=== PATIENT | female | born 1945 | race Caucasian/White ===

== ENCOUNTER → 2020-07-06 12:43 | Outpatient (BNVA) | payer MEDICARE, SELFPAY | PROVIDERS: Visit Provider Dietitian, Registered | DX: Z76.89 Persons encountering health services in other specified circumstances (principal) ==

== ENCOUNTER 2020-07-16 09:43 | Outpatient (REF) | payer MEDICARE, SELFPAY ==
[2020-07-16 10:49] LABS: MANUAL DIFF FLAG NO
[2020-07-16 10:56] LABS: Basophils Percent Auto 0.4 % (0-2); Eosinophils Absolute Auto 0.1 X10*3/uL (0.0-0.4); Hematocrit 43.9 % (37-47); Hemoglobin 14.6 g/dl (12.0-16.0); Imm Gran Abs Auto 0.02 X10*3/uL (0.00-0.03); Imm Gran Pct Auto 0.4 % (0.0-0.4); Lymphocytes Absolute Auto 1.1 X10*3/uL (1.2-4.9); Lymphocytes Percent Auto 21.6 % (20-40); Mean Corpuscular HGB Conc 33.3 g/dl (31.0-35.0); Mean Corpuscular Hemoglobin 30.3 pg (27.0-33.0); Mean Corpuscular Volume 91.1 fL (80-98); Mean Platelet Volume 11.5 fL (9.4-12.3); Monocytes Absolute Auto 0.2 X10*3/uL (0.1-1.2); Monocytes Percent Auto 4.5 % (2-11); Neutrophils Absolute Auto 3.7 X10*3/uL (2.0-8.3); Neutrophils Percent Auto 72.1 % (45-73); Platelet Count 229 X10*3/uL (160-400); Red Blood Count 4.82 X10*6/uL (4.20-5.50); White Blood Count 5.1 X10*3/uL (4.8-10.8)
[2020-07-16 11:10] LABS: Alanine Aminotransferase 20 U/L (0-31); Albumin Level 4.5 g/dL (3.5-5.0); Alkaline Phosphatase 98 U/L (39-117); Anion Gap 14 (12-20); Aspartate Amino Transferase 20 U/L (5-31); Bilirubin Total 0.7 mg/dL (0.0-1.0); Blood Urea Nitrogen 29 mg/dL (9-16); C Reactive Protein 0.05 mg/dL (< or = 0.50); Calcium 9.9 mg/dL (8.4-10.2); Carbon Dioxide 32 mmol/L (22-29); Chloride 101 mmol/L (96-108); Cholesterol 180 mg/dL; Estimated Glomerular Filt Rate 54; Glucose Fasting 147 mg/dL (60-99); HDL Cholesterol 68 mg/dL; Iron 102 mcg/dL (30-160); LDL Cholesterol Calculated 93 mg/dl; Percent Iron Saturation 30 % (15-50); Potassium 4.7 mmol/l (3.3-5.1); Sodium 142 mmol/L (135-145); Total Iron Binding Capacity 337 mcg/dL (228-428); Total Protein 6.9 g/dL (6.5-8.0); Triglycerides 99 mg/dL; Unsaturated Iron Binding 235 ug/dL
[2020-07-16 11:32] LABS: Ferritin 50 ng/mL (10-250); TSH reflex Free T4 0.54 mIU/mL (0.32-4.0)
[2020-07-16 11:45] LABS: Vitamin B12 706 pg/mL (200-900)
[2020-07-16 12:17] LABS: Estimated Average Glucose 169 mg/dL; Hemoglobin A1c % 7.5 %
[2020-07-17 07:16] LABS: Insulin Level Total 7.9 uIU/mL
[2020-07-19 13:12] LABS: Calcium (PTHI) 10.3 mg/dL (8.6-10.4); PTHI 50 pg/mL (14-64)
[2020-07-19 14:22] LABS: Zinc 77 mcg/dL (60-130)
[2020-07-22 12:01] LABS: Vitamin B1 20 nmol/L (8-30)
[2020-07-22 19:41] LABS: Vitamin A 76 mcg/dL (38-98)
== END 2020-07-16 09:44 | disposition home or self-care (01) ==
LOC: HO.LAB 09:43
PROVIDERS: PCP Internal Medicine; Visit Provider Physician Assistant
DX: E66.01 Morbid (severe) obesity due to excess calories (principal); K90.49 Malabsorption due to intolerance, not elsewhere classified; Z98.84 Bariatric surgery status
CPT/HCPCS: 36415; 80053; 80061; 82306; 82607; 82728; 82746; 83036; 83525; 83540; 83970; 84425; 84443; 84590; 84630; 85025; 86140

== ENCOUNTER → 2020-08-06 08:22 | Outpatient (BNVA) | payer MEDICARE, SELFPAY | PROVIDERS: Visit Provider Dietitian, Registered | DX: Z76.89 Persons encountering health services in other specified circumstances (principal) ==

== ENCOUNTER → 2020-09-10 08:10 | Outpatient (BNVA) | payer MEDICARE, SELFPAY | PROVIDERS: Visit Provider Dietitian, Registered | DX: Z76.89 Persons encountering health services in other specified circumstances (principal) ==

== ENCOUNTER 2020-09-14 08:45 | Outpatient (REF) | payer MEDICARE, SELFPAY ==
[2020-09-14 09:49] LABS: Estimated Average Glucose 206 mg/dL; Hemoglobin A1c % 8.8 %
[2020-09-14 10:04] LABS: Alanine Aminotransferase 17 U/L (0-31); Albumin Level 4.3 g/dL (3.5-5.0); Alkaline Phosphatase 86 U/L (39-117); Anion Gap 12 (12-20); Aspartate Amino Transferase 19 U/L (5-31); Bilirubin Total 0.4 mg/dL (0.0-1.0); Blood Urea Nitrogen 21 mg/dL (9-16); Calcium 9.7 mg/dL (8.4-10.2); Carbon Dioxide 32 mmol/L (22-29); Chloride 102 mmol/L (96-108); Cholesterol 161 mg/dL; Estimated Glomerular Filt Rate 58; Glucose Random 149 mg/dL (60-115); HDL Cholesterol 70 mg/dL; LDL Cholesterol Calculated 76 mg/dl; Potassium 4.7 mmol/l (3.3-5.1); Sodium 141 mmol/L (135-145); Total Protein 6.4 g/dL (6.5-8.0); Triglycerides 77 mg/dL
[2020-09-15 04:53] LABS: LDL Cholesterol Direct 75 mg/dL (<100)
== END 2020-09-14 08:46 | disposition home or self-care (01) ==
LOC: HO.LAB 08:45
PROVIDERS: PCP Internal Medicine; Visit Provider Internal Medicine
DX: E04.2 Nontoxic multinodular goiter (principal); E21.3 Hyperparathyroidism, unspecified; E55.9 Vitamin D deficiency, unspecified; E78.5 Hyperlipidemia, unspecified
CPT/HCPCS: 36415; 80053; 80061; 83036; 83721

== ENCOUNTER → 2020-09-22 08:09 | Outpatient (BNVA) | payer MEDICARE, SELFPAY | PROVIDERS: PCP Internal Medicine; Referring Provider Internal Medicine; Visit Provider Internal Medicine | DX: E11.65 Type 2 diabetes mellitus with hyperglycemia (principal); Z79.4 Long term (current) use of insulin; E78.5 Hyperlipidemia, unspecified; I10 Essential (primary) hypertension; E55.9 Vitamin D deficiency, unspecified; E21.3 Hyperparathyroidism, unspecified; E04.2 Nontoxic multinodular goiter | CPT/HCPCS: 82947; 99212 ==

== ENCOUNTER 2020-10-06 14:04 | Outpatient (REF) | payer MEDICARE, SELFPAY ==
--- NOTE | ~2020-10-06 | MM_ITS ---
EXAMINATION: MM SCREENING DIGITAL BREAST TOMOSYNTHESIS, BILATERAL CLINICAL INFORMATION: Screening. Asymptomatic. The lifetime risk of breast cancer based on the Tyrer-Cuzick Model is 4.5%. COMPARISON: Mammography: July 11, 2019 TECHNIQUE: Digital breast tomosynthesis is performed in both the craniocaudal and mediolateral oblique views along with computer-aided detection (CAD). Synthesized 2D images are generated from the tomosynthesis. FINDINGS: The breasts are extremely dense, which lowers the sensitivity of mammography (ACR BI-RADS breast composition Category d). There are no significant masses, abnormal calcifications, or other abnormalities. There has been significant diffuse increased density in breast parenchyma since previous study. MM/MM tomosynthesis screening BI IMPRESSION: No specific mammographic evidence to suggest malignancy. Increase in breast density diffusely. ASSESSMENT: BI-RADS 1: Negative RECOMMENDATION: Routine annual mammography screening. This patient's information was entered into a reminder system with a target due date for their next mammogram.
== END 2020-10-06 14:05 | disposition home or self-care (01) ==
LOC: HO.MAMMO 14:04
PROVIDERS: Visit Provider Internal Medicine
DX: Z12.31 Encounter for screening mammogram for malignant neoplasm of breast (principal)
CPT/HCPCS: 77063; 77067

== ENCOUNTER → 2020-10-13 13:53 | Outpatient (BNVA) | payer MEDICARE, SELFPAY | PROVIDERS: PCP Internal Medicine; Visit Provider Physician Assistant | DX: K91.2 Postsurgical malabsorption, not elsewhere classified (principal); Z90.3 Acquired absence of stomach [part of]; Z98.84 Bariatric surgery status | CPT/HCPCS: 99212 ==

== ENCOUNTER → 2020-10-20 10:07 | Outpatient (BNVA) | payer MEDICARE, SELFPAY | PROVIDERS: PCP Internal Medicine; Visit Provider Dietitian, Registered ==

== ENCOUNTER → 2020-11-10 08:21 | Outpatient (BNVA) | payer MEDICARE, SELFPAY | PROVIDERS: PCP Internal Medicine; Visit Provider Internal Medicine | DX: E11.65 Type 2 diabetes mellitus with hyperglycemia (principal); E78.5 Hyperlipidemia, unspecified; I10 Essential (primary) hypertension; E04.2 Nontoxic multinodular goiter; E21.3 Hyperparathyroidism, unspecified; E55.9 Vitamin D deficiency, unspecified; Z79.4 Long term (current) use of insulin; Z71.3 Dietary counseling and surveillance | CPT/HCPCS: 82947; 99212 ==

== ENCOUNTER → 2020-12-06 10:32 | Outpatient (BNVA) | payer MEDICARE, SELFPAY | PROVIDERS: PCP Internal Medicine; Visit Provider Physician Assistant | DX: K91.2 Postsurgical malabsorption, not elsewhere classified (principal); E11.9 Type 2 diabetes mellitus without complications; Z68.21 Body mass index [BMI] 21.0-21.9, adult; Z98.84 Bariatric surgery status; Z90.3 Acquired absence of stomach [part of]; Z71.3 Dietary counseling and surveillance; Z79.4 Long term (current) use of insulin | CPT/HCPCS: 99212 ==

== ENCOUNTER → 2020-12-14 12:42 | Outpatient (BNVA) | payer MEDICARE, SELFPAY | PROVIDERS: PCP Internal Medicine; Visit Provider Dietitian, Registered | DX: Z98.84 Bariatric surgery status (principal) | CPT/HCPCS: 97803 ==

== ENCOUNTER 2020-12-22 07:24 | Outpatient (REF) | payer MEDICARE, SELFPAY ==
[2020-12-22 10:34] LABS: Estimated Average Glucose 160 mg/dL; Hemoglobin A1c % 7.2 %
[2020-12-22 10:52] LABS: Alanine Aminotransferase 20 U/L (0-31); Albumin Level 4.5 g/dL (3.5-5.0); Alkaline Phosphatase 82 U/L (39-117); Anion Gap 10 (12-20); Aspartate Amino Transferase 18 U/L (5-31); Bilirubin Total 0.4 mg/dL (0.0-1.0); Blood Urea Nitrogen 35 mg/dL (9-16); Calcium 10.4 mg/dL (8.4-10.2); Carbon Dioxide 30 mmol/L (22-29); Chloride 102 mmol/L (96-108); Cholesterol 166 mg/dL; Estimated Glomerular Filt Rate > 60; Glucose Random 121 mg/dL (60-115); HDL Cholesterol 70 mg/dL; LDL Cholesterol Calculated 82 mg/dl; Phosphorus 3.6 mg/dL (2.7-4.5); Potassium 4.4 mmol/L (3.3-5.1); Sodium 138 mmol/L (135-145); Total Protein 6.7 g/dL (6.5-8.0); Triglycerides 71 mg/dL
[2020-12-22 10:53] LABS: Creatinine Urine 33.08 mg/dL; Microalbum/Creatinine Ratio Ur 48.3 ug/mg cr
[2020-12-22 11:13] LABS: Thyroid Stimulating Hormone 0.58 uIU/mL (0.32-4.0); Vitamin D 25-OH Total 49.4 ng/mL (>30)
[2020-12-23 07:52] LABS: LDL Cholesterol Direct 77 mg/dL (<100)
[2020-12-23 13:06] LABS: Calcium (PTHI) 10.2 mg/dL (8.6-10.4); PTHI 32 pg/mL (14-64)
== END 2020-12-22 07:25 | disposition home or self-care (01) ==
LOC: HO.LAB 07:24
PROVIDERS: PCP Internal Medicine; Visit Provider Internal Medicine
DX: E11.65 Type 2 diabetes mellitus with hyperglycemia (principal); E78.5 Hyperlipidemia, unspecified; E55.9 Vitamin D deficiency, unspecified; E21.3 Hyperparathyroidism, unspecified; E04.2 Nontoxic multinodular goiter; I10 Essential (primary) hypertension; Z79.4 Long term (current) use of insulin
CPT/HCPCS: 36415; 80053; 80061; 82043; 82306; 83036; 83721; 83970; 84100; 84443; Q3014

== ENCOUNTER → 2021-01-26 11:17 | Outpatient (BNVA) | payer MEDICARE, SELFPAY | PROVIDERS: PCP Internal Medicine; Visit Provider Internal Medicine ==

== ENCOUNTER → 2021-02-16 09:31 | Outpatient (BNVA) | payer MEDICARE, SELFPAY | PROVIDERS: PCP Internal Medicine; Visit Provider Internal Medicine | DX: E11.65 Type 2 diabetes mellitus with hyperglycemia (principal); E78.5 Hyperlipidemia, unspecified; E55.9 Vitamin D deficiency, unspecified; E21.3 Hyperparathyroidism, unspecified; E04.2 Nontoxic multinodular goiter; I10 Essential (primary) hypertension; Z79.4 Long term (current) use of insulin | CPT/HCPCS: 82947; 99212 ==

== ENCOUNTER → 2021-03-21 08:34 | Outpatient (BNVA) | payer MEDICARE, SELFPAY | PROVIDERS: PCP Internal Medicine; Visit Provider Dietitian, Registered | DX: E11.65 Type 2 diabetes mellitus with hyperglycemia (principal); Z79.4 Long term (current) use of insulin | CPT/HCPCS: 97803 ==

== ENCOUNTER 2021-05-19 12:26 | Outpatient (REF) | payer MEDICARE, SELFPAY ==
[2021-05-19 14:19] LABS: Estimated Average Glucose 160 mg/dL; Hemoglobin A1c % 7.2 %
[2021-05-19 14:35] LABS: Alanine Aminotransferase 18 U/L (0-31); Albumin Level 4.3 g/dL (3.5-5.0); Alkaline Phosphatase 64 U/L (39-117); Anion Gap 12 (12-20); Aspartate Amino Transferase 18 U/L (5-31); Bilirubin Total 0.4 mg/dL (0.0-1.0); Blood Urea Nitrogen 27 mg/dL (9-16); Calcium 10.5 mg/dL (8.4-10.2); Carbon Dioxide 30 mmol/L (22-29); Chloride 104 mmol/L (96-108); Estimated Glomerular Filt Rate 54; Glucose Random 104 mg/dL (60-115); Phosphorus 3.4 mg/dL (2.7-4.5); Potassium 4.5 mmol/L (3.3-5.1); Sodium 141 mmol/L (135-145); Total Protein 6.4 g/dL (6.5-8.0)
[2021-05-19 14:55] LABS: Vitamin D 25-OH Total 66.3 ng/mL (>30)
[2021-05-19 15:12] LABS: Creatinine Urine 74.35 mg/dL
[2021-05-24 08:47] LABS: Calcium (PTHI) 10.5 mg/dL (8.6-10.4); PTHI 27 pg/mL (14-64)
== END 2021-05-19 12:27 | disposition home or self-care (01) ==
LOC: HO.LAB 12:26
PROVIDERS: PCP Internal Medicine; Visit Provider Internal Medicine
DX: E11.65 Type 2 diabetes mellitus with hyperglycemia (principal); E21.3 Hyperparathyroidism, unspecified; E55.9 Vitamin D deficiency, unspecified; Z79.4 Long term (current) use of insulin
CPT/HCPCS: 36415; 80053; 82306; 83036; 83970; 84100

== ENCOUNTER → 2021-05-25 07:30 | Outpatient (BNVA) | payer MEDICARE, SELFPAY | PROVIDERS: PCP Internal Medicine; Visit Provider Internal Medicine | DX: E11.65 Type 2 diabetes mellitus with hyperglycemia (principal); E78.5 Hyperlipidemia, unspecified; E55.9 Vitamin D deficiency, unspecified; E21.3 Hyperparathyroidism, unspecified; E04.2 Nontoxic multinodular goiter; I10 Essential (primary) hypertension; Z79.4 Long term (current) use of insulin | CPT/HCPCS: 82947; 99212 ==

== ENCOUNTER → 2021-06-20 13:52 | Outpatient (REF) | payer MEDICARE, SELFPAY | LOC: HO.SL 13:52 | PROVIDERS: PCP Internal Medicine; Visit Provider Surgery | DX: G47.10 Hypersomnia, unspecified (principal); G47.30 Sleep apnea, unspecified; R06.83 Snoring | CPT/HCPCS: 95806 ==

== ENCOUNTER 2021-07-26 09:22 | Outpatient (REF) | payer MEDICARE, SELFPAY ==
--- NOTE | ~2021-07-26 | US_ITS ---
EXAMINATION: US THYROID CLINICAL INFORMATION: Nontoxic multinodular goiter. COMPARISON: Ultrasound-guided thyroid biopsy 03/04/2020. Thyroid ultrasound 07/23/2019. TECHNIQUE: Linear transducer grayscale and color Doppler examination with attention to the region of the thyroid. FINDINGS: SIZE: Measurements of the thyroid lobes and nodules are given in sagittal, anteroposterior and transverse dimensions respectively. Right Thyroid Lobe: 5.3 x 2.2 x 2.0 cm, volume 12.2 mL. Previously 5.0 x 2.3 x 1.6 cm, volume 9.6 mL. Parenchyma: The gland echotexture is heterogeneous. Thyroid vascularity is increased. Left Thyroid Lobe: 5.7 x 2.7 x 2.6 cm, volume 20.9 mL. Previously 5.0 x 2.3 x 2.3 cm, volume 13.8 mL. Parenchyma: The gland echotexture is heterogeneous. Thyroid vascularity is increased. Isthmus: 0.2 cm in maximum AP dimension. Previously 0.3 cm. There are innumerable bilateral nodules. Estimated total number of nodules greater than or equal to 1 cm: 1. [employer] nodules are described as follows: 1. Location: Left mid pole. Size: 4.3 x 2.4 x 2.5 cm, volume 13.5 mL. Previously: 3.8 x 2.0 x 2.6 cm, volume 10.3 mL. Nodule characteristics: Composition: Solid/almost completely solid (2). Echogenicity: Isoechoic (1). Shape: Not taller than wide (0). Margins: Smooth (0). Echogenic Foci: None (0). ACR TI-RADS total points: 3 ACR TI-RADS category: 3 Significant change in size (>/= 20% in 2 dimensions and minimal increase of 2 mm or 50% or greater increase in volume): Change in features: Change in ACR TI-RADS risk category: 2. Location: Right upper pole. Size: 0.8 x 0.5 x 0.7 cm, volume 0.1 mL. Previously: 0.7 x 0.4 x 0.7 cm, volume 0.1 mL. Nodule characteristics: Composition: Solid (2). Echogenicity: Hyperechoic (1). Shape: Not taller than wide (0). Margins: Ill-defined (0). Echogenic Foci: None (0). ACR TI-RADS total points: 3 ACR TI-RADS category: 3 Significant change in size (>/= 20% in 2 dimensions and minimal increase of 2 mm or 50% or greater increase in volume): Change in features: Change in ACR TI-RADS risk category: 3. Location: Right lower pole. Size: 0.7 x 0.5 x 0.7 cm, volume 0.2 mL. Previously: 0.8 x 0.5 x 0.6 cm, volume 0.1 mL. Nodule characteristics: Composition: Spongiform (0). ACR TI-RADS total points: 0 ACR TI-RADS category: 1 Significant change in size (>/= 20% in 2 dimensions and minimal increase of 2 mm or 50% or greater increase in volume): Change in features: Change in ACR TI-RADS risk category: 4. Location: Right isthmus. Size: 0.6 x 0.3 x 0.5 cm, volume 0.1 mL. Previously: This may correspond to the 8 x 5 x 8 mm nodule for example image 28 on June 2019 exam and the more cystic and smaller. Nodule characteristics: Composition: Mixed cystic and solid (1). Echogenicity: Cannot be determined (1). Shape: Not taller than wide (0). Margins: Ill-defined (0). Echogenic Foci: None (0). ACR TI-RADS total points: 2 ACR TI-RADS category: 2 Significant change in size (>/= 20% in 2 dimensions and minimal increase of 2 mm or 50% or greater increase in volume): Change in features: Change in ACR TI-RADS risk category: NODES: No lymphadenopathy is seen in the tissue surrounding the thyroid gland. US/US thyroid IMPRESSION: Enlarged heterogeneous hypervascular thyroid gland with innumerable bilateral nodules. No significant change from June 2019. ACR TI-RADS RECOMMENDATION REFERENCE: Ultrasound-guided fine-needle aspiration, followup ultrasound, no further follow up. * TR1 (0 point) and TR 2 (2 points): No FNA or follow up * TR3 (3 points): FNA if more than or equal to 2.5 cm in maximum dimension, followup ultrasound in 1, 3 and 5 years if 1.5 to 2.4 cm in maximum dimension. * TR4 (4-6 points): FNA if more than or equal to 1.5 cm in maximum dimension, followup ultrasound in 1, 2, 3 and 5 years if 1 to 1.4 cm in maximum dimension. * TR5 (more than or equal to 7 points): FNA if more than or equal to 1 cm in maximum dimension, followup ultrasound every year for 5 years if 0.5 to 0.9 cm in maximum dimension. * TR3, TR4 or TR5 nodules that are below the size threshold for follow up receive no follow up.
== END 2021-07-26 09:23 | disposition home or self-care (01) ==
LOC: HO.US 09:22
PROVIDERS: PCP Internal Medicine; Visit Provider Internal Medicine
DX: E04.2 Nontoxic multinodular goiter (principal)
CPT/HCPCS: 76536

== ENCOUNTER 2021-08-22 13:30 | Outpatient (REF) | payer MEDICARE, SELFPAY ==
[2021-08-22 15:10] LABS: Estimated Average Glucose 160 mg/dL; Hemoglobin A1c % 7.2 %
[2021-08-22 15:21] LABS: Creatinine Urine 84.19 mg/dL; Microalbum/Creatinine Ratio Ur 14.2 ug/mg cr
[2021-08-22 15:22] LABS: Alanine Aminotransferase 13 U/L (0-31); Albumin Level 4.2 g/dL (3.5-5.0); Alkaline Phosphatase 59 U/L (39-117); Anion Gap 11 (12-20); Aspartate Amino Transferase 17 U/L (5-31); Bilirubin Total 0.4 mg/dL (0.0-1.0); Blood Urea Nitrogen 26 mg/dL (9-16); Calcium 10.4 mg/dL (8.4-10.2); Carbon Dioxide 30 mmol/L (22-29); Chloride 102 mmol/L (96-108); Estimated Glomerular Filt Rate 56; Glucose Random 79 mg/dL (60-115); Phosphorus 3.5 mg/dL (2.7-4.5); Potassium 4.2 mmol/L (3.3-5.1); Sodium 139 mmol/L (135-145); Total Protein 6.5 g/dL (6.5-8.0)
[2021-08-22 15:43] LABS: Free T4 (Free Thyroxine) 0.93 ng/dL (0.71-1.85); Vitamin D 25-OH Total 41.5 ng/mL (>30)
[2021-08-24 12:47] LABS: Calcium (PTHI) 10.3 mg/dL (8.6-10.4); PTHI 36 pg/mL (14-64)
[2021-08-24 13:27] LABS: Prot Elec - Albumin 4.3 g/dL (3.8-4.8); Prot Elec - Alpha1 0.2 g/dL (0.2-0.3); Prot Elec - Alpha2 0.6 g/dL (0.5-0.9); Prot Elec - Beta 1 0.4 g/dL (0.4-0.6); Prot Elec - Beta 2 0.3 g/dL (0.2-0.5); Prot Elec - Gamma 0.8 g/dL (0.8-1.7); Prot Elec - Total Protein 6.7 g/dL (6.1-8.1)
== END 2021-08-22 13:31 | disposition home or self-care (01) ==
LOC: HO.LAB 13:30
PROVIDERS: PCP Internal Medicine; Visit Provider Internal Medicine
DX: E11.65 Type 2 diabetes mellitus with hyperglycemia (principal); E11.22 Type 2 diabetes mellitus with diabetic chronic kidney disease; I12.9 Hypertensive chronic kidney disease with stage 1 through stage 4 chronic kidney disease, or unspecified chronic kidney disease; N18.30 Chronic kidney disease, stage 3 unspecified; E78.5 Hyperlipidemia, unspecified; E21.3 Hyperparathyroidism, unspecified; E04.2 Nontoxic multinodular goiter; E55.9 Vitamin D deficiency, unspecified; K90.49 Malabsorption due to intolerance, not elsewhere classified; Z87.891 Personal history of nicotine dependence; Z98.84 Bariatric surgery status; Z90.3 Acquired absence of stomach [part of]; Z79.4 Long term (current) use of insulin; Z79.899 Other long term (current) drug therapy
CPT/HCPCS: 36415; 80053; 82043; 82306; 82947; 83036; 83970; 84100; 84165; 84439; 84443; 99212

== ENCOUNTER → 2021-08-31 08:57 | Outpatient (BNVA) | payer MEDICARE, SELFPAY | PROVIDERS: PCP Internal Medicine; Visit Provider Dietitian, Registered | DX: Z90.3 Acquired absence of stomach [part of] (principal) | CPT/HCPCS: 97803 ==

== ENCOUNTER 2021-11-16 07:26 | Outpatient (REF) | payer MEDICARE, SELFPAY ==
--- NOTE | ~2021-11-16 | MM_ITS ---
EXAMINATION: MM SCREENING DIGITAL BREAST TOMOSYNTHESIS, BILATERAL CLINICAL INFORMATION: Screening. Asymptomatic. The lifetime risk of breast cancer based on the Tyrer-Cuzick Model is 4.3%. COMPARISON: Mammography: October 06, 2020 and July 11, 2019 TECHNIQUE: Digital breast tomosynthesis is performed in both the craniocaudal and mediolateral oblique views along with computer-aided detection (CAD). Synthesized 2D images are generated from the tomosynthesis. FINDINGS: The breasts are extremely dense, which lowers the sensitivity of mammography (ACR BI-RADS breast composition Category d). There are no significant masses, abnormal calcifications, or other abnormalities. MM/MM tomosynthesis screening BI IMPRESSION: There are no significant changes from prior study. ASSESSMENT: BI-RADS 1: Negative RECOMMENDATION: Routine annual mammography screening. This patient's information was entered into a reminder system with a target due date for their next mammogram.
[2021-11-16 08:11] LABS: Estimated Average Glucose 171 mg/dL; Hemoglobin A1c % 7.6 %
[2021-11-16 08:21] LABS: Alanine Aminotransferase 14 U/L (0-31); Albumin Level 4.3 g/dL (3.5-5.0); Alkaline Phosphatase 63 U/L (39-117); Anion Gap 13 (12-20); Aspartate Amino Transferase 14 U/L (5-31); Bilirubin Total 0.6 mg/dL (0.0-1.0); Blood Urea Nitrogen 23 mg/dL (9-16); Calcium 10.5 mg/dL (8.4-10.2); Carbon Dioxide 28 mmol/L (22-29); Chloride 103 mmol/L (96-108); Cholesterol 179 mg/dL; Estimated Glomerular Filt Rate 52; Glucose Random 146 mg/dL (60-115); HDL Cholesterol 65 mg/dL; LDL Cholesterol Calculated 98 mg/dl; Potassium 4.4 mmol/L (3.3-5.1); Sodium 140 mmol/L (135-145); Total Protein 6.7 g/dL (6.5-8.0); Triglycerides 82 mg/dL
[2021-11-16 09:22] LABS: Creatinine Urine 50.33 mg/dL; Microalbum/Creatinine Ratio Ur 19.8 ug/mg cr
[2021-11-17 14:13] LABS: Vitamin D 25-OH Total 42.5 ng/mL (>30)
[2021-11-18 02:12] LABS: LDL Cholesterol Direct 91 mg/dL (<100)
== END 2021-11-16 07:27 | disposition home or self-care (01) ==
LOC: HO.MAMMO 07:26
PROVIDERS: Absent Provider Internal Medicine; PCP Internal Medicine; Visit Provider Internal Medicine
DX: Z12.31 Encounter for screening mammogram for malignant neoplasm of breast (principal); E11.65 Type 2 diabetes mellitus with hyperglycemia; Z79.4 Long term (current) use of insulin; Z90.3 Acquired absence of stomach [part of]
CPT/HCPCS: 36415; 77063; 77067; 80053; 80061; 82043; 82306; 83036; 83721; 97803

== ENCOUNTER → 2021-11-21 08:31 | Outpatient (BNVA) | payer MEDICARE, SELFPAY | PROVIDERS: PCP Internal Medicine; Visit Provider Internal Medicine | DX: E11.65 Type 2 diabetes mellitus with hyperglycemia (principal); E78.5 Hyperlipidemia, unspecified; E55.9 Vitamin D deficiency, unspecified; E21.3 Hyperparathyroidism, unspecified; E04.2 Nontoxic multinodular goiter; I10 Essential (primary) hypertension; Z79.4 Long term (current) use of insulin | CPT/HCPCS: 82947; 99212 ==

== ENCOUNTER → 2021-12-28 17:00 | Outpatient (BNVA) | payer MEDICARE, SELFPAY | PROVIDERS: PCP Internal Medicine; Visit Provider Counselor Mental Health | DX: F43.20 Adjustment disorder, unspecified (principal); Z98.84 Bariatric surgery status | CPT/HCPCS: 90853 ==

== ENCOUNTER → 2022-01-04 17:00 | Outpatient (BNVA) | payer MEDICARE, SELFPAY | PROVIDERS: PCP Internal Medicine; Visit Provider Counselor Mental Health | DX: F43.20 Adjustment disorder, unspecified (principal); Z98.84 Bariatric surgery status | CPT/HCPCS: 90853 ==

== ENCOUNTER 2022-01-06 14:22 | Outpatient (REF) | payer MEDICARE, SELFPAY ==
--- NOTE | ~2022-01-06 | US_ITS ---
EXAMINATION: US SCREENING LEFT BREAST ULTRASOUND CLINICAL INFORMATION: Dense breast tissue. COMPARISON: Mammography of 11/16/2021. TECHNIQUE: Screening breast ultrasound including all 4 quadrants and retroareolar region. FINDINGS: About the 3 o'clock position, 7 cm from the nipple, there is an oval hypoechoic lesion without internal vascularity which is well circumscribed. There is no appreciable distal-sound shadowing or enhancement. The lesion measures approximately 9 x 11 x 4 mm in size. Ultrasound-guided core biopsy is recommended. The above was discussed with the patient at time of study. [facility] patient navigator called recommendation to referring provider's office. US/US breast LT complete IMPRESSION: Well-circumscribed density which may represent fibroadenoma 3 o'clock position left breast for which ultrasound-guided core biopsy is recommended. ASSESSMENT: BI-RADS 4. RECOMMENDATION: Biopsy recommended.
--- NOTE | ~2022-01-06 | US_ITS ---
EXAMINATION: SCREENING RIGHT BREAST ULTRASOUND CLINICAL INFORMATION: Screening for dense breast tissue COMPARISON: Mammography of November 16, 2021 TECHNIQUE: Screening right breast ultrasound coating all 4 quadrants and retroareolar region FINDINGS: No abnormal cystic or solid mass identified. No region of abnormal distal sound shadowing. No edematous change within the parenchyma is seen. US/US breast RT complete IMPRESSION: Normal screening right breast ultrasound. Right breast BI-RADS 1. Patient is recommended to have a left breast biopsy with ultrasound guidance and therefore left breast is BI-RADS 4.
== END 2022-01-06 14:23 | disposition home or self-care (01) ==
LOC: HO.MAMMO 14:22
PROVIDERS: PCP Internal Medicine; Visit Provider Internal Medicine
DX: R92.2 Inconclusive mammogram (principal)
CPT/HCPCS: 76641

== ENCOUNTER → 2022-01-09 10:46 | Outpatient (BNVA) | payer MEDICARE, SELFPAY | PROVIDERS: PCP Internal Medicine; Visit Provider Surgery | DX: N63.20 Unspecified lump in the left breast, unspecified quadrant (principal) | CPT/HCPCS: 99202 ==

== ENCOUNTER 2022-01-10 07:57 | Outpatient (REF) | payer MEDICARE, SELFPAY ==
--- NOTE | ~2022-01-10 | MM_ITS ---
EXAMINATION: ULTRASOUND GUIDED CORE BIOPSY BREAST, LEFT POST PROCEDURE DIGITAL BREAST TOMOSYNTHESIS, LEFT CLINICAL INFORMATION: Screening ultrasound for dense parenchymal pattern reveals circumscribed oval nodule outer left breast 1.1 x 0.4 x 0.9 cm, likely fibroadenoma. No family history breast cancer. TC score 4%. COMPARISON: Mammography 11/16/2021, bilateral screening breast ultrasound 01/06/2022. FINDINGS: Proper informed consent is obtained from the patient after discussion of the procedure, potential risks and complications, and alternatives. Patient was given an opportunity for questions. The patient appeared to understand. The patient consented to the procedure and signed the consent form. GUIDANCE: Ultrasound-guided; aseptic technique. LESION: Oval circumscribed nodule outer left breast 1.1 cm in greatest dimension, probable fibroadenoma. APPROACH: Oblique caudal cranial. ANESTHESIA: 8 mL carbonated 1% lidocaine. DERMATOTOMY: Single skin alok dermatotomy performed. NEEDLE: 14-gauge Achieve core biopsy device with 13.5-gauge co-axial guide needle. CORES: 5. CLIP: HydroMARK; shape: open coil. POST PROCEDURE DIGITAL BREAST TOMOSYNTHESIS, LEFT: The post biopsy mammogram is performed in separate room using separate digital breast tomosynthesis equipment from the biopsy procedure. CC and ML views are obtained. Synthesized 2-D images are generated from the tomography.The breasts are extremely dense, which lowers the sensitivity of mammography (breast composition category: d). Denser breast tissue composition is in the anterior breasts similar to screening exam. The clip marker is in position. No gross hematoma. The patient tolerated the procedure well. No immediate complications. Home instructions reviewed with the patient. Final pathology results are pending. MM/MM tomosynthesis diagnostic LT IMPRESSION: 1. Status post ultrasound-guided core biopsy left breast. 2. Clip placed: Ultraclip; shape: open coil. 3. Pathology pending. An addendum report will be issued.
[2022-01-10] MEDS: Sodium Bicarbonate 8.4% 50 MEQ/50 ML VIAL SUBCUT (09:24)
[2022-01-10] MEDS: Lidocaine HCl 1 % 20 ML VIAL 7 ML SUBCUT (09:25)
== END 2022-01-10 07:58 | disposition home or self-care (01) ==
LOC: HO.MAMMO 07:57
PROVIDERS: PCP Internal Medicine; Visit Provider Surgery
DX: N63.25 Unspecified lump in the left breast, overlapping quadrants (principal)
CPT/HCPCS: 19083; 77061; 77065; 88305; A4648

== ENCOUNTER → 2022-01-11 08:05 | Outpatient (BNVA) | payer MEDICARE, SELFPAY | PROVIDERS: PCP Internal Medicine; Visit Provider Registered Nurse Diabetes Educator | DX: E11.65 Type 2 diabetes mellitus with hyperglycemia (principal); Z79.4 Long term (current) use of insulin | CPT/HCPCS: 99211 ==

== ENCOUNTER → 2022-01-17 15:01 | Outpatient (BNVA) | payer MEDICARE, SELFPAY | PROVIDERS: PCP Internal Medicine; Visit Provider Surgery | DX: N63.20 Unspecified lump in the left breast, unspecified quadrant (principal) | CPT/HCPCS: Q3014 ==

== ENCOUNTER → 2022-01-25 17:00 | Outpatient (BNVA) | payer MEDICARE, SELFPAY | PROVIDERS: PCP Internal Medicine; Visit Provider Counselor Mental Health | DX: F43.20 Adjustment disorder, unspecified (principal); Z98.84 Bariatric surgery status | CPT/HCPCS: 90853 ==

== ENCOUNTER → 2022-02-01 17:00 | Outpatient (BNVA) | payer MEDICARE, SELFPAY | PROVIDERS: PCP Internal Medicine; Visit Provider Counselor Mental Health | DX: F43.20 Adjustment disorder, unspecified (principal); Z98.84 Bariatric surgery status | CPT/HCPCS: 90853 ==

== ENCOUNTER 2022-02-10 08:07 | Outpatient (REF) | payer MEDICARE, SELFPAY ==
[2022-02-10 09:19] LABS: Alanine Aminotransferase 14 U/L (0-31); Albumin Level 4.3 g/dL (3.5-5.0); Alkaline Phosphatase 67 U/L (39-117); Anion Gap 12 (12-20); Aspartate Amino Transferase 14 U/L (5-31); Bilirubin Total 0.6 mg/dL (0.0-1.0); Blood Urea Nitrogen 31 mg/dL (9-16); Calcium 10.1 mg/dL (8.4-10.2); Carbon Dioxide 28 mmol/L (22-29); Chloride 102 mmol/L (96-108); Estimated Glomerular Filt Rate 53; Glucose Random 142 mg/dL (60-115); Potassium 4.6 mmol/L (3.3-5.1); Sodium 137 mmol/L (135-145); Total Protein 6.6 g/dL (6.5-8.0)
[2022-02-10 09:31] LABS: Estimated Average Glucose 169 mg/dL; Hemoglobin A1c % 7.5 %
[2022-02-10 09:44] LABS: Free T4 (Free Thyroxine) 0.98 ng/dL (0.71-1.85); Thyroid Stimulating Hormone 0.53 uIU/mL (0.32-4.0); Vitamin D 25-OH Total 49.8 ng/mL (>30)
[2022-02-10 09:57] LABS: Folate 7.1 ng/mL (> or = 4.0); Vitamin B12 1489 pg/mL (200-900)
[2022-02-15 10:22] LABS: Vitamin A 87 mcg/dL (38-98)
[2022-02-18 11:07] LABS: Vitamin B1 11 nmol/L (8-30)
== END 2022-02-10 08:08 | disposition home or self-care (01) ==
LOC: HO.LAB 08:07
PROVIDERS: Physician Assistant; Visit Provider Internal Medicine
DX: E11.65 Type 2 diabetes mellitus with hyperglycemia (principal); E04.2 Nontoxic multinodular goiter; E55.9 Vitamin D deficiency, unspecified; Z79.4 Long term (current) use of insulin; Z98.84 Bariatric surgery status
CPT/HCPCS: 36415; 80053; 82306; 82607; 82746; 83036; 84425; 84439; 84443; 84590

== ENCOUNTER → 2022-02-13 07:51 | Outpatient (BNVA) | payer MEDICARE, SELFPAY | PROVIDERS: PCP Internal Medicine; Visit Provider Internal Medicine | DX: E11.65 Type 2 diabetes mellitus with hyperglycemia (principal); E78.5 Hyperlipidemia, unspecified; E55.9 Vitamin D deficiency, unspecified; E21.3 Hyperparathyroidism, unspecified; E04.2 Nontoxic multinodular goiter; I10 Essential (primary) hypertension; Z79.4 Long term (current) use of insulin | CPT/HCPCS: Q3014 ==

== ENCOUNTER → 2022-02-14 08:25 | Outpatient (BNVA) | payer MEDICARE, SELFPAY | PROVIDERS: PCP Internal Medicine; Referring Provider Surgery; Visit Provider Dietitian, Registered | DX: E66.9 Obesity, unspecified (principal); Z98.84 Bariatric surgery status; Z71.3 Dietary counseling and surveillance | CPT/HCPCS: 97803 ==

== ENCOUNTER 2022-03-22 08:25 | Outpatient (REF) | payer MEDICARE, SELFPAY ==
--- NOTE | ~2022-03-22 | MM_ITS ---
EXAMINATION: BONE DENSITOMETRY CLINICAL INDICATION: Hyperparathyroidism, unspecified. COMPARISON: Baseline BD dated 03/19/2020. TECHNIQUE: Using a TriOv[employer] DXA System (software version: 13.1) manufactured by [employer], dual-energy x-ray absorptiometry was performed of the lumbar spine, left hip, and left forearm radius 33%. The images are of good technical quality. Summary results are attached. FINDINGS: AP SPINE L1-L4: Current: BMD 1.350 g/cm2, Z-score 3.4, T-score 1.4, normal, 4.2% decrease from baseline (<5% change is not significant). Baseline: BMD 1.409 g/cm2. LEFT FOREARM RADIUS 33%: BMD 0.962 g/cm2, Z-score 3.3, T-score 1.0, normal, 2.1% decrease from baseline (<5% change is not significant). Baseline: BMD 0.983 g/cm2. LEFT FEMUR, NECK: Current: BMD 1.004 g/cm2, Z-score 1.8, T-score -0.2, normal. Baseline: BMD 1.052 g/cm2. LEFT FEMUR, TOTAL: Current: BMD 0.938 g/cm2, Z-score 1.4, T-score -0.6, normal, 11.2% decrease from baseline (<5% change is not significant). Baseline: BMD 1.056 g/cm2. IDENTIFIED RISK FACTORS: Menopause, secondary osteoporosis. HISTORY OF FRACTURE: None listed. MEDICATIONS: None listed. MM/XR DEXA appendicular skeleton IMPRESSION: 1. DIAGNOSIS: Normal bone density based on the lowest T-score value of -0.6 in the total femur applying World Health Organization criteria. 2. 10-YEAR FRACTURE RISK PREDICTION, FRAX: According to the guidelines, FRAX calculation should only be performed on patients in the osteopenia bone density category. Therefore, FRAX was not performed on this patient. 3. Treatment Recommendations: NOF guidelines recommend consideration for treatment in postmenopausal women and men age 50 and older presenting with the following: -A hip or vertebral (clinical or morphometric) fracture. -T-score less than or equal to -2.5 at the femoral neck or spine after appropriate evaluation to exclude secondary causes. -Low bone mass at the hip or spine and a 10-year fracture probability by FRAX of greater than or equal to 3% for hip fracture or greater than or equal to 20% for major osteoporotic fracture based on the [place] adapted WHO algorithm. 4. Other Recommendations: All treatment decisions require clinical judgment and consideration of individual patient factors, including patient preferences, comorbidities, previous drug use, risk factors not captured in the FRAX model (e.g. frailty, falls, vitamin D deficiency, increased bone turnover, interval significant decline in bone density) and possible under or overestimation of fracture risk by FRAX. FUTURE SCAN RECOMMENDATION: People with diagnosed cases of osteoporosis or at high risk for fracture should have regular bone mineral density tests. For patients eligible for Medicare, routine testing is allowed once every 2 years. The testing frequency can be increased to one year for patients who have rapidly progressing disease, those who are receiving or discontinuing medical therapy to restore bone mass, or have additional risk factors.
== END 2022-03-22 08:26 | disposition home or self-care (01) ==
LOC: HO.MAMMO 08:25
PROVIDERS: PCP Internal Medicine; Visit Provider Internal Medicine
DX: Z13.820 Encounter for screening for osteoporosis (principal); E21.3 Hyperparathyroidism, unspecified; Z78.0 Asymptomatic menopausal state
CPT/HCPCS: 77081

== ENCOUNTER 2022-05-08 08:10 | Outpatient (REF) | payer MEDICARE, SELFPAY ==
[2022-05-08 09:01] LABS: Estimated Average Glucose 180 mg/dL; Hemoglobin A1c % 7.9 %
[2022-05-08 09:21] LABS: Alanine Aminotransferase 15 U/L (0-31); Albumin Level 4.2 g/dL (3.5-5.0); Alkaline Phosphatase 61 U/L (39-117); Anion Gap 15 (12-20); Aspartate Amino Transferase 17 U/L (5-31); Bilirubin Total 0.6 mg/dL (0.0-1.0); Blood Urea Nitrogen 23 mg/dL (9-16); Calcium 9.9 mg/dL (8.4-10.2); Carbon Dioxide 27 mmol/L (22-29); Chloride 102 mmol/L (96-108); Estimated Glomerular Filt Rate 51; Glucose Random 189 mg/dL (60-115); Phosphorus 3.3 mg/dL (2.7-4.5); Potassium 4.8 mmol/L (3.3-5.1); Sodium 139 mmol/L (135-145); Total Protein 6.6 g/dL (6.5-8.0)
[2022-05-08 09:45] LABS: Free T4 (Free Thyroxine) 0.92 ng/dL (0.71-1.85); Thyroid Stimulating Hormone 0.57 uIU/mL (0.32-4.0)
[2022-05-08 09:58] LABS: Vitamin B12 806 pg/mL (200-900)
[2022-05-08 10:22] LABS: Vitamin D 25-OH Total 36.2 ng/mL (>30)
[2022-05-10 13:33] LABS: Calcium (PTHI) 10.2 mg/dL (8.6-10.4); PTHI 34 pg/mL (16-77)
== END 2022-05-08 08:11 | disposition home or self-care (01) ==
LOC: HO.LAB 08:10
PROVIDERS: PCP Internal Medicine; Visit Provider Internal Medicine
DX: E11.65 Type 2 diabetes mellitus with hyperglycemia (principal); E21.3 Hyperparathyroidism, unspecified; E04.2 Nontoxic multinodular goiter; E55.9 Vitamin D deficiency, unspecified; Z79.4 Long term (current) use of insulin
CPT/HCPCS: 36415; 80053; 82306; 82607; 83036; 83970; 84100; 84439; 84443

== ENCOUNTER → 2022-05-15 07:40 | Outpatient (BNVA) | payer MEDICARE, SELFPAY | PROVIDERS: PCP Internal Medicine; Visit Provider Internal Medicine | DX: E11.65 Type 2 diabetes mellitus with hyperglycemia (principal); Z79.4 Long term (current) use of insulin; E78.5 Hyperlipidemia, unspecified; I10 Essential (primary) hypertension; E55.9 Vitamin D deficiency, unspecified; E21.3 Hyperparathyroidism, unspecified; E04.2 Nontoxic multinodular goiter | CPT/HCPCS: Q3014 ==

== ENCOUNTER → 2022-05-18 08:21 | Outpatient (BNVA) | payer MEDICARE, SELFPAY | PROVIDERS: PCP Internal Medicine; Referring Provider Surgery; Visit Provider Dietitian, Registered | DX: Z98.84 Bariatric surgery status (principal); Z71.3 Dietary counseling and surveillance | CPT/HCPCS: 97803 ==

== ENCOUNTER → 2022-06-19 14:57 | Outpatient (BNVA) | payer MEDICARE, SELFPAY | PROVIDERS: PCP Internal Medicine; Referring Provider Dietitian, Registered; Visit Provider Physician Assistant Surgical | DX: Z98.84 Bariatric surgery status (principal) | CPT/HCPCS: 99212 ==

== ENCOUNTER 2022-06-26 10:37 | Outpatient (REF) | payer MEDICARE, SELFPAY ==
[2022-06-26 10:54] LABS: MANUAL DIFF FLAG NO
[2022-06-26 11:57] LABS: Basophils Absolute Auto 0.1 X10*3/uL (0.0-0.2); Basophils Percent Auto 1.4 % (0-2); Eosinophils Absolute Auto 0.1 X10*3/uL (0.0-0.4); Eosinophils Percent Auto 3.8 % (0-4); Hemoglobin 13.4 g/dl (12.0-16.0); Lymphocytes Absolute Auto 1.3 X10*3/uL (1.2-4.9); Lymphocytes Percent Auto 35.5 % (20-40); Mean Corpuscular HGB Conc 32.7 g/dl (31.0-35.0); Mean Corpuscular Hemoglobin 29.6 pg (27.0-33.0); Mean Corpuscular Volume 90.5 fL (80.0-98.0); Mean Platelet Volume 10.1 fL (9.4-12.3); Monocytes Absolute Auto 0.2 X10*3/uL (0.1-1.2); Monocytes Percent Auto 6.6 % (2-11); Neutrophils Absolute Auto 1.9 x10*3/uL (2.0-8.3); Neutrophils Percent Auto 52.7 % (45-73); Platelet Count 293 X10*3/uL (160-400); Red Blood Count 4.53 X10*6/uL (4.20-5.50); Red Cell Distribution Width 12.4 % (11.0-16.0); White Blood Count 3.7 X10*3/uL (4.8-10.8)
[2022-06-26 12:29] LABS: Estimated Average Glucose 171 mg/dL; Hemoglobin A1c % 7.6 %
[2022-06-26 12:47] LABS: Alanine Aminotransferase 16 U/L (0-31); Albumin Level 4.8 g/dL (3.5-5.0); Alkaline Phosphatase 60 U/L (39-117); Anion Gap 17 (12-20); Aspartate Amino Transferase 17 U/L (5-31); Bilirubin Total 0.5 mg/dL (0.0-1.0); Blood Urea Nitrogen 20 mg/dL (9-16); C Reactive Protein 0.04 mg/dL (< or = 0.50); Calcium 10.6 mg/dL (8.4-10.2); Carbon Dioxide 26 mmol/L (22-29); Chloride 101 mmol/L (96-108); Cholesterol 168 mg/dL; Estimated Glomerular Filt Rate 51; Glucose Random 144 mg/dL (60-115); HDL Cholesterol 65 mg/dL; Iron 100 mcg/dL (30-160); LDL Cholesterol Calculated 81 mg/dl; Percent Iron Saturation 28 % (15-50); Potassium 4.7 mmol/L (3.3-5.1); Sodium 139 mmol/L (135-145); Total Iron Binding Capacity 351 mcg/dL (228-428); Total Protein 7.3 g/dL (6.5-8.0); Triglycerides 114 mg/dL; Unsaturated Iron Binding 251 ug/dL
[2022-06-26 12:50] LABS: Ferritin 78 ng/mL (10-250); Insulin 10 uU/mL (2-29); TSH reflex Free T4 0.63 uIU/mL (0.32-4.0); Vitamin D 25-OH Total 34.3 ng/mL (>30)
[2022-06-26 13:05] LABS: Folate 13.4 ng/mL (> or = 4.0); Vitamin B12 760 pg/mL (200-900)
[2022-06-27 11:42] LABS: Calcium (PTHI) 10.3 mg/dL (8.6-10.4); PTHI 45 pg/mL (16-77)
[2022-06-29 06:51] LABS: Zinc 84 mcg/dL (60-130)
[2022-06-30 13:36] LABS: Vitamin B1 16 nmol/L (8-30)
[2022-07-02 17:51] LABS: Vitamin A 74 mcg/dL (38-98)
== END 2022-06-26 10:38 | disposition home or self-care (01) ==
LOC: HO.LAB 10:37
PROVIDERS: PCP Internal Medicine; Visit Provider Physician Assistant Surgical
DX: K91.2 Postsurgical malabsorption, not elsewhere classified (principal); Z98.84 Bariatric surgery status
CPT/HCPCS: 36415; 80053; 80061; 82306; 82607; 82728; 82746; 83036; 83525; 83540; 83970; 84425; 84443; 84590; 84630; 85025; 86140

== ENCOUNTER 2022-08-01 07:40 | Outpatient (REF) | payer MEDICARE, SELFPAY ==
--- NOTE | ~2022-08-01 | US_ITS ---
EXAMINATION: US THYROID CLINICAL INFORMATION: Nontoxic multinodular goiter. COMPARISON: Thyroid ultrasound 07/26/2021. Ultrasound-guided thyroid biopsy 03/04/2020. TECHNIQUE: Linear transducer grayscale and color Doppler examination with attention to the region of the thyroid. FINDINGS: SIZE: Measurements of the thyroid lobes and nodules are given in sagittal, anteroposterior and transverse dimensions respectively. Right Thyroid Lobe: 4.9 x 2.1 x 1.5 cm, volume 8.0 mL. Previously 5.3 x 2.2 x 2.0 cm, volume 12.2 mL. Parenchyma: The gland echotexture is heterogeneous. Thyroid vascularity is increased. Left Thyroid Lobe: 5.4 x 2.4 x 2.7 cm, volume 17.7 mL. Previously 5.7 x 2.7 x 2.6 cm, volume 20.9 mL. Parenchyma: The gland echotexture is heterogeneous. Thyroid vascularity is increased. Isthmus: 0.1 cm in maximum AP dimension. Previously 0.2 cm. Estimated total number of nodules greater than or equal to 1 cm: 1. [employer] nodules are described as follows: 1. Location: Left mid pole. Size: 4.4 x 1.9 x 2.4 cm, volume 10.0 mL. Previously: 2.5 x 2.4 x 4.3 cm, volume 13.7 mL. Nodule characteristics: Composition: Solid/almost completely solid (2). Echogenicity: Isoechoic (1). Shape: Not taller than wide (0). Margins: Smooth (0). Echogenic Foci: Comet-tail artifacts (0). ACR TI-RADS total points: 3 Previous: 3 ACR TI-RADS category: 3 Previous: 3 Significant change in size (>/= 20% in 2 dimensions and minimal increase of 2 mm or 50% or greater increase in volume): No Change in features: No Change in ACR TI-RADS risk category: No 2. Location: Right mid pole. Size: 0.8 x 0.4 x 0.6 cm, volume 0.09 mL. Previously: 0.6 x 0.5 x 0.7 cm, volume 0.1 mL. Nodule characteristics: Composition: Solid/almost completely solid (2). Echogenicity: Isoechoic (1). Shape: Not taller than wide (0). Margins: Ill-defined (0). Echogenic Foci: None (0). ACR TI-RADS total points: 3 Previous: 3 ACR TI-RADS category: 3 Previous: 3 Significant change in size (>/= 20% in 2 dimensions and minimal increase of 2 mm or 50% or greater increase in volume): No Change in features: No Change in ACR TI-RADS risk category: No 3. Location: Right mid pole. Size: 0.7 x 0.4 x 0.5 cm, volume 0.08 mL. Previously: 0.7 x 0.5 x 0.7 cm, volume 0.2 mL. Nodule characteristics: Composition: Spongiform (0). ACR TI-RADS total points: 0 Previous: 0 ACR TI-RADS category: 1 Previous: 1 Significant change in size (>/= 20% in 2 dimensions and minimal increase of 2 mm or 50% or greater increase in volume): No Change in features: No Change in ACR TI-RADS risk category: No 4. Location: Right mid pole. Size: 0.8 x 0.5 x 0.7 cm, volume 0.1 mL. Previously: Not measured previously. Nodule characteristics: Composition: Solid (2). Echogenicity: Hypoechoic (2). Shape: Not taller than wide (0). Margins: Ill-defined (0). Echogenic Foci: None (0). ACR TI-RADS total points: 4 ACR TI-RADS category: 4 NODES: No lymphadenopathy is seen in the tissue surrounding the thyroid gland. 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 This latter nodule does not meet size criteria for further evaluation according to the ACR TI RADS recommendations. The largest nodule in the left gland measuring up to 4.4 cm TR 3, was previously biopsied in 2020. ACR TI-RADS RECOMMENDATION REFERENCE: Ultrasound-guided fine-needle aspiration, followup ultrasound, no further follow up. * TR1 (0 point) and TR 2 (2 points): No FNA or follow up * TR3 (3 points): FNA if more than or equal to 2.5 cm in maximum dimension, followup ultrasound in 1, 3 and 5 years if 1.5 to 2.4 cm in maximum dimension. * TR4 (4-6 points): FNA if more than or equal to 1.5 cm in maximum dimension, followup ultrasound in 1, 2, 3 and 5 years if 1 to 1.4 cm in maximum dimension. * TR5 (more than or equal to 7 points): FNA if more than or equal to 1 cm in maximum dimension, followup ultrasound every year for 5 years if 0.5 to 0.9 cm in maximum dimension. * TR3, TR4 or TR5 nodules that are below the size threshold for follow up receive no follow up.
== END 2022-08-01 07:41 | disposition home or self-care (01) ==
LOC: HO.US 07:40
PROVIDERS: Visit Provider Internal Medicine
DX: E04.2 Nontoxic multinodular goiter (principal)
CPT/HCPCS: 76536

== ENCOUNTER 2022-08-14 07:08 | Outpatient (REF) | payer MEDICARE, SELFPAY ==
[2022-08-14 08:20] LABS: Estimated Average Glucose 157 mg/dL; Hemoglobin A1c % 7.1 %
[2022-08-14 08:54] LABS: Microalbum/Creatinine Ratio Ur 18.7 ug/mg cr
[2022-08-14 09:03] LABS: Alanine Aminotransferase 14 U/L (0-31); Albumin Level 4.4 g/dL (3.5-5.0); Alkaline Phosphatase 64 U/L (39-117); Anion Gap 13 (12-20); Aspartate Amino Transferase 15 U/L (5-31); Bilirubin Total 0.5 mg/dL (0.0-1.0); Blood Urea Nitrogen 19 mg/dL (9-16); Calcium 10.1 mg/dL (8.4-10.2); Carbon Dioxide 28 mmol/L (22-29); Chloride 103 mmol/L (96-108); Cholesterol 167 mg/dL; Estimated Glomerular Filt Rate > 60; Glucose Random 126 mg/dL (60-115); HDL Cholesterol 58 mg/dL; LDL Cholesterol Calculated 96 mg/dl; Potassium 4.4 mmol/L (3.3-5.1); Sodium 140 mmol/L (135-145); Thyroid Stimulating Hormone 0.87 uIU/mL (0.32-4.0); Total Protein 6.6 g/dL (6.5-8.0); Triglycerides 67 mg/dL
[2022-08-16 05:04] LABS: LDL Cholesterol Direct 89 mg/dL (<100)
== END 2022-08-14 07:09 | disposition home or self-care (01) ==
LOC: HO.LAB 07:08
PROVIDERS: PCP Internal Medicine; Visit Provider Internal Medicine
DX: E11.65 Type 2 diabetes mellitus with hyperglycemia (principal); E78.5 Hyperlipidemia, unspecified; I10 Essential (primary) hypertension; E55.9 Vitamin D deficiency, unspecified; E21.3 Hyperparathyroidism, unspecified; E04.2 Nontoxic multinodular goiter; Z79.4 Long term (current) use of insulin
CPT/HCPCS: 36415; 80053; 80061; 82043; 82947; 83036; 83721; 84439; 84443; 99212

== ENCOUNTER → 2022-08-23 12:46 | Outpatient (BNVA) | payer MEDICARE, SELFPAY | PROVIDERS: PCP Internal Medicine; Visit Provider Dietitian, Registered | DX: Z90.3 Acquired absence of stomach [part of] (principal) | CPT/HCPCS: 97803 ==

== ENCOUNTER 2022-09-19 08:51 | Outpatient (REF) | payer MEDICARE, SELFPAY ==
[2022-09-19 11:46] LABS: Vitamin D 25-OH Total 28.6 ng/mL (>30)
[2022-09-19 12:40] LABS: Folate 9.1 ng/mL (> or = 4.0); Vitamin B12 1188 pg/mL (200-900)
[2022-09-20 15:58] LABS: Calcium, Ionized 5.5 mg/dL (4.8-5.6)
[2022-09-22 22:23] LABS: Vitamin A 86 mcg/dL (38-98)
[2022-09-22 22:29] LABS: Zinc 76 mcg/dL (60-130)
[2022-09-24 08:18] LABS: Vitamin B1 16 nmol/L (8-30)
== END 2022-09-19 08:52 | disposition home or self-care (01) ==
LOC: HO.LAB 08:51
PROVIDERS: PCP Internal Medicine; Visit Provider Physician Assistant Surgical
DX: Z98.84 Bariatric surgery status (principal); E11.65 Type 2 diabetes mellitus with hyperglycemia; Z79.4 Long term (current) use of insulin; Z71.3 Dietary counseling and surveillance
CPT/HCPCS: 36415; 82306; 82330; 82607; 82746; 84425; 84590; 84630; 99212

== ENCOUNTER 2022-11-09 11:21 | Outpatient (REF) | payer MEDICARE, SELFPAY ==
[2022-11-09 12:41] LABS: Estimated Average Glucose 186 mg/dL; Hemoglobin A1c % 8.1 %
[2022-11-09 12:49] LABS: Alanine Aminotransferase 11 U/L (0-31); Albumin Level 4.3 g/dL (3.5-5.0); Alkaline Phosphatase 55 U/L (39-117); Anion Gap 13 (12-20); Aspartate Amino Transferase 14 U/L (5-31); Bilirubin Total 0.7 mg/dL (0.0-1.0); Blood Urea Nitrogen 26 mg/dL (9-16); Calcium 9.7 mg/dL (8.4-10.2); Carbon Dioxide 28 mmol/L (22-29); Chloride 104 mmol/L (96-108); Estimated Glomerular Filt Rate 57; Glucose Random 142 mg/dL (60-115); Potassium 4.7 mmol/L (3.3-5.1); Sodium 140 mmol/L (135-145); Total Protein 6.4 g/dL (6.5-8.0)
== END 2022-11-09 11:22 | disposition home or self-care (01) ==
LOC: HO.LAB 11:21
PROVIDERS: PCP Internal Medicine; Visit Provider Internal Medicine
DX: E11.65 Type 2 diabetes mellitus with hyperglycemia (principal); Z79.4 Long term (current) use of insulin
CPT/HCPCS: 36415; 80053; 83036

== ENCOUNTER → 2022-11-15 08:36 | Outpatient (BNVA) | payer MEDICARE, SELFPAY | PROVIDERS: PCP Internal Medicine; Visit Provider Dietitian, Registered | DX: E11.65 Type 2 diabetes mellitus with hyperglycemia (principal); I12.9 Hypertensive chronic kidney disease with stage 1 through stage 4 chronic kidney disease, or unspecified chronic kidney disease; E11.22 Type 2 diabetes mellitus with diabetic chronic kidney disease; N18.30 Chronic kidney disease, stage 3 unspecified; E78.5 Hyperlipidemia, unspecified; E55.9 Vitamin D deficiency, unspecified; E21.3 Hyperparathyroidism, unspecified; E04.2 Nontoxic multinodular goiter; Z79.4 Long term (current) use of insulin; Z79.899 Other long term (current) drug therapy; Z90.3 Acquired absence of stomach [part of] | CPT/HCPCS: 97803; Q3014 ==

== ENCOUNTER 2022-11-20 08:29 | Outpatient (REF) | payer MEDICARE, SELFPAY ==
--- NOTE | ~2022-11-20 | MM_ITS ---
EXAMINATION: MM SCREENING DIGITAL BREAST TOMOSYNTHESIS, BILATERAL CLINICAL INFORMATION: Screening. Asymptomatic. Benign left breast biopsy 01/10/2022 (fibroadenoma). The lifetime risk of breast cancer based on the Tyrer-Cuzick Model is 4%. COMPARISON: Mammography: 01/10/2022, 11/16/2021, 10/06/2020, 07/11/2019 TECHNIQUE: Digital breast tomosynthesis is performed in both the craniocaudal and mediolateral oblique views along with computer-aided detection (CAD). Synthesized 2D images are generated from the tomosynthesis. FINDINGS: The breasts are heterogeneously dense, which may obscure small masses (ACR BI-RADS breast composition Category c). There are no significant masses, abnormal calcifications, or other abnormalities. No architectural abnormality or developing density or significant change from prior studies. There is biopsy clip marker overlying the left breast mid upper outer quadrant. The axilla and skin contours are unremarkable. MM/MM tomosynthesis screening BI IMPRESSION: No mammographic evidence of malignancy. ASSESSMENT: BI-RADS 1: Negative RECOMMENDATION: Routine annual mammography screening. This patient's information was entered into a reminder system with a target due date for their next mammogram.
== END 2022-11-20 08:30 | disposition home or self-care (01) ==
LOC: HO.MAMMO 08:29
PROVIDERS: Visit Provider Internal Medicine
DX: Z12.31 Encounter for screening mammogram for malignant neoplasm of breast (principal)
CPT/HCPCS: 77063; 77067

== ENCOUNTER 2022-11-24 11:45 | Outpatient (REF) | payer MEDICARE, SELFPAY ==
--- NOTE | ~2022-11-24 | US_ITS ---
EXAMINATION: US BREAST, BILATERAL CLINICAL INFORMATION: Heterogenously dense fibroglandular tissue. Bilateral breast ultrasound. COMPARISON: Mammography of November 20, 2022 and ultrasound of January 10, 2022 and January 06, 2022 MAMMOGRAPHY: Previous mammogram dated November 20, 2022 was reviewed on a nondiagnostic monitor. TECHNIQUE: High-resolution grayscale sonography of the breasts was performed by a technologist with a high-frequency linear transducer following a standardized protocol. All 4 quadrants and the axilla were examined on each side. The retroareolar region was examined bilaterally FINDINGS: On the images submitted for review, no suspicious mass, area of architectural distortion, complex cyst or other sonographically suspicious lesion is identified in either breast. Previous biopsied fibroadenoma within the left breast 3:00 position 6 cm from the nipple again seen. US/US breast LT complete IMPRESSION: No sonographic evidence of malignancy in either breast. ASSESSMENT: Right breast: BI-RADS 1 - negative.. Left breast: BI-RADS 2 - benign. RECOMMENDATIONS: Continue mammographic screening. This patient?s information was entered in to a reminder system with a target due date for their next mammogram.
--- NOTE | ~2022-11-24 | US_ITS ---
EXAMINATION: US BREAST, BILATERAL CLINICAL INFORMATION: Heterogenously dense fibroglandular tissue. Bilateral breast ultrasound. COMPARISON: Mammography of November 20, 2022 and ultrasound of January 10, 2022 and January 06, 2022 MAMMOGRAPHY: Previous mammogram dated November 20, 2022 was reviewed on a nondiagnostic monitor. TECHNIQUE: High-resolution grayscale sonography of the breasts was performed by a technologist with a high-frequency linear transducer following a standardized protocol. All 4 quadrants and the axilla were examined on each side. The retroareolar region was examined bilaterally FINDINGS: On the images submitted for review, no suspicious mass, area of architectural distortion, complex cyst or other sonographically suspicious lesion is identified in either breast. Previous biopsied fibroadenoma within the left breast 3:00 position 6 cm from the nipple again seen. US/US breast RT complete IMPRESSION: No sonographic evidence of malignancy in either breast. ASSESSMENT: Right breast: BI-RADS 1 - negative.. Left breast: BI-RADS 2 - benign. RECOMMENDATIONS: Continue mammographic screening. This patient?s information was entered in to a reminder system with a target due date for their next mammogram.
== END 2022-11-24 11:46 | disposition home or self-care (01) ==
LOC: HO.MAMMO 11:45
PROVIDERS: PCP Internal Medicine; Visit Provider Internal Medicine
DX: R92.2 Inconclusive mammogram (principal)
CPT/HCPCS: 76641

== ENCOUNTER → 2023-03-05 08:12 | Outpatient (BNVA) | payer MEDICARE, SELFPAY | PROVIDERS: PCP Internal Medicine; Visit Provider Dietitian, Registered | DX: K90.49 Malabsorption due to intolerance, not elsewhere classified (principal); E55.9 Vitamin D deficiency, unspecified; Z90.3 Acquired absence of stomach [part of]; Z71.3 Dietary counseling and surveillance | CPT/HCPCS: 97803 ==

== ENCOUNTER 2023-03-23 08:06 | Outpatient (REF) | payer MEDICARE, SELFPAY ==
--- NOTE | ~2023-03-23 | CT_ITS ---
EXAMINATION: CT SINUS WITHOUT CONTRAST CLINICAL INFORMATION: Polyp nasal cavity and anosmia. COMPARISON: There are no prior studies available for comparison. TECHNIQUE: Multidetector helical imaging was performed in the axial plane with generation of coronal and sagittal reformatted images. This CT examination was performed using dose optimization techniques as appropriate, variously including the following: *Automated exposure control *Adjustment of mA and/or kV according to patient size (this includes techniques or standardized protocols for targeted exams where dose is matched to indication/reason for exam; i.e. extremities or head) *Use of iterative reconstruction technique DLP: 90 mGy-cm. FINDINGS: FRONTAL SINUSES AND DRAINAGE PATHWAYS: Both frontal sinuses are aerated, smaller on the right. They are clear bilaterally with patent frontoethmoidal recesses. MAXILLARY SINUSES AND DRAINAGE PATHWAYS: The maxillary sinuses are well-developed and appear clear bilaterally. The ostiomeatal complexes are patent bilaterally. ETHMOID SINUSES: The ethmoid sinuses are well-developed and appear clear bilaterally. SPHENOID SINUSES AND DRAINAGE PATHWAYS: The sphenoid sinuses are well-developed bilaterally. There is a moderately thick intrasinus septum. There is a minimal amount of mucoperiosteal thickening in the posterior left sphenoid sinus. Overall, the sphenoid sinuses are well-aerated with patent sphenoethmoidal recesses. NASAL CAVITY AND NASAL SEPTUM: The nasal septum is deviated to the right and there is a prominent right-sided bony nasal septal spur extending between the right middle and inferior turbinate bones. There are small polyps off the posterior inferior turbinate bones bilaterally. No large nasal cavity polyps are demonstrated. ADDITIONAL RELEVANT FINDINGS: The lamina papyracea are intact. The carotid canals are normally covered by bone. The ethmoid roofs are asymmetric, slightly higher on the left. The patient is edentulous in the mandible and the maxilla. The temporomandibular joints appear normal. There have been bilateral lens extractions. There is mild fluid at the right mastoid tip. There is hyperostosis frontalis interna. There are no acute intracranial findings. CT/CT sinus wo IV con IMPRESSION: 1. There is no significant active sinus disease, although there is mild fluid at the right mastoid tip. 2. The ostiomeatal complexes are patent bilaterally. 3. The nasal septum is deviated to the right and there is a prominent right-sided bony nasal septal spur. There are no large nasal cavity polyps.
== END 2023-03-23 08:07 | disposition home or self-care (01) ==
LOC: HO.CT 08:06
PROVIDERS: Visit Provider Otolaryngology
DX: J33.0 Polyp of nasal cavity (principal); R43.0 Anosmia
CPT/HCPCS: 70486

== ENCOUNTER 2023-04-19 07:27 | Outpatient (REF) | payer MEDICARE, SELFPAY ==
[2023-04-19 08:09] LABS: Estimated Average Glucose 160 mg/dL; Hemoglobin A1c % 7.2 % (<6.0)
[2023-04-19 08:31] LABS: Alanine Aminotransferase 12 U/L (0-31); Albumin Level 4.4 g/dL (3.5-5.0); Alkaline Phosphatase 52 U/L (39-117); Anion Gap 12 (12-20); Aspartate Amino Transferase 14 U/L (5-31); Bilirubin Total 0.5 mg/dL (0.0-1.0); Blood Urea Nitrogen 23 mg/dL (9-16); Calcium 10.4 mg/dL (8.4-10.2); Carbon Dioxide 29 mmol/L (22-29); Chloride 104 mmol/L (96-108); Cholesterol 167 mg/dL (<200); Estimated Glomerular Filt Rate 56; Glucose Random 144 mg/dL (60-115); HDL Cholesterol 63 mg/dL (>40); LDL Cholesterol Calculated 90 mg/dL (<100); Potassium 4.6 mmol/L (3.3-5.1); Sodium 140 mmol/L (135-145); Total Protein 6.9 g/dL (6.5-8.0); Triglycerides 72 mg/dL (<150)
[2023-04-19 10:14] LABS: Free T4 (Free Thyroxine) 0.94 ng/dL (0.71-1.85); Thyroid Stimulating Hormone 0.47 uIU/mL (0.32-4.0); Vitamin D 25-OH Total 33.3 ng/mL (>30)
[2023-04-19 11:41] LABS: Microalbum/Creatinine Ratio Ur 17.5 ug/mg cr (<30)
[2023-04-20 18:38] LABS: LDL Cholesterol Direct 94 mg/dL (<100)
== END 2023-04-19 07:28 | disposition home or self-care (01) ==
LOC: HO.LAB 07:27
PROVIDERS: PCP Internal Medicine; Visit Provider Internal Medicine
DX: E11.65 Type 2 diabetes mellitus with hyperglycemia (principal); E55.9 Vitamin D deficiency, unspecified; E04.2 Nontoxic multinodular goiter; Z79.4 Long term (current) use of insulin
CPT/HCPCS: 36415; 80053; 80061; 82043; 82306; 83036; 83721; 84439; 84443

== ENCOUNTER 2023-04-23 08:32 | Outpatient (AMB) | payer MEDICARE, SELFPAY ==
--- NOTE | 2023-04-23 08:32 | A.OFFVIS_ITS ---
Intake Intake Visit Reasons: DM. Okay per Intake Note: DM follow up appointment. 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: No Allergies No Known Allergies [No Known Allergies*] Allergy (Verified 04/23/23 08:44) Medication List - Last Reconciled 04/23/23 by Annemarie Snell, atorvastatin 40 mg PO DAILY 30 days cyanocobalamin (vitamin B-12) 500 mcg PO DAILY docusate sodium (Colace) 100 mg PO DAILY dorzolamide 2% 1 drp ophthalmic-Right BID dulaglutide (Trulicity) 4.5 mg (0.5 mL) subcut QWEEK 30 days flash glucose scanning reader (FreeStyle Florina 2 [place]) As directed flash glucose sensor (FreeStyle Florina 2 Sensor kit) Once every 14 days insulin glargine (Lantus Solostar U-100 Insulin) 4 units (0.04 mL) subcut QPM 30 days lisinopril 2.5 mg PO DAILY 30 days metformin ER 1,000 mg (2 x 500 mg) PO BID 30 days HPI HPI Comments History of Present Illness Details 78 YO F with PMHx T2DM, HLD, HTN, CKD stage 3 who is s/p Gastric Sleeve procedure 09/16/2019 who is seen in F/U for T2DM, Hyperparathyroidism and also a thyroid nodule. Visit was conducted as a televisit as the patient has a GI virus and is unable to come to the office. 1) T2DM: Initially diagnosed with T2DM at the age of 53 in when presented with a nonhealing wound on the upper extremity and blood sugar was found to be approximately 500 at that time. Was initially started on treatment with Metformin, but progressed to requiring insulin within 1 year. She had Bariatric surgery in 2019 and lost a significant amount of weight. Current regimen: Lantus 4 units daily, Trulicity 4.5 mg once a week, and Metformin 1000 mg PO BID. She had tried Jardiance in the past and this was stopped due to diminished GFR. Unable to review her sugars today as she is not sharing sensor data. She does admit to dietary indiscretions eating a large amount of sweets in the evenings for the past few weeks. Injects insulin into the abdomen and does rotate site. Most recent A1C: 7.2% 04/19/2023, down from 8.1% 11/09/2022. Treats lows with sips of her protein shake, she states she always checks sugar after to make sure it has increased. Does follow the rule of 15's. Family history of T2DM in Mother, Father and Brother. Has eyes checked year with Dr. Rascon in [place]. Last eye exam 09/2021, no retinopathy. Did have laser treatments in the past. Denies any neuropathy. Does see podiatry q2 months. Has nail care by podiatry. Has nephropathy with CKD stage 3. On Lisinopril 2.5 mg PO daily. UAC 17.5 04/19/2023. Has HLD, on Atorvastatin 40 mg PO daily. LDL 94 04/19/2023. Denies any known CAD or CHF. 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 She underwent FNA biopsy of her LLP 3.8 cm nodule 03/04/2020 with benign cytology. She denies any symptoms of hyper or hypothyroidism. She denies any compressive symptoms. 3) Hypercalcemia with Hyperparathyroidism: She was noted to have high normal calcium and an inappropriately normal PTH. She underwent evaluation for hyperparathyroidism, which was biochemically consistent with this. DEXA checked 02/2022 was completely WNL, with no evidence of even Osteopenia, including the distal forearm. Thyroid US: 08/01/2022 Right Thyroid Lobe: 4.9 x 2.1 x 1.5 cm, volume 8.0 mL. Previously 5.3 x 2.2 x 2.0 cm, volume 12.2 mL. Parenchyma: The gland echotexture is heterogeneous. Thyroid vascularity is increased. Left Thyroid Lobe: 5.4 x 2.4 x 2.7 cm, volume 17.7 mL. Previously 5.7 x 2.7 x 2.6 cm, volume 20.9 mL. Parenchyma: The gland echotexture is heterogeneous. Thyroid vascularity is increased. Isthmus: 0.1 cm in maximum AP dimension. Previously 0.2 cm. Estimated total number of nodules greater than or equal to 1 cm: 1. Physical Aerodynamicist nodules are described as follows: 1.? Location: Left mid pole. ?? ? Size: 4.4 x 1.9 x 2.4 cm, volume 10.0 mL. ?? ? Previously: 2.5 x 2.4 x 4.3 cm, volume 13.7 mL. ?? ? Nodule characteristics: ?? ? Composition: Solid/almost completely solid (2). ?? ? Echogenicity: Isoechoic (1). ?? ? Shape: Not taller than wide (0). ?? ? Margins: Smooth (0). ?? ? Echogenic Foci: Comet-tail artifacts (0). ?? ? ACR TI-RADS total points: 3 Previous: 3 ?? ? ACR TI-RADS category: 3 Previous: 3 ? Significant change in size (>/= 20% in 2 dimensions and minimal increase of 2 mm or 50% or greater increase in volume): No ?? ? Change in features: No ?? ? Change in ACR TI-RADS risk category: No 2.? Location: Right mid pole. ?? ? Size: 0.8 x 0.4 x 0.6 cm, volume 0.09 mL. ?? ? Previously: 0.6 x 0.5 x 0.7 cm, volume 0.1 mL. ?? ? Nodule characteristics: ?? ? Composition: Solid/almost completely solid (2). ?? ? Echogenicity: Isoechoic (1). ?? ? Shape: Not taller than wide (0). ?? ? Margins: Ill-defined (0). ?? ? Echogenic Foci: None (0). ?? ? ACR TI-RADS total points: 3 Previous: 3 ?? ? ACR TI-RADS category: 3 Previous: 3 ? Significant change in size (>/= 20% in 2 dimensions and minimal increase of 2 mm or 50% or greater increase in volume): No ?? ? Change in features: No ?? ? Change in ACR TI-RADS risk category: No 3.? Location: Right mid pole. ?? ? Size: 0.7 x 0.4 x 0.5 cm, volume 0.08 mL. ?? ? Previously: 0.7 x 0.5 x 0.7 cm, volume 0.2 mL. ?? ? Nodule characteristics: ?? ? Composition: Spongiform (0). ?? ? ACR TI-RADS total points: 0 Previous: 0 ?? ? ACR TI-RADS category: 1 Previous: 1 ? Significant change in size (>/= 20% in 2 dimensions and minimal increase of 2 mm or 50% or greater increase in volume): No ?? ? Change in features: No ?? ? Change in ACR TI-RADS risk category: No 4.? Location: Right mid pole. ?? ? Size: 0.8 x 0.5 x 0.7 cm, volume 0.1 mL. ?? ? Previously: Not measured previously. ?? ? Nodule characteristics: ?? ? Composition: Solid (2). ?? ? Echogenicity: Hypoechoic (2). ?? ? Shape: Not taller than wide (0). ?? ? Margins: Ill-defined (0). ?? ? Echogenic Foci: None (0). ?? ? ACR TI-RADS total points: 4 ?? ? ACR TI-RADS category: 4 ?? ? NODES: No lymphadenopathy is seen in the tissue surrounding the thyroid gland. DEXA: 03/22/2022 FINDINGS: AP SPINE L1-L4: Current: BMD 1.350 g/cm2, Z-score 3.4, T-score 1.4, normal, 4.2% decrease from baseline (<5% change is not significant). Baseline: BMD 1.409 g/cm2. LEFT FOREARM RADIUS 33%: BMD 0.962 g/cm2, Z-score 3.3, T-score 1.0, normal, 2.1% decrease from baseline (<5% change is not significant). Baseline: BMD 0.983 g/cm2. LEFT FEMUR, NECK: Current: BMD 1.004 g/cm2, Z-score 1.8, T-score -0.2, normal. Baseline: BMD 1.052 g/cm2. LEFT FEMUR, TOTAL: Current: BMD 0.938 g/cm2, Z-score 1.4, T-score -0.6, normal, 11.2% decrease from baseline (<5% change is not significant). Baseline: BMD 1.056 g/cm2. Labs: Laboratory Tests 04/19/23 04/19/23 04/19/23 07:42 07:45 07:45 Sodium 140 Potassium 4.6 Creatinine 0.96 Estimated GFR 56 Hemoglobin A1c % 7.2 H Calcium 10.4 H D LDL Cholesterol Di rect 25-OH Vitamin D To agapito 33.3 TSH 0.47 Free T4 0.94 Microalb/Creat Rat io 17.5 04/19/23 07:45 Sodium Potassium Creatinine Estimated GFR Hemoglobin A1c % Calcium LDL Cholesterol Di rect 94 25-OH Vitamin D To agapito TSH Free T4 Microalb/Creat Rat io PFSH Medical History HLD (hyperlipidemia) HTN (hypertension) Hyperparathyroidism Hypersomnolence Intestinal malabsorption following gastrectomy Left breast mass Malabsorption due to intolerance, not elsewhere classified Multinodular thyroid Sleep apnea Snoring T2DM (type 2 diabetes mellitus) Vitamin D deficiency Surgical History Hx of cataract surgery Hx of total knee replacement S/P laparoscopic sleeve gastrectomy Family History Father Cancer Diabetes Mother Diabetes Legally blind Social History Household Members: Spouse Alcohol intake: current Alcohol intake frequency: holidays/special occasions only Patient Tobacco Use Status: Former Tobacco user Tobacco use type: Cigarette Cigarette Packs Per Day: 2 Cigarettes Per Day: 40 Years Smoked: approx 25 Female Reproductive History Menstrual Age of Menarche: 10 Assessment & Plan Assessment & Plan (1) T2DM (type 2 diabetes mellitus): Code(s): E11.9 - Type 2 diabetes mellitus without complications Qualifiers: Diabetes mellitus intermediate insulin use: with payroll and benefits coordinator use Diabetes mellitus complication status: with hyperglycemia Qualified Code(s): E11.65 - Type 2 diabetes mellitus with hyperglycemia; Z79.4 - alf (current) use of insulin Plan: Patient with T2DM. Her sugars are well controlled. I do not recommend making any changes at this time. She has lost a significant amount of weight and she is unhappy with this. She did speak with her PCP and reports that a workup was initiated. I also advised that she F/U with Dr. Castillo She will F/U in 3 months time with labs prior. All of her questions were answered. She is in agreement with this plan of care. The importance of adherence to prescribed regimen was discussed with the patient including checking finger sticks 3-4 times per day, using insulin as prescribed, monitoring for hypoglycemia and treating any episode of hypoglycemia according to the rule of 15''s. Proper foot care was also discussed with the patient, and the importance of yearly dilated eye exam. The patient was asked to have copy of eye exam sent to our office for review. I spent 20 minutes in reviewing the record, seeing the patient and documenting in the medical record, including 5 minutes on the phone with the Patient. (2) HLD (hyperlipidemia): Code(s): E78.5 - Hyperlipidemia, unspecified Qualifiers: Hyperlipidemia type: unspecified Qualified Code(s): E78.5 - Hyperlipidemia, unspecified Plan: LDL at goal. Will continue with Atorvastatin 40 mg PO daily. (3) HTN (hypertension): Code(s): I10 - Essential (primary) hypertension Qualifiers: Hypertension type: unspecified Qualified Code(s): I10 - Essential (primary) hypertension Plan: UAC at goal. Will continue with Lisinorpil 2.5 mg PO daily. (4) Vitamin D deficiency: Code(s): E55.9 - Vitamin D deficiency, unspecified Plan: No changes at this time. (5) Hyperparathyroidism: Code(s): E21.3 - Hyperparathyroidism, unspecified Plan: Labs consistent with primary hyperparathyroidism, but DEXA with no evidence of Osteoporosis or osteopenia. Will continue to monitor calcium levels periodically. (6) Multinodular thyroid: Code(s): E04.2 - Nontoxic multinodular goiter Plan: She underwent FNA biopsy of her LLP 3.8 cm nodule 03/04/2020 with benign cytology. Repeat US is unchanged. Will continue to monitor with yearly US. She will be due 06/2023. Telehealth Telehealth Location of provider rendering services: practice address Location of patient: address on file Patient Identification confirmed using: Name, : Yes Telehealth method: voice only Patient verbally consented to treatment: Yes Patient verbally consented to billing insurance company: Yes Patient informed of any privacy concerns related to visit: Yes Coding Level of Care Code Tele Est Pt Level 3 (57110) Diagnoses T2DM (type 2 diabetes mellitus) E11.65; Z79.4 Diabetes mellitus payroll and benefits coordinator insulin use: with payroll and benefits coordinator use Diabetes mellitus complication status: with hyperglycemia HLD (hyperlipidemia) E78.5 Hyperlipidemia type: unspecified HTN (hypertension) I10 Hypertension type: unspecified Vitamin D deficiency E55.9 Hyperparathyroidism E21.3 Multinodular thyroid E04.2
== END 2023-04-23 11:43 | disposition home or self-care (01) ==
LOC: HO.ENCR 08:32
PROVIDERS: PCP Internal Medicine; Visit Provider Internal Medicine
DX: E11.65 Type 2 diabetes mellitus with hyperglycemia (principal); Z79.4 Long term (current) use of insulin; E78.5 Hyperlipidemia, unspecified; I10 Essential (primary) hypertension; E55.9 Vitamin D deficiency, unspecified; E21.3 Hyperparathyroidism, unspecified; E04.2 Nontoxic multinodular goiter
CPT/HCPCS: 99441

== ENCOUNTER → 2023-04-23 08:32 | Outpatient (BNVA) | payer MEDICARE, SELFPAY | PROVIDERS: PCP Internal Medicine; Visit Provider Internal Medicine ==

== ENCOUNTER → 2023-06-15 08:02 | Outpatient (BNVA) | payer MEDICARE, SELFPAY | PROVIDERS: PCP Internal Medicine; Visit Provider Dietitian, Registered | DX: Z98.84 Bariatric surgery status (principal) | CPT/HCPCS: 97803 ==

== ENCOUNTER → 2023-07-24 08:18 | Outpatient (BNVA) | payer MEDICARE, SELFPAY | PROVIDERS: PCP Internal Medicine; Visit Provider Dietitian, Registered | DX: R63.4 Abnormal weight loss (principal) | CPT/HCPCS: 97803 ==

== ENCOUNTER 2023-09-25 08:07 | Outpatient (AMB) | payer MEDICARE, SELFPAY ==
--- NOTE | 2023-09-25 08:15 | MHC.AMNUTRGE ---
Intake Intake Visit Reasons: (OV) PO LSG 09/16/19 Allergies No Known Allergies [No Known Allergies*] Allergy (Verified 04/23/23 08:44) HPI Nutrition Presentation Details [facility] [place] Dr. Raj NORIEGA 09/16/2019 weight 3 MO ago BMI 18.6 Reason for consult low BMI Diet Assmnt Details Has been feeling very tired lately. She states this is very unusual. Feels low energy. Has also lost weight in combination with these symptoms. has been getting medical tests and procedures - she had her endoscopy/colonoscopy report with her today. Reviewed. this report states severe diverticulosis and possible barretts esophagus . she started on pantoprazole and notices a big improvement. Is able to eat better now. 7am oatmeal with nuts/seeds 10am cereal or 1 egg 12-1pm whole wheat bread - a little peanut butter 5pm chicken, fish, lean meat and vegetables is concerned about her weight loss from a few months, stopped usin her treadmill as much. tries to hit 10,000 steps/ daily. Hydration: pt reports adequate, drinks decaf coffee and water She has a therapist. pt shares her can be verbally abusive and this is the main reason she got a therapist. Monitoring/Goals Nutrition problem monitoring total energy intake, HgbA1c, level of knowledge/skill, total PRO intake, glucose, fasting, total CHO intake and weight Outcome progress progressing Learning/Education Readiness to learn good Stages of change action Most Recent Diabetes Results: Microalb/Creat Ratio 17.5 ug/mg cr (<30) 04/19/23 Cholesterol 167 mg/dL (<200) 04/19/23 HDL Cholesterol 63 mg/dL (>40) 04/19/23 Triglycerides 72 mg/dL (<150) 04/19/23 Creatinine 0.96 mg/dL (0.5-1.4) 04/19/23 Blood Urea Nitrogen 23 mg/dL (9-16) H 04/19/23 Sodium 140 mmol/L (135-145) 04/19/23 Potassium 4.6 mmol/L (3.3-5.1) 04/19/23 Chloride 104 mmol/L (96-108) 04/19/23 Carbon Dioxide 29 mmol/L (22-29) 04/19/23 Calcium 10.4 mg/dL (8.4-10.2) H 04/19/23 AST 14 U/L (5-31) 04/19/23 ALT 12 U/L (0-31) 04/19/23 Total Protein 6.9 g/dL (6.5-8.0) 04/19/23 Albumin 4.4 g/dL (3.5-5.0) 04/19/23 PFSH Medical History HLD (hyperlipidemia) HTN (hypertension) Hyperparathyroidism Hypersomnolence Intestinal malabsorption following gastrectomy Left breast mass Malabsorption due to intolerance, not elsewhere classified Multinodular thyroid Sleep apnea Snoring T2DM (type 2 diabetes mellitus) Vitamin D deficiency Surgical History Hx of cataract surgery Hx of total knee replacement S/P laparoscopic sleeve gastrectomy Family History Father Cancer Diabetes Mother Diabetes Legally blind Social History Household Members: Spouse Alcohol intake: current Alcohol intake frequency: holidays/special occasions only Patient Tobacco Use Status: Former Tobacco user Tobacco use type: Cigarette Cigarette Packs Per Day: 2 Cigarettes Per Day: 40 Years Smoked: approx 25 Female Reproductive History Menstrual Age of Menarche: 10 Assessment & Plan Assessment & Plan (1) History of sleeve gastrectomy: Code(s): Z90.3 - Acquired absence of stomach [part of] Plan due for annual PA appt, then resume nutrition f/u in 3 MO Patient Instructions: Continue high protein, balanced carb diet Coding Level of Care Code Nutr Indiv Subseq (52293) Diagnoses History of sleeve gastrectomy Z90.3 Time Spent (min) 45
== END 2023-09-25 09:26 | disposition home or self-care (01) ==
PROVIDERS: PCP Internal Medicine; Visit Provider Dietitian, Registered
DX: Z90.3 Acquired absence of stomach [part of] (principal)

== ENCOUNTER → 2023-09-25 08:07 | Outpatient (BNVA) | payer MEDICARE, SELFPAY | PROVIDERS: PCP Internal Medicine; Visit Provider Dietitian, Registered | DX: Z98.84 Bariatric surgery status (principal); Z90.3 Acquired absence of stomach [part of]; E11.9 Type 2 diabetes mellitus without complications; Z71.3 Dietary counseling and surveillance | CPT/HCPCS: 97803 ==

== ENCOUNTER 2023-10-25 09:15 | Outpatient (AMB) | payer MEDICARE, SELFPAY ==
--- NOTE | 2023-10-25 09:17 | MHC.OFFVISWM ---
Intake VS Expanded 10/25/23 09:25 BP 135/69 Blood Pressure Location Rt brachial Blood Pressure Position Sitting Pulse 104 H Pulse Source Pulse Oximeter Temp 98.1 F Temperature Source Temporal Artery Scan Pulse Oximetry 99 Oxygen Delivery Method Room Air Height 5 ft 7 in Weight 125 lb 9.6 oz BMI 19.7 Intake Visit Reasons: (OV) PO LSG 09/16/19 Allergies No Known Allergies [No Known Allergies*] Allergy (Verified 10/25/23 09:25) Medication List - Last Reconciled 10/25/23 by NICHELLE Treadwell atorvastatin 40 mg PO DAILY 30 days cyanocobalamin (vitamin B-12) 500 mcg PO DAILY docusate sodium (Colace) 100 mg PO DAILY dorzolamide 2% 1 drp ophthalmic-Right BID dulaglutide (Trulicity) 4.5 mg (0.5 mL) subcut QWEEK flash glucose scanning reader (FreeStyle Florina 2 [place]) As directed flash glucose sensor (FreeStyle Florina 2 Sensor kit) CHANCE ONCE EVERY 14 DAYS insulin glargine (Lantus Solostar U-100 Insulin) 4 units (0.04 mL) subcut QPM 30 days lisinopril 2.5 mg PO DAILY 30 days metformin ER 1,000 mg (2 x 500 mg) PO BID pantoprazole 40 mg PO DAILY HPI HPI Comments History of Present Illness Details This?is a?78?yo female who is s/p LSG 09/16/2019. Presents for 4 year post op visit. Had been down to 119lbs. Had several imaging studies, was found to have diverticulosis. Reports she feels most comfortable around 131-132 lbs. PCP is guiding her workup. Blood sugars are good when I behave , 85-102 early this morning, was 247 after oatmeal, 232 right now. No changes in dosing recently. No complaints of nausea, emesis, abdominal pain or reflux, or constipation. Present meal plan includes: 7am 1/3 cup oatmeal with milk, nuts/seeds - adding protein powder 10am cereal or 1 egg 12-1pm whole wheat bread - a little peanut butter 5pm chicken, fish, lean meat and vegetables Exercise: is concerned about her weight loss from a few months, stopped using her treadmill as much. tries to hit 10,000 steps/ daily. Did the patient ever have any of these conditions and are they resolved or still being treated? GERD: on pantoprazole after recent EGD WANG:? resolved DM:? Trulicity, Lantus, CGM, metformin? HTN:? lisinopril Hyperlipidemia:? atorvastatin? Post op complications:?none PFSH Medical History HLD (hyperlipidemia) HTN (hypertension) Hyperparathyroidism Hypersomnolence Intestinal malabsorption following gastrectomy Left breast mass Malabsorption due to intolerance, not elsewhere classified Multinodular thyroid Sleep apnea Snoring T2DM (type 2 diabetes mellitus) Vitamin D deficiency Surgical History Hx of total knee replacement Hx of cataract surgery S/P laparoscopic sleeve gastrectomy Family History Father Cancer Diabetes Mother Diabetes Legally blind Social History Household Members: Spouse Alcohol intake: current Alcohol intake frequency: holidays/special occasions only Patient Tobacco Use Status: Former Tobacco user Tobacco use type: Cigarette Cigarette Packs Per Day: 2 Cigarettes Per Day: 40 Years Smoked: approx 25 Female Reproductive History Menstrual Age of Menarche: 10 Physical Exam Vital Signs: Last Vital Signs Temp 98.1 F 10/25/23 09:25 Pulse 104 H 10/25/23 09:25 BP 135/69 10/25/23 09:25 Pulse Ox 99 10/25/23 09:25 Oxygen Delivery Method Room Air 10/25/23 09:25 BMI result Body Mass Index 19.7 Assessment & Plan Assessment & Plan (1) S/P laparoscopic sleeve gastrectomy: Code(s): Z98.84 - Bariatric surgery status Plan Pt to continue same meal plan for now, has increased her protein at AM meal. PCP managing workup for unexplained weight loss; discussed her diabetes meds specifically Trulicity may be contributing. Labs ordered, will review B12 level. RTC in November for previously scheduled RD appt, 1 year for PA appt. I spent a total of 30 minutes reviewing/updating records, examining the patient and counseling the patient on weight management as detailed above. Orders: Orders Hemoglobin A1c Today Z98.84 - Bariatric surgery status Complete Blood Count Auto Diff Today Z98.84 - Bariatric surgery status Vitamin B12 and Folate Today Z98.84 - Bariatric surgery status Zinc Today Z98.84 - Bariatric surgery status C Reactive Protein Today Z98.84 - Bariatric surgery status Vitamin B1 Today Z98.84 - Bariatric surgery status TSH reflex Free T4 Today Z98.84 - Bariatric surgery status Vitamin D 25-OH Total Today Z98.84 - Bariatric surgery status Insulin Today Z98.84 - Bariatric surgery status Lipid Panel Today Z98.84 - Bariatric surgery status IRON PROFILE Today Z98.84 - Bariatric surgery status Comprehensive Met. Panel Today Z98.84 - Bariatric surgery status Vitamin A Today Z98.84 - Bariatric surgery status Ferritin Today Z98.84 - Bariatric surgery status Coding Level of Care Code Est Pt Level 4 (86397) Diagnoses S/P laparoscopic sleeve gastrectomy Z98.84
[2023-10-25 09:25] VITALS: BP 135/69; PULSE 104; TEMP 36.7; O2SAT 99; BMI 19.7
== END 2023-10-25 10:29 | disposition home or self-care (01) ==
PROVIDERS: PCP Internal Medicine; Visit Provider Physician Assistant Surgical
DX: Z71.3 Dietary counseling and surveillance (principal); Z68.1 Body mass index [BMI] 19.9 or less, adult; Z90.3 Acquired absence of stomach [part of]; Z98.84 Bariatric surgery status
CPT/HCPCS: 99214

== ENCOUNTER → 2023-10-25 09:15 | Outpatient (BNVA) | payer MEDICARE, SELFPAY | PROVIDERS: PCP Internal Medicine; Visit Provider Physician Assistant Surgical | DX: R63.4 Abnormal weight loss (principal); E11.9 Type 2 diabetes mellitus without complications; Z79.85 Long-term (current) use of injectable non-insulin antidiabetic drugs; Z98.84 Bariatric surgery status | CPT/HCPCS: 99212 ==

== ENCOUNTER 2023-10-29 08:06 | Outpatient (REF) | payer MEDICARE, SELFPAY ==
[2023-10-29 08:31] LABS: MANUAL DIFF FLAG NO
[2023-10-29 08:41] LABS: Basophils Absolute Auto 0.1 X10*3/uL (0.0-0.2); Basophils Percent Auto 1.5 % (0-2); Eosinophils Absolute Auto 0.1 X10*3/uL (0.0-0.4); Eosinophils Percent Auto 1.8 % (0-4); Hematocrit 35.6 % (37.0-47.0); Hemoglobin 11.8 g/dl (12.0-16.0); Imm Gran Abs Auto 0.01 X10*3/uL (0.00-0.03); Imm Gran Pct Auto 0.3 % (0.0-0.4); Lymphocytes Percent Auto 29.6 % (20-40); Mean Corpuscular HGB Conc 33.1 g/dl (31.0-35.0); Mean Corpuscular Hemoglobin 29.4 pg (27.0-33.0); Mean Corpuscular Volume 88.8 fL (80.0-98.0); Mean Platelet Volume 9.6 fL (9.4-12.3); Monocytes Absolute Auto 0.2 X10*3/uL (0.1-1.2); Monocytes Percent Auto 7.2 % (2-11); Neutrophils Percent Auto 59.6 % (45-73); Platelet Count 233 X10*3/uL (160-400); Red Blood Count 4.01 X10*6/uL (4.20-5.50); Red Cell Distribution Width 12.2 % (11.0-16.0); White Blood Count 3.3 X10*3/uL (4.8-10.8)
[2023-10-29 09:16] LABS: Estimated Average Glucose 166 mg/dL; Hemoglobin A1c % 7.4 % (<6.0)
[2023-10-29 09:28] LABS: Alanine Aminotransferase 8 U/L (0-31); Albumin Level 4.2 g/dL (3.5-5.0); Alkaline Phosphatase 50 U/L (39-117); Anion Gap 14 (12-20); Aspartate Amino Transferase 11 U/L (5-31); Bilirubin Total 0.4 mg/dL (0.0-1.0); Blood Urea Nitrogen 24 mg/dL (9-16); C Reactive Protein < 0.10 mg/dL (< or = 0.50); Calcium 9.9 mg/dL (8.4-10.2); Carbon Dioxide 25 mmol/L (22-29); Chloride 104 mmol/L (96-108); Cholesterol 154 mg/dL (<200); Estimated Glomerular Filt Rate 38; Glucose Random 108 mg/dL (60-115); HDL Cholesterol 52 mg/dL (>40); Iron 54 mcg/dL (30-160); LDL Cholesterol Calculated 79 mg/dL (<100); Percent Iron Saturation 21 % (15-50); Potassium 4.4 mmol/L (3.3-5.1); Sodium 139 mmol/L (135-145); Total Iron Binding Capacity 258 mcg/dL (228-428); Total Protein 6.8 g/dL (6.5-8.0); Triglycerides 115 mg/dL (<150); Unsaturated Iron Binding 204 ug/dL
[2023-10-29 09:46] LABS: Ferritin 74 ng/mL (10-250); Insulin 6 uU/mL (2-29); TSH reflex Free T4 0.65 uIU/mL (0.32-4.0); Vitamin D 25-OH Total 30.8 ng/mL (>30)
[2023-10-29 10:20] LABS: Folate 3.8 ng/mL (> or = 4.0); Vitamin B12 1800 pg/mL (200-900)
[2023-11-01 02:48] LABS: Zinc 77 mcg/dL (60-130)
[2023-11-01 17:04] LABS: Vitamin B1 <6 nmol/L (8-30)
[2023-11-01 21:49] LABS: Vitamin A 83 mcg/dL (38-98)
== END 2023-10-29 08:07 | disposition home or self-care (01) ==
LOC: HO.LAB 08:06
PROVIDERS: Visit Provider Physician Assistant Surgical
DX: Z98.84 Bariatric surgery status (principal)
CPT/HCPCS: 36415; 80053; 80061; 82306; 82607; 82728; 82746; 83036; 83525; 83540; 84425; 84443; 84590; 84630; 85025; 86140

== ENCOUNTER 2023-11-19 08:26 | Outpatient (AMB) | payer MEDICARE, SELFPAY ==
--- NOTE | 2023-11-19 08:59 | MHC.AMNUTRGE ---
Intake Intake Visit Reasons: (OV) PO LSG 09/16/19 Allergies No Known Allergies [No Known Allergies*] Allergy (Verified 10/25/23 09:25) HPI Nutrition Presentation Details [facility] [place] Raj NORIEGA 09/16/2019 BMI 18.6 In may 2023 due to unintentional/unexplained weight loss. Reason for consult low BMI Diet Assmnt Details Pt shares concerns about her weight , she would like to gain weight but only muscle not body fat. we discussed realistic expectations. 7am oatmeal with nuts/seeds and adds a 30g protein powder to it. She reports this keeps her full until 5pm though. We discussed some ideas to help her increase nutrition during the day Was previously eating 2 additional small meals, but reports now feels too full so usually goes until dinner without eating. 5pm chicken, fish, lean meat and vegetables is concerned about her weight loss from a few months, stopped usin her treadmill as much. tries to hit 10,000 steps/ daily. Hydration: pt reports adequate, drinks decaf coffee and water She has a therapist. pt shares her can be verbally abusive and this is the main reason she got a therapist. Monitoring/Goals Nutrition problem monitoring total energy intake, HgbA1c, level of knowledge/skill, total PRO intake, glucose, fasting, total CHO intake and weight Outcome progress progressing Learning/Education Readiness to learn good Stages of change action Most Recent Diabetes Results: Microalb/Creat Ratio 17.5 ug/mg cr (<30) 04/19/23 Cholesterol 154 mg/dL (<200) 10/29/23 HDL Cholesterol 52 mg/dL (>40) 10/29/23 Triglycerides 115 mg/dL (<150) 10/29/23 Creatinine 1.34 mg/dL (0.5-1.4) 10/29/23 Blood Urea Nitrogen 24 mg/dL (9-16) H 10/29/23 Sodium 139 mmol/L (135-145) 10/29/23 Potassium 4.4 mmol/L (3.3-5.1) 10/29/23 Chloride 104 mmol/L (96-108) 10/29/23 Carbon Dioxide 25 mmol/L (22-29) 10/29/23 Calcium 9.9 mg/dL (8.4-10.2) 10/29/23 AST 11 U/L (5-31) 10/29/23 ALT 8 U/L (0-31) 10/29/23 Total Protein 6.8 g/dL (6.5-8.0) 10/29/23 Albumin 4.2 g/dL (3.5-5.0) 10/29/23 [facility] Medical History HLD (hyperlipidemia) HTN (hypertension) Hyperparathyroidism Hypersomnolence Intestinal malabsorption following gastrectomy Left breast mass Malabsorption due to intolerance, not elsewhere classified Multinodular thyroid Sleep apnea Snoring T2DM (type 2 diabetes mellitus) Vitamin D deficiency Surgical History Hx of total knee replacement Hx of cataract surgery S/P laparoscopic sleeve gastrectomy Family History Father Cancer Diabetes Mother Diabetes Legally blind Social History Household Members: Spouse Alcohol intake: current Alcohol intake frequency: holidays/special occasions only Patient Tobacco Use Status: Former Tobacco user Tobacco use type: Cigarette Cigarette Packs Per Day: 2 Cigarettes Per Day: 40 Years Smoked: approx 25 Female Reproductive History Menstrual Age of Menarche: 10 Assessment & Plan Assessment & Plan (1) T2DM (type 2 diabetes mellitus): Code(s): E11.9 - Type 2 diabetes mellitus without complications Qualifiers: Diabetes mellitus senior enterprise architect insulin use: with senior enterprise architect use Diabetes mellitus complication status: with hyperglycemia Qualified Code(s): E11.65 - Type 2 diabetes mellitus with hyperglycemia; Z79.4 - retirement (current) use of insulin (2) S/P laparoscopic sleeve gastrectomy: Code(s): Z98.84 - Bariatric surgery status Plan see below Patient Instructions: Pt bailey continue to balance protein, fats, and carbs for blood sugar control. Encouraged small meals frequently. consider using glucerna protein smart. will follow up with Suni STEWARD . Coding Level of Care Code Nutr Indiv Subseq (92085) Diagnoses Type 2 diabetes mellitus with hyperglycemia, with long-term current use of insulin E11.65; Z79.4 Diabetes mellitus senior enterprise architect insulin use: with senior enterprise architect use Diabetes mellitus complication status: with hyperglycemia S/P laparoscopic sleeve gastrectomy Z98.84 Time Spent (min) 40
== END 2023-11-19 10:20 | disposition home or self-care (01) ==
PROVIDERS: PCP Internal Medicine; Visit Provider Dietitian, Registered
DX: E11.65 Type 2 diabetes mellitus with hyperglycemia (principal); Z79.4 Long term (current) use of insulin; Z98.84 Bariatric surgery status

== ENCOUNTER → 2023-11-19 08:26 | Outpatient (BNVA) | payer MEDICARE, SELFPAY | PROVIDERS: PCP Internal Medicine; Visit Provider Dietitian, Registered | DX: E11.65 Type 2 diabetes mellitus with hyperglycemia (principal); Z79.4 Long term (current) use of insulin; Z98.84 Bariatric surgery status | CPT/HCPCS: 97803 ==

== ENCOUNTER 2023-11-26 08:12 | Outpatient (REF) | payer MEDICARE, SELFPAY ==
--- NOTE | ~2023-11-26 | MM_ITS ---
EXAMINATION: MM SCREENING DIGITAL BREAST TOMOSYNTHESIS, BILATERAL CLINICAL INFORMATION: Screening. Asymptomatic. COMPARISON: Mammography: This study is compared with prior exams dating back to 2019. TECHNIQUE: Digital breast tomosynthesis is performed in both the craniocaudal and mediolateral oblique views along with computer-aided detection (CAD). Synthesized 2D images are generated from the tomosynthesis. FINDINGS: There are scattered areas of fibroglandular density (ACR BI-RADS breast composition Category b). There are no significant masses, abnormal calcifications, or other abnormalities. There is a tissue marker present in the upper outer quadrant of the left breast indicating the site of prior biopsy-proven fibroadenoma. MM/MM tomosynthesis screening BI IMPRESSION: No mammographic evidence of malignancy. ASSESSMENT: BI-RADS BI-RADS 2 - Benign Findings RECOMMENDATION: Routine annual mammography screening. 1 year F/U This examination should not preclude the clinical evaluation of a suspicious palpable abnormality. This patient's information was entered into a reminder system with a target due date for their next mammogram.
== END 2023-11-26 08:13 | disposition home or self-care (01) ==
LOC: HO.MAMMO 08:12
PROVIDERS: PCP Internal Medicine; Visit Provider Internal Medicine
DX: Z12.31 Encounter for screening mammogram for malignant neoplasm of breast (principal)
CPT/HCPCS: 77063; 77067

== ENCOUNTER → 2023-11-26 08:30 | Outpatient (BNV) | payer MEDICARE, SELFPAY | PROVIDERS: PCP Internal Medicine; Visit Provider Radiology Diagnostic Radiology | DX: Z12.31 Encounter for screening mammogram for malignant neoplasm of breast (principal) | CPT/HCPCS: 77063; 77067 ==

== ENCOUNTER 2023-11-29 08:20 | Outpatient (AMB) | payer MEDICARE, SELFPAY ==
--- NOTE | 2023-11-29 08:20 | A.OFFVIS_ITS ---
Intake Vital Signs 11/29/23 08:23 Height 5 ft 7 in Weight 135 lb 9.349 oz BMI 21.2 BP 130/66 Blood Pressure Location Lt brachial Position Sitting Pulse 55 Pulse Source Pulse Oximeter Intake Visit Reasons: [id number] Intake Note: Patient presents today to follow up on D2MT. Last Diabetic Eye exam: 08/2023 Last Podiatry Visit:06/2023 Random Glucose: 185 mg/dl HgA1c: 7.4% 10/29/23 Suction Roller Required: No Accompanied by: Self / Same As Patient Allergies No Known Allergies [No Known Allergies*] Allergy (Verified 11/29/23 08:26) Medication List - Last Reconciled 11/29/23 by Renato Phillips MD atorvastatin 40 mg PO DAILY 30 days cholecalciferol (vitamin D3) 50 mcg PO DAILY cyanocobalamin (vitamin B-12) 500 mcg PO DAILY docusate sodium (Colace) 100 mg PO DAILY dorzolamide 2% 1 drp ophthalmic-Right BID dulaglutide (Trulicity) 4.5 mg (0.5 mL) subcut QWEEK flash glucose scanning reader (FreeStyle Florina 2 Hurley) As directed flash glucose sensor (FreeStyle Florina 2 Sensor kit) CHANCE ONCE EVERY 14 DAYS insulin glargine (Lantus Solostar U-100 Insulin) 4 units (0.04 mL) subcut QPM 30 days iron,carbonyl-vitamin C 65 mg iron- 125 mg (Vitron-C) 1 tab PO BEDTIME lisinopril 2.5 mg PO DAILY 30 days metformin ER 1,000 mg (2 x 500 mg) PO BID pantoprazole 40 mg PO DAILY thiamine HCl (vitamin B1) 100 mg PO DAILY HPI HPI Comments History of Present Illness Details 78 YO F with PMHx T2DM, HLD, HTN, CKD stage 3 who is s/p Gastric Sleeve procedure 09/16/2019 who is seen in F/U for T2DM, Hyperparathyroidism and also a thyroid nodule. . The patient last saw Dr. Pink on 04/23/2023 1) T2DM: Initially diagnosed with T2DM at the age of 53 in when presented with a nonhealing wound on the upper extremity and blood sugar was found to be approximately 500 at that time. Was initially started on treatment with Metformin, but progressed to requiring insulin within 1 year. She had Bariatric surgery in 2019 and lost a significant amount of weight. Current regimen: Lantus 4 units daily, Trulicity 4.5 mg once a week, and Metformin 1000 mg PO BID. She had tried Jardiance in the past and this was stopped due to diminished GFR. Florina download shows she is using the sensor 96% of the time. Average glucose is 159 with G mi of 7.1% and variability 33%. 70% range with 30% hyperglycemia and no hypoglycemia She does admit to dietary indiscretions eating a large amount of sweets in the evenings for the past few weeks. Injects insulin into the abdomen and does rotate site. Most recent A1C: 7.4% 10/29/2023, . Very rare hypoglycemia Treats lows with sips of her protein shake, she states she always checks sugar after to make sure it has increased. Does follow the rule of 15's. Family history of T2DM in Mother, Father and Brother. Has eyes checked year with Dr. Rascon in [place]. Last eye exam 08/2023 , no retinopathy. Did have laser treatments in the past. Denies any neuropathy. Does see podiatry q2 months. Has nail care by podiatry. Has nephropathy with CKD stage 3. On Lisinopril 2.5 mg PO daily. UAC 17.5 04/19/2023. Has HLD, on Atorvastatin 40 mg PO daily. LDL 94 04/19/2023. Denies any known CAD or CHF. 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 She underwent FNA biopsy of her LLP 3.8 cm nodule 03/04/2020 with benign cytology. She denies any symptoms of hyper or hypothyroidism. She denies any compressive symptoms. 3) Hypercalcemia with Hyperparathyroidis m: She was noted to have high normal calcium and an inappropriately normal PTH. She underwent evaluation for hyperparathyroidism, which was biochemically consistent with this. DEXA checked 02/2022 was completely WNL, with no evidence of even Osteopenia, including the distal forearm.. Repeat PTH and calcium within normal range Thyroid US: 08/01/2022 Right Thyroid Lobe: 4.9 x 2.1 x 1.5 cm, volume 8.0 mL. Previously 5.3 x 2.2 x 2.0 cm, volume 12.2 mL. Parenchyma: The gland echotexture is heterogeneous. Thyroid vascularity is increased. Left Thyroid Lobe: 5.4 x 2.4 x 2.7 cm, volume 17.7 mL. Previously 5.7 x 2.7 x 2.6 cm, volume 20.9 mL. Parenchyma: The gland echotexture is heterogeneous. Thyroid vascularity is increased. Isthmus: 0.1 cm in maximum AP dimension. Previously 0.2 cm. Estimated total number of nodules greater than or equal to 1 cm: 1. Ferryboat Captain nodules are described as follows: 1.? Location: Left mid pole. ?? ? Size: 4.4 x 1.9 x 2.4 cm, volume 10.0 mL. ?? ? Previously: 2.5 x 2.4 x 4.3 cm, volume 13.7 mL. ?? ? Nodule characteristics: ?? ? Composition: Solid/almost completely solid (2). ?? ? Echogenicity: Isoechoic (1). ?? ? Shape: Not taller than wide (0). ?? ? Margins: Smooth (0). ?? ? Echogenic Foci: Comet-tail artifacts (0). ?? ? ACR TI-RADS total points: 3 Previous: 3 ?? ? ACR TI-RADS category: 3 Previous: 3 ? Significant change in size (>/= 20% in 2 dimensions and minimal increase of 2 mm or 50% or greater increase in volume): No ?? ? Change in features: No ?? ? Change in ACR TI-RADS risk category: No 2.? Location: Right mid pole. ?? ? Size: 0.8 x 0.4 x 0.6 cm, volume 0.09 mL. ?? ? Previously: 0.6 x 0.5 x 0.7 cm, volume 0.1 mL. ?? ? Nodule characteristics: ?? ? Composition: Solid/almost completely solid (2). ?? ? Echogenicity: Isoechoic (1). ?? ? Shape: Not taller than wide (0). ?? ? Margins: Ill-defined (0). ?? ? Echogenic Foci: None (0). ?? ? ACR TI-RADS total points: 3 Previous: 3 ?? ? ACR TI-RADS category: 3 Previous: 3 ? Significant change in size (>/= 20% in 2 dimensions and minimal increase of 2 mm or 50% or greater increase in volume): No ?? ? Change in features: No ?? ? Change in ACR TI-RADS risk category: No 3.? Location: Right mid pole. ?? ? Size: 0.7 x 0.4 x 0.5 cm, volume 0.08 mL. ?? ? Previously: 0.7 x 0.5 x 0.7 cm, volume 0.2 mL. ?? ? Nodule characteristics: ?? ? Composition: Spongiform (0). ?? ? ACR TI-RADS total points: 0 Previous: 0 ?? ? ACR TI-RADS category: 1 Previous: 1 ? Significant change in size (>/= 20% in 2 dimensions and minimal increase of 2 mm or 50% or greater increase in volume): No ?? ? Change in features: No ?? ? Change in ACR TI-RADS risk category: No 4.? Location: Right mid pole. ?? ? Size: 0.8 x 0.5 x 0.7 cm, volume 0.1 mL. ?? ? Previously: Not measured previously. ?? ? Nodule characteristics: ?? ? Composition: Solid (2). ?? ? Echogenicity: Hypoechoic (2). ?? ? Shape: Not taller than wide (0). ?? ? Margins: Ill-defined (0). ?? ? Echogenic Foci: None (0). ?? ? ACR TI-RADS total points: 4 ?? ? ACR TI-RADS category: 4 ?? ? NODES: No lymphadenopathy is seen in the tissue surrounding the thyroid gland. DEXA: 03/22/2022 FINDINGS: AP SPINE L1-L4: Current: BMD 1.350 g/cm2, Z-score 3.4, T-score 1.4, normal, 4.2% decrease from baseline (<5% change is not significant). Baseline: BMD 1.409 g/cm2. LEFT FOREARM RADIUS 33%: BMD 0.962 g/cm2, Z-score 3.3, T-score 1.0, normal, 2.1% decrease from baseline (<5% change is not significant). Baseline: BMD 0.983 g/cm2. LEFT FEMUR, NECK: Current: BMD 1.004 g/cm2, Z-score 1.8, T-score -0.2, normal. Baseline: BMD 1.052 g/cm2. LEFT FEMUR, TOTAL: Current: BMD 0.938 g/cm2, Z-score 1.4, T-score -0.6, normal, 11.2% decrease from baseline (<5% change is not significant). Baseline: BMD 1.056 g/cm2. Labs: Laboratory Tests 04/19/23 04/19/23 04/19/23 07:42 07:45 07:45 Sodium 140 Potassium 4.6 Creatinine 0.96 Estimated GFR 56 Hemoglobin A1c % 7.2 H Calcium 10.4 H D LDL Cholesterol Di rect 25-OH Vitamin D To agapito 33.3 TSH 0.47 Free T4 0.94 Microalb/Creat Rat io 17.5 04/19/23 07:45 Sodium Potassium Creatinine Estimated GFR Hemoglobin A1c % Calcium LDL Cholesterol Di rect 94 25-OH Vitamin D To agapito TSH Free T4 Microalb/Creat Rat io PFSH Medical History HLD (hyperlipidemia) HTN (hypertension) Hyperparathyroidism Hypersomnolence Intestinal malabsorption following gastrectomy Left breast mass Malabsorption due to intolerance, not elsewhere classified Multinodular thyroid Sleep apnea Snoring T2DM (type 2 diabetes mellitus) Vitamin D deficiency Surgical History Hx of total knee replacement Hx of cataract surgery S/P laparoscopic sleeve gastrectomy Family History Father Cancer Diabetes Mother Diabetes Legally blind Social History Household Members: Spouse Alcohol intake: current Alcohol intake frequency: holidays/special occasions only Patient Tobacco Use Status: Former Tobacco user Tobacco use type: Cigarette Cigarette Packs Per Day: 2 Cigarettes Per Day: 40 Years Smoked: approx 25 Female Reproductive History Menstrual Age of Menarche: 10 Physical Exam Vital Signs: Last Vital Signs Pulse 55 11/29/23 08:23 BP 130/66 11/29/23 08:23 BMI result Body Mass Index 21.2 Absence of Cushingoid features. Absence of acromegalic features. Neck exam r eveals enlarged size thyroid about 45 gms.Left thyroid nodule palpable about 4 cm . No carotid bruits present. Lungs CTA. Heart S1 S2, Reg R/R. No M/R/ G. Skin exam reveals absence of vitiligo or acanthosis nigricans. Abdominal exam reveals Soft NT/ND with NA BS. No organomegaly present. Neck Other: . Extrem Other: Visual exam of foot performed. No ulcerations or open lesions. No onchomycosis, no callouses.Pulses 2 + distally Sensation intact to monofilament exam. Vibratory sensation sensed is intact with 128 Hz tuning fork Results Reviewed Results Reviewed: Laboratory Last Values Glucose (Clinic) 185 mg/dL (60-115) H 11/29/23 08:31 Assessment & Plan Assessment & Plan (1) T2DM (type 2 diabetes mellitus): Code(s): E11.9 - Type 2 diabetes mellitus without complications Qualifiers: Diabetes mellitus complication status: with hyperglycemia Diabetes mellitus penitentiary insulin use: with middle or intermediate school principal use Qualified Code(s): E11.65 - Type 2 diabetes mellitus with hyperglycemia; Z79.4 - middle or intermediate school principal (current) use of insulin Plan: This is a 78-year-old white female with a history of type 2 diabetes being treated with Trulicity, metformin and basal insulin with good glycemic control and no known microvascular or macrovascular complications. HbA1c is at goal considering patient's age Plan is to continue the current regimen. At this point, patient returned to the care of her primary care provider and returned back to endocrinology should her HbA1c deteriorate (2) Multinodular thyroid: Code(s): E04.2 - Nontoxic multinodular goiter Plan: She underwent FNA biopsy of her LLP 3.8 cm nodule 03/04/2020 with benign cytology. Ultrasounds have shown nodules been stable in size. Patient is clinically and biochemically euthyroid Will repeat thyroid ultrasound. Assuming nodule stable in size, patient can then follow up with primary care provider can follow with thyroid ultrasounds every 2-3 years time (3) Hyperparathyroidism: Code(s): E21.3 - Hyperparathyroidism, unspecified Plan: Seems to have resolved with normal PTH and calcium levels. Also has normal bone density. With regard to this problem, patient returned to the care of her primary care provider Orders: Orders US thyroid Today E04.2 - Nontoxic multinodular goiter Coding Level of Care Code Est Pt Level 4 (74489) Diagnoses Type 2 diabetes mellitus with hyperglycemia, with long-term current use of insulin E11.65; Z79.4 Diabetes mellitus complication status: with hyperglycemia Diabetes mellitus middle or intermediate school principal insulin use: with middle or intermediate school principal use Multinodular thyroid E04.2 Hyperparathyroidism E21.3
[2023-11-29 08:23] VITALS: BP 130/66; PULSE 55; BMI 21.2
[2023-11-29 08:35] LABS: Glucose, Whole Blood 185 mg/dL (60-115)
== END 2023-11-29 08:50 | disposition home or self-care (01) ==
PROVIDERS: PCP Internal Medicine; Visit Provider Internal Medicine Endocrinology, Diabetes & Metabolism
DX: E11.65 Type 2 diabetes mellitus with hyperglycemia (principal); Z79.4 Long term (current) use of insulin; E04.2 Nontoxic multinodular goiter; E21.3 Hyperparathyroidism, unspecified
CPT/HCPCS: 99214

== ENCOUNTER → 2023-11-29 08:20 | Outpatient (BNVA) | payer MEDICARE, SELFPAY | PROVIDERS: PCP Internal Medicine; Visit Provider Internal Medicine Endocrinology, Diabetes & Metabolism | DX: E04.2 Nontoxic multinodular goiter (principal); E21.3 Hyperparathyroidism, unspecified; E11.65 Type 2 diabetes mellitus with hyperglycemia; Z79.4 Long term (current) use of insulin | CPT/HCPCS: 82947; 99212 ==

== ENCOUNTER 2023-12-14 10:32 | Outpatient (AMB) | payer MEDICARE, SELFPAY ==
[2023-12-14 10:38] VITALS: BP 112/60; PULSE 86; O2SAT 99; BMI 19.7
--- NOTE | 2023-12-14 10:38 | HO.NEPHOV ---
Vital Signs 12/14/23 10:38 Height 5 ft 7 in Weight 126 lb BMI 19.7 BP 112/60 Blood Pressure Location Rt brachial Position Sitting Pulse 86 Pulse Source Pulse Oximeter Pulse Oximetry (%) 99 Oxygen Delivery Method Room Air Intake Visit Reasons: Jarrell spots in right kidney/ Confirmed Hi Ranger Operator Required: No Accompanied by: Self / Same As Patient Allergies No Known Allergies [No Known Allergies*] Allergy (Verified 12/14/23 10:41) HPI Comments Details: I had the delight of seeing Lis in consultation for renal cysts, mild CKD and hypertension on a backdrop of diabetes mellitus. She has been having unintentional weight loss for which she underwent imaging studies which showed lesions in the kidney. She also has pulmonary nodules which became concerning given the renal lesions. She has diabetes for a long time but has no proteinuria. She had laser treatment to the eye and closely follows up with ophthalmology. She had been on very low dose of Lantus and Trulicity along with metformin. It is keeping her hemoglobin A1c close to 7. She had undergone gastric sleeve surgery in the past. She denies any coronary artery disease, carotid stenosis, CVA, CHF, peripheral arterial disease or renal artery stenosis. She has currently not on any Jardiance or Farxiga. She has dyslipidemia and is on statins which she is tolerating well. She is on SHERICE-inhibitor. She denies any chest pain, shortness of breath, paroxysmal nocturnal dyspnea, orthopnea, pedal edema, hematuria or orthostatic symptoms. She is concerned about her unintentional weight loss. [facility] Medical History HLD (hyperlipidemia) HTN (hypertension) Hyperparathyroidism Hypersomnolence Intestinal malabsorption following gastrectomy Left breast mass Malabsorption due to intolerance, not elsewhere classified Multinodular thyroid Sleep apnea Snoring T2DM (type 2 diabetes mellitus) Vitamin D deficiency Surgical History Hx of total knee replacement Hx of cataract surgery S/P laparoscopic sleeve gastrectomy Family History Father Cancer Diabetes Mother Diabetes Legally blind Social History Household Members: Spouse Alcohol intake: current Alcohol intake frequency: holidays/special occasions only Patient Tobacco Use Status: Former Tobacco user Tobacco use type: Cigarette Cigarette Packs Per Day: 2 Cigarettes Per Day: 40 Years Smoked: approx 25 Female Reproductive History Menstrual Age of Menarche: 10 Physical Exam Vital Signs: Last Vital Signs Pulse 86 12/14/23 10:38 BP 112/60 12/14/23 10:38 Pulse Ox 99 12/14/23 10:38 Oxygen Delivery Method Room Air 12/14/23 10:38 BMI result Body Mass Index 19.7 Const General: comfortable and no acute distress Orientation/consciousness: patient oriented x3 HEENT Head: Yes normocephalic Mouth: Normal oral and palatal mucosa present Eyes EOM: EOMs intact bilaterally Neck Neck: Yes supple Resp Auscultation: clear to auscultation bilaterally Cardio Jugular venous distension: no JVD Rate: regular rate GI Palpation (GI): Soft to palpation Auscultation: normal bowel sounds General: Yes no CVA tenderness Back/Spine/Pelvis Back: no CVA tenderness Skin General skin exam: no rashes or lesions noted Neuro General: patient oriented x3 and moves all extremities Extrem General: Yes no pedal edema Results Reviewed Nephrology Results: Hgb 11.8 g/dl (12.0-16.0) L 10/29/23 WBC 3.3 X10*3/uL (4.8-10.8) L 10/29/23 Plt Count 233 X10*3/uL (160-400) 10/29/23 Sodium 139 mmol/L (135-145) 10/29/23 Potassium 4.4 mmol/L (3.3-5.1) 10/29/23 Chloride 104 mmol/L (96-108) 10/29/23 Carbon Dioxide 25 mmol/L (22-29) 10/29/23 BUN 24 mg/dL (9-16) H 10/29/23 Creatinine 1.34 mg/dL (0.5-1.4) 10/29/23 Calcium 9.9 mg/dL (8.4-10.2) 10/29/23 Assessment & Plan Assessment & Plan (1) HTN (hypertension): Code(s): I10 - Essential (primary) hypertension Category: Medical Qualifiers: Hypertension type: unspecified Qualified Code(s): I10 - Essential (primary) hypertension (2) CKD (chronic kidney disease) stage 3, GFR 30-59 ml/min: Code(s): N18.30 - Chronic kidney disease, stage 3 unspecified Category: Medical Qualifiers: Chronic kidney disease stage 3 subtype: stage 3a (GFR 45-59) Qualified Code(s): N18.31 - Chronic kidney disease, stage 3a (3) Renal cyst: Code(s): N28.1 - Cyst of kidney, acquired Category: Medical Plan Lashay has CKD stage 3 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 She has renal cysts for which I shall arrange MRI of the kidney with gadolinium, if it has not done already. She will also benefit from a urology appointment which I shall arrange after MRI results. She does not have any proteinuria. She is on SHERICE inhibitor. If her serum creatinine is going up I may temporarily hold her SHERICE inhibitor. She is on minimal Lantus. She is on Trulicity and is having a lot of weight loss. At the next visit I shall arrange a 24 hour urine collection for creatinine clearance. We should be able to stop her Trulicity and Lantus and initiate her on Jardiance or Farxiga. Her blood pressure is at goal. She has been on PPI for a long time. It is unlikely that it is contributing to her CKD. All these have been discussed in detail and I had the opportunity to answer all her questions. Follow-up appointment given. Orders: Orders Creatinine 12/14/23 I10 - Essential (primary) hypertension, N18.30 - Chronic kidney disease, stage 3 unspecified Immunofixation Pnl, Serum 12/14/23 N18.30 - Chronic kidney disease, stage 3 unspecified Blood Urea Nitrogen 12/14/23 I10 - Essential (primary) hypertension, N18.30 - Chronic kidney disease, stage 3 unspecified Electrolytes 12/14/23 I10 - Essential (primary) hypertension, N18.30 - Chronic kidney disease, stage 3 unspecified Protein Creatinine Ratio, Ur 12/14/23 N18.30 - Chronic kidney disease, stage 3 unspecified Coding Level of Care Code New Pt Level 4 (21146) Diagnoses Hypertension, unspecified type I10 Hypertension type: unspecified Stage 3a chronic kidney disease N18.31 Chronic kidney disease stage 3 subtype: stage 3a (GFR 45-59) Renal cyst N28.1
== END 2023-12-14 11:32 | disposition home or self-care (01) ==
PROVIDERS: PCP Internal Medicine; Visit Provider Internal Medicine Nephrology
DX: I10 Essential (primary) hypertension (principal); N18.31 Chronic kidney disease, stage 3a; N28.1 Cyst of kidney, acquired
CPT/HCPCS: 99204

== ENCOUNTER → 2023-12-14 10:32 | Outpatient (BNVA) | payer MEDICARE, SELFPAY | PROVIDERS: PCP Internal Medicine; Visit Provider Internal Medicine Nephrology | DX: I12.9 Hypertensive chronic kidney disease with stage 1 through stage 4 chronic kidney disease, or unspecified chronic kidney disease (principal); N18.31 Chronic kidney disease, stage 3a; N28.1 Cyst of kidney, acquired | CPT/HCPCS: 99202 ==

== ENCOUNTER 2023-12-17 07:55 | Outpatient (REF) | payer MEDICARE, SELFPAY ==
--- NOTE | ~2023-12-17 | US_ITS ---
EXAMINATION: US THYROID CLINICAL INFORMATION: Nontoxic multinodular goiter. COMPARISON: Thyroid ultrasound 08/01/2022 and 07/26/2021. Ultrasound-guided thyroid biopsy 03/04/2020. TECHNIQUE: Linear transducer khan-scale and color Doppler examination with attention to the region of the thyroid. FINDINGS: SIZE: Measurements of the thyroid lobes and nodules are given in sagittal, anteroposterior and transverse dimensions respectively. Right Thyroid Lobe: 5.4 x 1.8 x 1.8 cm, volume 9.2 mL. Previously 4.9 x 2.1 x 1.5 cm, volume 8.0 mL. Parenchyma: The gland echotexture is homogeneous. Thyroid vascularity is normal. Left Thyroid Lobe: 6.2 x 2.3 x 2.4 cm, volume 17.9 mL. Previously 5.4 x 2.4 x 2.7 cm, volume 17.7 mL. Parenchyma: The gland echotexture is homogeneous. Thyroid vascularity is normal. Isthmus: 0.1 cm in maximum AP dimension. Previously 0.1 cm. Estimated total number of nodules greater than or equal to 1 cm: 1. Mellowing Machine Operator nodules are described as follows: 1. Location: Right mid. Size: 0.7 x 0.4 x 0.7 cm, volume 0.1 mL. Previously: 0.8 x 0.4 x 0.6 cm, volume 0.09 mL. Nodule characteristics: Composition: Solid/almost completely solid (2). Echogenicity: Isoechoic (1). Shape: Not taller than wide (0). Margins: Ill-defined (0). Echogenic Foci: None (0). ACR TI-RADS total points: 3 Previous: 3 ACR TI-RADS category: 3 Previous: 3 Significant change in size (>/= 20% in 2 dimensions and minimal increase of 2 mm or 50% or greater increase in volume): No Change in features: No Change in ACR TI-RADS risk category: No 2. Location: Right mid. Size: 0.8 x 0.4 x 0.6 cm, volume 0.09 mL. Previously: 0.7 x 0.4 x 0.5 cm, volume 0.08 mL. Nodule characteristics: Composition: Spongiform (0). Echogenicity: Anechoic (0). Shape: Not taller than wide (0). Margins: Smooth (0). Echogenic Foci: None (0). ACR TI-RADS total points: 0 Previous: 0 ACR TI-RADS category: 1 Previous: 1 Significant change in size (>/= 20% in 2 dimensions and minimal increase of 2 mm or 50% or greater increase in volume): No Change in features: No Change in ACR TI-RADS risk category: No 3. Location: Right mid. Size: 0.7 x 0.4 x 0.7 cm, volume 0.1 mL. Previously: 0.8 x 0.5 x 0.7 cm, volume 0.1 mL. Nodule characteristics: Composition: Solid (2). Echogenicity: Hypoechoic (2). Shape: Not taller than wide (0). Margins: Smooth (0). Echogenic Foci: None (0). ACR TI-RADS total points: 4 Previous: 3 ACR TI-RADS category: 4 Previous: 3 Significant change in size (>/= 20% in 2 dimensions and minimal increase of 2 mm or 50% or greater increase in volume): No Change in features: Yes Change in ACR TI-RADS risk category: Yes 4. Location: Left mid. Size: 4.1 x 1.9 x 2.2 cm, volume 9.0 mL. Previously: 4.4 x 1.9 x 2.4 cm, volume 10.0 mL. Nodule characteristics: Composition: Solid (2). Echogenicity: Isoechoic (1). Shape: Not taller than wide (0). Margins: Smooth (0). Echogenic Foci: Punctate echogenic foci (3). ACR TI-RADS total points: 6 Previous: 3 ACR TI-RADS category: 4 Previous: 3 Significant change in size (>/= 20% in 2 dimensions and minimal increase of 2 mm or 50% or greater increase in volume): No Change in features: No Change in ACR TI-RADS risk category: No NODES: No lymphadenopathy is seen in the tissue surrounding the thyroid gland. US/US thyroid IMPRESSION: 1. A 4.1 cm mid left thyroid TR 4 nodule meets ACR biopsy criteria and is amenable to ultrasound-guided biopsy. Please correlate with ultrasound biopsy results dated 03/04/2020. 2. There is an asymmetric goiter, left lobe greater than right. ACR TI-RADS RECOMMENDATION REFERENCE: Ultrasound-guided fine-needle aspiration, follow up ultrasound, no further followup. * TR1 (0 point) and TR2 (2 points): No FNA or followup * TR3 (3 points): FNA if more than or equal to 2.5 cm in maximum dimension, follow up ultrasound in 1, 3 and 5 years if 1.5 to 2.4 cm in maximum dimension. * TR4 (4-6 points): FNA if more than or equal to 1.5 cm in maximum dimension, follow up ultrasound in 1, 2, 3 and 5 years if 1 to 1.4 cm in maximum dimension. * TR5 (more than or equal to 7 points): FNA if more than or equal to 1 cm in maximum dimension, follow up ultrasound every year for 5 years if 0.5 to 0.9 cm in maximum dimension. * TR3, TR4 or TR5 nodules that are below the size threshold for follow up receive no followup.
== END 2023-12-17 07:56 | disposition home or self-care (01) ==
LOC: HO.US 07:55
PROVIDERS: PCP Internal Medicine; Visit Provider Internal Medicine Endocrinology, Diabetes & Metabolism
DX: E04.2 Nontoxic multinodular goiter (principal)
CPT/HCPCS: 76536

== ENCOUNTER 2024-02-01 06:36 | Outpatient (REF) | payer MEDICARE, SELFPAY ==
[2024-02-01 07:26] LABS: Anion Gap 11 (12-20); Blood Urea Nitrogen 44 mg/dL (9-16); Carbon Dioxide 27 mmol/L (22-29); Chloride 108 mmol/L (96-108); Estimated Glomerular Filt Rate 24; Potassium 4.8 mmol/L (3.3-5.1); Sodium 141 mmol/L (135-145)
[2024-02-01 11:09] LABS: Creatinine Urine 76.95 mg/dL; Total Protein Urine Random < 7 mg/dL (<12)
[2024-02-05 16:23] LABS: IgA 109 mg/dL (70-320); IgG 977 mg/dL (600-1540); IgM 39 mg/dL (50-300)
== END 2024-02-01 06:37 | disposition home or self-care (01) ==
LOC: HO.LAB 06:36
PROVIDERS: PCP Internal Medicine; Visit Provider Internal Medicine Nephrology
DX: I12.9 Hypertensive chronic kidney disease with stage 1 through stage 4 chronic kidney disease, or unspecified chronic kidney disease (principal); N18.30 Chronic kidney disease, stage 3 unspecified
CPT/HCPCS: 36415; 80051; 82565; 82570; 82784; 84156; 84520; 86334

== ENCOUNTER 2024-02-08 10:53 | Outpatient (AMB) | payer MEDICARE, SELFPAY ==
[2024-02-08 11:02] VITALS: BP 130/60; BMI 19.8
--- NOTE | 2024-02-08 11:02 | HO.NEPHOV_ITS ---
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 She recently had TOVA and her ACEI has been put on hold. She has been having unintentional weight loss for which she underwent imaging studies which showed lesions in the kidney. She also has pulmonary nodules which became concerning given the renal lesions. She has diabetes for a long time but has no proteinuria. She had laser treatment to the eye and closely follows up with ophthalmology. She had been on very low dose of Lantus and Trulicity along with metformin. It is keeping her hemoglobin A1c close to 7. She had undergone gastric sleeve surgery in the past. She denies any coronary artery disease, carotid stenosis, CVA, CHF, peripheral arterial disease or renal artery stenosis. She has currently not on any Jardiance or Farxiga. She has dyslipidemia and is on statins which she is tolerating well. She denies any chest pain, shortness of breath, paroxysmal nocturnal dyspnea, orthopnea, pedal edema, hematuria or orthostatic symptoms. She is concerned about her unintentional weight loss. [facility] Medical History HLD (hyperlipidemia) HTN (hypertension) Hyperparathyroidism Hypersomnolence Intestinal malabsorption following gastrectomy Left breast mass Malabsorption due to intolerance, not elsewhere classified Multinodular thyroid Sleep apnea Snoring T2DM (type 2 diabetes mellitus) Vitamin D deficiency Surgical History Hx of total knee replacement Hx of cataract surgery S/P laparoscopic sleeve gastrectomy Family History Father Cancer Diabetes Mother Diabetes Legally blind Social History Household Members: Spouse Alcohol intake: current Alcohol intake frequency: holidays/special occasions only Patient Tobacco Use Status: Former Tobacco user Tobacco use type: Cigarette Cigarette Packs Per Day: 2 Cigarettes Per Day: 40 Years Smoked: approx 25 Female Reproductive History Menstrual Age of Menarche: 10 Physical Exam Vital Signs: Last Vital Signs BP 130/60 02/08/24 11:02 BMI result Body Mass Index 19.8 Const General: comfortable and no acute distress Orientation/consciousness: patient oriented x3 HEENT Head: Yes normocephalic Mouth: Normal oral and palatal mucosa present Eyes EOM: EOMs intact bilaterally Neck Neck: Yes supple Resp Auscultation: clear to auscultation bilaterally Cardio Jugular venous distension: no JVD Rate: regular rate GI Palpation (GI): Soft to palpation Auscultation: normal bowel sounds General: Yes no CVA tenderness Back/Spine/Pelvis Back: no CVA tenderness Skin General skin exam: no rashes or lesions noted Neuro General: patient oriented x3 and moves all extremities Extrem General: Yes no pedal edema Results Reviewed Nephrology Results: Hgb 11.8 g/dl (12.0-16.0) L 10/29/23 WBC 3.3 X10*3/uL (4.8-10.8) L 10/29/23 Plt Count 233 X10*3/uL (160-400) 10/29/23 Sodium 141 mmol/L (135-145) 02/01/24 Potassium 4.8 mmol/L (3.3-5.1) 02/01/24 Chloride 108 mmol/L (96-108) 02/01/24 Carbon Dioxide 27 mmol/L (22-29) 02/01/24 BUN 44 mg/dL (9-16) H 02/01/24 Creatinine 1.99 mg/dL (0.5-1.4) H 02/01/24 Calcium 9.9 mg/dL (8.4-10.2) 10/29/23 Urine Creatinine 76.95 mg/dL 02/01/24 Protein/Creatinin Ratio TNP 02/01/24 Assessment & Plan Assessment & Plan (1) CKD (chronic kidney disease) stage 3, GFR 30-59 ml/min: Code(s): N18.30 - Chronic kidney disease, stage 3 unspecified Category: Medical Qualifiers: Chronic kidney disease stage 3 subtype: stage 3a (GFR 45-59) Qualified Code(s): N18.31 - Chronic kidney disease, stage 3a (2) Renal cyst: Code(s): N28.1 - Cyst of kidney, acquired Category: Medical (3) TOVA (acute kidney injury): Code(s): N17.9 - Acute kidney failure, unspecified Category: Medical Plan Lashay has CKD stage 3 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 She recently had TOVA and her ACEI has been put on hold. I asked her to increase fluid intake. She has renal cysts for which I shall arrange MRI of the kidney with gadolinium, in the future, if it has not done already. She will also benef it from a urology appointment which I shall arrange after MRI results. She does not have any proteinuria. She is on minimal Lantus. She is on Trulicity and is having a lot of weight loss. With time, I shall arrange a 24 hour urine collection for creatinine clearance. We should be able to stop her Trulicity and Lantus and initiate her on Jardiance or Farxiga. Her blood pressure is at goal. She has been on PPI for a long time. It is unlikely that it is contributing to her CKD. All these have been discussed in detail and I had the opportunity to answer all her questions. Follow-up appointment given. Orders: Orders Creatinine Today N17.9 - Acute kidney failure, unspecified, N18.31 - Chronic kidney disease, stage 3a, N28.1 - Cyst of kidney, acquired Blood Urea Nitrogen Today N17.9 - Acute kidney failure, unspecified, N18.31 - Chronic kidney disease, stage 3a, N28.1 - Cyst of kidney, acquired Electrolytes Today N17.9 - Acute kidney failure, unspecified, N18.31 - Chronic kidney disease, stage 3a, N28.1 - Cyst of kidney, acquired Coding Level of Care Code Est Pt Level 4 (81128) Diagnoses Stage 3a chronic kidney disease N18.31 Chronic kidney disease stage 3 subtype: stage 3a (GFR 45-59) Renal cyst N28.1 TOVA (acute kidney injury) N17.9
== END 2024-02-08 11:25 | disposition home or self-care (01) ==
PROVIDERS: PCP Internal Medicine; Visit Provider Internal Medicine Nephrology
DX: N18.31 Chronic kidney disease, stage 3a (principal); N28.1 Cyst of kidney, acquired; N17.9 Acute kidney failure, unspecified
CPT/HCPCS: 99214

== ENCOUNTER → 2024-02-08 10:53 | Outpatient (BNVA) | payer MEDICARE, SELFPAY | PROVIDERS: PCP Internal Medicine; Visit Provider Internal Medicine Nephrology | DX: E11.22 Type 2 diabetes mellitus with diabetic chronic kidney disease (principal); I12.9 Hypertensive chronic kidney disease with stage 1 through stage 4 chronic kidney disease, or unspecified chronic kidney disease; N18.31 Chronic kidney disease, stage 3a; N28.1 Cyst of kidney, acquired; N17.9 Acute kidney failure, unspecified | CPT/HCPCS: 99212 ==

== ENCOUNTER 2024-03-17 07:31 | Outpatient (REF) | payer MEDICARE, SELFPAY ==
[2024-03-17 08:34] LABS: Anion Gap 15 (12-20); Blood Urea Nitrogen 34 mg/dL (9-16); Carbon Dioxide 24 mmol/L (22-29); Chloride 106 mmol/L (96-108); Estimated Glomerular Filt Rate 25; Potassium 4.8 mmol/L (3.3-5.1); Sodium 140 mmol/L (135-145)
== END 2024-03-17 07:32 | disposition home or self-care (01) ==
LOC: HO.LAB 07:31
PROVIDERS: PCP Internal Medicine; Visit Provider Internal Medicine Nephrology
DX: N17.9 Acute kidney failure, unspecified (principal); N18.31 Chronic kidney disease, stage 3a; N28.1 Cyst of kidney, acquired
CPT/HCPCS: 36415; 80051; 82565; 84520

== ENCOUNTER 2024-03-21 09:44 | Outpatient (AMB) | payer MEDICARE, SELFPAY ==
--- NOTE | 2024-03-21 10:00 | HO.NEPHOV_ITS ---
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 She recently had TOVA and her ACEI has been put on hold. She has been having unintentional weight loss for which she underwent imaging studies which showed lesions in the kidney. She also has pulmonary nodules which became concerning given the renal lesions. She has diabetes for a long time but has no proteinuria. She had laser treatment to the eye and closely follows up with ophthalmology. She had been on very low dose of Lantus and Trulicity along with metformin. It is keeping her hemoglobin A1c close to 7. She had undergone gastric sleeve surgery in the past. She denies any coronary artery disease, carotid stenosis, CVA, CHF, peripheral arterial disease or renal artery stenosis. She has currently not on any Jardiance or Farxiga. She has dyslipidemia and is on statins which she is tolerating well. She denies any chest pain, shortness of breath, paroxysmal nocturnal dyspnea, orthopnea, pedal edema, hematuria or orthostatic symptoms. [facility] Medical History HLD (hyperlipidemia) HTN (hypertension) Hyperparathyroidism Hypersomnolence Intestinal malabsorption following gastrectomy Left breast mass Malabsorption due to intolerance, not elsewhere classified Multinodular thyroid Sleep apnea Snoring T2DM (type 2 diabetes mellitus) Vitamin D deficiency Surgical History Hx of total knee replacement Hx of cataract surgery S/P laparoscopic sleeve gastrectomy Family History Father Cancer Diabetes Mother Diabetes Legally blind Social History Household Members: Spouse Alcohol intake: current Alcohol intake frequency: holidays/special occasions only Patient Tobacco Use Status: Former Tobacco user Tobacco use type: Cigarette Cigarette Packs Per Day: 2 Cigarettes Per Day: 40 Years Smoked: approx 26 Female Reproductive History Menstrual Age of Menarche: 10 Physical Exam Vital Signs: Last Vital Signs BP 132/60 03/21/24 10:01 BMI result Body Mass Index 19.3 Const General: comfortable and no acute distress Orientation/consciousness: patient oriented x3 HEENT Head: Yes normocephalic Mouth: Normal oral and palatal mucosa present Eyes EOM: EOMs intact bilaterally Neck Neck: Yes supple Resp Auscultation: clear to auscultation bilaterally Cardio Jugular venous distension: no JVD Rate: regular rate GI Palpation (GI): Soft to palpation Auscultation: normal bowel sounds General: Yes no CVA tenderness Back/Spine/Pelvis Back: no CVA tenderness Skin General skin exam: no rashes or lesions noted Neuro General: patient oriented x3 and moves all extremities Extrem General: Yes no pedal edema Results Reviewed Nephrology Results: Sodium 140 mmol/L (135-145) 03/17/24 Potassium 4.8 mmol/L (3.3-5.1) 03/17/24 Chloride 106 mmol/L (96-108) 03/17/24 Carbon Dioxide 24 mmol/L (22-29) 03/17/24 BUN 34 mg/dL (9-16) H 03/17/24 Creatinine 1.92 mg/dL (0.5-1.4) H 03/17/24 Urine Creatinine 76.95 mg/dL 02/01/24 Protein/Creatinin Ratio TNP 02/01/24 Assessment & Plan Assessment & Plan (1) CKD (chronic kidney disease) stage 3, GFR 30-59 ml/min: Code(s): N18.30 - Chronic kidney disease, stage 3 unspecified Category: Medical Qualifiers: Chronic kidney disease stage 3 subtype: stage 3a (GFR 45-59) Qualified Code(s): N18.31 - Chronic kidney disease, stage 3a (2) Renal cyst: Code(s): N28.1 - Cyst of kidney, acquired Category: Medical (3) HTN (hypertension): Code(s): I10 - Essential (primary) hypertension Category: Medical Qualifiers: Hypertension type: unspecified Qualified Code(s): I10 - Essential (primary) hypertension Plan Lashay has CKD stage 3 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 She recently had TOVA and her ACEI had been put on hold. I asked her to increase fluid intake. She has renal cysts for which I shall arrange MRI of the kidney with gadolinium, in the future, if it has not done already. She will also benefit from a urology appointment which I shall arrange after MRI results. She does not have any proteinuria. She is on minimal Lantus which I discontinued. She is on Trulicity and is having a lot of weight loss. With time, I shall arrange a 24 hour urine collection for creatinine clearance. Reduced Metformin to 500 mg bid today. Started Jardiance 10 mg daily which I may adjust later. Should be able to to D/C lantus soon. Her blood pressure is at goal. She has been on PPI for a long time. It is unlikely that it is contributing to her CKD. All these have been discussed in detail and I had the opportunity to answer all her questions. Follow-up appointment given Orders: Orders Creatinine Today N18.31 - Chronic kidney disease, stage 3a Blood Urea Nitrogen Today N18.31 - Chronic kidney disease, stage 3a Electrolytes Today N18.31 - Chronic kidney disease, stage 3a Medications: New empagliflozin (Jardiance) 10 mg PO DAILY 30 days 30 tabs 4RF Discontinued lisinopril Discontinued Reason: Doctor's Order 2.5 mg PO DAILY 90 days 90 tabs 3RF Coding Level of Care Code Est Pt Level 4 (89801) Diagnoses Stage 3a chronic kidney disease N18.31 Chronic kidney disease stage 3 subtype: stage 3a (GFR 45-59) Renal cyst N28.1 Hypertension, unspecified type I10 Hypertension type: unspecified
[2024-03-21 10:01] VITALS: BP 132/60; BMI 19.3
== END 2024-03-21 10:25 | disposition home or self-care (01) ==
PROVIDERS: PCP Internal Medicine; Visit Provider Internal Medicine Nephrology
DX: N18.31 Chronic kidney disease, stage 3a (principal); N28.1 Cyst of kidney, acquired; I10 Essential (primary) hypertension
CPT/HCPCS: 99214

== ENCOUNTER → 2024-03-21 09:44 | Outpatient (BNVA) | payer MEDICARE, SELFPAY | PROVIDERS: PCP Internal Medicine; Visit Provider Internal Medicine Nephrology | DX: N28.1 Cyst of kidney, acquired (principal); I12.9 Hypertensive chronic kidney disease with stage 1 through stage 4 chronic kidney disease, or unspecified chronic kidney disease; N18.31 Chronic kidney disease, stage 3a | CPT/HCPCS: 99212 ==

== ENCOUNTER 2024-04-09 12:44 | Outpatient (AMB) | payer MEDICARE, SELFPAY ==
--- NOTE | 2024-04-09 12:56 | A.OFFVIS_ITS ---
VS Expanded 04/09/24 13:11 BP 150/68 H Blood Pressure Location Rt brachial Blood Pressure Position Sitting Pulse 86 Pulse Source Pulse Oximeter Temp 97.6 F Temperature Source Tympanic Pulse Oximetry 96 Oxygen Delivery Method Room Air Height 5 ft 7 in Weight 119 lb 12.8 oz BMI 18.8 Body Fat % 16.9 Body Fat Mass 20.2 Fat Free Mass 99.4 Visceral Fat Rating 6.0 Body Water % 58.2 Body Water Mass 69.6 Muscle Mass/Score 94.4 Basal Metabolic Rate/Score 1,283 Intake Visit Reasons: (OV) PO LSG 09/16/19 Allergies No Known Allergies [No Known Allergies*] Allergy (Verified 04/09/24 13:14) Medication List - Last Reconciled 04/09/24 by NICHELLE Treadwell atorvastatin 40 mg PO DAILY 90 days cholecalciferol (vitamin D3) 50 mcg PO DAILY cyanocobalamin (vitamin B-12) 500 mcg PO DAILY docusate sodium (Colace) 100 mg PO DAILY dorzolamide 2% 1 drp ophthalmic-Right BID dulaglutide (Trulicity) 4.5 mg (0.5 mL) subcut QWEEK empagliflozin (Jardiance) 10 mg PO DAILY 30 days flash glucose scanning reader (FreeStyle Florina 2 [place]) As directed flash glucose sensor (FreeStyle Florina 2 Sensor kit) CHANGE EVERY 14 DAYS insulin glargine (Lantus Solostar U-100 Insulin) 4 units (0.04 mL) subcut QPM 30 days iron,carbonyl-vitamin C 65 mg iron- 125 mg (Vitron-C) 1 tab PO BEDTIME metformin ER 1,000 mg (2 x 500 mg) PO BID pantoprazole 40 mg PO DAILY pen needle, diabetic (BD Ultra-Fine Mini Pen Needle) As directed HPI Comments Details: This?is a?79?yo female who is s/p LSG 09/16/2019. Weight loss of about 6lbs since she last saw me in Sep. Feels weak. No complaints of nausea, emesis, abdominal pain or reflux, or constipation. Lantus was stopped, metformin halved. Still on Trulicity. She feels her Jardiance is not working well. Has her next appt next month. Had a colonoscopy this year. Per pt has had an extensive workup by PCP including scans to rule out cancer. Present meal plan includes: not taking any protein shakes because they often raise her blood sugar too much oatmeal for breakfast with protein powder and whole milk a large variety of different meals for lunch and dinner, including ice cream and cookies increased her fluid intake Exercise routine includes: 10-16K steps per day [facility] Medical History HLD (hyperlipidemia) HTN (hypertension) Hyperparathyroidism Hypersomnolence Intestinal malabsorption following gastrectomy Left breast mass Malabsorption due to intolerance, not elsewhere classified Multinodular thyroid Sleep apnea Snoring T2DM (type 2 diabetes mellitus) Vitamin D deficiency Surgical History Hx of total knee replacement Hx of cataract surgery S/P laparoscopic sleeve gastrectomy Family History Father Cancer Diabetes Mother Diabetes Legally blind Social History Household Members: Spouse Alcohol intake: current Alcohol intake frequency: holidays/special occasions only Patient Tobacco Use Status: Former Tobacco user Tobacco use type: Cigarette Cigarette Packs Per Day: 2 Cigarettes Per Day: 40 Years Smoked: approx 26 Female Reproductive History Menstrual Age of Menarche: 10 Physical Exam Vital Signs: Last Vital Signs Temp 97.6 F 04/09/24 13:11 Pulse 86 04/09/24 13:11 BP 150/68 H 04/09/24 13:11 Pulse Ox 96 04/09/24 13:11 Oxygen Delivery Method Room Air 04/09/24 13:11 BMI result Body Mass Index 18.8 Assessment & Plan Assessment & Plan (1) S/P laparoscopic sleeve gastrectomy: Code(s): Z98.84 - Bariatric surgery status Category: Surgical Plan Pt plans to reach out to our previous RD as they had a very good relationship and pt would like to continue working with her. Pt is doing better increasing her calorie intake but still having trouble gaining. Suggested increasing healthy fat consumption such as peanut butter, olive oil which will increase calories in small volume foods. RTC 6 months, can do annual labs at that time. I spent a total of 30 minutes reviewing/updating records, examining the patient and counseling the patient on weight management as detailed above.
[2024-04-09 13:11] VITALS: BP 150/68; PULSE 86; TEMP 36.4; O2SAT 96; BMI 18.8
== END 2024-04-09 13:41 | disposition home or self-care (01) ==
PROVIDERS: PCP Internal Medicine; Visit Provider Physician Assistant Surgical
DX: E11.9 Type 2 diabetes mellitus without complications (principal); Z98.84 Bariatric surgery status
CPT/HCPCS: 99214

== ENCOUNTER → 2024-04-09 12:44 | Outpatient (BNVA) | payer MEDICARE, SELFPAY | PROVIDERS: PCP Internal Medicine; Visit Provider Physician Assistant Surgical | DX: Z98.84 Bariatric surgery status (principal) | CPT/HCPCS: 99212 ==

== ENCOUNTER 2024-04-14 15:12 | Outpatient (REF) | payer MEDICARE, SELFPAY ==
[2024-04-14 16:45] LABS: Estimated Average Glucose 180 mg/dL; Hemoglobin A1c % 7.9 % (<6.0)
[2024-04-14 17:00] LABS: Anion Gap 14 (12-20); Blood Urea Nitrogen 68 mg/dL (9-16); Carbon Dioxide 25 mmol/L (22-29); Chloride 103 mmol/L (96-108); Estimated Glomerular Filt Rate 24; Sodium 137 mmol/L (135-145)
== END 2024-04-14 15:13 | disposition home or self-care (01) ==
LOC: HO.LAB 15:12
PROVIDERS: Visit Provider Internal Medicine Nephrology
DX: N18.31 Chronic kidney disease, stage 3a (principal); Z13.1 Encounter for screening for diabetes mellitus
CPT/HCPCS: 36415; 80051; 82565; 83036; 84520

== ENCOUNTER 2024-05-07 14:03 | Outpatient (AMB) | payer MEDICARE, SELFPAY ==
[2024-05-07 14:16] VITALS: BP 120/60; PULSE 63; O2SAT 98; BMI 19.7
--- NOTE | 2024-05-07 14:16 | HO.NEPHOV ---
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 She recently had TOVA and her ACEI has been put on hold. She has been having unintentional weight loss for which she underwent imaging studies which showed lesions in the kidney. She has diabetes for a long time but has no proteinuria. She had laser treatment to the eye and closely follows up with ophthalmology. She had been off lantus and but on Trulicity along with metformin & Jardiance. Her hemoglobin A1c has gone up over 7. She had undergone gastric sleeve surgery in the past. She denies any coronary artery disease, carotid stenosis, CVA, CHF, peripheral arterial disease or renal artery stenosis. She has dyslipidemia and is on statins which she is tolerating well. She denies any chest pain, shortness of breath, paroxysmal nocturnal dyspnea, orthopnea, pedal edema, hematuria or orthostatic symptoms. [facility] Medical History HLD (hyperlipidemia) HTN (hypertension) Hyperparathyroidism Hypersomnolence Intestinal malabsorption following gastrectomy Left breast mass Malabsorption due to intolerance, not elsewhere classified Multinodular thyroid Sleep apnea Snoring T2DM (type 2 diabetes mellitus) Vitamin D deficiency Surgical History Hx of total knee replacement Hx of cataract surgery S/P laparoscopic sleeve gastrectomy Family History Father Cancer Diabetes Mother Diabetes Legally blind Social History Household Members: Spouse Alcohol intake: current Alcohol intake frequency: holidays/special occasions only Patient Tobacco Use Status: Former Tobacco user Tobacco use type: Cigarette Cigarette Packs Per Day: 2 Cigarettes Per Day: 40 Years Smoked: approx 26 Female Reproductive History Menstrual Age of Menarche: 10 Review of Systems Const All systems reviewed & are unremarkable except as noted in HPI and below Physical Exam Vital Signs: Last Vital Signs Pulse 63 05/07/24 14:16 BP 120/60 05/07/24 14:16 Pulse Ox 98 05/07/24 14:16 Oxygen Delivery Method Room Air 05/07/24 14:16 BMI result Body Mass Index 19.7 Const General: comfortable and no acute distress Orientation/consciousness: patient oriented x3 HEENT Head: Yes normocephalic Mouth: Normal oral and palatal mucosa present Eyes EOM: EOMs intact bilaterally Neck Neck: Yes supple Resp Auscultation: clear to auscultation bilaterally Cardio Jugular venous distension: no JVD Rate: regular rate GI Palpation (GI): Soft to palpation Auscultation: normal bowel sounds General: Yes no CVA tenderness Back/Spine/Pelvis Back: no CVA tenderness Skin General skin exam: no rashes or lesions noted Neuro General: patient oriented x3 and moves all extremities Extrem General: Yes no pedal edema Results Reviewed Nephrology Results: Sodium 137 mmol/L (135-145) 04/14/24 Potassium 5.0 mmol/L (3.3-5.1) 04/14/24 Chloride 103 mmol/L (96-108) 04/14/24 Carbon Dioxide 25 mmol/L (22-29) 04/14/24 BUN 68 mg/dL (9-16) H 04/14/24 Creatinine 2.00 mg/dL (0.5-1.4) H 04/14/24 Urine Creatinine 76.95 mg/dL 02/01/24 Protein/Creatinin Ratio TNP 02/01/24 Assessment & Plan Assessment & Plan (1) CKD (chronic kidney disease) stage 3, GFR 30-59 ml/min: Code(s): N18.30 - Chronic kidney disease, stage 3 unspecified Category: Medical Qualifiers: Chronic kidney disease stage 3 subtype: stage 3a (GFR 45-59) Qualified Code(s): N18.31 - Chronic kidney disease, stage 3a (2) Renal cyst: Code(s): N28.1 - Cyst of kidney, acquired Category: Medical (3) HTN (hypertension): Code(s): I10 - Essential (primary) hypertension Category: Medical Qualifiers: Hypertension type: unspecified Qualified Code(s): I10 - Essential (primary) hypertension Plan 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 Her ACEI had been put on hold. I asked her to increase fluid intake. She has renal cysts for which I shall arrange MRI of the kidney with gadolinium, in the future, if it has not done already. She will also benefit from a urology appointment which I shall arrange after MRI results. She does not have any proteinuria. She is on Trulicity and is having a lot of weight loss. I increased her Jardiance to 25 mg daily. With time, I shall arrange a 24 hour urine collection for creatinine clearance. She can C/W reduced dose of Metformin 500 mg bid today. Her blood pressure is at goal. She has been on PPI for a long time. It is unlikely that it is contributing to her CKD. All these have been discussed in detail and I had the opportunity to answer all her questions. Follow-up appointment given Orders: Orders Creatinine 05/07/24 N18.31 - Chronic kidney disease, stage 3a Blood Urea Nitrogen 05/07/24 N18.31 - Chronic kidney disease, stage 3a Electrolytes 05/07/24 N18.31 - Chronic kidney disease, stage 3a Coding Level of Care Code Est Pt Level 4 (83318) Diagnoses Stage 3a chronic kidney disease N18.31 Chronic kidney disease stage 3 subtype: stage 3a (GFR 45-59) Renal cyst N28.1 Hypertension, unspecified type I10 Hypertension type: unspecified
== END 2024-05-07 14:42 | disposition home or self-care (01) ==
PROVIDERS: PCP Internal Medicine; Visit Provider Internal Medicine Nephrology
DX: N18.31 Chronic kidney disease, stage 3a (principal); N28.1 Cyst of kidney, acquired; I10 Essential (primary) hypertension
CPT/HCPCS: 99214

== ENCOUNTER → 2024-05-07 14:03 | Outpatient (BNVA) | payer MEDICARE, SELFPAY | PROVIDERS: PCP Internal Medicine; Visit Provider Internal Medicine Nephrology | DX: I12.9 Hypertensive chronic kidney disease with stage 1 through stage 4 chronic kidney disease, or unspecified chronic kidney disease (principal); E11.22 Type 2 diabetes mellitus with diabetic chronic kidney disease; N18.31 Chronic kidney disease, stage 3a; E78.5 Hyperlipidemia, unspecified; N28.1 Cyst of kidney, acquired; Z79.899 Other long term (current) drug therapy | CPT/HCPCS: 99212 ==

== ENCOUNTER 2024-05-29 08:02 | Outpatient (AMB) | payer MEDICARE, SELFPAY ==
--- NOTE | 2024-05-29 08:04 | MHC.OFFVIS ---
Vital Signs 05/29/24 08:05 Height 5 ft 7 in Weight 125 lb 0.034 oz BMI 19.6 BP 104/58 L Blood Pressure Location Lt brachial Position Sitting Intake Visit Reasons: Thyroid Nodule-conf Intake Note: Patient present today for thyroid nodule office visit. 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 Required: No Accompanied by: Self / Same As Patient Allergies No Known Allergies [No Known Allergies*] Allergy (Verified 05/29/24 08:10) Medication List - Last Reconciled 05/29/24 by Renato Phillips MD atorvastatin 40 mg PO DAILY 90 days cholecalciferol (vitamin D3) 50 mcg PO DAILY cyanocobalamin (vitamin B-12) 500 mcg PO DAILY docusate sodium (Colace) 100 mg PO DAILY dorzolamide 2% 1 drp ophthalmic-Right BID dulaglutide (Trulicity) 4.5 mg (0.5 mL) subcut QWEEK empagliflozin 25 mg PO DAILY 30 days flash glucose scanning reader (MessagePartyStyle Florina 2 [place]) As directed flash glucose sensor (FreeStyle Florina 2 Sensor kit) CHANGE EVERY 14 DAYS insulin glargine (Lantus Solostar U-100 Insulin) 4 units (0.04 mL) subcut QPM 30 days iron,carbonyl-vitamin C 65 mg iron- 125 mg (Vitron-C) 1 tab PO BEDTIME metformin ER 1,000 mg (2 x 500 mg) PO BID pantoprazole 40 mg PO DAILY pen needle, diabetic (BD Ultra-Fine Mini Pen Needle) As directed HPI Comments Details: 79 YO F with PMHx T2DM, HLD, HTN, CKD stage 3 who is s/p Gastric Sleeve procedure 09/16/2019 who is seen in F/U for T2DM, Hyperparathyroidism and also a thyroid nodule. . 1) T2DM: Initially diagnosed with T2DM at the age of 53 in when presented with a nonhealing wound on the upper extremity and blood sugar was found to be approximately 500 at that time. Was initially started on treatment with Metformin, but progressed to requiring insulin within 1 year. She had Bariatric surgery in 2019 and lost a significant amount of weight. Current regimen: Lantus 4 units daily, Trulicity 4.5 mg once a week, and Metformin 1000 mg PO BID. She had tried Jardiance in the past and this was stopped due to diminished GFR. Florina download shows she is using the sensor 96% of the time. Average glucose is 159 with G mi of 7.1% and variability 33%. 70% range with 30% hyperglycemia and no hypoglycemia She does admit to dietary indiscretions eating a large amount of sweets in the evenings for the past few weeks. Injects insulin into the abdomen and does rotate site. Most recent A1C: 7.4% 10/29/2023, . Very rare hypoglycemia Treats lows with sips of her protein shake, she states she always checks sugar after to make sure it has increased. Does follow the rule of 15's. Family history of T2DM in Mother, Father and Brother. Has eyes checked year with Dr. Rascon in [place]. Last eye exam 08/2023 , no retinopathy. Did have laser treatments in the past. Denies any neuropathy. Does see podiatry q2 months. Has nail care by podiatry. Has nephropathy with CKD stage 3. On Lisinopril 2.5 mg PO daily. UAC 17.5 04/19/2023. Has HLD, on Atorvastatin 40 mg PO daily. LDL 94 04/19/2023. Denies any known CAD or CHF. 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 She underwent FNA biopsy of her LLP 3.8 cm nodule 03/04/2020 with benign cytology. She denies any symptoms of hyper or hypothyroidism. She denies any compressive symptoms. 3) Hypercalcemia with Hyperparathyroidism: She was noted to have high normal calcium and an inappropriately normal PTH. She underwent evaluation for hyperparathyroidism, which was biochemically consistent with this. DEXA checked 02/2022 was completely WNL, with no evidence of even Osteopenia, including the distal forearm.. Repeat PTH and calcium within normal range Thyroid US: 08/01/2022 Right Thyroid Lobe: 4.9 x 2.1 x 1.5 cm, volume 8.0 mL. Previously 5.3 x 2.2 x 2.0 cm, volume 12.2 mL. Parenchyma: The gland echotexture is heterogeneous. Thyroid vascularity is increased. Left Thyroid Lobe: 5.4 x 2.4 x 2.7 cm, volume 17.7 mL. Previously 5.7 x 2.7 x 2.6 cm, volume 20.9 mL. Parenchyma: The gland echotexture is heterogeneous. Thyroid vascularity is increased. Isthmus: 0.1 cm in maximum AP dimension. Previously 0.2 cm. Estimated total number of nodules greater than or equal to 1 cm: 1. Electrical Service Technician nodules are described as follows: 1.? Location: Left mid pole. ?? ? Size: 4.4 x 1.9 x 2.4 cm, volume 10.0 mL. ?? ? Previously: 2.5 x 2.4 x 4.3 cm, volume 13.7 mL. ?? ? Nodule characteristics: ?? ? Composition: Solid/almost completely solid (2). ?? ? Echogenicity: Isoechoic (1). ?? ? Shape: Not taller than wide (0). ?? ? Margins: Smooth (0). ?? ? Echogenic Foci: Comet-tail artifacts (0). ?? ? ACR TI-RADS total points: 3 Previous: 3 ?? ? ACR TI-RADS category: 3 Previous: 3 ? Significant change in size (>/= 20% in 2 dimensions and minimal increase of 2 mm or 50% or greater increase in volume): No ?? ? Change in features: No ?? ? Change in ACR TI-RADS risk category: No 2.? Location: Right mid pole. ?? ? Size: 0.8 x 0.4 x 0.6 cm, volume 0.09 mL. ?? ? Previously: 0.6 x 0.5 x 0.7 cm, volume 0.1 mL. ?? ? Nodule characteristics: ?? ? Composition: Solid/almost completely solid (2). ?? ? Echogenicity: Isoechoic (1). ?? ? Shape: Not taller than wide (0). ?? ? Margins: Ill-defined (0). ?? ? Echogenic Foci: None (0). ?? ? ACR TI-RADS total points: 3 Previous: 3 ?? ? ACR TI-RADS category: 3 Previous: 3 ? Significant change in size (>/= 20% in 2 dimensions and minimal increase of 2 mm or 50% or greater increase in volume): No ?? ? Change in features: No ?? ? Change in ACR TI-RADS risk category: No 3.? Location: Right mid pole. ?? ? Size: 0.7 x 0.4 x 0.5 cm, volume 0.08 mL. ?? ? Previously: 0.7 x 0.5 x 0.7 cm, volume 0.2 mL. ?? ? Nodule characteristics: ?? ? Composition: Spongiform (0). ?? ? ACR TI-RADS total points: 0 Previous: 0 ?? ? ACR TI-RADS category: 1 Previous: 1 ? Significant change in size (>/= 20% in 2 dimensions and minimal increase of 2 mm or 50% or greater increase in volume): No ?? ? Change in features: No ?? ? Change in ACR TI-RADS risk category: No 4.? Location: Right mid pole. ?? ? Size: 0.8 x 0.5 x 0.7 cm, volume 0.1 mL. ?? ? Previously: Not measured previously. ?? ? Nodule characteristics: ?? ? Composition: Solid (2). ?? ? Echogenicity: Hypoechoic (2). ?? ? Shape: Not taller than wide (0). ?? ? Margins: Ill-defined (0). ?? ? Echogenic Foci: None (0). ?? ? ACR TI-RADS total points: 4 ?? ? ACR TI-RADS category: 4 ?? ? NODES: No lymphadenopathy is seen in the tissue surrounding the thyroid gland. DEXA: 03/22/2022 FINDINGS: AP SPINE L1-L4: Current: BMD 1.350 g/cm2, Z-score 3.4, T-score 1.4, normal, 4.2% decrease from baseline (<5% change is not significant). Baseline: BMD 1.409 g/cm2. LEFT FOREARM RADIUS 33%: BMD 0.962 g/cm2, Z-score 3.3, T-score 1.0, normal, 2.1% decrease from baseline (<5% change is not significant). Baseline: BMD 0.983 g/cm2. LEFT FEMUR, NECK: Current: BMD 1.004 g/cm2, Z-score 1.8, T-score -0.2, normal. Baseline: BMD 1.052 g/cm2. LEFT FEMUR, TOTAL: Current: BMD 0.938 g/cm2, Z-score 1.4, T-score -0.6, normal, 11.2% decrease from baseline (<5% change is not significant). Baseline: BMD 1.056 g/cm2. Labs: Laboratory Tests 04/19/23 04/19/23 04/19/23 07:42 07:45 07:45 Sodium 140 Potassium 4.6 Creatinine 0.96 Estimated GFR 56 Hemoglobin A1c % 7.2 H Calcium 10.4 H D LDL Cholesterol Direct 25-OH Vitamin D Total 33.3 TSH 0.47 Free T4 0.94 Microalb/Creat Ratio 17.5 04/19/23 07:45 Sodium Potassium Creatinine Estimated GFR Hemoglobin A1c % Calcium LDL Cholesterol Direct 94 25-OH Vitamin D Total TSH Free T4 Microalb/Creat Ratio PFSH Medical History HLD (hyperlipidemia) HTN (hypertension) Hyperparathyroidism Hypersomnolence Intestinal malabsorption following gastrectomy Left breast mass Malabsorption due to intolerance, not elsewhere classified Multinodular thyroid Sleep apnea Snoring T2DM (type 2 diabetes mellitus) Vitamin D deficiency Surgical History Hx of total knee replacement Hx of cataract surgery S/P laparoscopic sleeve gastrectomy Family History Father Cancer Diabetes Mother Diabetes Legally blind Social History Household Members: Spouse Alcohol intake: current Alcohol intake frequency: holidays/special occasions only Patient Tobacco Use Status: Former Tobacco user Tobacco use type: Cigarette Cigarette Packs Per Day: 2 Cigarettes Per Day: 40 Years Smoked: approx 25 Female Reproductive History Menstrual Age of Menarche: 10 Physical Exam Vital Signs: Last Vital Signs BP 104/58 L 05/29/24 08:05 BMI result Body Mass Index 19.6 Const Other: Thyroid gland is larger size weighs about 45 g. There is a left thyroid nodule palpable which about 4 cm Assessment & Plan Assessment & Plan (1) Multinodular thyroid: Code(s): E04.2 - Nontoxic multinodular goiter Category: Medical Plan: She underwent FNA biopsy of her LLP 3.8 cm nodule 03/04/2020 with benign cytology. Ultrasounds have shown nodules been stable in size. Patient is clinically and biochemically euthyroid. Will have patient follow-up with Dr. Roldan the electrical automation engineer in our practice who has expertise in thyroid ultrasound to determine if nodule stable or if FNA is needed Coding Level of Care Code Est Pt Level 3 (63524) Diagnoses Multinodular thyroid E04.2
[2024-05-29 08:05] VITALS: BP 104/58; BMI 19.6
== END 2024-05-29 08:23 | disposition home or self-care (01) ==
PROVIDERS: PCP Internal Medicine; Visit Provider Internal Medicine Endocrinology, Diabetes & Metabolism
DX: E04.2 Nontoxic multinodular goiter (principal)
CPT/HCPCS: 99213

== ENCOUNTER → 2024-05-29 08:02 | Outpatient (BNVA) | payer MEDICARE, SELFPAY | PROVIDERS: PCP Internal Medicine; Visit Provider Internal Medicine Endocrinology, Diabetes & Metabolism | DX: E04.2 Nontoxic multinodular goiter (principal) | CPT/HCPCS: 99212 ==

== ENCOUNTER 2024-06-09 06:53 | Outpatient (REF) | payer MEDICARE, SELFPAY ==
[2024-06-09 08:16] LABS: Anion Gap 12 (12-20); Blood Urea Nitrogen 33 mg/dL (9-16); Carbon Dioxide 27 mmol/L (22-29); Chloride 106 mmol/L (96-108); Estimated Glomerular Filt Rate 33; Potassium 4.5 mmol/L (3.3-5.1); Sodium 140 mmol/L (135-145)
== END 2024-06-09 06:54 | disposition home or self-care (01) ==
LOC: HO.LAB 06:53
PROVIDERS: PCP Internal Medicine; Visit Provider Internal Medicine Nephrology
DX: N18.31 Chronic kidney disease, stage 3a (principal)
CPT/HCPCS: 36415; 80051; 82565; 84520

== ENCOUNTER 2024-06-13 10:30 | Outpatient (AMB) | payer MEDICARE, SELFPAY ==
[2024-06-13 10:47] VITALS: BP 126/60; PULSE 87; O2SAT 98; BMI 19.1
--- NOTE | 2024-06-13 10:47 | HO.NEPHOV_ITS ---
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 She recently had TOVA and her ACEI has been put on hold. She has been having unintentional weight loss for which she underwent imaging studies which showed lesions in the kidney. She has diabetes for a long time but has no proteinuria. She had laser treatment to the eye and closely follows up with ophthalmology. She had been off lantus and but on Trulicity along with metformin & Jardiance. Her hemoglobin A1c has gone up over 7. She had undergone gastric sleeve surgery in the past. She denies any coronary artery disease, carotid stenosis, CVA, CHF, peripheral arterial disease or renal artery stenosis. She has dyslipidemia and is on statins which she is tolerating well. She denies any chest pain, shortness of breath, paroxysmal nocturnal dyspnea, orthopnea, pedal edema, hematuria or orthostatic symptoms. [facility] Medical History HLD (hyperlipidemia) HTN (hypertension) Hyperparathyroidism Hypersomnolence Intestinal malabsorption following gastrectomy Left breast mass Malabsorption due to intolerance, not elsewhere classified Multinodular thyroid Sleep apnea Snoring T2DM (type 2 diabetes mellitus) Vitamin D deficiency Surgical History Hx of total knee replacement Hx of cataract surgery S/P laparoscopic sleeve gastrectomy Family History Father Cancer Diabetes Mother Diabetes Legally blind Social History Household Members: Spouse Alcohol intake: current Alcohol intake frequency: holidays/special occasions only Patient Tobacco Use Status: Former Tobacco user Tobacco use type: Cigarette Cigarette Packs Per Day: 2 Cigarettes Per Day: 40 Years Smoked: approx 25 Female Reproductive History Menstrual Age of Menarche: 10 Review of Systems Const All systems reviewed & are unremarkable except as noted in HPI and below Physical Exam Vital Signs: Last Vital Signs Pulse 87 06/13/24 10:47 BP 126/60 06/13/24 10:47 Pulse Ox 98 06/13/24 10:47 Oxygen Delivery Method Room Air 06/13/24 10:47 BMI result Body Mass Index 19.1 Const General: comfortable and no acute distress Orientation/consciousness: patient oriented x3 HEENT Head: Yes normocephalic Mouth: Normal oral and palatal mucosa present Eyes EOM: EOMs intact bilaterally Neck Neck: Yes supple Resp Auscultation: clear to auscultation bilaterally Cardio Jugular venous distension: no JVD Rate: regular rate GI Palpation (GI): Soft to palpation Auscultation: normal bowel sounds General: Yes no CVA tenderness Back/Spine/Pelvis Back: no CVA tenderness Skin General skin exam: no rashes or lesions noted Neuro General: patient oriented x3 and moves all extremities Extrem General: Yes no pedal edema Results Reviewed Nephrology Results: Sodium 140 mmol/L (135-145) 06/09/24 Potassium 4.5 mmol/L (3.3-5.1) 06/09/24 Chloride 106 mmol/L (96-108) 06/09/24 Carbon Dioxide 27 mmol/L (22-29) 06/09/24 BUN 33 mg/dL (9-16) H 06/09/24 Creatinine 1.54 mg/dL (0.5-1.4) H 06/09/24 Assessment & Plan Assessment & Plan (1) CKD (chronic kidney disease) stage 3, GFR 30-59 ml/min: Code(s): N18.30 - Chronic kidney disease, stage 3 unspecified Category: Medical Qualifiers: Chronic kidney disease stage 3 subtype: stage 3a (GFR 45-59) Qualified Code(s): N18.31 - Chronic kidney disease, stage 3a (2) Renal cyst: Code(s): N28.1 - Cyst of kidney, acquired Category: Medical Plan 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 Her ACEI had been put on hold. I asked her to increase fluid intake. She has renal cysts for which I shall arrange MRI of the kidney with gadolinium, in the future, if it has not done already. She will also benefit from a urology appointment which I shall arrange after MRI results. She does not have any proteinuria. She should continue Jardiance 25 mg daily. With time, I shall arrange a 24 hour urine collection for creatinine clearance. She can C/W reduced dose of Metformin 500 mg bid today. Her blood pressure is at goal. She has been on PPI for a long time. It is unlikely that it is contributing to her CKD. All these have been discussed in detail and I had the opportunity to answer all her questions. Follow-up appointment given Orders: Orders Creatinine 3 Months N18.31 - Chronic kidney disease, stage 3a Blood Urea Nitrogen 3 Months N18.31 - Chronic kidney disease, stage 3a Electrolytes 3 Months N18.31 - Chronic kidney disease, stage 3a Coding Level of Care Code Est Pt Level 4 (53447) Diagnoses Stage 3a chronic kidney disease N18.31 Chronic kidney disease stage 3 subtype: stage 3a (GFR 45-59) Renal cyst N28.1
== END 2024-06-13 11:05 | disposition home or self-care (01) ==
PROVIDERS: PCP Internal Medicine; Visit Provider Internal Medicine Nephrology
DX: N18.31 Chronic kidney disease, stage 3a (principal); N28.1 Cyst of kidney, acquired
CPT/HCPCS: 99214

== ENCOUNTER → 2024-06-13 10:30 | Outpatient (BNVA) | payer MEDICARE, SELFPAY | PROVIDERS: PCP Internal Medicine; Visit Provider Internal Medicine Nephrology | DX: N18.31 Chronic kidney disease, stage 3a (principal); N28.1 Cyst of kidney, acquired | CPT/HCPCS: 99212 ==

== ENCOUNTER 2024-08-26 07:16 | Outpatient (REF) | payer MEDICARE, SELFPAY ==
[2024-08-26 09:12] LABS: Anion Gap 11 (12-20); Blood Urea Nitrogen 43 mg/dL (9-16); Carbon Dioxide 26 mmol/L (22-29); Chloride 105 mmol/L (96-108); Estimated Glomerular Filt Rate 28; Potassium 4.3 mmol/L (3.3-5.1); Sodium 138 mmol/L (135-145)
== END 2024-08-26 07:17 | disposition home or self-care (01) ==
LOC: HO.LAB 07:16
PROVIDERS: PCP Internal Medicine; Visit Provider Internal Medicine Nephrology
DX: N18.31 Chronic kidney disease, stage 3a (principal)
CPT/HCPCS: 36415; 80051; 82565; 84520

== ENCOUNTER 2024-09-01 10:26 | Outpatient (AMB) | payer MEDICARE, SELFPAY ==
--- NOTE | 2024-09-01 10:29 | HO.NEPHOV ---
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 She has diabetes for a long time but has no proteinuria. She had laser treatment to the eye and closely follows up with ophthalmology. She had been off lantus and but on Trulicity along with metformin & Jardiance. Her hemoglobin A1c has gone up over 7. She had undergone gastric sleeve surgery in the past. She denies any coronary artery disease, carotid stenosis, CVA, CHF, peripheral arterial disease or renal artery stenosis. She has dyslipidemia and is on statins which she is tolerating well. She denies any chest pain, shortness of breath, paroxysmal nocturnal dyspnea, orthopnea, pedal edema, hematuria or orthostatic symptoms [facility] Medical History HLD (hyperlipidemia) HTN (hypertension) Hyperparathyroidism Hypersomnolence Intestinal malabsorption following gastrectomy Left breast mass Malabsorption due to intolerance, not elsewhere classified Multinodular thyroid Sleep apnea Snoring T2DM (type 2 diabetes mellitus) Vitamin D deficiency Surgical History Hx of total knee replacement Hx of cataract surgery S/P laparoscopic sleeve gastrectomy Family History Father Cancer Diabetes Mother Diabetes Legally blind Social History Household Members: Spouse Alcohol intake: current Alcohol intake frequency: holidays/special occasions only Patient Tobacco Use Status: Former Tobacco user Tobacco use type: Cigarette Cigarette Packs Per Day: 2 Cigarettes Per Day: 40 Years Smoked: approx 25 Female Reproductive History Menstrual Age of Menarche: 10 Review of Systems Const All systems reviewed & are unremarkable except as noted in HPI and below Physical Exam Vital Signs: Last Vital Signs BP 102/50 L 09/01/24 10:31 BMI result Body Mass Index 19.2 Const General: comfortable and no acute distress Orientation/consciousness: patient oriented x3 HEENT Head: Yes normocephalic Mouth: Normal oral and palatal mucosa present Eyes EOM: EOMs intact bilaterally Neck Neck: Yes supple Resp Auscultation: clear to auscultation bilaterally Cardio Jugular venous distension: no JVD Rate: regular rate GI Palpation (GI): Soft to palpation Auscultation: normal bowel sounds General: Yes no CVA tenderness Back/Spine/Pelvis Back: no CVA tenderness Skin General skin exam: no rashes or lesions noted Neuro General: patient oriented x3 and moves all extremities Extrem General: Yes no pedal edema Results Reviewed Nephrology Results: Sodium 138 mmol/L (135-145) 08/26/24 Potassium 4.3 mmol/L (3.3-5.1) 08/26/24 Chloride 105 mmol/L (96-108) 08/26/24 Carbon Dioxide 26 mmol/L (22-29) 08/26/24 BUN 43 mg/dL (9-16) H 08/26/24 Creatinine 1.74 mg/dL (0.5-1.4) H 08/26/24 Assessment & Plan Assessment & Plan (1) Renal cyst: Code(s): N28.1 - Cyst of kidney, acquired Category: Medical (2) CKD (chronic kidney disease) stage 3, GFR 30-59 ml/min: Code(s): N18.30 - Chronic kidney disease, stage 3 unspecified Category: Medical Qualifiers: Chronic kidney disease stage 3 subtype: stage 3a (GFR 45-59) Qualified Code(s): N18.31 - Chronic kidney disease, stage 3a (3) HTN (hypertension): Code(s): I10 - Essential (primary) hypertension Category: Medical Qualifiers: Hypertension type: unspecified Qualified Code(s): I10 - Essential (primary) hypertension Plan 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 Her ACEI had been put on hold. I asked her to increase fluid intake. She has renal cysts for which I shall arrange MRI of the kidney with gadolinium, in the future, if it has not done already. She will also benefit from a urology appointment which I shall arrange after MRI results. She does not have any proteinuria. She should continue Jardiance 25 mg daily. With time, I shall arrange a 24 hour urine collection for creatinine clearance. She can C/W reduced dose of Metformin 500 mg bid today. Her blood pressure is at goal. She has been on PPI for a long time. It is unlikely that it is contributing to her CKD. All these have been discussed in detail and I had the opportunity to answer all her questions. Follow-up appointment given Orders: Orders Parathyroid Hormone Intact 3 Months I10 - Essential (primary) hypertension, N18.31 - Chronic kidney disease, stage 3a, N28.1 - Cyst of kidney, acquired Hemoglobin A1c 3 Months I10 - Essential (primary) hypertension, N18.31 - Chronic kidney disease, stage 3a, N28.1 - Cyst of kidney, acquired Vitamin D 25-OH Total 3 Months I10 - Essential (primary) hypertension, N18.31 - Chronic kidney disease, stage 3a, N28.1 - Cyst of kidney, acquired Calcium 3 Months I10 - Essential (primary) hypertension, N18.31 - Chronic kidney disease, stage 3a, N28.1 - Cyst of kidney, acquired Electrolytes 3 Months I10 - Essential (primary) hypertension, N18.31 - Chronic kidney disease, stage 3a, N28.1 - Cyst of kidney, acquired Blood Urea Nitrogen 3 Months I10 - Essential (primary) hypertension, N18.31 - Chronic kidney disease, stage 3a, N28.1 - Cyst of kidney, acquired Creatinine 3 Months I10 - Essential (primary) hypertension, N18.31 - Chronic kidney disease, stage 3a, N28.1 - Cyst of kidney, acquired Coding Level of Care Code Est Pt Level 4 (61395) Diagnoses Renal cyst N28.1 Stage 3a chronic kidney disease N18.31 Chronic kidney disease stage 3 subtype: stage 3a (GFR 45-59) Hypertension, unspecified type I10 Hypertension type: unspecified
[2024-09-01 10:31] VITALS: BP 102/50; BMI 19.2
== END 2024-09-01 10:51 | disposition home or self-care (01) ==
PROVIDERS: PCP Internal Medicine; Visit Provider Internal Medicine Nephrology
DX: N28.1 Cyst of kidney, acquired (principal); I12.9 Hypertensive chronic kidney disease with stage 1 through stage 4 chronic kidney disease, or unspecified chronic kidney disease; N18.31 Chronic kidney disease, stage 3a
CPT/HCPCS: 99214

== ENCOUNTER → 2024-09-01 10:26 | Outpatient (BNVA) | payer MEDICARE, SELFPAY | PROVIDERS: PCP Internal Medicine; Visit Provider Internal Medicine Nephrology | DX: I12.9 Hypertensive chronic kidney disease with stage 1 through stage 4 chronic kidney disease, or unspecified chronic kidney disease (principal); N18.31 Chronic kidney disease, stage 3a; N28.1 Cyst of kidney, acquired | CPT/HCPCS: 99212 ==

== ENCOUNTER 2024-09-22 12:40 | Outpatient (AMB) | payer MEDICARE, SELFPAY ==
--- NOTE | 2024-09-22 12:46 | A.OFFVIS_ITS ---
VS Expanded 09/22/24 12:54 BP 152/72 H Blood Pressure Location Rt brachial Blood Pressure Position Sitting Pulse 86 Pulse Source Pulse Oximeter Temp 97.5 F Temperature Source Temporal Artery Scan Pulse Oximetry 99 Oxygen Delivery Method Room Air Height 5 ft 7 in Weight 124 lb BMI 19.4 Body Fat % 18.5 Body Fat Mass 23.0 Fat Free Mass 101.0 Visceral Fat Rating 6.0 Body Water % 57.1 Body Water Mass 70.8 Muscle Mass/Score 96.0 Basal Metabolic Rate/Score 1,305 Intake Visit Reasons: (OV) PO LSG 09/16/19 Allergies No Known Allergies [No Known Allergies*] Allergy (Verified 09/01/24 10:31) Medication List - Last Reconciled 09/22/24 by NICHELLE Treadwell atorvastatin 40 mg PO DAILY 90 days cholecalciferol (vitamin D3) 50 mcg PO DAILY cyanocobalamin (vitamin B-12) 500 mcg PO DAILY docusate sodium (Colace) 100 mg PO DAILY dorzolamide 2% 1 drp ophthalmic-Right BID dulaglutide (Trulicity) 4.5 mg (0.5 mL) subcut QWEEK empagliflozin 25 mg PO DAILY 30 days flash glucose scanning reader (FreeStyle Florina 2 [place]) As directed flash glucose sensor (FreeStyle Florina 2 Sensor kit) CHANGE EVERY 14 DAYS insulin glargine (Lantus Solostar U-100 Insulin) 4 units (0.04 mL) subcut QPM 30 days iron,carbonyl-vitamin C 65 mg iron- 125 mg (Vitron-C) 1 tab PO BEDTIME metformin ER 500 mg PO BID pantoprazole 40 mg PO DAILY pen needle, diabetic (BD Ultra-Fine Mini Pen Needle) As directed HPI Comments Details: This is a 79 yo female who is s/p LSG 09/16/2019. Weight gain of about 5lbs since she last saw me in Mar. Feels weak still but better.. No complaints of nausea, emesis, abdominal pain or reflux, or constipation. Lantus was stopped, metformin halved. Still on Trulicity. She is still supposed to be on Jardiance but hasn't taken due to insurance not covering right now, this corresponds to her weight gain over the past 2 weeks. Her blood sugars have increased since being off. She follows with Dr Ayon for her CKDIII. Per pt has had an extensive workup by PCP including scans to rule out cancer. Present meal plan includes: not taking any protein shakes because they often raise her blood sugar too much oatmeal for breakfast with protein powder and whole milk a large variety of different meals for lunch and dinner, including ice cream and cookies increased her fluid intake Exercise routine includes: 10-16K steps per day PFSH Medical History HLD (hyperlipidemia) HTN (hypertension) Hyperparathyroidism Hypersomnolence Intestinal malabsorption following gastrectomy Left breast mass Malabsorption due to intolerance, not elsewhere classified Multinodular thyroid Sleep apnea Snoring T2DM (type 2 diabetes mellitus) Vitamin D deficiency Surgical History Hx of total knee replacement Hx of cataract surgery S/P laparoscopic sleeve gastrectomy Family History Father Cancer Diabetes Mother Diabetes Legally blind Social History Household Members: Spouse Alcohol intake: current Alcohol intake frequency: holidays/special occasions only Patient Tobacco Use Status: Former Tobacco user Tobacco use type: Cigarette Cigarette Packs Per Day: 2 Cigarettes Per Day: 40 Years Smoked: approx 25 Female Reproductive History Menstrual Age of Menarche: 10 Physical Exam Vital Signs: Last Vital Signs Temp 97.5 F 09/22/24 12:54 Pulse 86 09/22/24 12:54 BP 152/72 H 09/22/24 12:54 Pulse Ox 99 09/22/24 12:54 Oxygen Delivery Method Room Air 09/22/24 12:54 BMI result Body Mass Index 19.4 Assessment & Plan Assessment & Plan (1) S/P laparoscopic sleeve gastrectomy: Code(s): Z98.84 - Bariatric surgery status Category: Surgical Plan I wonder if her stopping Jardiance has contributed to her recent weight gain. She has gained some fat, water, and muscle. She is working with Dr. Ayon to find a better diabetes regimen. The Jardiance is also very expensive. She is also scheduled to see a new operations and maintenance technician next month. RTC 6mo for in person visit. I spent a total of 30 minutes reviewing/updating records, examining the patient and counseling the patient on weight management as detailed above.
[2024-09-22 12:54] VITALS: BP 152/72; PULSE 86; TEMP 36.4; O2SAT 99; BMI 19.4
--- OUTSIDE RECORDS SUMMARY | 2024-09-22 17:19 | XMS_ITS | Clinical Summary ---
Author Organization [facility] Facility Address [address] [place] [address], [place] [address] Care Team Providers Care Copy Worker Name Role Phone Ciara Tate MD Primary Care Provide r Allergies No known active allergies Medications insulin glargine (Lantus SoloStar) 100 UNIT/ML injection Inject 75 Units under the skin 2 (two) times a day Active atorvastatin (LIPITOR) 40 MG tablet Take 40 mg by mouth 1 (one) time each day 11/17/2020 Active Trulicity 0.75 MG/0.5ML solution pen-injector Inject 1 Dose under the skin per week 11/25/2020 Active Insulin Lispro, 1 Unit Dial, (HumaLOG KWIKPEN) 100 UNIT/ML solution pen-injector Active lisinopril (PRINIVIL,ZESTRI L) 2.5 MG tablet Take 2.5 mg by mouth 1 (one) time each day 11/22/2020 Active metFORMIN XR (GLUCOPHAGE-XR) 500 MG 24 hr tablet Take 1,000 mg by mouth 2 (two) times a day 11/10/2020 Active Active Problems Problem Noted Date Diagnosed Date Chronic kidney disease stage 3 12/01/2020 Gout 12/01/2020 Hypertensive renal disease 12/01/2020 Neuropathy due to diabetes mellitus 12/01/2020 Renal disorder due to type 2 diabetes mellitus 0 12/01/2020 Social History Tobacco Use Types Packs/Day Years Used Date Smoking Tobacco: Never Smokeless Tobacco: Never Tobacco Cessation:Counseling Given: No Comments Unknown Sex and Gender Information Value Date Recorded Sex Assigned at Not on file Legal Sex Female 4:52 PM EST Gender Identity Not on file Sexual Orientation Not on file Last Filed Vital Signs Vital Sign Reading Time Taken Comments Blood Pressure 130/56 01/19/2021 4:14 PM EDT Pulse 87 01/19/2021 4:14 PM EDT Temperature - - Respiratory Rate - - Oxygen Saturation 94% 01/19/2021 4:14 PM EDT Inhaled Oxygen Concentration - - Weight 59.4 kg (131 lb) 01/19/2021 4:14 PM EDT Height 172.7 cm (5' 8 ) 11/26/2019 12:00 PM EDT Body Mass Index 19.92 11/26/2019 12:00 PM EDT Plan of Treatment Health Maintenance Due Date Last Done Comments Pneumococcal Vaccine: 65+ Ye ars (1 of 2 - PCV) 02/20/1951 Diabetes: Hemoglobin A1C 09/26/2020 Diabetes: Ophthalmology Exam 09/26/2020 Diabetes: Pedal Pulse Checked 09/26/2020 Diabetes: Sensory Foot Exam 09/26/2020 Diabetes: Visual Foot Exam 09/26/2020 Influenza Vaccine (#1) 2024 Hepatitis B Vaccine Aged Out No longe r eligible based on patient's age to complete this topic Insurance Care Teams Copy Worker Relationship Specialty Start Date End Date Ciara Tate MD [facility] [address] [place] [address] [address] [place], [place] PCP - General 09/06/20
== END 2024-09-22 14:03 | disposition home or self-care (01) ==
PROVIDERS: PCP Internal Medicine; Visit Provider Physician Assistant Surgical
DX: Z71.3 Dietary counseling and surveillance (principal); Z98.84 Bariatric surgery status
CPT/HCPCS: 99214; G2211

== ENCOUNTER → 2024-09-22 12:40 | Outpatient (BNVA) | payer MEDICARE, SELFPAY | PROVIDERS: PCP Internal Medicine; Visit Provider Physician Assistant Surgical | DX: E11.22 Type 2 diabetes mellitus with diabetic chronic kidney disease (principal); N18.30 Chronic kidney disease, stage 3 unspecified; Z98.84 Bariatric surgery status; Z79.84 Long term (current) use of oral hypoglycemic drugs | CPT/HCPCS: 99212 ==

== ENCOUNTER 2024-10-06 07:46 | Outpatient (AMB) | payer MEDICARE, SELFPAY ==
--- OUTSIDE RECORDS SUMMARY | 2024-10-06 07:48 | XMS_ITS | Clinical Summary ---
Author Organization [facility] Facility Address [address] [place] [address], [place] [address] Care Team Providers Care Named Account Executive Name Role Phone Ciara Tate MD Primary [...] to complete this topic Insurance Care Teams Named Account Executive Relationship Specialty Start Date End Date Ciara Tate MD [facility] [address] [place] [address] [address] [place], [place] PCP - General 09/06/20
[2024-10-06 08:17] VITALS: BP 132/76; PULSE 72; BMI 43.3
--- NOTE | 2024-10-06 08:17 | A.OFFVIS_ITS ---
Vital Signs 10/06/24 08:17 Height 5 ft 6 in Weight 268 lb 1.314 oz BMI 43.3 BP 132/76 Blood Pressure Location Rt brachial Position Sitting Pulse 72 Oxygen Flow Rate 98 Intake Visit Reasons: DM & f/u MNG/Left vm Intake Note: Patient present today for Type 2 Diabetes Mellitus and MNG. Last Diabetic eye exam: DUE Last Podiatry Visit: DUE Random Glucose: 124 mg/dl HgA1C: 8.7% Rn Or Lvn Required: No Allergies No Known Allergies [No Known Allergies*] Allergy (Verified 10/06/24 08:20) Medication List - Last Reconciled 10/06/24 by Sandhya Roldan MD atorvastatin 40 mg PO DAILY 90 days cholecalciferol (vitamin D3) 50 mcg PO DAILY cyanocobalamin (vitamin B-12) 500 mcg PO DAILY docusate sodium (Colace) 100 mg PO DAILY dulaglutide (Trulicity) 4.5 mg (0.5 mL) subcut QWEEK empagliflozin 25 mg PO DAILY 30 days flash glucose scanning reader (FreeStyle Florina 2 [place]) As directed flash glucose sensor (FreeStyle Florina 2 Sensor kit) CHANGE EVERY 14 DAYS iron,carbonyl-vitamin C 65 mg iron- 125 mg (Vitron-C) 1 tab PO BEDTIME metformin ER 500 mg PO ONCE pantoprazole 40 mg PO DAILY pen needle, diabetic (BD Ultra-Fine Mini Pen Needle) As directed HPI Comments Details: 79 YO F with PMHx T2DM, HLD, HTN, CKD stage 3 who is s/p Gastric Sleeve procedure 09/16/2019 who is seen in F/U for T2DM, Hyperparathyroidism and also a thyroid nodule. . 1) T2DM: Initially diagnosed with T2DM at the age of 53 in when presented with a nonhealing wound on the upper extremity and blood sugar was found to be approximately 500 at that time. Was initially started on treatment with Metformin, but progressed to requiring insulin within 1 year. She had Bariatric surgery in 2019 and lost a significant amount of weight. Lantus stopped apr or May 2024 due to minimal requirement and low GFR Current regimen: Trulicity 4.5 mg once a week, Jardiance 25 mg daily ( was out of it for the past 3 weeks ) Metformin 500 daily ( reduced from 500 BID in 04/2024 by nephro due to reduced GFR ) . Did not bring template storage clerk today , we could not download her CGM data has TagMii florina No hypoglycemia per patient for many years now. She says most readings are between 150 to 200. A1C: 7.4% 10/29/2023, . A1c 10/06/2024 POC: 8.7% Does know the rule of 15's. Family history of T2DM in Mother, Father and Brother. Has eyes checked year with Dr. Rascon in [place]. Last eye exam 03/2024 , ? retinopathy. Did have laser treatments in the past. has glaucoma Denies any neuropathy. hasnt seen one in a year because they retired . Has nephropathy with CKD stage 3. following with mphrology on jardiance 25 mg daily, no proteinuria , UAC Has HLD, on Atorvastatin 40 mg PO daily. LDL 79 11/17. Denies any known CAD or CHF. 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 She underwent FNA biopsy of her LLP 3.8 cm nodule 03/04/2020 with benign cytology. She denies any symptoms of hyper or hypothyroidism. She denies any compressive symptoms. She has monitored with surveillance ultrasounds. Most recent thyroid ultrasound done Most recent thyroid ultrasound November 2023 showed a multinodular goiter with a left mid dominant lobe nodule measuring 4.1 X 1.9 x 2.2 cm solid, isoechoic, with punctate echogenic foci, TR 4 category, which is stable in size compared to ultrasound in 2021 however this has significantly changed in size compared to ultrasound in 2019 when it was measuring 3.8 cm initially when the patient had the biopsy in 2019 and it was benign. 3) Hypercalcemia with Hyperparathyroidism: She was noted to have high normal calcium and an inappropriately normal PTH. She underwent evaluation for hyperparathyroidism, which was biochemically co nsistent with this. DEXA checked 02/2022 was completely WNL, with no evidence of even Osteopenia, including the distal forearm.. Repeat PTH and calcium within normal range DEXA: 03/22/2022 FINDINGS: AP SPINE L1-L4: Current: BMD 1.350 g/cm2, Z-score 3.4, T-score 1.4, normal, 4.2% decrease from baseline (<5% change is not significant). Baseline: BMD 1.409 g/cm2. LEFT FOREARM RADIUS 33%: BMD 0.962 g/cm2, Z-score 3.3, T-score 1.0, normal, 2.1% decrease from baseline (<5% change is not significant). Baseline: BMD 0.983 g/cm2. LEFT FEMUR, NECK: Current: BMD 1.004 g/cm2, Z-score 1.8, T-score -0.2, normal. Baseline: BMD 1.052 g/cm2. LEFT FEMUR, TOTAL: Current: BMD 0.938 g/cm2, Z-score 1.4, T-score -0.6, normal, 11.2% decrease from baseline (<5% change is not significant). Baseline: BMD 1.056 g/cm2. Physical exam General: sitting comfortably in no acute distress HEENT: normocephalic/atraumatic, EOM intact, moist oral mucosa Neck: supple, palpable 2 cm left-sided nodule Cardiac: normal heart sounds Pulm: normal breath sounds B/L, no added breath sounds Abd: not distended, no tenderness Extremities: no edema, no signs of myxedema Neuro: AAO x3, Speech: normal, no facial droop, moving all 4 extremities Foot exam: Skin sloughing, nail thickening noted. Intact sensation to monofilament. Labs: Laboratory Tests 04/19/23 04/19/23 04/19/23 07:42 07:45 07:45 Sodium 140 Potassium 4.6 Creatinine 0.96 Estimated GFR 56 Hemoglobin A1c % 7.2 H Calcium 10.4 H D LDL Cholesterol Direct 25-OH Vitamin D Total 33.3 TSH 0.47 Free T4 0.94 Microalb/Creat Ratio 17.5 04/19/23 07:45 Sodium Potassium Creatinine Estimated GFR Hemoglobin A1c % Calcium LDL Cholesterol Direct 94 25-OH Vitamin D Total TSH Free T4 Microalb/Creat Ratio Laboratory Tests 04/19/23 10/29/23 02/01/24 07:42 08:29 08:16 Sodium Potassium BUN Creatinine Estimated GFR Triglycerides 115 Cholesterol 154 LDL Cholesterol, Calc 79 HDL Cholesterol 52 TSH 0.65 U Random Total Protein < 7 Urine Creatinine 45.50 76.95 Urine Microalbumin 8.0 Microalb/Creat Ratio 17.5 08/26/24 07:23 Sodium 138 Potassium 4.3 BUN 43 H Creatinine 1.74 H Estimated GFR 28 Triglycerides Cholesterol LDL Cholesterol, Calc HDL Cholesterol TSH U Random Total Protein Urine Creatinine Urine Microalbumin Microalb/Creat Ratio US THYROID 12/18 CLINICAL INFORMATION: Nontoxic multinodular goiter. COMPARISON: Thyroid ultrasound 08/01/2022 and 07/26/2021. Ultrasound-guided thyroid biopsy 03/04/2020. TECHNIQUE: Linear transducer khan-scale and color Doppler examination with attention to the region of the thyroid. FINDINGS: SIZE: Measurements of the thyroid lobes and nodules are given in sagittal, anteroposterior and transverse dimensions respectively. Right Thyroid Lobe: 5.4 x 1.8 x 1.8 cm, volume 9.2 mL. Previously 4.9 x 2.1 x 1.5 cm, volume 8.0 mL. Parenchyma: The gland echotexture is homogeneous. Thyroid vascularity is normal. Left Thyroid Lobe: 6.2 x 2.3 x 2.4 cm, volume 17.9 mL. Previously 5.4 x 2.4 x 2.7 cm, volume 17.7 mL. Parenchyma: The gland echotexture is homogeneous. Thyroid vascularity is normal. Isthmus: 0.1 cm in maximum AP dimension. Previously 0.1 cm. Estimated total number of nodules greater than or equal to 1 cm: 1. Sewer Contractor nodules are described as follows: 1. Location: Right mid. Size: 0.7 x 0.4 x 0.7 cm, volume 0.1 mL. Previously: 0.8 x 0.4 x 0.6 cm, volume 0.09 mL. Nodule characteristics: Composition: Solid/almost completely solid (2). Echogenicity: Isoechoic (1). Shape: Not taller than wide (0). Margins: Ill-defined (0). Echogenic Foci: None (0). ACR TI-RADS total points: 3 Previous: 3 ACR TI-RADS category: 3 Previous: 3 Significant change in size (>/= 20% in 2 dimensions and minimal increase of 2 mm or 50% or greater increase in volume): No Change in features: No Change in ACR TI-RADS risk category: No 2. Location: Right mid. Size: 0.8 x 0.4 x 0.6 cm, volume 0.09 mL. Previously: 0.7 x 0.4 x 0.5 cm, volume 0.08 mL. Nodule characteristics: Composition: Spongiform (0). Echogenicity: Anechoic (0). Shape: Not taller than wide (0). Margins: Smooth (0). Echogenic Foci: None (0). ACR TI-RADS total points: 0 Previous: 0 ACR TI-RADS category: 1 Previous: 1 Significant change in size (>/= 20% in 2 dimensions and minimal increase of 2 mm or 50% or greater increase in volume): No Change in features: No Change in ACR TI-RADS risk category: No 3. Location: Right mid. Size: 0.7 x 0.4 x 0.7 cm, volume 0.1 mL. Previously: 0.8 x 0.5 x 0.7 cm, volume 0.1 mL. Nodule characteristics: Composition: Solid (2). Echogenicity: Hypoechoic (2). Shape: Not taller than wide (0). Margins: Smooth (0). Echogenic Foci: None (0). ACR TI-RADS total points: 4 Previous: 3 ACR TI-RADS category: 4 Previous: 3 Significant change in size (>/= 20% in 2 dimensions and minimal increase of 2 mm or 50% or greater increase in volume): No Change in features: Yes Change in ACR TI-RADS risk category: Yes 4. Location: Left mid. Size: 4.1 x 1.9 x 2.2 cm, volume 9.0 mL. Previously: 4.4 x 1.9 x 2.4 cm, volume 10.0 mL. Nodule characteristics: Composition: Solid (2). Echogenicity: Isoechoic (1). Shape: Not taller than wide (0). Margins: Smooth (0). Echogenic Foci: Punctate echogenic foci (3). ACR TI-RADS total points: 6 Previous: 3 ACR TI-RADS category: 4 Previous: 3 Significant change in size (>/= 20% in 2 dimensions and minimal increase of 2 mm or 50% or greater increase in volume): No Change in features: No Change in ACR TI-RADS risk category: No NODES: No lymphadenopathy is seen in the tissue surrounding the thyroid gland. US/US thyroid IMPRESSION: 1. A 4.1 cm mid left thyroid TR 4 nodule meets ACR biopsy criteria and is amenable to ultrasound-guided biopsy. Please correlate with ultrasound biopsy results dated 03/04/2020. 2. There is an asymmetric goiter, left lobe greater than right. Thyroid US 08/01/2022 Right Thyroid Lobe: 4.9 x 2.1 x 1.5 cm, volume 8.0 mL. Previously 5.3 x 2.2 x 2.0 cm, volume 12.2 mL. Parenchyma: The gland echotexture is heterogeneous. Thyroid vascularity is increased. Left Thyroid Lobe: 5.4 x 2.4 x 2.7 cm, volume 17.7 mL. Previously 5.7 x 2.7 x 2.6 cm, volume 20.9 mL. Parenchyma: The gland echotexture is heterogeneous. Thyroid vascularity is increased. Isthmus: 0.1 cm in maximum AP dimension. Previously 0.2 cm. Estimated total number of nodules greater than or equal to 1 cm: 1. Sewer Contractor nodules are described as follows: 1.? Location: Left mid pole. ?? ? Size: 4.4 x 1.9 x 2.4 cm, volume 10.0 mL. ?? ? Previously: 2.5 x 2.4 x 4.3 cm, volume 13.7 mL. ?? ? Nodule characteristics: ?? ? Composition: Solid/almost completely solid (2). ?? ? Echogenicity: Isoechoic (1). ?? ? Shape: Not taller than wide (0). ?? ? Margins: Smooth (0). ?? ? Echogenic Foci: Comet-tail artifacts (0). ?? ? ACR TI-RADS total points: 3 Previous: 3 ?? ? ACR TI-RADS category: 3 Previous: 3 ? Significant change in size (>/= 20% in 2 dimensions and minimal increase of 2 mm or 50% or greater increase in volume): No ?? ? Change in features: No ?? ? Change in ACR TI-RADS risk category: No 2.? Location: Right mid pole. ?? ? Size: 0.8 x 0.4 x 0.6 cm, volume 0.09 mL. ?? ? Previously: 0.6 x 0.5 x 0.7 cm, volume 0.1 mL. ?? ? Nodule characteristics: ?? ? Composition: Solid/almost completely solid (2). ?? ? Echogenicity: Isoechoic (1). ?? ? Shape: Not taller than wide (0). ?? ? Margins: Ill-defined (0). ?? ? Echogenic Foci: None (0). ?? ? ACR TI-RADS total points: 3 Previous: 3 ?? ? ACR TI-RADS category: 3 Previous: 3 ? Significant change in size (>/= 20% in 2 dimensions and minimal increase of 2 mm or 50% or greater increase in volume): No ?? ? Change in features: No ?? ? Change in ACR TI-RADS risk category: No 3.? Location: Right mid pole. ?? ? Size: 0.7 x 0.4 x 0.5 cm, volume 0.08 mL. ?? ? Previously: 0.7 x 0.5 x 0.7 cm, volume 0.2 mL. ?? ? Nodule characteristics: ?? ? Composition: Spongiform (0). ?? ? ACR TI-RADS total points: 0 Previous: 0 ?? ? ACR TI-RADS category: 1 Previous: 1 ? Significant change in size (>/= 20% in 2 dimensions and minimal increase of 2 mm or 50% or greater increase in volume): No ?? ? Change in features: No ?? ? Change in ACR TI-RADS risk category: No 4.? Location: Right mid pole. ?? ? Size: 0.8 x 0.5 x 0.7 cm, volume 0.1 mL. ?? ? Previously: Not measured previously. ?? ? Nodule characteristics: ?? ? Composition: Solid (2). ?? ? Echogenicity: Hypoechoic (2). ?? ? Shape: Not taller than wide (0). ?? ? Margins: Ill-defined (0). ?? ? Echogenic Foci: None (0). ?? ? ACR TI-RADS total points: 4 ?? ? ACR TI-RADS category: 4 ?? ? NODES: No lymphadenopathy is seen in the tissue surrounding the thyroid gland PFSH Medical History HLD (hyperlipidemia) HTN (hypertension) Hyperparathyroidism Hypersomnolence Intestinal malabsorption following gastrectomy Left breast mass Malabsorption due to intolerance, not elsewhere classified Multinodular thyroid Sleep apnea Snoring T2DM (type 2 diabetes mellitus) Vitamin D deficiency Surgical History Hx of total knee replacement Hx of cataract surgery S/P laparoscopic sleeve gastrectomy Family History Father Cancer Diabetes Mother Diabetes Legally blind Social History Household Members: Spouse Alcohol intake: current Alcohol intake frequency: holidays/special occasions only Patient Tobacco Use Status: Former Tobacco user Tobacco use type: Cigarette Cigarette Packs Per Day: 2 Cigarettes Per Day: 40 Years Smoked: approx 25 Female Reproductive History Menstrual Age of Menarche: 10 Physical Exam Vital Signs: Last Vital Signs Pulse 72 10/06/24 08:17 BP 132/76 10/06/24 08:17 Oxygen Flow Rate 98 10/06/24 08:17 BMI result Body Mass Index 43.3 Results AMB Hemoglobin A1c AMB Hemoglobin A1c 8.7 % Last Edit by BANDAR Salcido on 10/06/24 08:45 Results Reviewed Results Reviewed: Laboratory Last Values Glucose (Clinic) 124 mg/dL (60-115) H 10/06/24 08:20 Hgb A1c (Clinic) 8.7 % (4.0-6.0) H 10/06/24 08:44 Assessment & Plan Assessment & Plan (1) Multinodular thyroid: Code(s): E04.2 - Nontoxic multinodular goiter Category: Medical Plan: She underwent FNA biopsy of her LLP 3.8 cm nodule 03/04/2020 with benign cytology. She has monitored with surveillance ultrasounds. Most recent thyroid ultrasound done Most recent thyroid ultrasound November 2023 showed a multinodular goiter with a left mid dominant lobe nodule measuring 4.1 X 1.9 x 2.2 cm solid, isoechoic, with punctate echogenic foci, TR 4 category, which is stable in size compared to ultrasound in 2021 however this has significantly changed in size compared to ultrasound in 2019 when it was measuring 3.8 cm initially when the patient had the biopsy in 2019 and it was benign. I explained that it is common to have thyroid nodules. About 95% of the time these nodules are benign. However if the nodule is > 1 cm in size or suspicious on ultrasound then a fine need aspiration biopsy is recommended. We discussed that a FNAB involves 4-5 passes with a small gauge needle and material obtained is sent off for cytology.If the cytopathology is benign then the nodule will be followed annually with repeat ultrasounds. However if it is suspicious or malignant, we will need to discuss further management. Indeterminate cytology can be further investigated with repeat FNA, genetic testing or empiric lobectomy. Malignant cytology is managed with either lobectomy or total thyroidectomy. We discussed briefly that thyroid cancer is, in most patients, an indolent disease that does not affect mortality. Given this nodule has changed in size compared to 2019, we decided to pursue FNA. Plan: We will arrange for FNA of the left mid 4.1 cm nodule at next available opening and patient will follow up with me in clinic thereafter for results and further decision making. Ordered TSH with reflex free T4. 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 Without long-term insulin use currently. She is following with Nephrology for CKD. A1c today is 8.7%. This is significantly elevated from her last A1c in 2023 which was 7.3%. She did not have CGM data for and realization today. I will bring her back for sooner follow up for this. She is also however telling me she was out of Jardiance with the past month, and just restarted taking it. Likely that resulted in elevated blood sugars. Plan: -continue Jardiance 25 mg daily -continue metformin 500 mg daily -continue Trulicity 4.5 mg daily -has not seen Podiatry in a vial, foot exam today showed poor nail care and skin sloughing, intact sensation to monofilament, she knows to make appointment with podiatry -follow up in 3 to 4 weeks -ordered lipid panel, CMP (3) Hyperparathyroidism: Code(s): E21.3 - Hyperparathyroidism, unspecified Category: Medical Plan: 79-year-old female also has a history of hyperparathyroidism with last bone density from 2021 showing osteopenia. I have ordered repeat bone density which will also include a wrist. She also has CKD stage 3, GFR in 20s. We will re- evaluate her 24 hour urine calcium levels. However based on her low GFR, she meets criteria for surgery. We will also obtain bone density. We will discuss it this in more detail with repeat labs at next visit. Plan I spent 45 minutes in reviewing the record, seeing the patient and documenting in the medical record. 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 Albumin Level Today E11.65 - Type 2 diabetes mellitus with hyperglycemia, Z79.4 - nursing home (current) use of insulin Phosphorus Today E11.65 - Type 2 diabetes mellitus with hyperglycemia, 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 Lipid Panel Today E11.65 - Type 2 diabetes mellitus with hyperglycemia, 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 Vitamin B12 Today E11.65 - Type 2 diabetes mellitus with hyperglycemia, Z79.4 - nursing home (current) use of insulin AMB Hemoglobin A1c Today E11.65 - Type 2 diabetes mellitus with hyperglycemia, Z79.4 - nursing home (current) use of insulin Calcium, 24 Hr Ur Today E21.3 - Hyperparathyroidism, unspecified Patient Instructions: Do bone density scan , someone will call you to schedule this ,you can cancel your appointment at [facility] please do this at our facility Do fasting blood work prior to next appointment in 2 weeks No medication changes today , continue same Do 24 hr urine test and same day as ou hand in the urine collection do fasting blood work 24 hr urine collection instructions You have been asked to collect your urine for 24 hours to assess for calcium excretion. You must choose a 24 hour period of time when you will be home. The morning of the first day, DISCARD the FIRST morning void and then note the time. You will collect every single void from then on for 24 hours. For example, if you wake up at 6am and urinate, flush down that void. You will then collect every drop of urine all day and all night through 6am the following day. You will urinate one last time at 6am for the collection. The jug of urine must be kept in the refrigerator until you bring it to the lab. Coding Level of Care Code Est Pt Level 5 (85635) Diagnoses Multinodular thyroid E04.2 Type 2 diabetes mellitus with hyperglycemia, with long-term current use of insulin E11.65; Z79.4 Diabetes mellitus complication status: with hyperglycemia Diabetes mellitus group home insulin use: with local intermodal truck driver use Hyperparathyroidism E21.3 Time Spent (min) 45
[2024-10-06 08:23] LABS: Glucose, Whole Blood 124 mg/dL (60-115)
== END 2024-10-06 09:02 | disposition home or self-care (01) ==
PROVIDERS: PCP Internal Medicine; Visit Provider Student in an Organized Health Care Education/Training Program
DX: E11.65 Type 2 diabetes mellitus with hyperglycemia (principal); Z79.4 Long term (current) use of insulin; E21.3 Hyperparathyroidism, unspecified; E04.2 Nontoxic multinodular goiter
CPT/HCPCS: 99215

== ENCOUNTER → 2024-10-06 07:46 | Outpatient (BNVA) | payer MEDICARE, SELFPAY | PROVIDERS: PCP Internal Medicine; Visit Provider Student in an Organized Health Care Education/Training Program | DX: E04.2 Nontoxic multinodular goiter (principal); E21.3 Hyperparathyroidism, unspecified; E11.65 Type 2 diabetes mellitus with hyperglycemia; Z79.4 Long term (current) use of insulin | CPT/HCPCS: 82947; 83036; 99212 ==

== ENCOUNTER 2024-10-15 07:31 | Outpatient (REF) | payer MEDICARE, SELFPAY ==
--- OUTSIDE RECORDS SUMMARY | 2024-10-15 07:34 | XMS_ITS | Clinical Summary ---
Author Organization [facility] Facility Address [address] [place] [address], [place] [address] Care Team Providers Care Pairer Substandard Name Role Phone Ciara Tate MD Primary [...] to complete this topic Insurance Care Teams Pairer Substandard Relationship Specialty Start Date End Date Ciara Tate MD [facility] [address] [place] [address] [address] [place], [place] PCP - General 09/06/20
--- NOTE | 2024-10-15 09:43 | PM.PROC ---
Brief Operative Note Date of procedure: 10/15/24 Pre-op diagnosis: left mid 4.1 cm thyroid nodule FNA biopsy Post-op diagnosis: same Procedure: THYROID FINE NEEDLE ASPIRATION PROCEDURE NOTE ? PROCEDURE PERFORMED: Ultrasound-guided FNA of thyroid nodule ? OPERATORS: Dr. Sandhya Roldan ? INDICATION: left mid 4.1 cm thyroid nodule; FNA performed to assess for malignancy ? DESCRIPTION OF PROCEDURE: The indications for FNA (to assess for malignancy) were reviewed with the patient in detail. Potential complications (e.g., bleeding, infection, damage to local structures, absence of clear diagnosis after FNA) were reviewed. Alternatives to FNA including conservative observation or surgery were described. The patient understood and agreed to proceed. This was documented by the signing of the written informed consent form. A time-out was performed to confirm the patient's identity and the site of planned FNA. The nodule of interest was identified using ultrasound (14 MHz linear array probe). The site of FNA was then draped in the usual fashion and carefully cleaned and prepared using alcohol swabs. The skin at the previously-identified site of needle insertion was iced and sprayed with numbing spray. Under ultrasound guidance, _4_ passes were performed using a 1.5-inch, 25-gauge needle, and sample was obtained via capillary action. The needle tip was clearly visualized to be within the nodule at the time of sampling for 3__ of _4_ passes The patient tolerated the procedure well. There were no immediate complications. A small adhesive bandage was applied, and the patient was advised to take acetaminophen (rather than NSAIDs) for any discomfort and to report any signs of inflammation/infection or marked swelling. IMPRESSION: Technically successful ultrasound-guided fine needle aspiration of left mid 4.1 cm thyroid nodule. PLAN: The patient was advised that I will provide follow-up regarding the cytology result and any subsequent plans. Sandhya Roldan MD Endocrinology Attending Condition: stable Disposition: same day
== END 2024-10-15 07:32 | disposition home or self-care (01) ==
LOC: HO.US 07:31
PROVIDERS: PCP Internal Medicine; Visit Provider Student in an Organized Health Care Education/Training Program
DX: E04.2 Nontoxic multinodular goiter (principal)
CPT/HCPCS: 10005; 88173; 88305

== ENCOUNTER → 2024-10-15 07:31 | Outpatient (BNV) | payer MEDICARE, SELFPAY | PROVIDERS: PCP Internal Medicine; Visit Provider Student in an Organized Health Care Education/Training Program | DX: E04.1 Nontoxic single thyroid nodule (principal) | CPT/HCPCS: 10005 ==

== ENCOUNTER 2024-10-23 09:31 | Outpatient (REF) | payer MEDICARE, SELFPAY ==
--- OUTSIDE RECORDS SUMMARY | 2024-10-23 10:46 | XMS_ITS | Clinical Summary ---
Author Organization [facility] Facility Address [address] [place] [address], [place] [address] Care Team Providers Care Manager Marketing Communications Name Role Phone Ciara Tate MD Primary [...] to complete this topic Insurance Care Teams Manager Marketing Communications Relationship Specialty Start Date End Date Ciara Tate MD [facility] [address] [place] [phone] [phone] [place], [place] PCP - General 09/06/20
[2024-10-23 10:59] LABS: Parathyroid Hormone Intact 114.6 pg/mL (8.7-77.1)
[2024-10-23 11:12] LABS: Alanine Aminotransferase 12 U/L (0-31); Albumin Level 4.4 g/dL (3.5-5.0); Alkaline Phosphatase 75 U/L (39-117); Anion Gap 13 (12-20); Aspartate Amino Transferase 18 U/L (5-31); Bilirubin Total 0.5 mg/dL (0.0-1.0); Blood Urea Nitrogen 43 mg/dL (9-16); Calcium 9.9 mg/dL (8.4-10.2); Carbon Dioxide 25 mmol/L (22-29); Chloride 105 mmol/L (96-108); Cholesterol 162 mg/dL (<200); Estimated Glomerular Filt Rate 28; Glucose Random 144 mg/dL (60-115); HDL Cholesterol 56 mg/dL (>40); LDL Cholesterol Calculated 86 mg/dL (<100); Phosphorus 3.8 mg/dL (2.7-4.5); Potassium 4.7 mmol/L (3.3-5.1); Sodium 138 mmol/L (135-145); Total Protein 7.4 g/dL (6.5-8.0); Triglycerides 102 mg/dL (<150)
[2024-10-23 11:17] LABS: TSH reflex Free T4 0.37 uIU/mL (0.32-4.0); Vitamin D 25-OH Total 51.7 ng/mL (>30)
[2024-10-23 11:21] LABS: Vitamin B12 429 pg/mL (200-900)
== END 2024-10-23 09:32 | disposition home or self-care (01) ==
LOC: HO.LAB 09:31
PROVIDERS: PCP Internal Medicine; Visit Provider Student in an Organized Health Care Education/Training Program
DX: E11.65 Type 2 diabetes mellitus with hyperglycemia (principal); Z79.4 Long term (current) use of insulin; E04.2 Nontoxic multinodular goiter
CPT/HCPCS: 36415; 80053; 80061; 82306; 82607; 83970; 84100; 84443

== ENCOUNTER 2024-10-27 08:45 | Outpatient (REF) | payer MEDICARE, SELFPAY ==
--- OUTSIDE RECORDS SUMMARY | 2024-10-27 09:17 | XMS_ITS | Clinical Summary ---
Author Organization [facility] Facility Address [address] [place] [address], [place] [address] Care Team Providers Care Manager Community Development Name Role Phone Ciara Tate MD Primary [...] complete this topic Insurance Care Teams Manager Community Development Relationship Specialty Start Date End Date Ciara Tate MD [facility] [address] [place] [address] [phone] [place], [place] PCP - General 09/06/20
[2024-10-27 10:51] LABS: Albumin Level 4.2 g/dL (3.5-5.0); Calcium 10.1 mg/dL (8.4-10.2)
== END 2024-10-27 08:46 | disposition home or self-care (01) ==
LOC: HO.LAB 08:45
PROVIDERS: PCP Internal Medicine; Visit Provider Student in an Organized Health Care Education/Training Program
DX: Z13.89 Encounter for screening for other disorder (principal)
CPT/HCPCS: 36415; 82040; 82310

== ENCOUNTER 2024-10-27 10:25 | Outpatient (REF) | payer MEDICARE, SELFPAY ==
[2024-10-27 11:03] LABS: Creatinine, mg/dL 33.72
[2024-10-27 11:06] LABS: Creatinine, 24Hr Urine 0.7 G/Day (1.0-2.0); Total Volume 24 Hour Urine 2200 mL
--- OUTSIDE RECORDS SUMMARY | 2024-10-27 12:04 | XMS_ITS | Clinical Summary ---
Author Organization [facility] Facility Address [address] [place] [address], [place] [address] Care Team Providers Care Skiving Machine Operator Name Role Phone Ciara Tate MD Primary [...] to complete this topic Insurance Care Teams Skiving Machine Operator Relationship Specialty Start Date End Date Ciara Tate MD [facility] [address] [place] [address] [phone] [place], [place] PCP - General 09/06/20
[2024-11-03 22:58] LABS: Creatinine 24Hr Urine 0.66 g/24 h (0.50-2.15)
== END 2024-10-27 10:26 | disposition home or self-care (01) ==
LOC: HO.LNP 10:25
PROVIDERS: Visit Provider Student in an Organized Health Care Education/Training Program
DX: E21.3 Hyperparathyroidism, unspecified (principal)
CPT/HCPCS: 36415; 82040; 82310; 82340; 82570

== ENCOUNTER 2024-10-29 13:24 | Outpatient (AMB) | payer MEDICARE, SELFPAY ==
--- NOTE | 2024-10-29 13:26 | MHC.OFFVIS ---
Vital Signs 10/29/24 13:29 Height 5 ft 6 in Weight 128 lb 0.8 oz BMI 20.7 BP 128/64 Blood Pressure Location Lt brachial Position Sitting Pulse 84 Pulse Source Pulse Oximeter Pulse Oximetry (%) 96 Oxygen Delivery Method Room Air Intake Visit Reasons: DM, Biopsy f/u Intake Note: Patient present today for Type 2 Diabetes Mellitus and biopsy results. Last Diabetic eye exam: had an appt last month for partial exam, stated she is seen within 3-6 months. Last Podiatry Visit: Has an appointment in December 2024, last Industrial Machine Assembler retired. Random Glucose: 189 mg/dl HgA1C: 8.7% 10/06/24 Medical Office Technology Instructor Required: No Accompanied by: Self / Same As Patient Allergies No Known Allergies [No Known Allergies*] Allergy (Verified 10/29/24 13:30) Medication List - Last Reconciled 10/29/24 by Sandhya Roldan MD atorvastatin 40 mg PO DAILY 90 days brinzolamide-brimonidine 1-0.2 % (Simbrinza) 1 drp ophthalmic-Right BID cholecalciferol (vitamin D3) 50 mcg PO DAILY cyanocobalamin (vitamin B-12) 500 mcg PO DAILY docusate sodium (Colace) 100 mg PO DAILY dulaglutide (Trulicity) 4.5 mg (0.5 mL) subcut QWEEK empagliflozin 25 mg PO DAILY 30 days flash glucose scanning reader (FreeStyle Florina 2 Barto) As directed flash glucose sensor (FreeStyle Lforina 2 Sensor kit) CHANGE EVERY 14 DAYS iron,carbonyl-vitamin C 65 mg iron- 125 mg (Vitron-C) 1 tab PO DAILY metformin ER 500 mg PO ONCE pantoprazole 40 mg PO DAILY pen needle, diabetic (BD Ultra-Fine Mini Pen Needle) As directed HPI Comments Details: 79 YO F with PMHx T2DM, HLD, HTN, CKD stage 3 who is s/p Gastric Sleeve procedure 09/16/2019 who is seen in F/U for T2DM, Hyperparathyroidism and also a thyroid nodule. . 1) T2DM: Initially diagnosed with T2DM at the age of 53 in when presented with a nonhealing wound on the upper extremity and blood sugar was found to be approximately 500 at that time. Was initially started on treatment with Metformin, but progressed to requiring insulin within 1 year. She had Bariatric surgery in 2018 and lost a significant amount of weight. Lantus stopped apr or May 2024 due to minimal requirement and low GFR Current regimen: Trulicity 4.5 mg once a week, Jardiance 25 mg daily Metformin 500 daily ( reduced from 500 BID in 04/2024 by nephro due to reduced GFR ) . Did not bring apparel machinery instructor today again , we could not download her CGM data has freePLDTyle florina No hypoglycemia per patient for many years now. She says most readings are between 150 to 200. Sometimes 220 to 280 post meal. Weight stable. A1C: 7.4% 10/29/2023, . A1c 10/06/2024 POC: 8.7% Does know the rule of 15's. Family history of T2DM in Mother, Father and Brother. Has eyes checked year with Dr. Rascon in [place]. Last eye exam 03/2024 , ? retinopathy. Did have laser treatments in the past. has glaucoma get seen every 3-6 months. Denies any neuropathy. hasnt seen one in a year because they retired . Has appointment in December 2024. Has nephropathy with CKD stage 3. following with mphrology on jardiance 25 mg daily, no proteinuria , [facility] Has HLD, on Atorvastatin 40 mg PO daily. LDL 86 in September 2024 which is. up from 79 in October 2023 Denies any known CAD or CHF. 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 She underwent FNA biopsy of her LLP 3.8 cm nodule 03/04/2020 with benign cytology. She denies any symptoms of hyper or hypothyroidism. She denies any compressive symptoms. She has monitored with surveillance ultrasounds. Most recent thyroid ultrasound done Most recent thyroid ultrasound November 2023 showed a multinodular goiter with a left mid dominant lobe nodule measuring 4.1 X 1.9 x 2.2 cm solid, isoechoic, with punctate echogenic foci, TR 4 category, which is stable in size compared to ultrasound in 2021 however this has significantly changed in size compared to ultrasound in 2019 when it was measuring 3.8 cm initially when the patient had the biopsy in 2019 and it was benign. Interval history 10/15/2024: Underwent FNA biopsy of the left mid lobe 4.1 cm nodule with benign cytology, [place] category 2. 3) Hypercalcemia with Hyperparathyroidism: She was noted to have intermittently high normal calcium and an inappropriately normal PTH. She underwent evaluation for hyperparathyroidism, which was biochemically consistent with this. DEXA checked 02/2022 was completely WNL, with no evidence of even Osteopenia, including the distal forearm.. Interval history Most recent labs from September 2024 showed normal calcium levels at 9.1, however PTH is elevated at 114. GFR at 28. Vitamin-D level normal at 51. 24 hour urine labs pending. Vitamin-D intake: 2000 units daily Calcium intake: creamer in coffee, cottage cheese and yogurt, some whole milk here and there Pending repeat bone density scan has an appointment on 11/14/24 Physical exam General: sitting comfortably in no acute distress HEENT: normocephalic/atraumatic, EOM intact, moist oral mucosa Neck: supple, palpable 2 cm left-sided nodule Cardiac: normal heart sounds Pulm: normal breath sounds B/L, no added breath sounds Abd: not distended, no tenderness Extremities: no edema, no signs of myxedema Neuro: AAO x3, Speech: normal, no facial droop, moving all 4 extremities Foot exam: 10/06/2024 Skin sloughing, nail thickening noted. Intact sensation to monofilament. Labs: Laboratory Tests 04/19/23 04/19/23 04/19/23 07:42 07:45 07:45 Sodium 140 Potassium 4.6 Creatinine 0.96 Estimated GFR 56 Hemoglobin A1c % 7.2 H Calcium 10.4 H D LDL Cholesterol Direct 25-OH Vitamin D Total 33.3 TSH 0.47 Free T4 0.94 Microalb/Creat Ratio 17.5 04/19/23 07:45 Sodium Potassium Creatinine Estimated GFR Hemoglobin A1c % Calcium LDL Cholesterol Direct 94 25-OH Vitamin D Total TSH Free T4 Microalb/Creat Ratio Laboratory Tests 04/19/23 10/29/23 02/01/24 07:42 08:29 08:16 Sodium Potassium BUN Creatinine Estimated GFR Triglycerides 115 Cholesterol 154 LDL Cholesterol, Calc 79 HDL Cholesterol 52 TSH 0.65 U Random Total Protein < 7 Urine Creatinine 45.50 76.95 Urine Microalbumin 8.0 Microalb/Creat Ratio 17.5 08/26/24 07:23 Sodium 138 Potassium 4.3 BUN 43 H Creatinine 1.74 H Estimated GFR 28 Triglycerides Cholesterol LDL Cholesterol, Calc HDL Cholesterol TSH U Random Total Protein Urine Creatinine Urine Microalbumin Microalb/Creat Ratio Laboratory Tests 04/19/23 10/29/23 10/23/24 07:42 08:29 09:50 Plt Count 233 BUN 43 H Creatinine 1.77 H Estimated GFR 28 Random Glucose 144 H Calcium 9.9 Phosphorus 3.8 AST 18 ALT 12 Alkaline Phosphatase 75 Albumin 4.4 Triglycerides 102 Cholesterol 162 LDL Cholesterol, Calc 86 HDL Cholesterol 56 Vitamin B12 429 25-OH Vitamin D Total 51.7 PTH Intact 114.6 H Urine Microalbumin 8.0 Microalb/Creat Ratio 17.5 10/27/24 09:24 Plt Count BUN Creatinine Estimated GFR Random Glucose Calcium 10.1 Phosphorus AST ALT Alkaline Phosphatase Albumin 4.2 Triglycerides Cholesterol LDL Cholesterol, Calc HDL Cholesterol Vitamin B12 25-OH Vitamin D Total PTH Intact Urine Microalbumin Microalb/Creat Ratio US THYROID 12/18 CLINICAL INFORMATION: Nontoxic multinodular goiter. COMPARISON: Thyroid ultrasound 08/01/2022 and 07/26/2021. Ultrasound-guided thyroid biopsy 03/04/2020. TECHNIQUE: Linear transducer khan-scale and color Doppler examination with attention to the region of the thyroid. FINDINGS: SIZE: Measurements of the thyroid lobes and nodules are given in sagittal, anteroposterior and transverse dimensions respectively. Right Thyroid Lobe: 5.4 x 1.8 x 1.8 cm, volume 9.2 mL. Previously 4.9 x 2.1 x 1.5 cm, volume 8.0 mL. Parenchyma: The gland echotexture is homogeneous. Thyroid vascularity is normal. Left Thyroid Lobe: 6.2 x 2.3 x 2.4 cm, volume 17.9 mL. Previously 5.4 x 2.4 x 2.7 cm, volume 17.7 mL. Parenchyma: The gland echotexture is homogeneous. Thyroid vascularity is normal. Isthmus: 0.1 cm in maximum AP dimension. Previously 0.1 cm. Estimated total number of nodules greater than or equal to 1 cm: 1. Extension Agent nodules are described as follows: 1. Location: Right mid. Size: 0.7 x 0.4 x 0.7 cm, volume 0.1 mL. Previously: 0.8 x 0.4 x 0.6 cm, volume 0.09 mL. Nodule characteristics: Composition: Solid/almost completely solid (2). Echogenicity: Isoechoic (1). Shape: Not taller than wide (0). Margins: Ill-defined (0). Echogenic Foci: None (0). ACR TI-RADS total points: 3 Previous: 3 ACR TI-RADS category: 3 Previous: 3 Significant change in size (>/= 20% in 2 dimensions and minimal increase of 2 mm or 50% or greater increase in volume): No Change in features: No Change in ACR TI-RADS risk category: No 2. Location: Right mid. Size: 0.8 x 0.4 x 0.6 cm, volume 0.09 mL. Previously: 0.7 x 0.4 x 0.5 cm, volume 0.08 mL. Nodule characteristics: Composition: Spongiform (0). Echogenicity: Anechoic (0). Shape: Not taller than wide (0). Margins: Smooth (0). Echogenic Foci: None (0). ACR TI-RADS total points: 0 Previous: 0 ACR TI-RADS category: 1 Previous: 1 Significant change in size (>/= 20% in 2 dimensions and minimal increase of 2 mm or 50% or greater increase in volume): No Change in features: No Change in ACR TI-RADS risk category: No 3. Location: Right mid. Size: 0.7 x 0.4 x 0.7 cm, volume 0.1 mL. Previously: 0.8 x 0.5 x 0.7 cm, volume 0.1 mL. Nodule characteristics: Composition: Solid (2). Echogenicity: Hypoechoic (2). Shape: Not taller than wide (0). Margins: Smooth (0). Echogenic Foci: None (0). ACR TI-RADS total points: 4 Previous: 3 ACR TI-RADS category: 4 Previous: 3 Significant change in size (>/= 20% in 2 dimensions and minimal increase of 2 mm or 50% or greater increase in volume): No Change in features: Yes Change in ACR TI-RADS risk category: Yes 4. Location: Left mid. Size: 4.1 x 1.9 x 2.2 cm, volume 9.0 mL. Previously: 4.4 x 1.9 x 2.4 cm, volume 10.0 mL. Nodule characteristics: Composition: Solid (2). Echogenicity: Isoechoic (1). Shape: Not taller than wide (0). Margins: Smooth (0). Echogenic Foci: Punctate echogenic foci (3). ACR TI-RADS total points: 6 Previous: 3 ACR TI-RADS category: 4 Previous: 3 Significant change in size (>/= 20% in 2 dimensions and minimal increase of 2 mm or 50% or greater increase in volume): No Change in features: No Change in ACR TI-RADS risk category: No NODES: No lymphadenopathy is seen in the tissue surrounding the thyroid gland. US/US thyroid IMPRESSION: 1. A 4.1 cm mid left thyroid TR 4 nodule meets ACR biopsy criteria and is amenable to ultrasound-guided biopsy. Please correlate with ultrasound biopsy results dated 03/04/2020. 2. There is an asymmetric goiter, left lobe greater than right. Thyroid US 08/01/2022 Right Thyroid Lobe: 4.9 x 2.1 x 1.5 cm, volume 8.0 mL. Previously 5.3 x 2.2 x 2.0 cm, volume 12.2 mL. Parenchyma: The gland echotexture is heterogeneous. Thyroid vascularity is increased. Left Thyroid Lobe: 5.4 x 2.4 x 2.7 cm, volume 17.7 mL. Previously 5.7 x 2.7 x 2.6 cm, volume 20.9 mL. Parenchyma: The gland echotexture is heterogeneous. Thyroid vascularity is increased. Isthmus: 0.1 cm in maximum AP dimension. Previously 0.2 cm. Estimated total number of nodules greater than or equal to 1 cm: 1. Extension Agent nodules are described as follows: 1.? Location: Left mid pole. ?? ? Size: 4.4 x 1.9 x 2.4 cm, volume 10.0 mL. ?? ? Previously: 2.5 x 2.4 x 4.3 cm, volume 13.7 mL. ?? ? Nodule characteristics: ?? ? Composition: Solid/almost completely solid (2). ?? ? Echogenicity: Isoechoic (1). ?? ? Shape: Not taller than wide (0). ?? ? Margins: Smooth (0). ?? ? Echogenic Foci: Comet-tail artifacts (0). ?? ? ACR TI-RADS total points: 3 Previous: 3 ?? ? ACR TI-RADS category: 3 Previous: 3 ? Significant change in size (>/= 20% in 2 dimensions and minimal increase of 2 mm or 50% or greater increase in volume): No ?? ? Change in features: No ?? ? Change in ACR TI-RADS risk category: No 2.? Location: Right mid pole. ?? ? Size: 0.8 x 0.4 x 0.6 cm, volume 0.09 mL. ?? ? Previously: 0.6 x 0.5 x 0.7 cm, volume 0.1 mL. ?? ? Nodule characteristics: ?? ? Composition: Solid/almost completely solid (2). ?? ? Echogenicity: Isoechoic (1). ?? ? Shape: Not taller than wide (0). ?? ? Margins: Ill-defined (0). ?? ? Echogenic Foci: None (0). ?? ? ACR TI-RADS total points: 3 Previous: 3 ?? ? ACR TI-RADS category: 3 Previous: 3 ? Significant change in size (>/= 20% in 2 dimensions and minimal increase of 2 mm or 50% or greater increase in volume): No ?? ? Change in features: No ?? ? Change in ACR TI-RADS risk category: No 3.? Location: Right mid pole. ?? ? Size: 0.7 x 0.4 x 0.5 cm, volume 0.08 mL. ?? ? Previously: 0.7 x 0.5 x 0.7 cm, volume 0.2 mL. ?? ? Nodule characteristics: ?? ? Composition: Spongiform (0). ?? ? ACR TI-RADS total points: 0 Previous: 0 ?? ? ACR TI-RADS category: 1 Previous: 1 ? Significant change in size (>/= 20% in 2 dimensions and minimal increase of 2 mm or 50% or greater increase in volume): No ?? ? Change in features: No ?? ? Change in ACR TI-RADS risk category: No 4.? Location: Right mid pole. ?? ? Size: 0.8 x 0.5 x 0.7 cm, volume 0.1 mL. ?? ? Previously: Not measured previously. ?? ? Nodule characteristics: ?? ? Composition: Solid (2). ?? ? Echogenicity: Hypoechoic (2). ?? ? Shape: Not taller than wide (0). ?? ? Margins: Ill-defined (0). ?? ? Echogenic Foci: None (0). ?? ? ACR TI-RADS total points: 4 ?? ? ACR TI-RADS category: 4 ?? ? NODES: No lymphadenopathy is seen in the tissue surrounding the thyroid gland DEXA: 03/22/2022 FINDINGS: AP SPINE L1-L4: Current: BMD 1.350 g/cm2, Z-score 3.4, T-score 1.4, normal, 4.2% decrease from baseline (<5% change is not significant). Baseline: BMD 1.409 g/cm2. LEFT FOREARM RADIUS 33%: BMD 0.962 g/cm2, Z-score 3.3, T-score 1.0, normal, 2.1% decrease from baseline (<5% change is not significant). Baseline: BMD 0.983 g/cm2. LEFT FEMUR, NECK: Current: BMD 1.004 g/cm2, Z-score 1.8, T-score -0.2, normal. Baseline: BMD 1.052 g/cm2. LEFT FEMUR, TOTAL: Current: BMD 0.938 g/cm2, Z-score 1.4, T-score -0.6, normal, 11.2% decrease from baseline (<5% change is not significant). Baseline: BMD 1.056 g/cm2. [facility] Medical History HLD (hyperlipidemia) HTN (hypertension) Hyperparathyroidism Hypersomnolence Intestinal malabsorption following gastrectomy Left breast mass Malabsorption due to intolerance, not elsewhere classified Multinodular thyroid Sleep apnea Snoring T2DM (type 2 diabetes mellitus) Vitamin D deficiency Surgical History Hx of total knee replacement Hx of cataract surgery S/P laparoscopic sleeve gastrectomy Family History Father Cancer Diabetes Mother Diabetes Legally blind Social History Household Members: Spouse Alcohol intake: current Alcohol intake frequency: holidays/special occasions only Patient Tobacco Use Status: Former Tobacco user Tobacco use type: Cigarette Cigarette Packs Per Day: 2 Cigarettes Per Day: 40 Years Smoked: approx 25 Female Reproductive History Menstrual Age of Menarche: 10 Physical Exam Vital Signs: BMI result Body Mass Index 20.7 Assessment & Plan Assessment & Plan (1) Multinodular thyroid: Code(s): E04.2 - Nontoxic multinodular goiter Category: Medical Plan: She underwent FNA biopsy of her LLP 3.8 cm nodule 03/04/2020 with benign cytology. She has monitored with surveillance ultrasounds. Most recent thyroid ultrasound done Most recent thyroid ultrasound November 2023 showed a multinodular goiter with a left mid dominant lobe nodule measuring 4.1 X 1.9 x 2.2 cm solid, isoechoic, with punctate echogenic foci, TR 4 category, which is stable in size compared to ultrasound in 2021 however this has significantly changed in size compared to ultrasound in 2018 when it was measuring 3.8 cm initially when the patient had the biopsy in 2019 and it was benign. 10/15/2024: Underwent FNA biopsy of the left mid 4.1 cm nodule with benign cytology, [place] category 2. I explained to the patient benign results me less than 3% chance of malignancy. We will plan to repeat an ultrasound in 1 year. TSH September 2024 normal at 0.37. Plan: -ultrasound of the thyroid ordered for September 2025 (2) T2DM (type 2 diabetes mellitus): Code(s): E11.9 - Type 2 diabetes mellitus without complications Category: Medical Qualifiers: Diabetes mellitus termite renewal inspector insulin use: with usp use Diabetes mellitus complication status: with hyperglycemia Qualified Code(s): E11.65 - Type 2 diabetes mellitus with hyperglycemia; Z79.4 - ocean transportation intermediary (current) use of insulin Plan: 79-year-old female with history of type 2 diabetes mellitus with complications of CKD stage 3, question retinopathy. Without long-term insulin use currently. She is following with Nephrology for CKD. A1c September 2024 is 8.7%. This is significantly elevated from her last A1c in 2023 which was 7.3%. She forgot to bring her Cloudbot[employer] Florina apparel machinery instructor again today so CGM data could not be downloaded. However she continues to have elevated blood sugars, reports that her readings are mostly around 180s to 200s. Sometimes even higher than 220. . I will bring her back for sooner follow up for this. She is now back on the Jardiance after she had been off it for 3 weeks, now on it again for the past week. I am hoping that her sugars will improve. If not, we will consider starting her on Actos. While switching her from Trulicity to Ozempic is also an option, she is already somewhat frustrated by her low weight, does not want to lose more weight which would happen with the stronger GLP 1 agonist. Hence for now we will hold off on that. We will also have her see the wind farm operations manager. Plan: -continue Jardiance 25 mg daily -continue metformin 500 mg daily -continue Trulicity 4.5 mg daily -wind farm operations manager referral placed. -has not seen Podiatry in a vial, foot exam 10/06/2024 showed poor nail care and skin sloughing, intact sensation to monofilament, has appointment for follow up in December 2024 -follow up in 3 to 4 weeks (3) Hyperparathyroidism: Code(s): E21.3 - Hyperparathyroidism, unspecified Category: Medical Plan: 79-year-old female also has a history of hyperparathyroidism with last bone density from 2021 was normal. I have ordered repeat bone density which will also include a wrist. She also has CKD stage 3, GFR in 20s. Most recent labs from September 2024 showed normal serum calcium levels around 9, normal vitamin-D of 51, GFR 28, PTH elevated at 114, 24 hour urine levels pending. I will follow up on the results of the 24 hour calcium levels. Given her age and comorbidities she is not an excellent candidate for surgery. However based on her low GFR, she meets criteria for surgery. She is also pending an appointment for bone density scan. We will wait for these results to evaluate the full picture. Plan: -continue vitamin-D -do bone density scan, already scheduled, pending appointment -follow up on the results of the 24 hour urine calcium levels -follow up in 3-4 weeks (4) HLD (hyperlipidemia): Code(s): E78.5 - Hyperlipidemia, unspecified Category: Medical Qualifiers: Hyperlipidemia type: unspecified Qualified Code(s): E78.5 - Hyperlipidemia, unspecified Plan: LDL at 82 mg/dL from September 2024, goal LDL is less than 70 mg/dL. Increase atorvastatin to 80 mg daily. Will plan to repeat lipid panel in February 2025 Plan I spent 30 minutes in reviewing the record, seeing the patient and documenting in the medical record. Orders: Orders US thyroid 10/07/25 E04.2 - Nontoxic multinodular goiter Referrals Ed Manager Nutrition Referral E11.65 - Type 2 diabetes mellitus with hyperglycemia, Z79.4 - ocean transportation intermediary (current) use of insulin Medications: New atorvastatin 80 mg PO BEDTIME 90 tabs 4RF Discontinued atorvastatin Discontinued Reason: Doctor's Order 40 mg PO DAILY 90 days 90 tabs 3RF Patient Instructions: Due bone density scan, you have an appointment on the 14 of November for that Increase atorvastatin to 80 mg daily, new prescription sent to your pharmacy if you have any muscle aches or pains with a it, please let us know Follow up in 3-4 weeks, please bring your local [employer] Florina apparel machinery instructor to every appointment with me. Coding Level of Care Code Est Pt Level 4 (74340) Complex EM visit Add On G2211 Diagnoses Multinodular thyroid E04.2 Type 2 diabetes mellitus with hyperglycemia, with long-term current use of insulin E11.65; Z79.4 Diabetes mellitus usp insulin use: with termite renewal inspector use Diabetes mellitus complication status: with hyperglycemia Hyperparathyroidism E21.3 Hyperlipidemia, unspecified hyperlipidemia type E78.5 Hyperlipidemia type: unspecified Time Spent (min) 30
[2024-10-29 13:29] VITALS: BP 128/64; PULSE 84; O2SAT 96; BMI 20.7
[2024-10-29 13:42] LABS: Glucose, Whole Blood 189 mg/dL (60-115)
--- OUTSIDE RECORDS SUMMARY | 2024-10-29 16:00 | XMS_ITS | Clinical Summary ---
Author Organization [facility] Facility Address [address] [place] [address], [place] [address] Care Team Providers Care Getter Welder Name Role Phone Ciara Tate MD Primary [...] to complete this topic Insurance Care Teams Getter Welder Relationship Specialty Start Date End Date Ciara Tate MD [facility] [address] [place] [address] [id number] [place], [place] PCP - General 09/06/20
== END 2024-10-29 14:04 | disposition home or self-care (01) ==
PROVIDERS: PCP Internal Medicine; Visit Provider Student in an Organized Health Care Education/Training Program
DX: E04.2 Nontoxic multinodular goiter (principal); E11.65 Type 2 diabetes mellitus with hyperglycemia; Z79.4 Long term (current) use of insulin; E21.3 Hyperparathyroidism, unspecified; E78.5 Hyperlipidemia, unspecified
CPT/HCPCS: 99214; G2211

== ENCOUNTER → 2024-10-29 13:24 | Outpatient (BNVA) | payer MEDICARE, SELFPAY | PROVIDERS: PCP Internal Medicine; Visit Provider Student in an Organized Health Care Education/Training Program | DX: E11.22 Type 2 diabetes mellitus with diabetic chronic kidney disease (principal); E11.65 Type 2 diabetes mellitus with hyperglycemia; I12.9 Hypertensive chronic kidney disease with stage 1 through stage 4 chronic kidney disease, or unspecified chronic kidney disease; N18.30 Chronic kidney disease, stage 3 unspecified; E04.2 Nontoxic multinodular goiter; E21.3 Hyperparathyroidism, unspecified; E78.5 Hyperlipidemia, unspecified; Z79.4 Long term (current) use of insulin | CPT/HCPCS: 82947; 99212 ==

== ENCOUNTER 2024-11-14 08:00 | Outpatient (REF) | payer MEDICARE, SELFPAY ==
--- NOTE | ~2024-11-14 | MM_ITS ---
EXAMINATION: DXA BONE DENSITY EXTREMITY HISTORY: Estrogen deficiency TECHNIQUE: ClubLocal Dual energy absorptiometry (DEXA) of the lumbar spine, total left hip, femoral neck, and distal radius was performed. COMPARISON: Comparison is made with the prior examination dated 03/22/2022. FINDINGS: The bone mineral density of the lumbar spine is 1.233 with a T-score of 0.4, and a Z-score of 2.7. This is indicative of normal bone mineral density. This represents a BMD change of -8.7% compared to the prior exam. This is statistically significant. The bone mineral density of the left total hip is 0.835 with a T-score of -1.4, and a Z-score of 0.8. This is indicative of osteopenia. This represents a BMD change of -11.0% compared to the prior exam. This is statistically significant. The bone mineral density of the left femoral neck is 0.840 with a T-score of -1.4, and a Z-score of 0.9. This is indicative of osteopenia. This represents a BMD change of -16.3% compared to the prior exam. The bone mineral density of the distal radius is 0.902 with a T-score of 0.3, and a Z-score of 2.9. This is indicative of normal bone mineral density. This represents a BMD change of -6.2% compared to the prior exam. This is statistically significant. FRACTURE RISK: The FRAX index suggests a ten year probability of major osteoporotic fracture of 10.1%, and of hip fracture 2.5%. MM/XR DEXA appendicular skeleton IMPRESSION: Based on bone mineral density, and according to World Health Organization (WHO) criteria, the diagnosis is consistent with osteopenia. All bone density values are in grams per centimeter squared (g/cm2). Statistically, 68% of repeat scans fall within 1 SD (+/- 0.010 g/cm2 for AP spine L1-L4) and 1 SD (+/- 0.012 g/cm2 for femur total) FRAX is a trademark of the [employer]'s [place] [facility] Metabolic Bone Disease, a World Health Organization (WHO) Collaborating Center. Electronically signed by: Renato Logan MD 11/14/2024 09:41 AM EDT RP
== END 2024-11-14 08:01 | disposition home or self-care (01) ==
LOC: HO.MAMMO 08:00
PROVIDERS: PCP Internal Medicine; Visit Provider Student in an Organized Health Care Education/Training Program
DX: E21.3 Hyperparathyroidism, unspecified (principal)
CPT/HCPCS: 77081

== ENCOUNTER → 2024-11-14 08:15 | Outpatient (BNV) | payer MEDICARE, SELFPAY | PROVIDERS: PCP Internal Medicine; Visit Provider Radiology Diagnostic Radiology | DX: E28.39 Other primary ovarian failure (principal) | CPT/HCPCS: 77081 ==

== ENCOUNTER 2024-11-20 11:19 | Outpatient (AMB) | payer MEDICARE, SELFPAY ==
--- NOTE | 2024-11-20 11:11 | MHC.OFFVISWM ---
VS Expanded 11/20/24 11:17 Height 5 ft 6 in Weight 117 lb BMI 18.9 Intake Visit Reasons: TV PO LSG 09/16/19 Allergies No Known Allergies [No Known Allergies*] Allergy (Verified 10/29/24 13:30) Medication List - Last Reconciled 11/20/24 by NICHELLE Treadwell atorvastatin 80 mg PO BEDTIME brinzolamide-brimonidine 1-0.2 % (Simbrinza) 1 drp ophthalmic-Right BID cholecalciferol (vitamin D3) 50 mcg PO DAILY cyanocobalamin (vitamin B-12) 500 mcg PO DAILY docusate sodium (Colace) 100 mg PO DAILY dulaglutide (Trulicity) 4.5 mg (0.5 mL) subcut QWEEK empagliflozin 25 mg PO DAILY 30 days flash glucose scanning reader (FreeStyle Florina 2 [place]) As directed flash glucose sensor (FreeStyle Florina 2 Sensor kit) CHANGE EVERY 14 DAYS iron,carbonyl-vitamin C 65 mg iron- 125 mg (Vitron-C) 1 tab PO DAILY metformin ER 500 mg PO ONCE pantoprazole 40 mg PO DAILY pen needle, diabetic (BD Ultra-Fine Mini Pen Needle) As directed thiamine HCl (vitamin B1) 100 mg PO DAILY HPI Comments Details: This?is a?79?yo female who is s/p LSG 09/16/2019. Weight loss of 7lbs since last OV 2 months.? No complaints of nausea, emesis, abdominal pain or reflux, or constipation. Scheduled to see system configuration specialist with endocrinology early next month. Was diagnosed with skin cancer on her nose; having that removed next month. Present meal plan includes: not taking any protein shakes because they often raise her blood sugar too much oatmeal for breakfast with protein powder and whole milk a large variety of different meals for lunch and dinner, including ice cream and cookies increased her fluid intake Exercise routine includes: 10-16K steps per day PFSH Medical History HLD (hyperlipidemia) HTN (hypertension) Hyperparathyroidism Hypersomnolence Intestinal malabsorption following gastrectomy Left breast mass Malabsorption due to intolerance, not elsewhere classified Multinodular thyroid Sleep apnea Snoring T2DM (type 2 diabetes mellitus) Vitamin D deficiency Surgical History Hx of total knee replacement Hx of cataract surgery S/P laparoscopic sleeve gastrectomy Family History Father Cancer Diabetes Mother Diabetes Legally blind Social History Household Members: Spouse Alcohol intake: current Alcohol intake frequency: holidays/special occasions only Patient Tobacco Use Status: Former Tobacco user Tobacco use type: Cigarette Cigarette Packs Per Day: 2 Cigarettes Per Day: 40 Years Smoked: approx 25 Female Reproductive History Menstrual Age of Menarche: 10 Telehealth Telehealth Telehealth Platform: Telephone Location of provider rendering services: practice address Location of patient: address on file Patient Identification confirmed using: Name, : Yes Telehealth method: voice only Patient verbally consented to treatment: Yes Patient verbally consented to billing insurance company: Yes Patient informed of any privacy concerns related to visit: Yes Minutes spent on Phone/Video with Pt.: 14 Assessment & Plan Assessment & Plan (1) S/P laparoscopic sleeve gastrectomy: Code(s): Z98.84 - Bariatric surgery status Category: Surgical Plan Pt is scheduled to see endocrinology system configuration specialist next month. I think this will be most beneficial for her in controlling her weight in the setting of diabetes. She requests a refill of thiamine. RTC in February for previously scheduled appt. Medications: Refilled thiamine HCl (vitamin B1) 100 mg PO DAILY 90 tabs 3RF
[2024-11-20 11:17] VITALS: BMI 18.9
== END 2024-11-20 11:29 | disposition home or self-care (01) ==
LOC: HO.HBS 11:19
PROVIDERS: PCP Internal Medicine; Visit Provider Physician Assistant Surgical
DX: Z71.3 Dietary counseling and surveillance (principal); Z98.84 Bariatric surgery status
CPT/HCPCS: 99214; G2211

== ENCOUNTER → 2024-11-20 11:19 | Outpatient (BNVA) | payer MEDICARE, SELFPAY | PROVIDERS: PCP Internal Medicine; Visit Provider Physician Assistant Surgical ==

== ENCOUNTER 2024-11-24 09:28 | Outpatient (AMB) | payer MEDICARE, SELFPAY ==
--- NOTE | 2024-11-24 09:32 | A.OFFVIS_ITS ---
Vital Signs 3 11/24/24 09:33 Height 5 ft 6 in Weight 118 lb BMI 19.0 BP 122/64 Blood Pressure Location Rt brachial Position Sitting Pulse 68 Pulse Source Pulse Oximeter Pulse Oximetry (%) 97 Oxygen Delivery Method Room Air Intake Visit Reasons: fup for DM and hyperparathyroidism Intake Note: Patient presents today for a follow-up on Type 2 Diabetes Mellitus & Hyperparathyroidism: Last Diabetic eye exam was on: Has an appointment in November 28, 2024 Last Podiatry exam was on: Has an appointment in December 2024 Most recent HbA1c: 8.7%, 10/06/2024 Random Glucose- 209 mg/dL, Today Net Coordinator Required: No Accompanied by: Self / Same As Patient Allergies No Known Allergies [No Known Allergies*] Allergy (Verified 11/24/24 09:35) Medication List - Last Reconciled 11/24/24 by Sandhya Roldan MD atorvastatin 80 mg PO BEDTIME brinzolamide-brimonidine 1-0.2 % (Simbrinza) 1 drp ophthalmic-Right BID cholecalciferol (vitamin D3) 50 mcg PO DAILY cyanocobalamin (vitamin B-12) 500 mcg PO DAILY docusate sodium (Colace) 100 mg PO DAILY dulaglutide (Trulicity) 4.5 mg (0.5 mL) subcut QWEEK empagliflozin 25 mg PO DAILY 30 days flash glucose scanning reader (FreeStyle Florina 2 [place]) As directed flash glucose sensor (FreeStyle Florina 2 Sensor kit) CHANGE EVERY 14 DAYS iron,carbonyl-vitamin C 65 mg iron- 125 mg (Vitron-C) 1 tab PO DAILY metformin ER 500 mg PO ONCE pantoprazole 40 mg PO DAILY pen needle, diabetic (BD Ultra-Fine Mini Pen Needle) As directed thiamine HCl (vitamin B1) 100 mg PO DAILY HPI Comments Details: 79 YO F with PMHx T2DM, HLD, HTN, CKD stage 3 who is s/p Gastric Sleeve procedure 09/16/2019 who is seen in F/U for T2DM, Hyperparathyroidism and also a thyroid nodule. . 1) T2DM: Initially diagnosed with T2DM at the age of 53 in when presented with a nonhealing wound on the upper extremity and blood sugar was found to be approximately 500 at that time. Was initially started on treatment with Metformin, but progressed to requiring insulin within 1 year. She had Bariatric surgery in 2019 and lost a significant amount of weight. Lantus stopped apr or May 2024 due to minimal requirement and low GFR Current regimen: Trulicity 4.5 mg once a week, Jardiance 25 mg daily Metformin 500 daily ( reduced from 500 BID in 04/2024 by nephro due to reduced GFR ) . [employer] Florina downloaded from November 11 to 11/24/2024 Time CGM active 91% Average glucose 248 mg/dL G mi 9.2% Glucose variability 26.5% Within target range 12% Hi 47% Very high 41% Low 0% Very low 0% Interpretation: Overall running hyperglycemic, both postprandial as well as fasting readings Weight stable. A1C: 7.4% 10/29/2023, . A1c 10/06/2024 POC: 8.7% Does know the rule of 15's. Family history of T2DM in Mother, Father and Brother. Has eyes checked year with Dr. Rascon in [place]. Last eye exam 03/2024 , ? retinopathy. Did have laser treatments in the past. has glaucoma get seen every 3-6 months., next appointment in November 2024 Denies any neuropathy. hasnt seen one in a year because they retired . Has appointment in December 2024. Has nephropathy with CKD stage 3. following with nepphrology on jardiance 25 mg daily, no proteinuria , UAC Has HLD, atorvastatin increased. LDL 86 to 80 in September 2024, mg daily in September 2024 which is. up from 79 in October 2023 Denies any known CAD or CHF. 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 She underwent FNA biopsy of her LLP 3.8 cm nodule 03/04/2020 with benign cytology. She denies any symptoms of hyper or hypothyroidism. She denies any compressive symptoms. She has monitored with surveillance ultrasounds. Most recent thyroid ultrasound done Most recent thyroid ultrasound November 2023 showed a multinodular goiter with a left mid dominant lobe nodule measuring 4.1 X 1.9 x 2.2 cm solid, isoechoic, with punctate echogenic foci, TR 4 category, which is stable in size compared to ultrasound in 2021 however this has significantly changed in size compared to ultrasound in 2019 when it was measuring 3.8 cm initially when the patient had the biopsy in 2019 and it was benign. 10/15/2024: Underwent FNA biopsy of the left mid lobe 4.1 cm nodule with benign cytology, [place] category 2. 3) Hypercalcemia with Hyperparathyroidism: She was noted to have intermittently high normal calcium and an inappropriately normal PTH. She underwent evaluation for hyperparathyroidism, which was biochemically consistent with this. DEXA checked 02/2022 was completely WNL Interval history Most recent labs from September 2024 showed normal calcium levels at 9.1, however PTH is elevated at 114. GFR at 28. Vitamin-D level normal at 51. 24 hour urine labs could not assess fractional excretion of calcium as urine calcium was very low. It also seem like an inappropriate collection due to low creatinine Vitamin-D intake: 2000 units daily Calcium intake: creamer in coffee, cottage cheese and yogurt, some whole milk here and there DEXA scan on 11/14/24 showed Normal bone density of the lumbar spine however decreased why 8.7% since 2021, osteopenia of the left total hip T-score of -1.4 with decrease of 11% compared to 202, osteopenia of the left femoral neck with T-score of-1.4, with decrease of 16.3% compared to 202, normal bone density of the distal radius with T-score of 0.3, with a-6.2 decrease compared to 202. FRAX does not meet criteria for treatment. Physical exam General: sitting comfortably in no acute distress HEENT: normocephalic/atraumatic, EOM intact, moist oral mucosa Neck: supple, palpable 2 cm left-sided nodule Cardiac: normal heart sounds Pulm: normal breath sounds B/L, no added breath sounds Abd: not distended, no tenderness Extremities: no edema, no signs of myxedema Neuro: AAO x3, Speech: normal, no facial droop, moving all 4 extremities Foot exam: 10/06/2024 Skin sloughing, nail thickening noted. Intact sensation to monofilament. Labs: Laboratory Tests 04/19/23 04/19/23 04/19/23 07:42 07:45 07:45 Sodium 140 Potassium 4.6 Creatinine 0.96 Estimated GFR 56 Hemoglobin A1c % 7.2 H Calcium 10.4 H D LDL Cholesterol Direct 25-OH Vitamin D Total 33.3 TSH 0.47 Free T4 0.94 Microalb/Creat Ratio 17.5 04/19/23 07:45 Sodium Potassium Creatinine Estimated GFR Hemoglobin A1c % Calcium LDL Cholesterol Direct 94 25-OH Vitamin D Total TSH Free T4 Microalb/Creat Ratio Laboratory Tests 04/19/23 10/29/23 02/01/24 07:42 08:29 08:16 Sodium Potassium BUN Creatinine Estimated GFR Triglycerides 115 Cholesterol 154 LDL Cholesterol, Calc 79 HDL Cholesterol 52 TSH 0.65 U Random Total Protein < 7 Urine Creatinine 45.50 76.95 Urine Microalbumin 8.0 Microalb/Creat Ratio 17.5 08/26/24 07:23 Sodium 138 Potassium 4.3 BUN 43 H Creatinine 1.74 H Estimated GFR 28 Triglycerides Cholesterol LDL Cholesterol, Calc HDL Cholesterol TSH U Random Total Protein Urine Creatinine Urine Microalbumin Microalb/Creat Ratio Laboratory Tests 04/19/23 10/29/23 10/23/24 07:42 08:29 09:50 Plt Count 233 BUN 43 H Creatinine 1.77 H Estimated GFR 28 Random Glucose 144 H Calcium 9.9 Phosphorus 3.8 AST 18 ALT 12 Alkaline Phosphatase 75 Albumin 4.4 Triglycerides 102 Cholesterol 162 LDL Cholesterol, Calc 86 HDL Cholesterol 56 Vitamin B12 429 25-OH Vitamin D Total 51.7 PTH Intact 114.6 H Urine Microalbumin 8.0 Microalb/Creat Ratio 17.5 10/27/24 09:24 Plt Count BUN Creatinine Estimated GFR Random Glucose Calcium 10.1 Phosphorus AST ALT Alkaline Phosphatase Albumin 4.2 Triglycerides Cholesterol LDL Cholesterol, Calc HDL Cholesterol Vitamin B12 25-OH Vitamin D Total PTH Intact Urine Microalbumin Microalb/Creat Ratio Laboratory Tests 10/23/24 10/27/24 09:50 08:00 TSH 0.37 Ur 24 Hour Volume 2200 Ur Creatinine mg/dL 33.72 Ur Creatinine 24 Hour 0.7 L US THYROID 12/18 CLINICAL INFORMATION: Nontoxic multinodular goiter. COMPARISON: Thyroid ultrasound 08/01/2022 and 07/26/2021. Ultrasound-guided thyroid biopsy 03/04/2020. TECHNIQUE: Linear transducer khan-scale and color Doppler examination with attention to the region of the thyroid. FINDINGS: SIZE: Measurements of the thyroid lobes and nodules are given in sagittal, anteroposterior and transverse dimensions respectively. Right Thyroid Lobe: 5.4 x 1.8 x 1.8 cm, volume 9.2 mL. Previously 4.9 x 2.1 x 1.5 cm, volume 8.0 mL. Parenchyma: The gland echotexture is homogeneous. Thyroid vascularity is normal. Left Thyroid Lobe: 6.2 x 2.3 x 2.4 cm, volume 17.9 mL. Previously 5.4 x 2.4 x 2.7 cm, volume 17.7 mL. Parenchyma: The gland echotexture is homogeneous. Thyroid vascularity is normal. Isthmus: 0.1 cm in maximum AP dimension. Previously 0.1 cm. Estimated total number of nodules greater than or equal to 1 cm: 1. Superintendent Meters nodules are described as follows: 1. Location: Right mid. Size: 0.7 x 0.4 x 0.7 cm, volume 0.1 mL. Previously: 0.8 x 0.4 x 0.6 cm, volume 0.09 mL. Nodule characteristics: Composition: Solid/almost completely solid (2). Echogenicity: Isoechoic (1). Shape: Not taller than wide (0). Margins: Ill-defined (0). Echogenic Foci: None (0). ACR TI-RADS total points: 3 Previous: 3 ACR TI-RADS category: 3 Previous: 3 Significant change in size (>/= 20% in 2 dimensions and minimal increase of 2 mm or 50% or greater increase in volume): No Change in features: No Change in ACR TI-RADS risk category: No 2. Location: Right mid. Size: 0.8 x 0.4 x 0.6 cm, volume 0.09 mL. Previously: 0.7 x 0.4 x 0.5 cm, volume 0.08 mL. Nodule characteristics: Composition: Spongiform (0). Echogenicity: Anechoic (0). Shape: Not taller than wide (0). Margins: Smooth (0). Echogenic Foci: None (0). ACR TI-RADS total points: 0 Previous: 0 ACR TI-RADS category: 1 Previous: 1 Significant change in size (>/= 20% in 2 dimensions and minimal increase of 2 mm or 50% or greater increase in volume): No Change in features: No Change in ACR TI-RADS risk category: No 3. Location: Right mid. Size: 0.7 x 0.4 x 0.7 cm, volume 0.1 mL. Previously: 0.8 x 0.5 x 0.7 cm, volume 0.1 mL. Nodule characteristics: Composition: Solid (2). Echogenicity: Hypoechoic (2). Shape: Not taller than wide (0). Margins: Smooth (0). Echogenic Foci: None (0). ACR TI-RADS total points: 4 Previous: 3 ACR TI-RADS category: 4 Previous: 3 Significant change in size (>/= 20% in 2 dimensions and minimal increase of 2 mm or 50% or greater increase in volume): No Change in features: Yes Change in ACR TI-RADS risk category: Yes 4. Location: Left mid. Size: 4.1 x 1.9 x 2.2 cm, volume 9.0 mL. Previously: 4.4 x 1.9 x 2.4 cm, volume 10.0 mL. Nodule characteristics: Composition: Solid (2). Echogenicity: Isoechoic (1). Shape: Not taller than wide (0). Margins: Smooth (0). Echogenic Foci: Punctate echogenic foci (3). ACR TI-RADS total points: 6 Previous: 3 ACR TI-RADS category: 4 Previous: 3 Significant change in size (>/= 20% in 2 dimensions and minimal increase of 2 mm or 50% or greater increase in volume): No Change in features: No Change in ACR TI-RADS risk category: No NODES: No lymphadenopathy is seen in the tissue surrounding the thyroid gland. US/US thyroid IMPRESSION: 1. A 4.1 cm mid left thyroid TR 4 nodule meets ACR biopsy criteria and is amenable to ultrasound-guided biopsy. Please correlate with ultrasound biopsy results dated 03/04/2020. 2. There is an asymmetric goiter, left lobe greater than right. Thyroid US 08/01/2022 Right Thyroid Lobe: 4.9 x 2.1 x 1.5 cm, volume 8.0 mL. Previously 5.3 x 2.2 x 2.0 cm, volume 12.2 mL. Parenchyma: The gland echotexture is heterogeneous. Thyroid vascularity is increased. Left Thyroid Lobe: 5.4 x 2.4 x 2.7 cm, volume 17.7 mL. Previously 5.7 x 2.7 x 2.6 cm, volume 20.9 mL. Parenchyma: The gland echotexture is heterogeneous. Thyroid vascularity is increased. Isthmus: 0.1 cm in maximum AP dimension. Previously 0.2 cm. Estimated total number of nodules greater than or equal to 1 cm: 1. Superintendent Meters nodules are described as follows: 1.? Location: Left mid pole. ?? ? Size: 4.4 x 1.9 x 2.4 cm, volume 10.0 mL. ?? ? Previously: 2.5 x 2.4 x 4.3 cm, volume 13.7 mL. ?? ? Nodule characteristics: ?? ? Composition: Solid/almost completely solid (2). ?? ? Echogenicity: Isoechoic (1). ?? ? Shape: Not taller than wide (0). ?? ? Margins: Smooth (0). ?? ? Echogenic Foci: Comet-tail artifacts (0). ?? ? ACR TI-RADS total points: 3 Previous: 3 ?? ? ACR TI-RADS category: 3 Previous: 3 ? Significant change in size (>/= 20% in 2 dimensions and minimal increase of 2 mm or 50% or greater increase in volume): No ?? ? Change in features: No ?? ? Change in ACR TI-RADS risk category: No 2.? Location: Right mid pole. ?? ? Size: 0.8 x 0.4 x 0.6 cm, volume 0.09 mL. ?? ? Previously: 0.6 x 0.5 x 0.7 cm, volume 0.1 mL. ?? ? Nodule characteristics: ?? ? Composition: Solid/almost completely solid (2). ?? ? Echogenicity: Isoechoic (1). ?? ? Shape: Not taller than wide (0). ?? ? Margins: Ill-defined (0). ?? ? Echogenic Foci: None (0). ?? ? ACR TI-RADS total points: 3 Previous: 3 ?? ? ACR TI-RADS category: 3 Previous: 3 ? Significant change in size (>/= 20% in 2 dimensions and minimal increase of 2 mm or 50% or greater increase in volume): No ?? ? Change in features: No ?? ? Change in ACR TI-RADS risk category: No 3.? Location: Right mid pole. ?? ? Size: 0.7 x 0.4 x 0.5 cm, volume 0.08 mL. ?? ? Previously: 0.7 x 0.5 x 0.7 cm, volume 0.2 mL. ?? ? Nodule characteristics: ?? ? Composition: Spongiform (0). ?? ? ACR TI-RADS total points: 0 Previous: 0 ?? ? ACR TI-RADS category: 1 Previous: 1 ? Significant change in size (>/= 20% in 2 dimensions and minimal increase of 2 mm or 50% or greater increase in volume): No ?? ? Change in features: No ?? ? Change in ACR TI-RADS risk category: No 4.? Location: Right mid pole. ?? ? Size: 0.8 x 0.5 x 0.7 cm, volume 0.1 mL. ?? ? Previously: Not measured previously. ?? ? Nodule characteristics: ?? ? Composition: Solid (2). ?? ? Echogenicity: Hypoechoic (2). ?? ? Shape: Not taller than wide (0). ?? ? Margins: Ill-defined (0). ?? ? Echogenic Foci: None (0). ?? ? ACR TI-RADS total points: 4 ?? ? ACR TI-RADS category: 4 ?? ? NODES: No lymphadenopathy is seen in the tissue surrounding the thyroid gland EXAMINATION: DXA BONE DENSITY EXTREMITY 11/14/24 HISTORY: Estrogen deficiency TECHNIQUE: [place] Dual energy absorptiometry (DEXA) of the lumbar spine, total left hip, femoral neck, and distal radius was performed. COMPARISON: Comparison is made with the prior examination dated 03/22/2022. FINDINGS: The bone mineral density of the lumbar spine is 1.233 with a T-score of 0.4, and a Z-score of 2.7. This is indicative of normal bone mineral density. This represents a BMD change of -8.7% compared to the prior exam. This is statistically significant. The bone mineral density of the left total hip is 0.835 with a T-score of -1.4, and a Z-score of 0.8. This is indicative of osteopenia. This represents a BMD change of -11.0% compared to the prior exam. This is statistically significant. The bone mineral density of the left femoral neck is 0.840 with a T-score of -1.4, and a Z-score of 0.9. This is indicative of osteopenia. This represents a BMD change of -16.3% compared to the prior exam. The bone mineral density of the distal radius is 0.902 with a T-score of 0.3, and a Z-score of 2.9. This is indicative of normal bone mineral density. This represents a BMD change of -6.2% compared to the prior exam. This is statistically significant. FRACTURE RISK: The FRAX index suggests a ten year probability of major osteoporotic fracture of 10.1%, and of hip fracture 2.5%. MM/XR DEXA appendicular skeleton IMPRESSION: Based on bone mineral density, and according to World Health Organization (WHO) criteria, the diagnosis is consistent with osteopenia. All bone density values are in grams per centimeter squared (g/cm2). Statistically, 68% of repeat scans fall within 1 SD (+/- 0.010 g/cm2 for AP spine L1-L4) and 1 SD (+/- 0.012 g/cm2 for femur total) FRAX is a trademark of the [employer] [place] [facility] Met[employer] Disease, a World Health Organization (WHO) Collaborating Center. Electronically signed by: Renato Logan MD 11/14/2024 09:41 AM EDT DEXA: 03/22/2022 FINDINGS: AP SPINE L1-L4: Current: BMD 1.350 g/cm2, Z-score 3.4, T-score 1.4, normal, 4.2% decrease from baseline (<5% change is not significant). Baseline: BMD 1.409 g/cm2. LEFT FOREARM RADIUS 33%: BMD 0.962 g/cm2, Z-score 3.3, T-score 1.0, normal, 2.1% decrease from baseline (<5% change is not significant). Baseline: BMD 0.983 g/cm2. LEFT FEMUR, NECK: Current: BMD 1.004 g/cm2, Z-score 1.8, T-score -0.2, normal. Baseline: BMD 1.052 g/cm2. LEFT FEMUR, TOTAL: Current: BMD 0.938 g/cm2, Z-score 1.4, T-score -0.6, normal, 11.2% decrease from baseline (<5% change is not significant). Baseline: BMD 1.056 g/cm2. [facility] Medical History HLD (hyperlipidemia) HTN (hypertension) Hyperparathyroidism Hypersomnolence Intestinal malabsorption following gastrectomy Left breast mass Malabsorption due to intolerance, not elsewhere classified Multinodular thyroid Sleep apnea Snoring T2DM (type 2 diabetes mellitus) Vitamin D deficiency Surgical History Hx of total knee replacement Hx of cataract surgery S/P laparoscopic sleeve gastrectomy Family History Father Cancer Diabetes Mother Diabetes Legally blind Social History Household Members: Spouse Alcohol intake: current Alcohol intake frequency: holidays/special occasions only Patient Tobacco Use Status: Former Tobacco user Tobacco use type: Cigarette Cigarette Packs Per Day: 2 Cigarettes Per Day: 40 Years Smoked: approx 25 Female Reproductive History Menstrual Age of Menarche: 10 Physical Exam Vital Signs: BMI result Body Mass Index 19.0 Office Procedures Glucose Monitoring Details Details: see [facility] [id number] - Glucose monitoring, continuous-physician I&R Procedure code (CPT) selection complete Assessment & Plan Assessment & Plan (1) Multinodular thyroid: Code(s): E04.2 - Nontoxic multinodular goiter Category: Medical Plan: She underwent FNA biopsy of her LLP 3.8 cm nodule 03/04/2020 with benign cytology. She has monitored with surveillance ultrasounds. Most recent thyroid ultrasound done Most recent thyroid ultrasound November 2023 showed a multinodular goiter with a left mid dominant lobe nodule measuring 4.1 X 1.9 x 2.2 cm solid, isoechoic, with punctate echogenic foci, TR 4 category, which is stable in size compared to ultrasound in 2021 however this has significantly changed in size compared to ultrasound in 2019 when it was measuring 3.8 cm initially when the patient had the biopsy in 2019 and it was benign. 10/15/2024: Underwent FNA biopsy of the left mid 4.1 cm nodule with benign cytology, [place] category 2. TSH September 2024 normal at 0.37. Plan: -ultrasound of the thyroid ordered for September 2025 (2) T2DM (type 2 diabetes mellitus): Code(s): E11.9 - Type 2 diabetes mellitus without complications Category: Medical Qualifiers: Diabetes mellitus complication status: with hyperglycemia Diabetes mellitus emt intermediate insulin use: with custodial use Qualified Code(s): E11.65 - Type 2 diabetes mellitus with hyperglycemia; Z79.4 - longterm (current) use of insulin Plan: 79-year-old female with history of type 2 diabetes mellitus with complications of CKD stage 3, ? retinopathy. She was previously on insulin Lantus, however she was requiring a low dose so this was discontinued recently in fall 2023 especially given CKD. Her metformin was also reduced at that time. Now she has developed significant hyperglycemia. Her most recent A1c from September 2024 was 8.7%, CGM data downloaded shows overall hyperglycemia, and her G W[place] is 9.2%. I might have to put her back on a little bit of insulin, however we will for now add pioglitazone to her regimen. She is following with Nephrology for CKD. A1c September 2024 is 8.7%. This is significantly elevated from her last A1c in 2023 which was 7.3%. While switching her from Trulicity to Ozempic is also an option, she is already somewhat frustrated by her low weight, does not want to lose more weight which would happen with the stronger GLP 1 agonist. Hence for now we will hold off on that. We will also have her see the venetian blind worker as she does seem to have some dietary indiscretion. Plan: -start pioglitazone 15 mg daily -continue Jardiance 25 mg daily -continue metformin 500 mg daily -continue Trulicity 4.5 mg daily -venetian blind worker referral placed pending appointment -CDE referral placed as we will upgrade her sensor to Florina 3+ from Florina 2 -has not seen Podiatry in a while, foot exam 10/06/2024 showed poor nail care and skin sloughing, intact sensation to monofilament, has appointment for follow up in December 2024 -follow up in 8 weeks with repeat labs prior to appointment (3) Hyperparathyroidism: Code(s): E21.3 - Hyperparathyroidism, unspecified Category: Medical Plan: 79-year-old female also has a history of hyperparathyroidism with last bone density from 2021 was normal. She also has CKD stage 3, GFR in 20s. Most recent labs from September 2024 showed normal serum calcium levels around 9, normal vitamin-D of 51, GFR 28, PTH elevated at 114, I think her diagnosis is more consistent with normocalcemic hyperprathyrodiism given most recently normal calcium levels, then secondary hyperparathyroidism given calcium levels are on the higher end of normal. Bone density scan showed osteopenia of the hip, with normal bone density of the spine and forearm, however did show significant decrease compared to previous. FRAX does not meet criteria for treatment for now. Repeat bone density would be due in October 2026. 24 hour urine calcium levels done in October 2024 could not calculate fractional excretion of calcium because urine calcium levels were very low, in the seem like an adequate collection because her urine creatinine was also abnormal low.. Given her age and comorbidities she is not an excellent candidate for surgery Even though based on her low GFR, she would meet criteria for surgery. For now given calcium levels are not elevated, we will continue to keep an eye on this. If calcium levels go up of normal, can consider treatment with cinacalcet. Though this would not benefit her bones. Plan: -continue vitamin-D -continue weight-bearing exercise -continue to incorporate calcium intake through diet at least 1000 mg daily -next bone density would be due October 2026 (4) HLD (hyperlipidemia): Code(s): E78.5 - Hyperlipidemia, unspecified Category: Medical Qualifiers: Hyperlipidemia type: unspecified Qualified Code(s): E78.5 - Hyperlipidemia, unspecified Plan: LDL at 82 mg/dL from September 2024, goal LDL is less than 70 mg/dL. Increased atorvastatin to 80 mg daily in September 2024 Will plan to repeat lipid panel in January/February 2025 (5) Needle phobia: Code(s): F40.298 - Other specified phobia Category: Medical Plan: Patient has needle phobia, hence we should continue her for CGM monitoring on the sensor. Plan I spent 30 minutes in reviewing the record, seeing the patient and documenting in the medical record. Orders: Orders 2 AMB Glucose Monitoring Today E11.65 - Type 2 diabetes mellitus with hyperglycemia, Z79.4 - longterm (current) use of insulin Comprehensive Met. Panel 8 Weeks E11.65 - Type 2 diabetes mellitus with hyperglycemia, E78.5 - Hyperlipidemia, unspecified, Z79.4 - longterm (current) use of insulin Lipid Panel 8 Weeks E11.65 - Type 2 diabetes mellitus with hyperglycemia, E78.5 - Hyperlipidemia, unspecified, 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 Hemoglobin A1c 8 Weeks E11.65 - Type 2 diabetes mellitus with hyperglycemia, E78.5 - Hyperlipidemia, unspecified, 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 Referrals 2 Diabetes Education Referral E11.65 - Type 2 diabetes mellitus with hyperglycemia, Z79.4 - longterm (current) use of insulin Medications: New 2 blood-glucose sensor (FreeStyle Florina 3 Plus Sensor device) As directed every 14 days 6 ea 3RF E11.65 - Type 2 diabetes mellitus with hyperglycemia, F40.298 - Other specified phobia, Z79.4 - longterm (current) use of insulin pioglitazone 15 mg PO DAILY 30 tabs 6RF blood-glucose meter,continuous (FreeStyle Florina 3 [place]) As directed 1 ea 0RF E11.65 - Type 2 diabetes mellitus with hyperglycemia, F40.298 - Other specified phobia, 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 Patient Instructions: Start pioglitazone 15 mg daily Continue jardiacne, metformin and Trulicity as it is Do blood work fasting prior to your next visit with me in 8 weeks See the educator for help with sensor upgrade See the venetian blind worker Coding Level of Care Code Est Pt Level 4 (95735) Diagnoses Multinodular thyroid E04.2 Type 2 diabetes mellitus with hyperglycemia, with long-term current use of insulin E11.65; Z79.4 Diabetes mellitus complication status: with hyperglycemia Diabetes mellitus emt intermediate insulin use: with emt intermediate use Hyperparathyroidism E21.3 Hyperlipidemia, unspecified hyperlipidemia type E78.5 Hyperlipidemia type: unspecified Needle phobia F40.298 CPT Codes Details - CPT: 08287 - Glucose monitoring, continuous-physician I&R ([id number])
[2024-11-24 09:33] VITALS: BP 122/64; PULSE 68; O2SAT 97; BMI 19.0
[2024-11-24 09:47] LABS: Glucose, Whole Blood 209 mg/dL (60-115)
== END 2024-11-24 10:17 | disposition home or self-care (01) ==
LOC: HO.ENCR 09:29
PROVIDERS: PCP Internal Medicine; Visit Provider Student in an Organized Health Care Education/Training Program
DX: E04.2 Nontoxic multinodular goiter (principal); E11.65 Type 2 diabetes mellitus with hyperglycemia; Z79.4 Long term (current) use of insulin; E21.3 Hyperparathyroidism, unspecified; E78.5 Hyperlipidemia, unspecified; F40.298 Other specified phobia
CPT/HCPCS: 95251; 99214

== ENCOUNTER → 2024-11-24 09:28 | Outpatient (BNVA) | payer MEDICARE, SELFPAY | PROVIDERS: PCP Internal Medicine; Visit Provider Student in an Organized Health Care Education/Training Program | DX: E04.2 Nontoxic multinodular goiter (principal); E11.65 Type 2 diabetes mellitus with hyperglycemia; E21.3 Hyperparathyroidism, unspecified; E78.5 Hyperlipidemia, unspecified; I12.9 Hypertensive chronic kidney disease with stage 1 through stage 4 chronic kidney disease, or unspecified chronic kidney disease; N18.30 Chronic kidney disease, stage 3 unspecified; F40.298 Other specified phobia; Z79.4 Long term (current) use of insulin; Z87.891 Personal history of nicotine dependence | CPT/HCPCS: 82947; 99212 ==

== ENCOUNTER 2024-12-01 09:06 | Outpatient (REF) | payer MEDICARE, SELFPAY ==
[2024-12-01 10:05] LABS: Estimated Average Glucose 217 mg/dL; Hemoglobin A1C 274.6687 umol/L; Hemoglobin A1c % 9.2 % (<6.0); Total Hemoglobin (HGBA1C) 3567.0967 umol/L
--- OUTSIDE RECORDS SUMMARY | 2024-12-01 10:06 | XMS_ITS | Clinical Summary ---
Author Organization [facility] Facility Address [address] [place] [address], [place] [address] Care Team Providers Care Counter Molder Name Role Phone Ciara Tate MD Primary [...] Diabetes: Visual Foot Exam 09/26/2020 Influenza Vaccine (Season Ended) 2025 Hepatitis B Vaccine Aged Out No longe r eligible based on patient's age to complete this topic Insurance Care Teams Counter Molder Relationship Specialty Start Date End Date Ciara Tate MD [facility] [address] [place] [address] [address] [place], [place] PCP - General 09/06/20
[2024-12-01 10:42] LABS: Anion Gap 10 (12-20); Blood Urea Nitrogen 29 mg/dL (9-16); Calcium 9.6 mg/dL (8.4-10.2); Carbon Dioxide 26 mmol/L (22-29); Chloride 106 mmol/L (96-108); Estimated Glomerular Filt Rate 31; Potassium 4.4 mmol/L (3.3-5.1); Sodium 138 mmol/L (135-145)
[2024-12-01 11:05] LABS: Parathyroid Hormone Intact 78.1 pg/mL (8.7-77.1)
== END 2024-12-01 09:07 | disposition home or self-care (01) ==
LOC: HO.MAMMO 09:06
PROVIDERS: Absent Provider Internal Medicine Nephrology; PCP Internal Medicine; Visit Provider Internal Medicine
DX: E11.65 Type 2 diabetes mellitus with hyperglycemia (principal); N18.31 Chronic kidney disease, stage 3a; N28.1 Cyst of kidney, acquired; I10 Essential (primary) hypertension; Z79.4 Long term (current) use of insulin
CPT/HCPCS: 36415; 80051; 82306; 82310; 82565; 83036; 83970; 84520; 97802

== ENCOUNTER 2024-12-01 09:42 | Outpatient (AMB) | payer MEDICARE, SELFPAY ==
--- NOTE | 2024-12-01 10:22 | A.OFFVIS_ITS ---
VS Expanded 12/01/24 10:35 12/16/24 14:54 Height 5 ft 4 in 5 ft 4 in Weight 119 lb 8 oz 119 lb BMI 20.5 20.4 Intake Visit Reasons: T2DM Allergies No Known Allergies [No Known Allergies*] Allergy (Verified 12/05/24 09:49) Nutrition Presentation Details: Pt presents for MNT for T2DM food frequency fruits: 0-1/d ve-2/d starches > 23/d dairy 2 serving/d fish : 0-1/d physical activity-- etoth/smoking-- BS Monitoring Most Recent Diabetes Results: Creatinine 1.63 mg/dL (0.5-1.4) H 12/01/24 Blood Urea Nitrogen 29 mg/dL (9-16) H 12/01/24 Sodium 138 mmol/L (135-145) 12/01/24 Potassium 4.4 mmol/L (3.3-5.1) 12/01/24 Chloride 106 mmol/L (96-108) 12/01/24 Carbon Dioxide 26 mmol/L (22-29) 12/01/24 Calcium 9.6 mg/dL (8.4-10.2) 12/01/24 EMC-Tvoczln-Cr.Jeor Equation Height: 5 ft 4 in Weight: 119 lb Resting Metabolic Rate: 1010.48 Calculated Activity Level: Sedentary Calories Needed to Maintain Weight: 1212.58 Diagnosis Nutrition problem #1: altered nutrition labs As related to (etiology) #1: diagnosis As evidenced by (sign/symptom) #1: knowledge deficit of diet PFSH Medical History Needle phobia Left breast mass Snoring Hypersomnolence Sleep apnea Intestinal malabsorption following gastrectomy Multinodular thyroid Hyperparathyroidism Vitamin D deficiency HLD (hyperlipidemia) HTN (hypertension) T2DM (type 2 diabetes mellitus) Malabsorption due to intolerance, not elsewhere classified Surgical History Hx of total knee replacement Hx of cataract surgery S/P laparoscopic sleeve gastrectomy Family History Father Cancer Diabetes Mother Diabetes Legally blind Social History Household Members: Spouse Alcohol intake: current Alcohol intake frequency: holidays/special occasions only Patient Tobacco Use Status: Former Tobacco user Tobacco use type: Cigarette Cigarette Packs Per Day: 2 Cigarettes Per Day: 40 Years Smoked: approx 25 Female Reproductive History Menstrual Age of Menarche: 10 Assessment & Plan Assessment & Plan (1) T2DM (type 2 diabetes mellitus): Code(s): E11.9 - Type 2 diabetes mellitus without complications Category: Medical Qualifiers: Diabetes mellitus retirement insulin use: with termite exterminator helper use Diabetes mellitus complication status: with hyperglycemia Qualified Code(s): E11.65 - Type 2 diabetes mellitus with hyperglycemia; Z79.4 - [facility]CI (current) use of insulin Plan: Wt: 54 Kg ( 12/19 ) Est kcal needs as per MSJ: 1500 (40% carb, 30% protein/fat) Est fluid needs as per 25-30 ml/d: 1600 Est prot per day as per 1 g/kg bw: 55 Recommend fiber intake : 8-10 g per day and gradually increase to 25-28 g per day for women and 35-38 g for men or as tolerated Recommend sodium intake per day : less than 2000 mg Educated patient on: ( R = reviewed V = verbalizes understanding N/R = needs review N/A = not applicable * Food sources of carbohydrate, adequate serving sizes and its role in various health conditions: R * Differences between complex carbohydrates a simple carbohydrates, role of fiber in diet: R * Lean protein sources of foods: R * Differences between types of fats and role in diet (mono on saturated fat fatty acids, saturated fatty acids, trans fats): R V N/R * Food sources of sodium in salt and healthy modifications for heart health in kidney health: R V R/V * Vitamins and minerals: R V N/R * Healthy plate method concept: R V N/R * Physical activity: Benefits a precaution: R V N/R * Hypoglycemia protocol (rule of 15): R V N/R * Dietary prevention of Hyperglycemia: R V R/V Patient Instructions: Balance your meals by having lean protein with the starch Example instead of plain pasta/noodle soup, add an egg to the soup see meal ideas as reference Coding Level of Care Code Nutr Indiv Intake (18431) Diagnoses Type 2 diabetes mellitus with hyperglycemia, with long-term current use of insulin E11.65; Z79.4 Diabetes mellitus retirement insulin use: with termite exterminator helper use Diabetes mellitus complication status: with hyperglycemia Time Spent (min) 30
[2024-12-01 10:35] VITALS: BMI 20.5
--- OUTSIDE RECORDS SUMMARY | 2024-12-01 11:07 | XMS_ITS | Clinical Summary ---
Author Organization [facility] Facility Address [address] [place] [address], [place] [address] Care Team Providers Care Senior It Specialist Name Role Phone Ciara Tate MD Primary [...] to complete this topic Insurance Care Teams Senior It Specialist Relationship Specialty Start Date End Date Ciara Tate MD [facility] [address] [place] [address] [address] [place], [place] PCP - General 09/06/20
[2024-12-16 14:54] VITALS: BMI 20.4
== END 2024-12-01 10:49 | disposition home or self-care (01) ==
LOC: HO.ENCR 09:43
PROVIDERS: PCP Internal Medicine; Visit Provider Dietitian, Registered
DX: E11.65 Type 2 diabetes mellitus with hyperglycemia (principal); Z79.4 Long term (current) use of insulin

== ENCOUNTER 2024-12-05 09:30 | Outpatient (AMB) | payer MEDICARE, SELFPAY ==
--- NOTE | 2024-12-05 09:45 | HO.NEPHOV_ITS ---
Vital Signs 12/05/24 09:46 Height 5 ft 6 in Weight 118 lb BMI 19.0 BP 110/56 L Blood Pressure Location Lt brachial Position Sitting Pulse 78 Pulse Source Pulse Oximeter Intake Visit Reasons: 3 Months-Conf Bindery Production Manager Required: No Accompanied by: Self / Same As Patient Allergies No Known Allergies [No Known Allergies*] Allergy (Verified 12/05/24 09:49) Do you need a note to return to daycare/school/sports/work: No HPI Comments Details: Lashay was seen in follow up for renal cysts, CKD and hypertension on a backdrop of diabetes mellitus. She has diabetes for a long time but has no proteinuria. She had laser treatment to the eye and closely follows up with ophthalmology. She had been off lantus and but on Trulicity along with metformin & Jardiance. Her hemoglobin A1c has gone up over 7. She had undergone gastric sleeve surgery in the past. She denies any coronary artery disease, carotid stenosis, CVA, CHF, peripheral arterial disease or renal artery stenosis. She has dyslipidemia and is on statins which she is tolerating well. She denies any chest pain, shortness of breath, paroxysmal nocturnal dyspnea, orthopnea, pedal edema, hematuria or orthostatic symptoms PFSH Medical History Needle phobia Left breast mass Snoring Hypersomnolence Sleep apnea Intestinal malabsorption following gastrectomy Multinodular thyroid Hyperparathyroidism Vitamin D deficiency HLD (hyperlipidemia) HTN (hypertension) T2DM (type 2 diabetes mellitus) Malabsorption due to intolerance, not elsewhere classified Surgical History Hx of total knee replacement Hx of cataract surgery S/P laparoscopic sleeve gastrectomy Family History Father Cancer Diabetes Mother Diabetes Legally blind Social History Household Members: Spouse Alcohol intake: current Alcohol intake frequency: holidays/special occasions only Patient Tobacco Use Status: Former Tobacco user Tobacco use type: Cigarette Cigarette Packs Per Day: 2 Cigarettes Per Day: 40 Years Smoked: approx 25 Female Reproductive History Menstrual Age of Menarche: 10 Review of Systems Const All systems reviewed & are unremarkable except as noted in HPI and below Physical Exam Vital Signs: Last Vital Signs Pulse 78 12/05/24 09:46 BP 110/56 L 12/05/24 09:46 BMI result Body Mass Index 19.0 Const General: comfortable and no acute distress Orientation/consciousness: patient oriented x3 HEENT Head: Yes normocephalic Mouth: Normal oral and palatal mucosa present Eyes EOM: EOMs intact bilaterally Neck Neck: Yes supple Resp Auscultation: clear to auscultation bilaterally Cardio Jugular venous distension: no JVD Rate: regular rate GI Palpation (GI): Soft to palpation Auscultation: normal bowel sounds General: Yes no CVA tenderness Back/Spine/Pelvis Back: no CVA tenderness Skin General skin exam: no rashes or lesions noted Neuro General: patient oriented x3 and moves all extremities Extrem General: Yes no pedal edema Results Reviewed Nephrology Results: Sodium 138 mmol/L (135-145) 12/01/24 Potassium 4.4 mmol/L (3.3-5.1) 12/01/24 Chloride 106 mmol/L (96-108) 12/01/24 Carbon Dioxide 26 mmol/L (22-29) 12/01/24 BUN 29 mg/dL (9-16) H 12/01/24 Creatinine 1.63 mg/dL (0.5-1.4) H 12/01/24 Calcium 9.6 mg/dL (8.4-10.2) 12/01/24 Phosphorus 3.8 mg/dL (2.7-4.5) 10/23/24 PTH Intact 78.1 pg/mL (8.7-77.1) H 12/01/24 Assessment & Plan Assessment & Plan (1) Renal cyst: Code(s): N28.1 - Cyst of kidney, acquired Category: Medical (2) CKD (chronic kidney disease) stage 3, GFR 30-59 ml/min: Code(s): N18.30 - Chronic kidney disease, stage 3 unspecified Category: Medical Qualifiers: Chronic kidney disease stage 3 subtype: stage 3a (GFR 45-59) Qualified Code(s): N18.31 - Chronic kidney disease, stage 3a (3) HTN (hypertension): Code(s): I10 - Essential (primary) hypertension Category: Medical Qualifiers: Hypertension type: unspecified Qualified Code(s): I10 - Essential (primary) hypertension Plan 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 Her ACEI had been put on hold. I asked her to increase fluid intake. She has renal cysts for which I shall arrange MRI of the kidney with gadolinium, in the future, if it has not done already. She will also benefit from a urology appointment which I shall arrange after MRI results. She does not have any proteinuria. She should continue Jardiance 25 mg daily. With time, I shall arrange a 24 hour urine collection for creatinine clearance. She can C/W reduced dose of Metformin 500 mg bid today. Her blood pressure is at goal. She has been on PPI for a long time. It is unlikely that it is contributing to her CKD. All these have been discussed in detail and I had the opportunity to answer all her questions. Follow-up appointment given Orders: Orders Electrolytes 3 Months I10 - Essential (primary) hypertension, N18.31 - Chronic kidney disease, stage 3a, N28.1 - Cyst of kidney, acquired Creatinine 3 Months I10 - Essential (primary) hypertension, N18.31 - Chronic kidney disease, stage 3a, N28.1 - Cyst of kidney, acquired Blood Urea Nitrogen 3 Months I10 - Essential (primary) hypertension, N18.31 - Chronic kidney disease, stage 3a, N28.1 - Cyst of kidney, acquired Calcium 3 Months I10 - Essential (primary) hypertension, N18.31 - Chronic kidney disease, stage 3a, N28.1 - Cyst of kidney, acquired Coding Level of Care Code Est Pt Level 4 (07787) Diagnoses Renal cyst N28.1 Stage 3a chronic kidney disease N18.31 Chronic kidney disease stage 3 subtype: stage 3a (GFR 45-59) Hypertension, unspecified type I10 Hypertension type: unspecified
[2024-12-05 09:46] VITALS: BP 110/56; PULSE 78; BMI 19.0
--- OUTSIDE RECORDS SUMMARY | 2024-12-05 09:56 | XMS_ITS | Clinical Summary ---
Author Organization [facility] Facility Address [address] [place] [address], [place] [address] Care Team Providers Care Regional Sales Executive Name Role Phone Ciara Tate MD [...] Due Date Last Done Comments Pneumococcal Vaccine: 50+ Ye ars (1 of 2 - PCV) 02/20/1951 Diabetes: Hemoglobin A1C 09/26/2020 Diabetes: Ophthalmology Exam 09/26/2020 Diabetes: Pedal Pulse Checked 09/26/2020 Diabetes: Sensory Foot Exam 09/26/2020 Diabetes: Visual Foot Exam 09/26/2020 Influenza Vaccine (Season Ended) 2025 Hepatitis B Vaccine Aged Out No longe r eligible based on patient's age to complete this topic Insurance Care Teams Regional Sales Executive Relationship Specialty Start Date End Date Ciara Tate MD [facility] [address] [place] [address] [address] [place], [place] PCP - General 09/06/20
== END 2024-12-05 10:06 | disposition home or self-care (01) ==
LOC: HO.HKA 09:30
PROVIDERS: PCP Internal Medicine; Visit Provider Internal Medicine Nephrology
DX: N28.1 Cyst of kidney, acquired (principal); N18.31 Chronic kidney disease, stage 3a; I10 Essential (primary) hypertension
CPT/HCPCS: 99214

== ENCOUNTER → 2024-12-05 09:30 | Outpatient (BNVA) | payer MEDICARE, SELFPAY | PROVIDERS: PCP Internal Medicine; Visit Provider Internal Medicine Nephrology | DX: I12.9 Hypertensive chronic kidney disease with stage 1 through stage 4 chronic kidney disease, or unspecified chronic kidney disease (principal); N18.31 Chronic kidney disease, stage 3a; N28.1 Cyst of kidney, acquired | CPT/HCPCS: 99212 ==

== ENCOUNTER 2024-12-09 07:52 | Outpatient (AMB) | payer MEDICARE, SELFPAY ==
--- OUTSIDE RECORDS SUMMARY | 2024-12-09 07:57 | XMS_ITS | Clinical Summary ---
Author Organization [facility] Facility Address [address] [place] [address], [place] [address] Care Team Providers Care Market Garden Worker Name Role Phone Ciara Tate MD [...] Ye ars (1 of 2 - PCV) 1964 Diabetes: Hemoglobin A1C 09/26/2020 Diabetes: Ophthalmology Exam 09/26/2020 Diabetes: Pedal Pulse Checked 09/26/2020 Diabetes: Sensory Foot Exam 09/26/2020 Diabetes: Visual Foot Exam 09/26/2020 Influenza Vaccine (Season Ended) 2025 Hepatitis B Vaccine Aged Out No longe r eligible based on patient's age to complete this topic Insurance Care Teams Market Garden Worker Relationship Specialty Start Date End Date Ciara Tate MD [facility] [address] [place] [address] [address] [place], [place] PCP - General 09/06/20
--- NOTE | 2024-12-09 08:31 | A.OFFVIS_ITS ---
Intake Intake Visit Reasons: T2DM Vault Installer Required: No Accompanied by: Self / Same As Patient Allergies No Known Allergies [No Known Allergies*] Allergy (Verified 12/05/24 09:49) HPI Comprehensive Diabetes Asmnt Most Recent Diabetes Results: Creatinine 1.63 mg/dL (0.5-1.4) H 12/01/24 Blood Urea Nitrogen 29 mg/dL (9-16) H 12/01/24 Sodium 138 mmol/L (135-145) 12/01/24 Potassium 4.4 mmol/L (3.3-5.1) 12/01/24 Chloride 106 mmol/L (96-108) 12/01/24 Carbon Dioxide 26 mmol/L (22-29) 12/01/24 Calcium 9.6 mg/dL (8.4-10.2) 12/01/24 [facility] Medical History Needle phobia Left breast mass Snoring Hypersomnolence Sleep apnea Intestinal malabsorption following gastrectomy Multinodular thyroid Hyperparathyroidism Vitamin D deficiency HLD (hyperlipidemia) HTN (hypertension) T2DM (type 2 diabetes mellitus) Malabsorption due to intolerance, not elsewhere classified Surgical History Hx of total knee replacement Hx of cataract surgery S/P laparoscopic sleeve gastrectomy Family History Father Cancer Diabetes Mother Diabetes Legally blind Social History Household Members: Spouse Alcohol intake: current Alcohol intake frequency: holidays/special occasions only Patient Tobacco Use Status: Former Tobacco user Tobacco use type: Cigarette Cigarette Packs Per Day: 2 Cigarettes Per Day: 40 Years Smoked: approx 26 Female Reproductive History Menstrual Age of Menarche: 10 Assessment & Plan Assessment & Plan (1) T2DM (type 2 diabetes mellitus): Code(s): E11.9 - Type 2 diabetes mellitus without complications Qualifiers: Diabetes mellitus complication status: with hyperglycemia Diabetes mellitus [facility] insulin use: with termite control servicer use Qualified Code(s): E11.65 - Type 2 diabetes mellitus with hyperglycemia; Z79.4 - snf (current) use of insulin Plan: Diabetes self-management education and support participation record Assessment/scale: 1= needs instructed? 2= needs review? 3= comprehend keep point? 4= demonstrates understanding/ competent? NC= Not Covered Topics Learning Objective: Initial visit Initial or post srvc Initial or post srvc Initial or post srvc Initial or post srvc Initial or post srvc Post srvc Comments Pre Edu-assessment/plan Outcome or reassess Outcome or reassess Outcome or reassess Outcome or reassess Outcome or reassess Outcome or reassess Diabetes pathophysiology 1 Healthy eating 2 Being active 2 Taking medication 1 Monitoring glucose 2 Acute complication 1 Chronic complicated 1 Lifestyle and healthy coping 1 A Diabetes distress in support 1 ?Diabetes pathophysiology: ?Defined diabetes med identify own type of diabetes; list 3 options for treating diabetes Healthy eating: ?Described effect of type, amount and ?timing of food on blood glucose; list 3 methods for planning meal Being active: ?State effect of exercise on blood glucose level Taking medication: ?State effect of diabetes medications on diabetes; name diabetes medications taking, action and side effects Monitoring glucose: ?Identify recommended blood glucose targets and personal target Acute complication: ?List symptoms and treatment of hyper and hypoglycemia, DKA, sick day guidelines and guidelines for severe weather or situations of crisis and diabetes supply manage Chronic complication: ?To find the relationship of blood glucose levels to long- term complications of diabetes in screening and preventative measures Lifestyle and healthy coping: ?Described lifestyle and healthy coping strategies to rule out diabetes self-management Diabetes to stress and support: ?Recognize Diabetes to stress and be able to identified support options Learning objectives: The patient was provided with verbal and written education on the following topics as outlined below. The patient met all learning objectives and was able to verbalize understanding and provide teach back of education topics discussed . The patient was provided with the opportunity to ask questions and all questions were answered. Patient Assessment Patient's last A1c on 12/01/2024 9.2%, patient reports she is very physically active, stating walking over 10,000 steps daily Patient questions/concerns why her oatmeal in the morning causes her glucose levels to be elevated. Reviewed how carbohydrates affect glucose levels. Patient will be transitioning to Florina 3 sensor with reader Instructed patient sensors water proof you can shower, or swim do not submerge sensor in water for over 30 minutes Is sensor falls off cannot put back in you need to replace sensor, customer service number given to patient for sensor replacement Sensor placed on the right side of abdomen Patient left visit with sensor in warmup Reviewed how to interpret trend arrows Discussed lag time between finger stick and sensor data.? Instructed patient the importance of having blood glucometer for backup testing if needed Reviewed delay of CGM from fingersticks Reminded Pt that if symptoms do not match sensor still needs to check fingersticks. What is Diabetes? Pathophysiology How the body produces and uses insulin Identify type of DM Risk factors Signs of Diabetes Brief overview of Diabetes Management Monitoring blood sugar Following a meal plan Regular exercise Maintaining a healthy weight Taking medication as needed Members of the care team (PCP, RN, MA, RD, CDE, arc and gas welder) Blood glucose monitoring When/how often to test Target blood sugar ranges Patient did not bring current meter to today's visit Introduction to Nutrition Importance of healthy diet in managing DM Diet is personalized to individual preference Review patient?s regular diet/food preferences Who prepares meals/does food shopping/ Dining out?/ Barriers? How diet effects glucose Eating 3 balanced meals a day with small, healthy snacks between meals Review food groups Carbohydrates: What is a carbohydrate/Which food/food groups are considered carbohydrates Effect of carbohydrates on blood glucose Portion sizes Reading food labels Basic carb counting (if applicable per nursing assessment) Plate method Meal planning Recommendations: Follow plate method, consistent carbs and read nutritional labels. Smart Goal: Patient will identify foods in current meal plan that contain carbohydrates Educational Materials: The patient was provided with the following written educational materials: Planning Healthy Meals Handout Patient Response to instructions: Comprehension of Instructions: Fair Readiness to make changes: Contemplation How confident they feel about making changes: Positive Portions of this note were created using voice recognition software, please excuse any words or phrases that may have been misinterpreted. Patient Instructions: Include regular daily activity. ADA recommends 30 minutes of exercise 5 days a week. Weight loss talk to PCP or Labor Economics Teacher before starting new plan. Test blood sugar as directed; Fasting and 2hpp largest meal. Watch trends in results. Utilize results and to assess how food, physical activity and medications affect blood sugar results. Bring glucometer or CGM to next visit. Be knowledgeable about diabetes medication, its action, side effects, efficacy, toxicity, prescribed dosage, appropriate timing and frequency of administration, effect of missed and delayed doses and instructions for storage, travel and safety. Problem solving techniques to monitor hypo/hyperglycemia episodes and treatments. Reduce risk reduction behaviors, smoking cessation, regular eye, foot and dental examinations. Follow-up with church official in 3 months Coding Level of Care Code Est Pt Level 1 (37329) Diagnoses Type 2 diabetes mellitus with hyperglycemia, with long-term current use of insulin E11.65; Z79.4 Diabetes mellitus complication status: with hyperglycemia Diabetes mellitus [facility] insulin use: with termite control servicer use
== END 2024-12-09 08:43 | disposition home or self-care (01) ==
LOC: HO.ENCR 07:53
PROVIDERS: PCP Internal Medicine; Visit Provider Registered Nurse Diabetes Educator
DX: E11.65 Type 2 diabetes mellitus with hyperglycemia (principal); Z79.4 Long term (current) use of insulin

== ENCOUNTER → 2024-12-09 07:52 | Outpatient (BNVA) | payer MEDICARE, SELFPAY | PROVIDERS: PCP Internal Medicine; Visit Provider Registered Nurse Diabetes Educator | DX: E11.65 Type 2 diabetes mellitus with hyperglycemia (principal); Z79.4 Long term (current) use of insulin | CPT/HCPCS: 99211 ==

== ENCOUNTER 2025-01-07 12:41 | Outpatient (AMB) | payer MEDICARE, SELFPAY ==
--- OUTSIDE RECORDS SUMMARY | 2025-01-07 13:01 | XMS_ITS | Clinical Summary ---
Author Organization [facility] Facility Address [address] [place] [address], [place] [address] Care Team Providers Care Parachute Folder Name Role Phone Ciara Tate MD Primary [...] to complete this topic Insurance Care Teams Parachute Folder Relationship Specialty Start Date End Date Ciara Tate MD [facility] [address] [place] [address] [phone] [place], [place] PCP - General 09/06/20
--- NOTE | 2025-01-07 13:15 | A.OFFVIS_ITS ---
VS Expanded 01/07/25 13:17 Height 5 ft 4 in Weight 123 lb 14.397 oz BMI 21.3 Intake Visit Reasons: T2DM Allergies No Known Allergies [No Known Allergies*] Allergy (Verified 12/05/24 09:49) Nutrition Presentation Details: Pt presents for MNT f/u for T2DM Pt reports working on having 3 meals/day, concerns about carbohydrates amount brought food record, per record, some meals may consist of 15-20- g carbs Reports she is working on including snacks in between meals to prevent weight loss, choosing a fruit denies etoh/smoking BS Monitoring Most Recent Diabetes Results: Creatinine 1.63 mg/dL (0.5-1.4) H 12/01/24 Blood Urea Nitrogen 29 mg/dL (9-16) H 12/01/24 Sodium 138 mmol/L (135-145) 12/01/24 Potassium 4.4 mmol/L (3.3-5.1) 12/01/24 Chloride 106 mmol/L (96-108) 12/01/24 Carbon Dioxide 26 mmol/L (22-29) 12/01/24 Calcium 9.6 mg/dL (8.4-10.2) 12/01/24 [facility] History Needle phobia Left breast mass Snoring Hypersomnolence Sleep apnea Intestinal malabsorption following gastrectomy Multinodular thyroid Hyperparathyroidism Vitamin D deficiency HLD (hyperlipidemia) HTN (hypertension) T2DM (type 2 diabetes mellitus) Malabsorption due to intolerance, not elsewhere classified Surgical History Hx of total knee replacement Hx of cataract surgery S/P laparoscopic sleeve gastrectomy Family History Father Cancer Diabetes Mother Diabetes Legally blind Social History Household Members: Spouse Alcohol intake: current Alcohol intake frequency: holidays/special occasions only Patient Tobacco Use Status: Former Tobacco user Tobacco use type: Cigarette Cigarette Packs Per Day: 2 Cigarettes Per Day: 40 Years Smoked: approx 25 Female Reproductive History Menstrual Age of Menarche: 10 Assessment & Plan Assessment & Plan (1) T2DM (type 2 diabetes mellitus): Code(s): E11.9 - Type 2 diabetes mellitus without complications Category: Medical Qualifiers: Diabetes mellitus complication status: with hyperglycemia Diabetes mellitus technician terminal and repeater insulin use: with [facility] use Qualified Code(s): E11.65 - Type 2 diabetes mellitus with hyperglycemia; Z79.4 - technician terminal and repeater (current) use of insulin Plan: Wt: 54 Kg ( 12/19 ), 56kg (01/18) Est kcal needs as per MSJ: 1500 (40% carb, 30% protein/fat) Est fluid needs as per 25-30 ml/d: 1600 Est prot per day as per 1 g/kg bw: 55 Recommend fiber intake : 8-10 g per day and gradually increase to 25-28 g per day for women and 35-38 g for men or as tolerated Recommend sodium intake per day : less than 2000 mg Educated patient on: ( R = reviewed V = verbalizes understanding N/R = needs review N/A = not applicable * Food sources of carbohydrate, adequate serving sizes and its role in various health conditions: R * Differences between complex carbohydrates a simple carbohydrates, role of fiber in diet: R * Lean protein sources of foods: R * Differences between types of fats and role in diet (mono on saturated fat fatty acids, saturated fatty acids, trans fats): R * Food sources of sodium in salt and healthy modifications for heart health in kidney health: R V R/V * Vitamins and minerals: R V N/R * Healthy plate method concept: R V N/R * Physical activity: Benefits a precaution: R V N/R * Hypoglycemia protocol (rule of 15): R V N/R * Dietary prevention of Hyperglycemia: R V R/V Patient Instructions: Include 1-2 oz of lean protein food or unsaturated fats midafternoon snack snack example Have 1 tbsp of peanut butter with a fruit Add 1 cup of whole milk at breakfast with the toast with butter Coding Level of Care Code Nutr Indiv Subseq (13439) Diagnoses Type 2 diabetes mellitus with hyperglycemia, with long-term current use of insulin E11.65; Z79.4 Diabetes mellitus complication status: with hyperglycemia Diabetes mellitus technician terminal and repeater insulin use: with technician terminal and repeater use Time Spent (min) 20
[2025-01-07 13:17] VITALS: BMI 21.3
== END 2025-01-07 13:40 | disposition home or self-care (01) ==
LOC: HO.ENCR 12:41
PROVIDERS: PCP Internal Medicine; Visit Provider Dietitian, Registered
DX: E11.65 Type 2 diabetes mellitus with hyperglycemia (principal); Z79.4 Long term (current) use of insulin

== ENCOUNTER → 2025-01-07 12:41 | Outpatient (BNVA) | payer MEDICARE, SELFPAY | PROVIDERS: PCP Internal Medicine; Visit Provider Dietitian, Registered | DX: E11.65 Type 2 diabetes mellitus with hyperglycemia (principal); Z71.3 Dietary counseling and surveillance; Z79.4 Long term (current) use of insulin | CPT/HCPCS: 97803 ==

== ENCOUNTER 2025-01-23 06:19 | Outpatient (REF) | payer MEDICARE, SELFPAY ==
--- OUTSIDE RECORDS SUMMARY | 2025-01-23 06:21 | XMS_ITS | Clinical Summary ---
Author Organization [facility] Facility Address [address] [place] [address], [place] [address] Care Team Providers Care Broth Mixer Name Role Phone Ciara Tate MD Primary [...] to complete this topic Insurance Care Teams Broth Mixer Relationship Specialty Start Date End Date Ciara Tate MD [facility] [address] [place] [address] [phone] [place], [place] PCP - General 09/06/20
[2025-01-23 07:19] LABS: Estimated Average Glucose 203 mg/dL; Hemoglobin A1c % 8.7 % (<6.0)
[2025-01-23 07:35] LABS: Alanine Aminotransferase 18 U/L (0-31); Albumin Level 4.4 g/dL (3.5-5.0); Alkaline Phosphatase 95 U/L (39-117); Anion Gap 15 (12-20); Aspartate Amino Transferase 17 U/L (5-31); Bilirubin Total 0.3 mg/dL (0.0-1.0); Blood Urea Nitrogen 43 mg/dL (9-16); Calcium 9.7 mg/dL (8.4-10.2); Carbon Dioxide 25 mmol/L (22-29); Chloride 106 mmol/L (96-108); Cholesterol 144 mg/dL (<200); Estimated Glomerular Filt Rate 29; Glucose Random 161 mg/dL (60-115); HDL Cholesterol 66 mg/dL (>40); LDL Cholesterol Calculated 69 mg/dL (<100); Potassium 4.5 mmol/L (3.3-5.1); Sodium 141 mmol/L (135-145); Total Protein 6.8 g/dL (6.5-8.0); Triglycerides 45 mg/dL (<150)
== END 2025-01-23 06:20 | disposition home or self-care (01) ==
LOC: HO.LAB 06:19
PROVIDERS: PCP Internal Medicine; Visit Provider Student in an Organized Health Care Education/Training Program
DX: E78.5 Hyperlipidemia, unspecified (principal); E11.65 Type 2 diabetes mellitus with hyperglycemia; Z79.4 Long term (current) use of insulin
CPT/HCPCS: 36415; 80053; 80061; 83036

== ENCOUNTER 2025-01-26 08:53 | Outpatient (AMB) | payer MEDICARE, SELFPAY ==
--- NOTE | 2025-01-26 09:03 | A.OFFVIS_ITS ---
Vital Signs 3 01/26/25 09:04 Height 5 ft 4 in Weight 132 lb 0.91 oz BMI 22.7 BP 110/64 Blood Pressure Location Lt brachial Position Sitting Pulse 75 Pulse Source Pulse Oximeter Pulse Oximetry (%) 95 Oxygen Delivery Method Room Air Intake Visit Reasons: DM and hyperparathyroidism Intake Note: Patient present today for Type 2 Diabetes Mellitus and hyperparathyroidism. Last Diabetic eye exam: 07/2024 Last Podiatry Visit: 01/11/2025 Random Glucose: 168 mg/dl HgA1C: 8.7 % 01/23/25 Android Architect Required: No Allergies No Known Allergies [No Known Allergies*] Allergy (Verified 01/26/25 09:09) Medication List - Last Reconciled 01/26/25 by Sandhya Roldan MD atorvastatin 80 mg PO BEDTIME blood-glucose sensor (FreeStyle Florina 3 Plus Sensor device) As directed every 14 days blood-glucose,television receiver analyzer,cont (FreeStyle Florina 3 [place]) As directed brinzolamide-brimonidine 1-0.2 % (Simbrinza) 1 drp ophthalmic-Right BID cholecalciferol (vitamin D3) 50 mcg PO DAILY cyanocobalamin (vitamin B-12) 500 mcg PO DAILY docusate sodium (Colace) 100 mg PO DAILY dulaglutide (Trulicity) INJECT 4.5MG (0.5ML) INTO THE SKIN ONCE WEEKLY empagliflozin (Jardiance) 25 mg PO DAILY flash glucose scanning reader (FreeStyle Florina 2 [place]) As directed flash glucose sensor (FreeStyle Florina 2 Sensor kit) CHANGE EVERY 14 DAYS iron,carbonyl-vitamin C 65 mg iron- 125 mg (Vitron-C) 1 tab PO DAILY metformin ER 500 mg PO BID pantoprazole 40 mg PO DAILY pen needle, diabetic (BD Ultra-Fine Mini Pen Needle) As directed pioglitazone 15 mg PO DAILY HPI Comments Details: 79 YO F with PMHx T2DM, HLD, HTN, CKD stage 3 who is s/p Gastric Sleeve procedure 09/16/2019 who is seen in F/U for T2DM, Hyperparathyroidism and also a thyroid nodule. . 1) T2DM: Initially diagnosed with T2DM at the age of 53 in when presented with a nonhealing wound on the upper extremity and blood sugar was found to be approximately 500 at that time. Was initially started on treatment with Metformin, but progressed to requiring insulin within 1 year. She had Bariatric surgery in 2019 and lost a significant amount of weight. Lantus stopped apr or May 2024 due to minimal requirement and low GFR Current regimen: Trulicity 4.5 mg once a week, Jardiance 25 mg daily Metformin 500 twice daily Actos 15 mg daily Freestyle Florina 3+ report downloaded from January 13 to 01/26/2025 Time CGM active 95% Average glucose 215 mg/dL G NE at 0.5% Glucose variability 32.2% Within target range 40 0% Running high 33% Running very high 27% Low 0% Interpretation: Overall running hyperglycemic, but her fasting readings have improved a lot compared to previously, also target range has gone up from 12% to 40%. Weight gained 15 lb over the past 2 months A1C: 7.4% 10/29/2023, . A1c 10/06/2024 POC: 8.7% 9.2 % November 2024 HgA1C: 8.7 % 01/23/25 Random Glucose: 168 mg/dl Does know the rule of 15's. Family history of T2DM in Mother, Father and Brother. Has eyes checked year with Dr. Rascon in [place]. Last eye exam 03/2024 , ? retinopathy. Did have laser treatments in the past. has glaucoma get seen every 3-6 months., next appointment in November 2024 Denies any neuropathy. 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 Has nephropathy with CKD stage 3. following with nepphrology on jardiance 25 mg daily, no proteinuria , UAC Has HLD, atorvastatin . LDL 69 in December 2024 Denies any known CAD or CHF. 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 She underwent FNA biopsy of her LLP 3.8 cm nodule 03/04/2020 with benign cytology. She denies any symptoms of hyper or hypothyroidism. She denies any compressive symptoms. She has monitored with surveillance ultrasounds. Most recent thyroid ultrasound done Most recent thyroid ultrasound November 2023 showed a multinodular goiter with a left mid dominant lobe nodule measuring 4.1 X 1.9 x 2.2 cm solid, isoechoic, with punctate echogenic foci, TR 4 category, which is stable in size compared to ultrasound in 2021 however this has significantly changed in size compared to ultrasound in 2019 when it was measuring 3.8 cm initially when the patient had the biopsy in 2019 and it was benign. 10/15/2024: Underwent FNA biopsy of the left mid lobe 4.1 cm nodule with benign cytology, Marcella category 2. 3) Hypercalcemia with Hyperparathyroidism: She was noted to have intermittently high normal calcium and an inappropriately normal PTH. She underwent evaluation for hyperparathyroidism, which was biochemically consistent with this. DEXA checked 02/2022 was completely WNL Most recent labs from September 2024 showed normal calcium levels at 9.1, however PTH is elevated at 114. GFR at 28. Vitamin-D level normal at 51. 24 hour urine labs could not assess fractional excretion of calcium as urine calcium was very low. It also seem like an inappropriate collection due to low creatinine Vitamin-D intake: 2000 units daily Calcium intake: creamer in coffee, cottage cheese and yogurt, some whole milk here and there DEXA scan on 11/14/24 showed Normal bone density of the lumbar spine however decreased why 8.7% since 2021, osteopenia of the left total hip T-score of -1.4 with decrease of 11% compared to 2021, osteopenia of the left femoral neck with T-score of-1.4, with decrease of 16.3% compared to 2021, normal bone density of the distal radius with T-score of 0.3, with a-6.2 decrease compared to 202. FRAX does not meet criteria for treatment. Physical exam General: sitting comfortably in no acute distress HEENT: normocephalic/atraumatic, EOM intact, moist oral mucosa Neck: supple, palpable 2 cm left-sided nodule Cardiac: normal heart sounds Pulm: normal breath sounds B/L, no added breath sounds Abd: not distended, no tenderness Extremities: no edema, no signs of myxedema Neuro: AAO x3, Speech: normal, no facial droop, moving all 4 extremities Foot exam: 10/06/2024 Skin sloughing, nail thickening noted. Intact sensation to monofilament. Labs: Laboratory Tests 04/19/23 04/19/23 04/19/23 07:42 07:45 07:45 Sodium 140 Potassium 4.6 Creatinine 0.96 Estimated GFR 56 Hemoglobin A1c % 7.2 H Calcium 10.4 H D LDL Cholesterol Direct 25-OH Vitamin D Total 33.3 TSH 0.47 Free T4 0.94 Microalb/Creat Ratio 17.5 04/19/23 07:45 Sodium Potassium Creatinine Estimated GFR Hemoglobin A1c % Calcium LDL Cholesterol Direct 94 25-OH Vitamin D Total TSH Free T4 Microalb/Creat Ratio Laboratory Tests 04/19/23 10/29/23 02/01/24 07:42 08:29 08:16 Sodium Potassium BUN Creatinine Estimated GFR Triglycerides 115 Cholesterol 154 LDL Cholesterol, Calc 79 HDL Cholesterol 52 TSH 0.65 U Random Total Protein < 7 Urine Creatinine 45.50 76.95 Urine Microalbumin 8.0 Microalb/Creat Ratio 17.5 08/26/24 07:23 Sodium 138 Potassium 4.3 BUN 43 H Creatinine 1.74 H Estimated GFR 28 Triglycerides Cholesterol LDL Cholesterol, Calc HDL Cholesterol TSH U Random Total Protein Urine Creatinine Urine Microalbumin Microalb/Creat Ratio Laboratory Tests 04/19/23 10/29/23 10/23/24 07:42 08:29 09:50 Plt Count 233 BUN 43 H Creatinine 1.77 H Estimated GFR 28 Random Glucose 144 H Calcium 9.9 Phosphorus 3.8 AST 18 ALT 12 Alkaline Phosphatase 75 Albumin 4.4 Triglycerides 102 Cholesterol 162 LDL Cholesterol, Calc 86 HDL Cholesterol 56 Vitamin B12 429 25-OH Vitamin D Total 51.7 PTH Intact 114.6 H Urine Microalbumin 8.0 Microalb/Creat Ratio 17.5 10/27/24 09:24 Plt Count BUN Creatinine Estimated GFR Random Glucose Calcium 10.1 Phosphorus AST ALT Alkaline Phosphatase Albumin 4.2 Triglycerides Cholesterol LDL Cholesterol, Calc HDL Cholesterol Vitamin B12 25-OH Vitamin D Total PTH Intact Urine Microalbumin Microalb/Creat Ratio Laboratory Tests 10/23/24 10/27/24 09:50 08:00 TSH 0.37 Ur 24 Hour Volume 2200 Ur Creatinine mg/dL 33.72 Ur Creatinine 24 Hour 0.7 L Laboratory Tests 10/27/24 12/01/24 01/23/25 08:00 09:19 06:41 Sodium 141 Potassium 4.5 Creatinine 1.63 H 1.70 H Estimated GFR 31 29 Estimat Average Glucose 217 203 Hemoglobin A1c % 9.2 H 8.7 H Calcium 9.6 9.7 AST 17 ALT 18 Albumin 4.4 Triglycerides 45 Cholesterol 144 LDL Cholesterol, Calc 69 HDL Cholesterol 66 25-OH Vitamin D Total 59.0 PTH Intact 78.1 H Ur 24 Hour Volume 2200 Ur Creatinine mg/dL 33.72 Ur Creatinine 24 Hour 0.7 L US THYROID 12/18 CLINICAL INFORMATION: Nontoxic multinodular goiter. COMPARISON: Thyroid ultrasound 08/01/2022 and 07/26/2021. Ultrasound-guided thyroid biopsy 03/04/2020. TECHNIQUE: Linear transducer khan-scale and color Doppler examination with attention to the region of the thyroid. FINDINGS: SIZE: Measurements of the thyroid lobes and nodules are given in sagittal, anteroposterior and transverse dimensions respectively. Right Thyroid Lobe: 5.4 x 1.8 x 1.8 cm, volume 9.2 mL. Previously 4.9 x 2.1 x 1.5 cm, volume 8.0 mL. Parenchyma: The gland echotexture is homogeneous. Thyroid vascularity is normal. Left Thyroid Lobe: 6.2 x 2.3 x 2.4 cm, volume 17.9 mL. Previously 5.4 x 2.4 x 2.7 cm, volume 17.7 mL. Parenchyma: The gland echotexture is homogeneous. Thyroid vascularity is normal. Isthmus: 0.1 cm in maximum AP dimension. Previously 0.1 cm. Estimated total number of nodules greater than or equal to 1 cm: 1. Karate Black Belt nodules are described as follows: 1. Location: Right mid. Size: 0.7 x 0.4 x 0.7 cm, volume 0.1 mL. Previously: 0.8 x 0.4 x 0.6 cm, volume 0.09 mL. Nodule characteristics: Composition: Solid/almost completely solid (2). Echogenicity: Isoechoic (1). Shape: Not taller than wide (0). Margins: Ill-defined (0). Echogenic Foci: None (0). ACR TI-RADS total points: 3 Previous: 3 ACR TI-RADS category: 3 Previous: 3 Significant change in size (>/= 20% in 2 dimensions and minimal increase of 2 mm or 50% or greater increase in volume): No Change in features: No Change in ACR TI-RADS risk category: No 2. Location: Right mid. Size: 0.8 x 0.4 x 0.6 cm, volume 0.09 mL. Previously: 0.7 x 0.4 x 0.5 cm, volume 0.08 mL. Nodule characteristics: Composition: Spongiform (0). Echogenicity: Anechoic (0). Shape: Not taller than wide (0). Margins: Smooth (0). Echogenic Foci: None (0). ACR TI-RADS total points: 0 Previous: 0 ACR TI-RADS category: 1 Previous: 1 Significant change in size (>/= 20% in 2 dimensions and minimal increase of 2 mm or 50% or greater increase in volume): No Change in features: No Change in ACR TI-RADS risk category: No 3. Location: Right mid. Size: 0.7 x 0.4 x 0.7 cm, volume 0.1 mL. Previously: 0.8 x 0.5 x 0.7 cm, volume 0.1 mL. Nodule characteristics: Composition: Solid (2). Echogenicity: Hypoechoic (2). Shape: Not taller than wide (0). Margins: Smooth (0). Echogenic Foci: None (0). ACR TI-RADS total points: 4 Previous: 3 ACR TI-RADS category: 4 Previous: 3 Significant change in size (>/= 20% in 2 dimensions and minimal increase of 2 mm or 50% or greater increase in volume): No Change in features: Yes Change in ACR TI-RADS risk category: Yes 4. Location: Left mid. Size: 4.1 x 1.9 x 2.2 cm, volume 9.0 mL. Previously: 4.4 x 1.9 x 2.4 cm, volume 10.0 mL. Nodule characteristics: Composition: Solid (2). Echogenicity: Isoechoic (1). Shape: Not taller than wide (0). Margins: Smooth (0). Echogenic Foci: Punctate echogenic foci (3). ACR TI-RADS total points: 6 Previous: 3 ACR TI-RADS category: 4 Previous: 3 Significant change in size (>/= 20% in 2 dimensions and minimal increase of 2 mm or 50% or greater increase in volume): No Change in features: No Change in ACR TI-RADS risk category: No NODES: No lymphadenopathy is seen in the tissue surrounding the thyroid gland. US/US thyroid IMPRESSION: 1. A 4.1 cm mid left thyroid TR 4 nodule meets ACR biopsy criteria and is amenable to ultrasound-guided biopsy. Please correlate with ultrasound biopsy results dated 03/04/2020. 2. There is an asymmetric goiter, left lobe greater than right. Thyroid US 08/01/2022 Right Thyroid Lobe: 4.9 x 2.1 x 1.5 cm, volume 8.0 mL. Previously 5.3 x 2.2 x 2.0 cm, volume 12.2 mL. Parenchyma: The gland echotexture is heterogeneous. Thyroid vascularity is increased. Left Thyroid Lobe: 5.4 x 2.4 x 2.7 cm, volume 17.7 mL. Previously 5.7 x 2.7 x 2.6 cm, volume 20.9 mL. Parenchyma: The gland echotexture is heterogeneous. Thyroid vascularity is increased. Isthmus: 0.1 cm in maximum AP dimension. Previously 0.2 cm. Estimated total number of nodules greater than or equal to 1 cm: 1. Karate Black Belt nodules are described as follows: 1.? Location: Left mid pole. ?? ? Size: 4.4 x 1.9 x 2.4 cm, volume 10.0 mL. ?? ? Previously: 2.5 x 2.4 x 4.3 cm, volume 13.7 mL. ?? ? Nodule characteristics: ?? ? Composition: Solid/almost completely solid (2). ?? ? Echogenicity: Isoechoic (1). ?? ? Shape: Not taller than wide (0). ?? ? Margins: Smooth (0). ?? ? Echogenic Foci: Comet-tail artifacts (0). ?? ? ACR TI-RADS total points: 3 Previous: 3 ?? ? ACR TI-RADS category: 3 Previous: 3 ? Significant change in size (>/= 20% in 2 dimensions and minimal increase of 2 mm or 50% or greater increase in volume): No ?? ? Change in features: No ?? ? Change in ACR TI-RADS risk category: No 2.? Location: Right mid pole. ?? ? Size: 0.8 x 0.4 x 0.6 cm, volume 0.09 mL. ?? ? Previously: 0.6 x 0.5 x 0.7 cm, volume 0.1 mL. ?? ? Nodule characteristics: ?? ? Composition: Solid/almost completely solid (2). ?? ? Echogenicity: Isoechoic (1). ?? ? Shape: Not taller than wide (0). ?? ? Margins: Ill-defined (0). ?? ? Echogenic Foci: None (0). ?? ? ACR TI-RADS total points: 3 Previous: 3 ?? ? ACR TI-RADS category: 3 Previous: 3 ? Significant change in size (>/= 20% in 2 dimensions and minimal increase of 2 mm or 50% or greater increase in volume): No ?? ? Change in features: No ?? ? Change in ACR TI-RADS risk category: No 3.? Location: Right mid pole. ?? ? Size: 0.7 x 0.4 x 0.5 cm, volume 0.08 mL. ?? ? Previously: 0.7 x 0.5 x 0.7 cm, volume 0.2 mL. ?? ? Nodule characteristics: ?? ? Composition: Spongiform (0). ?? ? ACR TI-RADS total points: 0 Previous: 0 ?? ? ACR TI-RADS category: 1 Previous: 1 ? Significant change in size (>/= 20% in 2 dimensions and minimal increase of 2 mm or 50% or greater increase in volume): No ?? ? Change in features: No ?? ? Change in ACR TI-RADS risk category: No 4.? Location: Right mid pole. ?? ? Size: 0.8 x 0.5 x 0.7 cm, volume 0.1 mL. ?? ? Previously: Not measured previously. ?? ? Nodule characteristics: ?? ? Composition: Solid (2). ?? ? Echogenicity: Hypoechoic (2). ?? ? Shape: Not taller than wide (0). ?? ? Margins: Ill-defined (0). ?? ? Echogenic Foci: None (0). ?? ? ACR TI-RADS total points: 4 ?? ? ACR TI-RADS category: 4 ?? ? NODES: No lymphadenopathy is seen in the tissue surrounding the thyroid gland EXAMINATION: DXA BONE DENSITY EXTREMITY 11/14/24 HISTORY: Estrogen deficiency TECHNIQUE: [employer] Dual energy absorptiometry (DEXA) of the lumbar spine, total left hip, femoral neck, and distal radius was performed. COMPARISON: Comparison is made with the prior examination dated 03/22/2022. FINDINGS: The bone mineral density of the lumbar spine is 1.233 with a T-score of 0.4, and a Z-score of 2.7. This is indicative of normal bone mineral density. This represents a BMD change of -8.7% compared to the prior exam. This is statistically significant. The bone mineral density of the left total hip is 0.835 with a T-score of -1.4, and a Z-score of 0.8. This is indicative of osteopenia. This represents a BMD change of -11.0% compared to the prior exam. This is statistically significant. The bone mineral density of the left femoral neck is 0.840 with a T-score of -1.4, and a Z-score of 0.9. This is indicative of osteopenia. This represents a BMD change of -16.3% compared to the prior exam. The bone mineral density of the distal radius is 0.902 with a T-score of 0.3, and a Z-score of 2.9. This is indicative of normal bone mineral density. This represents a BMD change of -6.2% compared to the prior exam. This is statistically significant. FRACTURE RISK: The FRAX index suggests a ten year probability of major osteoporotic fracture of 10.1%, and of hip fracture 2.5%. MM/XR DEXA appendicular skeleton IMPRESSION: Based on bone mineral density, and according to World Health Organization (WHO) criteria, the diagnosis is consistent with osteopenia. All bone density values are in grams per centimeter squared (g/cm2). Statistically, 68% of repeat scans fall within 1 SD (+/- 0.010 g/cm2 for AP spine L1-L4) and 1 SD (+/- 0.012 g/cm2 for femur total) FRAX is a trademark of the [employer]'s [place] [facility] Metabolic Bone Disease, a World Health Organization (WHO) Collaborating Center. Electronically signed by: Renato Logan MD 11/14/2024 09:41 AM EDT DEXA: 03/22/2022 FINDINGS: AP SPINE L1-L4: Current: BMD 1.350 g/cm2, Z-score 3.4, T-score 1.4, normal, 4.2% decrease from baseline (<5% change is not significant). Baseline: BMD 1.409 g/cm2. LEFT FOREARM RADIUS 33%: BMD 0.962 g/cm2, Z-score 3.3, T-score 1.0, normal, 2.1% decrease from baseline (<5% change is not significant). Baseline: BMD 0.983 g/cm2. LEFT FEMUR, NECK: Current: BMD 1.004 g/cm2, Z-score 1.8, T-score -0.2, normal. Baseline: BMD 1.052 g/cm2. LEFT FEMUR, TOTAL: Current: BMD 0.938 g/cm2, Z-score 1.4, T-score -0.6, normal, 11.2% decrease from baseline (<5% change is not significant). Baseline: BMD 1.056 g/cm2. [facility] Medical History Needle phobia Left breast mass Snoring Hypersomnolence Sleep apnea Intestinal malabsorption following gastrectomy Multinodular thyroid Hyperparathyroidism Vitamin D deficiency HLD (hyperlipidemia) HTN (hypertension) T2DM (type 2 diabetes mellitus) Malabsorption due to intolerance, not elsewhere classified Surgical History Hx of total knee replacement Hx of cataract surgery S/P laparoscopic sleeve gastrectomy Family History Father Cancer Diabetes Mother Diabetes Legally blind Social History Household Members: Spouse Alcohol intake: current Alcohol intake frequency: holidays/special occasions only Patient Tobacco Use Status: Former Tobacco user Tobacco use type: Cigarette Cigarette Packs Per Day: 2 Cigarettes Per Day: 40 Years Smoked: approx 25 Female Reproductive History Menstrual Age of Menarche: 10 Office Procedures Glucose Monitoring Details Details: See [facility] [id number] - Glucose monitoring, continuous-physician I&R Procedure code (CPT) selection complete Assessment & Plan Assessment & Plan (1) Multinodular thyroid: Code(s): E04.2 - Nontoxic multinodular goiter Category: Medical Plan: She underwent FNA biopsy of her LLP 3.8 cm nodule 03/04/2020 with benign cytology. She has monitored with surveillance ultrasounds. Most recent thyroid ultrasound done Most recent thyroid ultrasound November 2023 showed a multinodular goiter with a left mid dominant lobe nodule measuring 4.1 X 1.9 x 2.2 cm solid, isoechoic, with punctate echogenic foci, TR 4 category, which is stable in size compared to ultrasound in 2021 however this has significantly changed in size compared to ultrasound in 2019 when it was measuring 3.8 cm initially when the patient had the biopsy in 2019 and it was benign. 10/15/2024: Underwent FNA biopsy of the left mid 4.1 cm nodule with benign cytology, Marcella category 2. TSH September 2024 normal at 0.37. 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 retinopathy. She was previously on insulin Lantus, however she was requiring a low dose so this was discontinued in fall 2023 especially given CKD. Her metformin was also reduced at that time. Apparently now she is taking metformin 500 mg twice a day. Most recent A1c from December 2024 is 8.7%. She had an A1c in November 2024 which was 9.2%. So there is some improvement , CGM data downloaded shows overall hyperglycemia, however now she is in target range 40% of the time as opposed to 12% during her last appointment. She continues to have dietary indiscretion. I had her see the enrollment specialist, and again today during the appointment I emphasized to her importance of eating healthy and avoiding refined sugars and carbs and concentrating on more whole grains and proteins. She has been eating a lot of cookies due to stress due to some personal reasons. She is following with Nephrology for CKD. She has gained 15 lb in the past 2 months. While switching her from Trulicity to Ozempic is also an option, since she has gained 15 lb while being on Trulicity but she has been actively trying to put on weight and she was very frustrated by the weight loss. Hence for now we will hold off on that. I will increase her pioglitazone. Plan: -increase pioglitazone to 30 mg daily -continue Jardiance 25 mg daily -continue metformin 500 mg daily -continue Trulicity 4.5 mg daily Follow up in 3 months (3) Hyperparathyroidism: Code(s): E21.3 - Hyperparathyroidism, unspecified Category: Medical Plan: 79-year-old female also has a history of hyperparathyroidism with last bone density from 2021 was normal. She also has CKD stage 3, GFR in 20s. Most recent labs from September 2024 showed normal serum calcium levels around 9, normal vitamin-D of 51, GFR 28, PTH elevated at 114, I think her diagnosis is more consistent with normocalcemic hyperprathyrodiism given most recently normal calcium levels, then secondary hyperparathyroidism given calcium levels are on the higher end of normal. Bone density scan showed osteopenia of the hip, with normal bone density of the spine and forearm, however did show significant decrease compared to previous. FRAX does not meet criteria for treatment for now. Repeat bone density would be due in October 2026. 24 hour urine calcium levels done in October 2024 could not calculate fractional excretion of calcium because urine calcium levels were very low, in the seem like an adequate collection because her urine creatinine was also abnormal low.. Given her age and comorbidities she is not an excellent candidate for surgery Even though based on her low GFR, she would meet criteria for surgery. For now given calcium levels are not elevated, we will continue to keep an eye on this. If calcium levels go up of normal, can consider treatment with cinacalcet. Though this would not benefit her bones. Plan: -continue vitamin-D -continue weight-bearing exercise -continue to incorporate calcium intake through diet at least 1000 mg daily -next bone density would be due October 2026 (4) HLD (hyperlipidemia): Code(s): E78.5 - Hyperlipidemia, unspecified Category: Medical Qualifiers: Hyperlipidemia type: unspecified Qualified Code(s): E78.5 - Hyperlipidemia, unspecified Plan: LDL at 69 mg/dL December 2024 down from 82 mg/dL from September 2024, which is within goal of LDL less than 70 mg/dL. I had increased her atorvastatin to 80 mg daily in September 2024. Plan: -continue atorvastatin 80 mg daily (5) Needle phobia: Code(s): F40.298 - Other specified phobia Category: Medical Plan: Patient has needle phobia, hence we should continue her for CGM monitoring on the sensor. Plan I spent 30 minutes in reviewing the record, seeing the patient and documenting in the medical record. Orders: Orders 2 AMB Glucose Monitoring Today E11.65 - Type 2 diabetes mellitus with hyperglycemia, Z79.4 - group home (current) use of insulin Medications: New 2 pioglitazone 30 mg PO DAILY 90 tabs 4RF metformin ER 500 mg PO BID 60 tabs 5RF Refilled 2 dulaglutide (Trulicity) INJECT 4.5MG (0.5ML) INTO THE SKIN ONCE WEEKLY 2 mL 4RF E11.65 - Type 2 diabetes mellitus with hyperglycemia, Z79.4 - group home (current) use of insulin Discontinued 2 pioglitazone Discontinued Reason: Doctor's Order 15 mg PO DAILY 30 tabs 6RF Patient Instructions: Continue metformin 500 mg twice daily Continue jardiance Cotinue Trulicity as it is Increase pioglitazone to 30 mg daily, new prescription sent Follow up in 3 months Coding Level of Care Code Est Pt Level 4 (50044) Diagnoses Multinodular thyroid E04.2 Type 2 diabetes mellitus with hyperglycemia, with long-term current use of insulin E11.65; Z79.4 Diabetes mellitus longterm insulin use: with longterm use Diabetes mellitus complication status: with hyperglycemia Hyperparathyroidism E21.3 Hyperlipidemia, unspecified hyperlipidemia type E78.5 Hyperlipidemia type: unspecified Needle phobia F40.298 CPT Codes Details - CPT: 39373 - Glucose monitoring, continuous-physician I&R ([id number]) Time Spent (min) 30
[2025-01-26 09:04] VITALS: BP 110/64; PULSE 75; O2SAT 95; BMI 22.7
[2025-01-26 09:15] LABS: Glucose, Whole Blood 168 mg/dL (60-115)
--- OUTSIDE RECORDS SUMMARY | 2025-01-26 09:20 | XMS_ITS | Clinical Summary ---
Author Organization [facility] Facility Address [address] [place] [address], [place] [address] Care Team Providers Care Mission Support Specialist Name Role Phone Ciara Tate MD [...] to complete this topic Insurance Care Teams Mission Support Specialist Relationship Specialty Start Date End Date Ciara Tate MD [facility] [address] [place] [address] [address] [place], [place] PCP - General 09/06/20
== END 2025-01-26 09:31 | disposition home or self-care (01) ==
LOC: HO.ENCR 08:53
PROVIDERS: PCP Internal Medicine; Visit Provider Student in an Organized Health Care Education/Training Program
DX: E04.2 Nontoxic multinodular goiter (principal); E11.65 Type 2 diabetes mellitus with hyperglycemia; Z79.4 Long term (current) use of insulin; E21.3 Hyperparathyroidism, unspecified; E78.5 Hyperlipidemia, unspecified; F40.298 Other specified phobia
CPT/HCPCS: 95251; 99214

== ENCOUNTER → 2025-01-26 08:53 | Outpatient (BNVA) | payer MEDICARE, SELFPAY | PROVIDERS: PCP Internal Medicine; Visit Provider Student in an Organized Health Care Education/Training Program | DX: E04.2 Nontoxic multinodular goiter (principal); E11.65 Type 2 diabetes mellitus with hyperglycemia; E21.3 Hyperparathyroidism, unspecified; E78.5 Hyperlipidemia, unspecified; F40.298 Other specified phobia | CPT/HCPCS: 82947; 99212 ==

== ENCOUNTER 2025-02-23 12:52 | Outpatient (AMB) | payer MEDICARE, SELFPAY ==
--- OUTSIDE RECORDS SUMMARY | 2025-02-23 13:13 | XMS_ITS | Clinical Summary ---
Author Organization [facility] Facility Address [address] [place] [address], [place] [address] Care Team Providers Care Self Pay Representative Name Role Phone Ciara Tate MD Primary [...] to complete this topic Insurance Care Teams Self Pay Representative Relationship Specialty Start Date End Date Ciara Tate MD [facility] [address] [place] [address] [phone] [place], [place] PCP - General 09/06/20
[2025-02-23 13:16] VITALS: BMI 21.2
--- NOTE | 2025-02-23 13:16 | A.OFFVIS_ITS ---
VS Expanded 02/23/25 13:16 Height 5 ft 4 in Weight 123 lb 7.342 oz BMI 21.2 Intake Visit Reasons: T2DM Allergies No Known Allergies (No Known Allergies*) Allergy (Verified 01/26/25 09:09) Nutrition Presentation Details: Pt presents for MNT f/u for T2DM with Hx of sleeve gastrectomy in 2019 and ckd stage 3 Pt's weight today at 123.7 lbs (same as last nutrition visit in 12/2024), Pt reports feeling comfortable at this weight Pt reports she likes to bake muffins, pastries the majority of the time, this month had episodes of increased intake of sweets and noted weight gain, up to 132 lbs on 01/26/25), Pt monitors self at home. Pt denies vomiting, diarrhea Pt reports having whole milk with whole wheat toast and butter , in the morning Lunch: muffin/pastry oe cottage cheese snack fruit and peanut butter or celery or carrots and peanut butter dinner: chicken breast/broccoli no fat added, potatoes boiled no fat added , water physical activity :ADL, etoh/smoking denies BS Monitoring Most Recent Diabetes Results: Cholesterol, (<200) 144 mg/dL 01/23/25 HDL Cholesterol, (>40) 66 mg/dL 01/23/25 Triglycerides, (<150) 45 mg/dL 01/23/25 Creatinine, (0.5-1.4) 1.53 mg/dL H Today BUN, (9-16) 42 mg/dL H Today Sodium, (135-145) 137 mmol/L Today Potassium, (3.3-5.1) 4.7 mmol/L Today Chloride, (96-108) 106 mmol/L Today Carbon Dioxide, (22-29) 25 mmol/L Today Calcium, (8.4-10.2) 9.6 mg/dL Today AST, (5-31) 17 U/L 01/23/25 ALT, (0-31) 18 U/L 01/23/25 Total Protein, (6.5-8.0) 6.8 g/dL 01/23/25 Albumin, (3.5-5.0) 4.4 g/dL 01/23/25 [facility] Medical History Needle phobia Left breast mass Snoring Hypersomnolence Sleep apnea Intestinal malabsorption following gastrectomy Multinodular thyroid Hyperparathyroidism Vitamin D deficiency HLD (hyperlipidemia) HTN (hypertension) T2DM (type 2 diabetes mellitus) Malabsorption due to intolerance, not elsewhere classified Surgical History Hx of total knee replacement Hx of cataract surgery S/P laparoscopic sleeve gastrectomy Family History Father Cancer Diabetes Mother Diabetes Legally blind Social History Household Members: Spouse Alcohol intake: current Alcohol intake frequency: holidays/special occasions only Patient Tobacco Use Status: Former Tobacco user Tobacco use type: Cigarette Cigarette Packs Per Day: 2 Cigarettes Per Day: 40 Years Smoked: approx 25 Female Reproductive History Menstrual Age of Menarche: 10 Assessment & Plan Assessment & Plan (1) T2DM (type 2 diabetes mellitus): Code(s): E11.9 - Type 2 diabetes mellitus without complications Category: Medical Qualifiers: Diabetes mellitus senior living insulin use: with senior living use Diabetes mellitus complication status: with hyperglycemia Qualified Code(s): E11.65 - Type 2 diabetes mellitus with hyperglycemia; Z79.4 - nursing home (current) use of insulin Plan: Wt: 54 Kg ( 12/19 ), 56kg (01/18), 56 kg (02/18) Est kcal needs as per MSJ: 1500 (40% carb, 30% protein/fat) Est fluid needs as per 25-30 ml/d: 1600 Est prot per day as per 1 g/kg bw: 55 Recommend fiber intake : 8-10 g per day and gradually increase to 25-28 g per day for women and 35-38 g for men or as tolerated Recommend sodium intake per day : less than 2000 mg Educated patient on: ( R = reviewed V = verbalizes understanding N/R = needs review N/A = not applicable * Food sources of carbohydrate, adequate serving sizes and its role in various health conditions: R * Differences between complex carbohydrates a simple carbohydrates, role of fiber in diet: R * Lean protein sources of foods: R * Differences between types of fats and role in diet (mono on saturated fat fatty acids, saturated fatty acids, trans fats): R * Food sources of sodium in salt and healthy modifications for heart health in kidney health: R * Vitamins and minerals: R V N/R * Healthy plate method concept: R V N/R * Physical activity: Benefits a precaution: R V N/R * Hypoglycemia protocol (rule of 15): R V N/R * Dietary prevention of Hyperglycemia: R V Patient Instructions: Keep hydrated by having , milk, water or juice diluted with water with meals or snacks add 1 -2 tsp of olive oil to the vegetable at meal time add an extra egg to the muffin batter or add flaxseed (modifying recipes to increase fiber/protein) Coding Level of Care Code Nutr Indiv Subseq (22648) Diagnoses Type 2 diabetes mellitus with hyperglycemia, with long-term current use of insulin E11.65; Z79.4 Diabetes mellitus senior living insulin use: with termite treater helper use Diabetes mellitus complication status: with hyperglycemia Time Spent (min) 30
== END 2025-02-23 13:45 | disposition home or self-care (01) ==
LOC: HO.ENCR 12:52
PROVIDERS: PCP Internal Medicine; Visit Provider Dietitian, Registered
DX: E11.65 Type 2 diabetes mellitus with hyperglycemia (principal); Z79.4 Long term (current) use of insulin

== ENCOUNTER → 2025-02-23 12:52 | Outpatient (BNVA) | payer MEDICARE, SELFPAY | PROVIDERS: PCP Internal Medicine; Visit Provider Dietitian, Registered | DX: E11.65 Type 2 diabetes mellitus with hyperglycemia (principal); Z79.4 Long term (current) use of insulin | CPT/HCPCS: 97803 ==

== ENCOUNTER 2025-03-04 09:28 | Outpatient (REF) | payer MEDICARE, SELFPAY ==
--- OUTSIDE RECORDS SUMMARY | 2025-03-04 09:52 | XMS_ITS | Clinical Summary ---
Author Organization [facility] Facility Address [address] [place] [address], [place] [address] Care Team Providers Care Equipment Services Associate Name Role Phone Ciara Tate MD Primary [...] Visual Foot Exam 09/26/2020 Influenza Vaccine (#1) 2025 Hepatitis B Vaccine Aged Out No longe r eligible based on patient's age to complete this topic Insurance Care Teams Equipment Services Associate Relationship Specialty Start Date End Date Ciara Tate MD [facility] [address] [place] [address] [phone] [place], [place] PCP - General 09/06/20
[2025-03-04 10:57] LABS: Anion Gap 11 (12-20); Blood Urea Nitrogen 42 mg/dL (9-16); Calcium 9.6 mg/dL (8.4-10.2); Carbon Dioxide 25 mmol/L (22-29); Chloride 106 mmol/L (96-108); Estimated Glomerular Filt Rate 33; Potassium 4.7 mmol/L (3.3-5.1); Sodium 137 mmol/L (135-145)
== END 2025-03-04 09:29 | disposition home or self-care (01) ==
LOC: HO.LAB 09:28
PROVIDERS: PCP Internal Medicine; Visit Provider Internal Medicine Nephrology
DX: I12.9 Hypertensive chronic kidney disease with stage 1 through stage 4 chronic kidney disease, or unspecified chronic kidney disease (principal); N18.31 Chronic kidney disease, stage 3a; N28.1 Cyst of kidney, acquired
CPT/HCPCS: 36415; 80051; 82310; 82565; 84520

== ENCOUNTER 2025-03-06 11:00 | Outpatient (AMB) | payer MEDICARE, SELFPAY ==
[2025-03-06 11:16] VITALS: BP 112/58; PULSE 76; O2SAT 98; BMI 21.3
--- NOTE | 2025-03-06 11:16 | HO.NEPHOV ---
Vital Signs 03/06/25 11:16 Height 5 ft 4 in Weight 124 lb BMI 21.3 BP 112/58 L Blood Pressure Location Rt brachial Position Sitting Pulse 76 Pulse Source Pulse Oximeter Pulse Oximetry (%) 98 Oxygen Delivery Method Room Air Intake Visit Reasons: 3 MO FU-LVM Vacuum Plastic Forming Machine Operator Required: No Accompanied by: Self / Same As Patient Allergies No Known Allergies (No Known Allergies*) Allergy (Verified 03/06/25 11:17) HPI Comments Details: Lashay was seen in follow up for renal cysts, CKD and hypertension on a backdrop of diabetes mellitus. She has diabetes for a long time but has no proteinuria. She had laser treatment to the eye and closely follows up with ophthalmology. She had been off lantus and but on Trulicity along with metformin & Jardiance. Her hemoglobin A1c has gone up over 7. She had undergone gastric sleeve surgery in the past. She denies any coronary artery disease, carotid stenosis, CVA, CHF, peripheral arterial disease or renal artery stenosis. She has dyslipidemia and is on statins which she is tolerating well. She denies any chest pain, shortness of breath, paroxysmal nocturnal dyspnea, orthopnea, pedal edema, hematuria or orthostatic symptoms PFSH Medical History Needle phobia Left breast mass Snoring Hypersomnolence Sleep apnea Intestinal malabsorption following gastrectomy Multinodular thyroid Hyperparathyroidism Vitamin D deficiency HLD (hyperlipidemia) HTN (hypertension) T2DM (type 2 diabetes mellitus) Malabsorption due to intolerance, not elsewhere classified Surgical History Hx of total knee replacement Hx of cataract surgery S/P laparoscopic sleeve gastrectomy Family History Father Cancer Diabetes Mother Diabetes Legally blind Social History Household Members: Spouse Alcohol intake: current Alcohol intake frequency: holidays/special occasions only Patient Tobacco Use Status: Former Tobacco user Tobacco use type: Cigarette Cigarette Packs Per Day: 2 Cigarettes Per Day: 40 Years Smoked: approx 25 Female Reproductive History Menstrual Age of Menarche: 10 Review of Systems Const All systems reviewed & are unremarkable except as noted in HPI and below Physical Exam Vital Signs: Last Vital Signs Pulse 76 03/06/25 11:16 BP 112/58 L 03/06/25 11:16 Pulse Ox 98 03/06/25 11:16 Oxygen Delivery Method Room Air 03/06/25 11:16 BMI result Body Mass Index 21.3 Const General: comfortable and no acute distress Orientation/consciousness: patient oriented x3 HEENT Head: Yes normocephalic Mouth: Normal oral and palatal mucosa present Eyes EOM: EOMs intact bilaterally Neck Neck: Yes supple Resp Auscultation: clear to auscultation bilaterally Cardio Jugular venous distension: no JVD Rate: regular rate GI Palpation (GI): Soft to palpation Auscultation: normal bowel sounds General: Yes no CVA tenderness Back/Spine/Pelvis Back: no CVA tenderness Skin General skin exam: no rashes or lesions noted Neuro General: patient oriented x3 and moves all extremities Extrem General: Yes no pedal edema Results Reviewed Nephrology Results: Sodium, (135-145) 137 mmol/L 03/04/25 Potassium, (3.3-5.1) 4.7 mmol/L 03/04/25 Chloride, (96-108) 106 mmol/L 03/04/25 Carbon Dioxide, (22-29) 25 mmol/L 03/04/25 BUN, (9-16) 42 mg/dL H 03/04/25 Creatinine, (0.5-1.4) 1.53 mg/dL H 03/04/25 Calcium, (8.4-10.2) 9.6 mg/dL 03/04/25 Assessment & Plan Assessment & Plan (1) HTN (hypertension): Code(s): I10 - Essential (primary) hypertension Category: Medical Qualifiers: Hypertension type: unspecified Qualified Code(s): I10 - Essential (primary) hypertension (2) CKD (chronic kidney disease) stage 3, GFR 30-59 ml/min: Code(s): N18.30 - Chronic kidney disease, stage 3 unspecified Category: Medical Qualifiers: Chronic kidney disease stage 3 subtype: stage 3a (GFR 45-59) Qualified Code(s): N18.31 - Chronic kidney disease, stage 3a (3) Renal cyst: Code(s): N28.1 - Cyst of kidney, acquired Category: Medical Plan 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 Her ACEI had been put on hold. I asked her to increase fluid intake. She has renal cysts for which I shall arrange MRI of the kidney with gadolinium, in the future, if it has not done already. She does not have any proteinuria. She should continue Jardiance 25 mg daily. Her blood pressure is at goal. She has been on PPI for a long time. It is unlikely that it is contributing to her CKD. All these have been discussed in detail and I had the opportunity to answer all her questions. Follow-up appointment given Orders: Orders Creatinine 4 Months I10 - Essential (primary) hypertension, N18.31 - Chronic kidney disease, stage 3a, N28.1 - Cyst of kidney, acquired Blood Urea Nitrogen 4 Months I10 - Essential (primary) hypertension, N18.31 - Chronic kidney disease, stage 3a, N28.1 - Cyst of kidney, acquired Electrolytes 4 Months I10 - Essential (primary) hypertension, N18.31 - Chronic kidney disease, stage 3a, N28.1 - Cyst of kidney, acquired Coding Level of Care Code Est Pt Level 4 (55330) Diagnoses Hypertension, unspecified type I10 Hypertension type: unspecified Stage 3a chronic kidney disease N18.31 Chronic kidney disease stage 3 subtype: stage 3a (GFR 45-59) Renal cyst N28.1
--- OUTSIDE RECORDS SUMMARY | 2025-03-06 11:38 | XMS_ITS | Clinical Summary ---
Author Organization [facility] Facility Address [address] [place] [address], [place] [address] Care Team Providers Care Director Of Strategic Alliances Name Role Phone Ciara Tate MD Primary [...] to complete this topic Insurance Care Teams Director Of Strategic Alliances Relationship Specialty Start Date End Date Ciara Taet MD [facility] [address] [place] [address] [address] [place], [place] PCP - General 09/06/20
== END 2025-03-06 11:32 | disposition home or self-care (01) ==
LOC: HO.HKA 11:01
PROVIDERS: PCP Internal Medicine; Visit Provider Internal Medicine Nephrology
DX: I10 Essential (primary) hypertension (principal); N18.31 Chronic kidney disease, stage 3a; N28.1 Cyst of kidney, acquired
CPT/HCPCS: 99214

== ENCOUNTER → 2025-03-06 11:00 | Outpatient (BNVA) | payer MEDICARE, SELFPAY | PROVIDERS: PCP Internal Medicine; Visit Provider Internal Medicine Nephrology | DX: N18.31 Chronic kidney disease, stage 3a (principal); N28.1 Cyst of kidney, acquired; I10 Essential (primary) hypertension | CPT/HCPCS: 99212 ==

== ENCOUNTER 2025-03-17 07:48 | Outpatient (AMB) | payer MEDICARE, SELFPAY ==
--- OUTSIDE RECORDS SUMMARY | 2025-03-17 07:51 | XMS_ITS | Clinical Summary ---
Author Organization [facility] Facility Address [address] [place] [address], [place] [address] Care Team Providers Care Insole Taper Name Role Phone Ciara Tate MD Primary [...] to complete this topic Insurance Care Teams Insole Taper Relationship Specialty Start Date End Date Ciara Tate MD [facility] [address] [place] [address] [address] [place], [place] PCP - General 09/06/20
--- NOTE | 2025-03-17 08:00 | A.OFFVIS_ITS ---
Intake Intake Visit Reasons: 60 min Allergies No Known Allergies (No Known Allergies*) Allergy (Verified 03/06/25 11:17) HPI Comprehensive Diabetes Asmnt Most Recent Diabetes Results: Hemoglobin A1c 9.3 % 04/28/20 Microalb/Creat Ratio, (<30) 17.5 ug/mg cr 04/19/23 Cholesterol, (<200) 144 mg/dL 01/23/25 HDL Cholesterol, (>40) 66 mg/dL 01/23/25 Triglycerides, (<150) 45 mg/dL 01/23/25 Creatinine, (0.5-1.4) 1.53 mg/dL H 03/04/25 BUN, (9-16) 42 mg/dL H 03/04/25 Sodium, (135-145) 137 mmol/L 03/04/25 Potassium, (3.3-5.1) 4.7 mmol/L 03/04/25 Chloride, (96-108) 106 mmol/L 03/04/25 Carbon Dioxide, (22-29) 25 mmol/L 03/04/25 Calcium, (8.4-10.2) 9.6 mg/dL 03/04/25 AST, (5-31) 17 U/L 01/23/25 ALT, (0-31) 18 U/L 01/23/25 Total Protein, (6.5-8.0) 6.8 g/dL 01/23/25 Albumin, (3.5-5.0) 4.4 g/dL 01/23/25 [facility] Medical History Needle phobia Left breast mass Snoring Hypersomnolence Sleep apnea Intestinal malabsorption following gastrectomy Multinodular thyroid Hyperparathyroidism Vitamin D deficiency HLD (hyperlipidemia) HTN (hypertension) T2DM (type 2 diabetes mellitus) Malabsorption due to intolerance, not elsewhere classified Surgical History Hx of total knee replacement Hx of cataract surgery S/P laparoscopic sleeve gastrectomy Family History Father Cancer Diabetes Mother Diabetes Legally blind Social History Household Members: Spouse Alcohol intake: current Alcohol intake frequency: holidays/special occasions only Patient Tobacco Use Status: Former Tobacco user Tobacco use type: Cigarette Cigarette Packs Per Day: 2 Cigarettes Per Day: 40 Years Smoked: approx 26 Female Reproductive History Menstrual Age of Menarche: 10 Assessment & Plan Assessment & Plan (1) T2DM (type 2 diabetes mellitus): Code(s): E11.9 - Type 2 diabetes mellitus without complications Qualifiers: Diabetes mellitus fdc insulin use: with long wall mining machine tender use Diabetes mellitus complication status: with hyperglycemia Qualified Code(s): E11.65 - Type 2 diabetes mellitus with hyperglycemia; Z79.4 - [facility] (current) use of insulin Plan: Diabetes self-management education and support participation record Assessment/scale: 1= needs instructed? 2= needs review? 3= comprehend keep point? 4= demonstrates understanding/ competent? NC= Not Covered Topics Learning Objective: Initial visit Initial or post srvc Initial or post srvc Initial or post srvc Initial or post srvc Initial or post srvc Post srvc Comments Pre Edu-assessment/plan Outcome or reassess Outcome or reassess Outcome or reassess Outcome or reassess Outcome or reassess Outcome or reassess Diabetes pathophysiology 1 3 Healthy eating 2 3 Being active 2 3 Taking medication 1 3 Monitoring glucose 2 3 Acute complication 1 Chronic complicated 1 Lifestyle and healthy coping 1 Diabetes distress in support 1 ?Diabetes pathophysiology: ?Defined diabetes med identify own type of diabetes; list 3 options for treating diabetes Healthy eating: ?Described effect of type, amount and ?timing of food on blood glucose; list 3 methods for planning meal Being active: ?State effect of exercise on blood glucose level Taking medication: ?State effect of diabetes medications on diabetes; name diabetes medications taking, action and side effects Monitoring glucose: ?Identify recommended blood glucose targets and personal target Acute complication: ?List symptoms and treatment of hyper and hypoglycemia, DKA, sick day guidelines and guidelines for severe weather or situations of crisis and diabetes supply manage Chronic complication: ?To find the relationship of blood glucose levels to long- term complications of diabetes in screening and preventative measures Lifestyle and healthy coping: ?Described lifestyle and healthy coping strategies to rule out diabetes self-management Diabetes to stress and support: ?Recognize Diabetes to stress and be able to identified support options Learning objectives: The patient was provided with verbal and written education on the following topics as outlined below. Patient's last A1c on 01/23/2025 8.7% Assess patient education level/literacy/barriers, Pt currently on Trulicity 4.5 mg weekly, Jardiance 25 mg daily, Metformin ER 500mg BID, Actos 30 mg, Briefly discussed role that rapid acting insulin plays with postprandial hyperglycemia. Patient stated at this time she is not willing to consider insulin, due to prior experience with insulin while being managed by PCP The patient met all learning objectives and was able to verbalize understanding and provide teach back of education topics discussed . The patient was provided with the opportunity to ask questions and all questions were answered. Topics covered in today?s session included: Medications (If applicable) * Name of medication? * Dosing/administration instructions? * Mechanism of action? * Potential side effects? * Potential adverse reaction and appropriate treatment? * Review onset, peak, duration Assess for concerns re: insurance coverage, cost, barriers to compliance Insulin/Injectables (If applicable) * Storage/care of insulin?? * Injection sites? * Site rotation? * Onset, peak, duration * Drawing up insulin? * Injecting insulin/other injectables? * Sharps disposal Continuous blood glucose monitoring (if applicable) Hypoglycemia and Hyperglycemia * Signs and symptoms? * Causes?? * Treatment? * Preventing hypoglycemia? * When to seek medical attention Target Goals: * Blood glucose targets and how you feel when your blood glucose is in and out of your target ranges. * Monitoring and knowing your A1C. * What can make blood glucose go up and down and preventing high and low blood glucose. * Review of blood sugar targets in expected goal range and outside of expected goal range. * Using blood sugar results in decision making process in managing diabetes. ?Patient was receptive to information provided and participated in the discussion. Asked?appropriate questions and demonstrated good understanding of the topics discussed.? ? Educational Materials: The patient was provided with the following written educational materials: Target Goal handout Smart Goal Assessment:? Patient will identify foods in current meal plan that contain carbohydrate Pt met goal 100% New Smart Goal: Patient will add resistance exercise between and next Patient Response to instructions: Comprehension of Instructions: good Readiness to make changes:? Contemplation How confident they feel about making changes:positive Portions of this note were created using voice recognition software, please excuse any words or phrases that may have been misinterpreted. Coding Level of Care Code Est Pt Level 1 (42518) Diagnoses Type 2 diabetes mellitus with hyperglycemia, with long-term current use of insulin E11.65; Z79.4 Diabetes mellitus long wall mining machine tender insulin use: with fdc use Diabetes mellitus complication status: with hyperglycemia
== END 2025-03-17 08:53 | disposition home or self-care (01) ==
LOC: HO.ENCR 07:49
PROVIDERS: PCP Internal Medicine; Visit Provider Registered Nurse Diabetes Educator
DX: E11.65 Type 2 diabetes mellitus with hyperglycemia (principal); Z79.4 Long term (current) use of insulin

== ENCOUNTER → 2025-03-17 07:48 | Outpatient (BNVA) | payer MEDICARE, SELFPAY | PROVIDERS: PCP Internal Medicine; Visit Provider Registered Nurse Diabetes Educator | DX: E11.65 Type 2 diabetes mellitus with hyperglycemia (principal); Z79.4 Long term (current) use of insulin | CPT/HCPCS: 99211 ==

== ENCOUNTER 2025-04-14 08:50 | Outpatient (AMB) | payer MEDICARE, SELFPAY ==
[2025-04-14 09:07] VITALS: BMI 22.0
--- NOTE | 2025-04-14 09:07 | A.OFFVIS_ITS ---
VS Expanded 04/14/25 09:07 Height 5 ft 4 in Weight 128 lb 4.944 oz BMI 22.0 Intake Visit Reasons: t2DM Allergies No Known Allergies (No Known Allergies*) Allergy (Verified 03/06/25 11:17) Nutrition Presentation Details: Pt presents for MNT f/u for T2DM Pt reports doing well, working on watching portion sizes in the evening, reducing on frequency on empty calorie foods Pt reports keeping hydrated 16 oz 3-4 /day per day Notices improvements in glucose levels, most recent 14 d bg average at 175 mg/dl (from 232 mg/dl in January 2025) reports having no hypoglycemic events BS Monitoring Most Recent Diabetes Results: Cholesterol, (<200) 144 mg/dL 01/23/25 HDL Cholesterol, (>40) 66 mg/dL 01/23/25 Triglycerides, (<150) 45 mg/dL 01/23/25 Creatinine, (0.5-1.4) 1.53 mg/dL H 03/04/25 BUN, (9-16) 42 mg/dL H 03/04/25 Sodium, (135-145) 137 mmol/L 03/04/25 Potassium, (3.3-5.1) 4.7 mmol/L 03/04/25 Chloride, (96-108) 106 mmol/L 03/04/25 Carbon Dioxide, (22-29) 25 mmol/L 03/04/25 Calcium, (8.4-10.2) 9.6 mg/dL 03/04/25 AST, (5-31) 17 U/L 01/23/25 ALT, (0-31) 18 U/L 01/23/25 Total Protein, (6.5-8.0) 6.8 g/dL 01/23/25 Albumin, (3.5-5.0) 4.4 g/dL 01/23/25 [facility] Medical History Needle phobia Left breast mass Snoring Hypersomnolence Sleep apnea Intestinal malabsorption following gastrectomy Multinodular thyroid Hyperparathyroidism Vitamin D deficiency HLD (hyperlipidemia) HTN (hypertension) T2DM (type 2 diabetes mellitus) Malabsorption due to intolerance, not elsewhere classified Surgical History Hx of total knee replacement Hx of cataract surgery S/P laparoscopic sleeve gastrectomy Family History Father Cancer Diabetes Mother Diabetes Legally blind Social History Household Members: Spouse Alcohol intake: current Alcohol intake frequency: holidays/special occasions only Patient Tobacco Use Status: Former Tobacco user Tobacco use type: Cigarette Cigarette Packs Per Day: 2 Cigarettes Per Day: 40 Years Smoked: approx 25 Female Reproductive History Menstrual Age of Menarche: 10 Assessment & Plan Assessment & Plan (1) T2DM (type 2 diabetes mellitus): Code(s): E11.9 - Type 2 diabetes mellitus without complications Category: Medical Qualifiers: Diabetes mellitus complication status: with hyperglycemia Diabetes mellitus exterminator termite insulin use: with fpc use Qualified Code(s): E11.65 - Type 2 diabetes mellitus with hyperglycemia; Z79.4 - nursing home (current) use of insulin Plan: Wt: 54 Kg ( 12/19 ), 56kg (01/18), 56 kg (02/18), 58 kg (04/20) Est kcal needs as per MSJ: 1500 (40% carb, 30% protein/fat) Est fluid needs as per 25-30 ml/d: 1600 Est prot per day as per 1 g/kg bw: 55 Recommend fiber intake : 8-10 g per day and gradually increase to 25-28 g per day for women and 35-38 g for men or as tolerated Recommend sodium intake per day : less than 2000 mg Educated patient on: ( R = reviewed V = verbalizes understanding N/R = needs review N/A = not applicable * Food sources of carbohydrate, adequate serving sizes and its role in various health conditions: R * Differences between complex carbohydrates a simple carbohydrates, role of fiber in diet: R * Lean protein sources of foods: R * Differences between types of fats and role in diet (mono on saturated fat fatty acids, saturated fatty acids, trans fats): R * Food sources of sodium in salt and healthy modifications for heart health in kidney health: R * Vitamins and minerals: R V * Healthy plate method concept: R V * Physical activity: Benefits a precaution: R V * Hypoglycemia protocol (rule of 15): R * Dietary prevention of Hyperglycemia: R V Patient Instructions: Continue physically active as able follow healthy plate method (45 g carb per meal and 15 g as snack if needed) Keep hydrated by having water/low sugar beverages with meals/snacks Coding Level of Care Code Nutr Indiv Subseq ([id number]) Diagnoses Type 2 diabetes mellitus with hyperglycemia, with long-term current use of insulin E11.65; Z79.4 Diabetes mellitus complication status: with hyperglycemia Diabetes mellitus fpc insulin use: with exterminator termite use Time Spent (min) 30
--- OUTSIDE RECORDS SUMMARY | 2025-04-14 09:38 | XMS_ITS | Clinical Summary ---
Author Organization [facility] Facility Address [address] [place] [address], [place] [id number] Care Team Providers Care Data Visualization Developer Name Role Phone Ciara Tate MD Primary [...] to complete this topic Insurance Care Teams Data Visualization Developer Relationship Specialty Start Date End Date Ciara Tate MD [facility] [address] [place] [address] [phone] [place], [place] PCP - General 09/06/20
== END 2025-04-14 09:27 | disposition home or self-care (01) ==
LOC: HO.ENCR 08:50
PROVIDERS: PCP Internal Medicine; Visit Provider Dietitian, Registered
DX: E11.65 Type 2 diabetes mellitus with hyperglycemia (principal); Z79.4 Long term (current) use of insulin

== ENCOUNTER → 2025-04-14 08:50 | Outpatient (BNVA) | payer MEDICARE, SELFPAY | PROVIDERS: PCP Internal Medicine; Visit Provider Dietitian, Registered | DX: E11.65 Type 2 diabetes mellitus with hyperglycemia (principal); Z79.4 Long term (current) use of insulin | CPT/HCPCS: 97803 ==

== ENCOUNTER 2025-05-05 09:56 | Outpatient (AMB) | payer MEDICARE, SELFPAY ==
[2025-05-05 09:58] VITALS: BP 140/74; PULSE 69; O2SAT 97; BMI 21.6
--- NOTE | 2025-05-05 09:58 | MHC.OFFVIS ---
Vital Signs 05/05/25 09:58 Height 5 ft 4 in Weight 126 lb BMI 21.6 BP 140/74 H Blood Pressure Location Rt brachial Position Sitting Pulse 69 Pulse Source Pulse Oximeter Pulse Oximetry (%) 97 Oxygen Delivery Method Room Air Intake Visit Reasons: DM and hyperparathyroidism Intake Note: Patient present today for Type 2 Diabetes Mellitus and hyperparathyroidism. Last Diabetic eye exam: October 2024 Last Podiatry Visit: 05/04/2025 Random Glucose: 120 mg/dl HgA1C: 8.2% Acid Purification Equipment Operator Required: No Accompanied by: Self / Same As Patient Allergies No Known Allergies (No Known Allergies*) Allergy (Verified 05/05/25 10:05) Medication List - Last Reconciled 05/05/25 by Sandhya Roldan MD atorvastatin 80 mg PO BEDTIME blood-glucose sensor (FreeStyle Florina 3 Plus Sensor device) As directed every 14 days blood-glucose,antique refinisher,cont (FreeStyle Florina 3 [place]) As directed brinzolamide-brimonidine 1-0.2 % (Simbrinza) 1 drp ophthalmic-Right BID cholecalciferol (vitamin D3) 50 mcg PO DAILY cyanocobalamin (vitamin B-12) 500 mcg PO DAILY docusate sodium (Colace) 100 mg PO DAILY dulaglutide (Trulicity) INJECT 4.5MG (0.5ML) INTO THE SKIN ONCE WEEKLY empagliflozin (Jardiance) 25 mg PO DAILY flash glucose scanning reader (FreeStyle Florina 2 [place]) As directed flash glucose sensor (FreeStyle Florina 2 Sensor kit) CHANGE EVERY 14 DAYS iron,carbonyl-vitamin C 65 mg iron- 125 mg (Vitron-C) 1 tab PO DAILY metformin ER 500 mg PO BID pantoprazole 40 mg PO DAILY pen needle, diabetic (BD Ultra-Fine Mini Pen Needle) As directed pioglitazone 30 mg PO DAILY HPI Comments Details: 80 YO F with PMHx T2DM, HLD, HTN, CKD stage 3 who is s/p Gastric Sleeve procedure 09/16/2019 who is seen in F/U for T2DM, Hyperparathyroidism and also a thyroid nodule. . 1) T2DM: Initially diagnosed with T2DM at the age of 53 in when presented with a nonhealing wound on the upper extremity and blood sugar was found to be approximately 500 at that time. Previous treatment Was initially started on treatment with Metformin, but progressed to requiring insulin within 1 year. She had Bariatric surgery in 2019 and lost a significant amount of weight. Lantus stopped apr or May 2024 due to minimal requirement and low GFR Current regimen: Trulicity 4.5 mg once a week, Jardiance 25 mg daily Metformin 500 twice daily Actos 30 mg daily Freestyle Florina 3 report downloaded from April 22 to 05/05/2025 Time CGM out of 96% Average glucose 156 mg/dL G VT 7% Glucose variability 26.5% Within target range 77% High 19% Very high 4% Low 0% Very low 0% Interpretation: Blood sugar much improved now within target range overnight and fasting with still some postprandial hyperglycemia mostly after breakfast and lunch. No hypoglycemia noted. Weight stable past 3 months A1C: 7.4% 10/29/2023, . A1c 10/06/2024 POC: 8.7% 9.2 % November 2024 HgA1C: 8.7 % 01/23/25 a1c 8.2 % 05/05/25 Random Glucose: 120 mg/dl Does know the rule of 15's. Family history of T2DM in Mother, Father and Brother. Has eyes checked year with Dr. Rascon in [place]. Last eye exam 11/18 , ? retinopathy. Did have laser treatments in the past. has glaucoma get seen every 3-6 months., Denies any neuropathy. 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 Has nephropathy with CKD stage 3. following with nepphrology on jardiance 25 mg daily, no proteinuria , UAC Has HLD, atorvastatin 80 mg daily . LDL 69 in December 2024 Denies any known CAD or CHF. 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 She underwent FNA biopsy of her LLP 3.8 cm nodule 03/04/2020 with benign cytology. She denies any symptoms of hyper or hypothyroidism. She denies any compressive symptoms. She has monitored with surveillance ultrasounds. Most recent thyroid ultrasound done Most recent thyroid ultrasound November 2023 showed a multinodular goiter with a left mid dominant lobe nodule measuring 4.1 X 1.9 x 2.2 cm solid, isoechoic, with punctate echogenic foci, TR 4 category, which is stable in size compared to ultrasound in 2021 however this has significantly changed in size compared to ultrasound in 2019 when it was measuring 3.8 cm initially when the patient had the biopsy in 2019 and it was benign. 10/15/2024: Underwent FNA biopsy of the left mid lobe 4.1 cm nodule with benign cytology, Evergreen category 2. 3) Hypercalcemia with Hyperparathyroidism: She was noted to have intermittently high normal calcium and an inappropriately normal PTH. She underwent evaluation for hyperparathyroidism, which was biochemically consistent with this. DEXA checked 02/2022 was completely WNL Most recent labs from September 2024 showed normal calcium levels at 9.1, however PTH is elevated at 114. GFR at 28. Vitamin-D level normal at 51. 24 hour urine labs could not assess fractional excretion of calcium as urine calcium was very low. It also seem like an inappropriate collection due to low creatinine Vitamin-D intake: 2000 units daily Calcium intake: creamer in coffee, cottage cheese and yogurt, some whole milk here and there DEXA scan on 11/14/24 showed Normal bone density of the lumbar spine however decreased why 8.7% since 2021, osteopenia of the left total hip T-score of -1.4 with decrease of 11% compared to 2021, osteopenia of the left femoral neck with T-score of-1.4, with decrease of 16.3% compared to 202, normal bone density of the distal radius with T-score of 0.3, with a-6.2 decrease compared to 202. FRAX does not meet criteria for treatment. Physical exam General: sitting comfortably in no acute distress HEENT: normocephalic/atraumatic, Neck: supple, palpable 2 cm left-sided nodule Cardiac: normal heart sounds Pulm: normal breath sounds B/L, no added breath sounds Foot exam: 10/06/2024 Skin sloughing, nail thickening noted. Intact sensation to monofilament. Labs: Laboratory Tests 04/19/23 04/19/23 04/19/23 07:42 07:45 07:45 Sodium 140 Potassium 4.6 Creatinine 0.96 Estimated GFR 56 Hemoglobin A1c % 7.2 H Calcium 10.4 H D LDL Cholesterol Direct 25-OH Vitamin D Total 33.3 TSH 0.47 Free T4 0.94 Microalb/Creat Ratio 17.5 04/19/23 07:45 Sodium Potassium Creatinine Estimated GFR Hemoglobin A1c % Calcium LDL Cholesterol Direct 94 25-OH Vitamin D Total TSH Free T4 Microalb/Creat Ratio Laboratory Tests 04/19/23 10/29/23 02/01/24 07:42 08:29 08:16 Sodium Potassium BUN Creatinine Estimated GFR Triglycerides 115 Cholesterol 154 LDL Cholesterol, Calc 79 HDL Cholesterol 52 TSH 0.65 U Random Total Protein < 7 Urine Creatinine 45.50 76.95 Urine Microalbumin 8.0 Microalb/Creat Ratio 17.5 08/26/24 07:23 Sodium 138 Potassium 4.3 BUN 43 H Creatinine 1.74 H Estimated GFR 28 Triglycerides Cholesterol LDL Cholesterol, Calc HDL Cholesterol TSH U Random Total Protein Urine Creatinine Urine Microalbumin Microalb/Creat Ratio Laboratory Tests 04/19/23 10/29/23 10/23/24 07:42 08:29 09:50 Plt Count 233 BUN 43 H Creatinine 1.77 H Estimated GFR 28 Random Glucose 144 H Calcium 9.9 Phosphorus 3.8 AST 18 ALT 12 Alkaline Phosphatase 75 Albumin 4.4 Triglycerides 102 Cholesterol 162 LDL Cholesterol, Calc 86 HDL Cholesterol 56 Vitamin B12 429 25-OH Vitamin D Total 51.7 PTH Intact 114.6 H Urine Microalbumin 8.0 Microalb/Creat Ratio 17.5 10/27/24 09:24 Plt Count BUN Creatinine Estimated GFR Random Glucose Calcium 10.1 Phosphorus AST ALT Alkaline Phosphatase Albumin 4.2 Triglycerides Cholesterol LDL Cholesterol, Calc HDL Cholesterol Vitamin B12 25-OH Vitamin D Total PTH Intact Urine Microalbumin Microalb/Creat Ratio Laboratory Tests 10/23/24 10/27/24 09:50 08:00 TSH 0.37 Ur 24 Hour Volume 2200 Ur Creatinine mg/dL 33.72 Ur Creatinine 24 Hour 0.7 L Laboratory Tests 10/27/24 12/01/24 01/23/25 08:00 09:19 06:41 Sodium 141 Potassium 4.5 Creatinine 1.63 H 1.70 H Estimated GFR 31 29 Estimat Average Glucose 217 203 Hemoglobin A1c % 9.2 H 8.7 H Calcium 9.6 9.7 AST 17 ALT 18 Albumin 4.4 Triglycerides 45 Cholesterol 144 LDL Cholesterol, Calc 69 HDL Cholesterol 66 25-OH Vitamin D Total 59.0 PTH Intact 78.1 H Ur 24 Hour Volume 2200 Ur Creatinine mg/dL 33.72 Ur Creatinine 24 Hour 0.7 L US THYROID 12/18 CLINICAL INFORMATION: Nontoxic multinodular goiter. COMPARISON: Thyroid ultrasound 08/01/2022 and 07/26/2021. Ultrasound-guided thyroid biopsy 03/04/2020. TECHNIQUE: Linear transducer khan-scale and color Doppler examination with attention to the region of the thyroid. FINDINGS: SIZE: Measurements of the thyroid lobes and nodules are given in sagittal, anteroposterior and transverse dimensions respectively. Right Thyroid Lobe: 5.4 x 1.8 x 1.8 cm, volume 9.2 mL. Previously 4.9 x 2.1 x 1.5 cm, volume 8.0 mL. Parenchyma: The gland echotexture is homogeneous. Thyroid vascularity is normal. Left Thyroid Lobe: 6.2 x 2.3 x 2.4 cm, volume 17.9 mL. Previously 5.4 x 2.4 x 2.7 cm, volume 17.7 mL. Parenchyma: The gland echotexture is homogeneous. Thyroid vascularity is normal. Isthmus: 0.1 cm in maximum AP dimension. Previously 0.1 cm. Estimated total number of nodules greater than or equal to 1 cm: 1. Gardening Manager nodules are described as follows: 1. Location: Right mid. Size: 0.7 x 0.4 x 0.7 cm, volume 0.1 mL. Previously: 0.8 x 0.4 x 0.6 cm, volume 0.09 mL. Nodule characteristics: Composition: Solid/almost completely solid (2). Echogenicity: Isoechoic (1). Shape: Not taller than wide (0). Margins: Ill-defined (0). Echogenic Foci: None (0). ACR TI-RADS total points: 3 Previous: 3 ACR TI-RADS category: 3 Previous: 3 Significant change in size (>/= 20% in 2 dimensions and minimal increase of 2 mm or 50% or greater increase in volume): No Change in features: No Change in ACR TI-RADS risk category: No 2. Location: Right mid. Size: 0.8 x 0.4 x 0.6 cm, volume 0.09 mL. Previously: 0.7 x 0.4 x 0.5 cm, volume 0.08 mL. Nodule characteristics: Composition: Spongiform (0). Echogenicity: Anechoic (0). Shape: Not taller than wide (0). Margins: Smooth (0). Echogenic Foci: None (0). ACR TI-RADS total points: 0 Previous: 0 ACR TI-RADS category: 1 Previous: 1 Significant change in size (>/= 20% in 2 dimensions and minimal increase of 2 mm or 50% or greater increase in volume): No Change in features: No Change in ACR TI-RADS risk category: No 3. Location: Right mid. Size: 0.7 x 0.4 x 0.7 cm, volume 0.1 mL. Previously: 0.8 x 0.5 x 0.7 cm, volume 0.1 mL. Nodule characteristics: Composition: Solid (2). Echogenicity: Hypoechoic (2). Shape: Not taller than wide (0). Margins: Smooth (0). Echogenic Foci: None (0). ACR TI-RADS total points: 4 Previous: 3 ACR TI-RADS category: 4 Previous: 3 Significant change in size (>/= 20% in 2 dimensions and minimal increase of 2 mm or 50% or greater increase in volume): No Change in features: Yes Change in ACR TI-RADS risk category: Yes 4. Location: Left mid. Size: 4.1 x 1.9 x 2.2 cm, volume 9.0 mL. Previously: 4.4 x 1.9 x 2.4 cm, volume 10.0 mL. Nodule characteristics: Composition: Solid (2). Echogenicity: Isoechoic (1). Shape: Not taller than wide (0). Margins: Smooth (0). Echogenic Foci: Punctate echogenic foci (3). ACR TI-RADS total points: 6 Previous: 3 ACR TI-RADS category: 4 Previous: 3 Significant change in size (>/= 20% in 2 dimensions and minimal increase of 2 mm or 50% or greater increase in volume): No Change in features: No Change in ACR TI-RADS risk category: No NODES: No lymphadenopathy is seen in the tissue surrounding the thyroid gland. US/US thyroid IMPRESSION: 1. A 4.1 cm mid left thyroid TR 4 nodule meets ACR biopsy criteria and is amenable to ultrasound-guided biopsy. Please correlate with ultrasound biopsy results dated 03/04/2020. 2. There is an asymmetric goiter, left lobe greater than right. Thyroid US 08/01/2022 Right Thyroid Lobe: 4.9 x 2.1 x 1.5 cm, volume 8.0 mL. Previously 5.3 x 2.2 x 2.0 cm, volume 12.2 mL. Parenchyma: The gland echotexture is heterogeneous. Thyroid vascularity is increased. Left Thyroid Lobe: 5.4 x 2.4 x 2.7 cm, volume 17.7 mL. Previously 5.7 x 2.7 x 2.6 cm, volume 20.9 mL. Parenchyma: The gland echotexture is heterogeneous. Thyroid vascularity is increased. Isthmus: 0.1 cm in maximum AP dimension. Previously 0.2 cm. Estimated total number of nodules greater than or equal to 1 cm: 1. Gardening Manager nodules are described as follows: 1.? Location: Left mid pole. ?? ? Size: 4.4 x 1.9 x 2.4 cm, volume 10.0 mL. ?? ? Previously: 2.5 x 2.4 x 4.3 cm, volume 13.7 mL. ?? ? Nodule characteristics: ?? ? Composition: Solid/almost completely solid (2). ?? ? Echogenicity: Isoechoic (1). ?? ? Shape: Not taller than wide (0). ?? ? Margins: Smooth (0). ?? ? Echogenic Foci: Comet-tail artifacts (0). ?? ? ACR TI-RADS total points: 3 Previous: 3 ?? ? ACR TI-RADS category: 3 Previous: 3 ? Significant change in size (>/= 20% in 2 dimensions and minimal increase of 2 mm or 50% or greater increase in volume): No ?? ? Change in features: No ?? ? Change in ACR TI-RADS risk category: No 2.? Location: Right mid pole. ?? ? Size: 0.8 x 0.4 x 0.6 cm, volume 0.09 mL. ?? ? Previously: 0.6 x 0.5 x 0.7 cm, volume 0.1 mL. ?? ? Nodule characteristics: ?? ? Composition: Solid/almost completely solid (2). ?? ? Echogenicity: Isoechoic (1). ?? ? Shape: Not taller than wide (0). ?? ? Margins: Ill-defined (0). ?? ? Echogenic Foci: None (0). ?? ? ACR TI-RADS total points: 3 Previous: 3 ?? ? ACR TI-RADS category: 3 Previous: 3 ? Significant change in size (>/= 20% in 2 dimensions and minimal increase of 2 mm or 50% or greater increase in volume): No ?? ? Change in features: No ?? ? Change in ACR TI-RADS risk category: No 3.? Location: Right mid pole. ?? ? Size: 0.7 x 0.4 x 0.5 cm, volume 0.08 mL. ?? ? Previously: 0.7 x 0.5 x 0.7 cm, volume 0.2 mL. ?? ? Nodule characteristics: ?? ? Composition: Spongiform (0). ?? ? ACR TI-RADS total points: 0 Previous: 0 ?? ? ACR TI-RADS category: 1 Previous: 1 ? Significant change in size (>/= 20% in 2 dimensions and minimal increase of 2 mm or 50% or greater increase in volume): No ?? ? Change in features: No ?? ? Change in ACR TI-RADS risk category: No 4.? Location: Right mid pole. ?? ? Size: 0.8 x 0.5 x 0.7 cm, volume 0.1 mL. ?? ? Previously: Not measured previously. ?? ? Nodule characteristics: ?? ? Composition: Solid (2). ?? ? Echogenicity: Hypoechoic (2). ?? ? Shape: Not taller than wide (0). ?? ? Margins: Ill-defined (0). ?? ? Echogenic Foci: None (0). ?? ? ACR TI-RADS total points: 4 ?? ? ACR TI-RADS category: 4 ?? ? NODES: No lymphadenopathy is seen in the tissue surrounding the thyroid gland EXAMINATION: DXA BONE DENSITY EXTREMITY 11/14/24 HISTORY: Estrogen deficiency TECHNIQUE: [employer]Tax Dual energy absorptiometry (DEXA) of the lumbar spine, total left hip, femoral neck, and distal radius was performed. COMPARISON: Comparison is made with the prior examination dated 03/22/2022. FINDINGS: The bone mineral density of the lumbar spine is 1.233 with a T-score of 0.4, and a Z-score of 2.7. This is indicative of normal bone mineral density. This represents a BMD change of -8.7% compared to the prior exam. This is statistically significant. The bone mineral density of the left total hip is 0.835 with a T-score of -1.4, and a Z-score of 0.8. This is indicative of osteopenia. This represents a BMD change of -11.0% compared to the prior exam. This is statistically significant. The bone mineral density of the left femoral neck is 0.840 with a T-score of -1.4, and a Z-score of 0.9. This is indicative of osteopenia. This represents a BMD change of -16.3% compared to the prior exam. The bone mineral density of the distal radius is 0.902 with a T-score of 0.3, and a Z-score of 2.9. This is indicative of normal bone mineral density. This represents a BMD change of -6.2% compared to the prior exam. This is statistically significant. FRACTURE RISK: The FRAX index suggests a ten year probability of major osteoporotic fracture of 10.1%, and of hip fracture 2.5%. MM/XR DEXA appendicular skeleton IMPRESSION: Based on bone mineral density, and according to World Health Organization (WHO) criteria, the diagnosis is consistent with osteopenia. All bone density values are in grams per centimeter squared (g/cm2). Statistically, 68% of repeat scans fall within 1 SD (+/- 0.010 g/cm2 for AP spine L1-L4) and 1 SD (+/- 0.012 g/cm2 for femur total) FRAX is a trademark of the [employer] [place] [facility] Metabolic Bone Disease, a World Health Organization (WHO) Collaborating Center. Electronically signed by: Renato Logan MD 11/14/2024 09:41 AM EDT RP DEXA: 03/22/2022 FINDINGS: AP SPINE L1-L4: Current: BMD 1.350 g/cm2, Z-score 3.4, T-score 1.4, normal, 4.2% decrease from baseline (<5% change is not significant). Baseline: BMD 1.409 g/cm2. LEFT FOREARM RADIUS 33%: BMD 0.962 g/cm2, Z-score 3.3, T-score 1.0, normal, 2.1% decrease from baseline (<5% change is not significant). Baseline: BMD 0.983 g/cm2. LEFT FEMUR, NECK: Current: BMD 1.004 g/cm2, Z-score 1.8, T-score -0.2, normal. Baseline: BMD 1.052 g/cm2. LEFT FEMUR, TOTAL: Current: BMD 0.938 g/cm2, Z-score 1.4, T-score -0.6, normal, 11.2% decrease from baseline (<5% change is not significant). Baseline: BMD 1.056 g/cm2. [facility] Medical History Needle phobia Left breast mass Snoring Hypersomnolence Sleep apnea Intestinal malabsorption following gastrectomy Multinodular thyroid Hyperparathyroidism Vitamin D deficiency HLD (hyperlipidemia) HTN (hypertension) T2DM (type 2 diabetes mellitus) Malabsorption due to intolerance, not elsewhere classified Surgical History Hx of total knee replacement Hx of cataract surgery S/P laparoscopic sleeve gastrectomy Family History Father Cancer Diabetes Mother Diabetes Legally blind Social History Household Members: Spouse Alcohol intake: current Alcohol intake frequency: holidays/special occasions only Patient Tobacco Use Status: Former Tobacco user Tobacco use type: Cigarette Cigarette Packs Per Day: 2 Cigarettes Per Day: 40 Years Smoked: approx 25 Female Reproductive History Menstrual Age of Menarche: 10 Physical Exam Vital Signs: Last Vital Signs Pulse 69 05/05/25 09:58 BP 140/74 H 05/05/25 09:58 Pulse Ox 97 05/05/25 09:58 Oxygen Delivery Method Room Air 05/05/25 09:58 BMI result Body Mass Index 21.6 Office Procedures Glucose Monitoring Details Details: See [facility] [id number] - Glucose monitoring, continuous-physician I&R Procedure code (CPT) selection complete Results AMB Hemoglobin A1c AMB Hemoglobin A1c 8.2 % Last Edit by BANDAR Avalos on 05/05/25 10:17 Assessment & Plan Assessment & Plan (1) Multinodular thyroid: Code(s): E04.2 - Nontoxic multinodular goiter Category: Medical Plan: She underwent FNA biopsy of her LLP 3.8 cm nodule 03/04/2020 with benign cytology. She has monitored with surveillance ultrasounds. Most recent thyroid ultrasound done Most recent thyroid ultrasound November 2023 showed a multinodular goiter with a left mid dominant lobe nodule measuring 4.1 X 1.9 x 2.2 cm solid, isoechoic, with punctate echogenic foci, TR 4 category, which is stable in size compared to ultrasound in 2021 however this has significantly changed in size compared to ultrasound in 2019 when it was measuring 3.8 cm initially when the patient had the biopsy in 2019 and it was benign. 10/15/2024: Underwent FNA biopsy of the left mid 4.1 cm nodule with benign cytology, [place] category 2. TSH September 2024 normal at 0.37. 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 retinopathy. She was previously on insulin Lantus, however she was requiring a low dose so this was discontinued in fall 2023 especially given CKD. Most recent A1c POC 05/05/2025 8.2% down from December 2024 is 8.7%. She had an A1c in November 2024 which was 9.2%. So there is some improvement , CGM data downloaded shows overall significant improvement and her G VT is actually 7% She continues to have some dietary indiscretion but she is following with a chain pegger and does have some improved habits.. She is following with Nephrology for CKD. Weight has been stable. While switching her from Trulicity to Ozempic is also an option in the near future if she becomes hyperglycemic, s however she was very frustrated by the weight loss with Trulicity. Hence for now we will hold off on that. Plan: -continue pioglitazone to 30 mg daily -continue Jardiance 25 mg daily -continue metformin 500 mg twice daily -continue Trulicity 4.5 mg daily Follow up in 5 months -labs ordered to be done prior to next visit (3) Hyperparathyroidism: Code(s): E21.3 - Hyperparathyroidism, unspecified Category: Medical Plan: 79-year-old female also has a history of hyperparathyroidism with last bone density from 2021 was normal. She also has CKD stage 3, GFR in 20s. Most recent labs from September 2024 showed normal serum calcium levels around 9, normal vitamin-D of 51, GFR 28, PTH elevated at 114, I think her diagnosis is more consistent with normocalcemic hyperprathyrodiism given most recently normal calcium levels, then secondary hyperparathyroidism given calcium levels are on the higher end of normal. Bone density scan showed osteopenia of the hip, with normal bone density of the spine and forearm, however did show significant decrease compared to previous. FRAX does not meet criteria for treatment for now. Repeat bone density would be due in October 2026. 24 hour urine calcium levels done in October 2024 could not calculate fractional excretion of calcium because urine calcium levels were very low, in the seem like an adequate collection because her urine creatinine was also abnormal low.. Given her age and comorbidities she is not an excellent candidate for surgery Even though based on her low GFR, she would meet criteria for surgery. For now given calcium levels are not elevated, we will continue to keep an eye on this. If calcium levels go up of normal, can consider treatment with cinacalcet. Though this would not benefit her bones. Plan: -continue vitamin-D -continue weight-bearing exercise -continue to incorporate calcium intake through diet at least 1000 mg daily -next bone density would be due October 2026 -ordered blood work to be done prior to next visit in September 2025 (4) HLD (hyperlipidemia): Code(s): E78.5 - Hyperlipidemia, unspecified Category: Medical Qualifiers: Hyperlipidemia type: unspecified Qualified Code(s): E78.5 - Hyperlipidemia, unspecified Plan: LDL at 69 mg/dL December 2024 down from 82 mg/dL from September 2024, which is within goal of LDL less than 70 mg/dL. I had increased her atorvastatin to 80 mg daily in September 2024. Plan: -continue atorvastatin 80 mg daily (5) Needle phobia: Code(s): F40.298 - Other specified phobia Category: Medical Plan: Patient has needle phobia, hence we should continue her for CGM monitoring on the sensor. Plan I spent 30 minutes in reviewing the record, seeing the patient and documenting in the medical record. Orders: Orders AMB Hemoglobin A1c Today E11.65 - Type 2 diabetes mellitus with hyperglycemia, Z13.9 - Encounter for screening, unspecified, Z79.4 - pressurization mechanic (current) use of insulin Lipid Panel 09/28/25 E04.2 - Nontoxic multinodular goiter, E11.65 - Type 2 diabetes mellitus with hyperglycemia, E21.3 - Hyperparathyroidism, unspecified, E78.5 - Hyperlipidemia, unspecified, Z79.4 - detention (current) use of insulin Creatinine 09/28/25 E04.2 - Nontoxic multinodular goiter, E11.65 - Type 2 diabetes mellitus with hyperglycemia, E21.3 - Hyperparathyroidism, unspecified, E78.5 - Hyperlipidemia, unspecified, Z79.4 - detention (current) use of insulin Alanine Aminotransferase 09/28/25 E04.2 - Nontoxic multinodular goiter, E11.65 - Type 2 diabetes mellitus with hyperglycemia, E21.3 - Hyperparathyroidism, unspecified, E78.5 - Hyperlipidemia, unspecified, Z79.4 - pressurization mechanic (current) use of insulin Calcium 09/28/25 E04.2 - Nontoxic multinodular goiter, E11.65 - Type 2 diabetes mellitus with hyperglycemia, E21.3 - Hyperparathyroidism, unspecified, E78.5 - Hyperlipidemia, unspecified, Z79.4 - detention (current) use of insulin Vitamin D 25-OH Total 09/28/25 E04.2 - Nontoxic multinodular goiter, E11.65 - Type 2 diabetes mellitus with hyperglycemia, E21.3 - Hyperparathyroidism, unspecified, E78.5 - Hyperlipidemia, unspecified, Z79.4 - detention (current) use of insulin TSH reflex Free T4 09/28/25 E04.2 - Nontoxic multinodular goiter, E11.65 - Type 2 diabetes mellitus with hyperglycemia, E21.3 - Hyperparathyroidism, unspecified, E78.5 - Hyperlipidemia, unspecified, Z79.4 - detention (current) use of insulin AMB Glucose Monitoring Today E11.65 - Type 2 diabetes mellitus with hyperglycemia, Z79.4 - pressurization mechanic (current) use of insulin Microalbumin, Random (w Creat) 09/28/25 E04.2 - Nontoxic multinodular goiter, E11.65 - Type 2 diabetes mellitus with hyperglycemia, E21.3 - Hyperparathyroidism, unspecified, E78.5 - Hyperlipidemia, unspecified, Z79.4 - detention (current) use of insulin Hemoglobin A1c 09/28/25 E04.2 - Nontoxic multinodular goiter, E11.65 - Type 2 diabetes mellitus with hyperglycemia, E21.3 - Hyperparathyroidism, unspecified, E78.5 - Hyperlipidemia, unspecified, Z79.4 - detention (current) use of insulin Complete Blood Count no Diff 09/28/25 E04.2 - Nontoxic multinodular goiter, E11.65 - Type 2 diabetes mellitus with hyperglycemia, E21.3 - Hyperparathyroidism, unspecified, E78.5 - Hyperlipidemia, unspecified, Z79.4 - pressurization mechanic (current) use of insulin Aspartate Amino Transferase 09/28/25 E04.2 - Nontoxic multinodular goiter, E11.65 - Type 2 diabetes mellitus with hyperglycemia, E21.3 - Hyperparathyroidism, unspecified, E78.5 - Hyperlipidemia, unspecified, Z79.4 - pressurization mechanic (current) use of insulin Albumin Level 09/28/25 E04.2 - Nontoxic multinodular goiter, E11.65 - Type 2 diabetes mellitus with hyperglycemia, E21.3 - Hyperparathyroidism, unspecified, E78.5 - Hyperlipidemia, unspecified, Z79.4 - detention (current) use of insulin Phosphorus 09/28/25 E04.2 - Nontoxic multinodular goiter, E11.65 - Type 2 diabetes mellitus with hyperglycemia, E21.3 - Hyperparathyroidism, unspecified, E78.5 - Hyperlipidemia, unspecified, Z79.4 - detention (current) use of insulin Parathyroid Hormone Intact 09/28/25 E04.2 - Nontoxic multinodular goiter, E11.65 - Type 2 diabetes mellitus with hyperglycemia, E21.3 - Hyperparathyroidism, unspecified, E78.5 - Hyperlipidemia, unspecified, Z79.4 - detention (current) use of insulin Patient Instructions: continue pioglitazone to 30 mg daily -continue Jardiance 25 mg daily -continue metformin 500 mg twice daily -continue Trulicity 4.5 mg daily Do ultrasound of the thyroid in beginning of Sep 2025, someone should call you to schedule this, if not please call ultrasound yourself Do fasting blood work and urine test 1-2 weeks before next appointment Coding Level of Care Code Est Pt Level 4 (21944) Diagnoses Multinodular thyroid E04.2 Type 2 diabetes mellitus with hyperglycemia, with long-term current use of insulin E11.65; Z79.4 Diabetes mellitus complication status: with hyperglycemia Diabetes mellitus radiation control health physicist insulin use: with radiation control health physicist use Hyperparathyroidism E21.3 Hyperlipidemia, unspecified hyperlipidemia type E78.5 Hyperlipidemia type: unspecified Needle phobia F40.298 CPT Codes Details - CPT: 64447 - Glucose monitoring, continuous-physician I&R ([id number]) Time Spent (min) 30
--- OUTSIDE RECORDS SUMMARY | 2025-05-05 11:40 | XMS_ITS | Clinical Summary ---
Author Organization [facility] Facility Address [address] [place] [address], [place] [address] Care Team Providers Care Coal Chemist Name Role Phone Ciara Tate MD Primary [...] to complete this topic Insurance Care Teams Coal Chemist Relationship Specialty Start Date End Date Ciara Tate MD [facility] [address] [place] [address] [address] [place], [place] PCP - General 09/06/20
[2025-05-05 11:45] LABS: Glucose, Whole Blood 120 mg/dL (60-115)
== END 2025-05-05 10:29 | disposition home or self-care (01) ==
LOC: HO.ENCR 09:56
PROVIDERS: PCP Internal Medicine; Visit Provider Student in an Organized Health Care Education/Training Program
DX: E04.2 Nontoxic multinodular goiter (principal); E11.65 Type 2 diabetes mellitus with hyperglycemia; Z79.4 Long term (current) use of insulin; E21.3 Hyperparathyroidism, unspecified; E78.5 Hyperlipidemia, unspecified; F40.298 Other specified phobia; Z13.9 Encounter for screening, unspecified
CPT/HCPCS: 95251; 99214

== ENCOUNTER → 2025-05-05 09:56 | Outpatient (BNVA) | payer MEDICARE, SELFPAY | PROVIDERS: PCP Internal Medicine; Visit Provider Student in an Organized Health Care Education/Training Program | DX: E04.2 Nontoxic multinodular goiter (principal); E11.65 Type 2 diabetes mellitus with hyperglycemia; Z79.4 Long term (current) use of insulin; E21.3 Hyperparathyroidism, unspecified; E78.5 Hyperlipidemia, unspecified; F40.298 Other specified phobia; N18.30 Chronic kidney disease, stage 3 unspecified; Z98.84 Bariatric surgery status | CPT/HCPCS: 82947; 83036; 99212 ==

== ENCOUNTER 2025-06-30 10:54 | Outpatient (AMB) | payer MEDICARE, SELFPAY ==
--- NOTE | 2025-06-30 11:37 | A.OFFVIS_ITS ---
Intake Intake Visit Reasons: 60 mins Antisubmarine Weapons Officer Required: No Accompanied by: Self / Same As Patient Allergies No Known Allergies (No Known Allergies*) Allergy (Verified 05/05/25 10:05) HPI Comprehensive Diabetes Asmnt Most Recent Diabetes Results: 2 Hemoglobin A1c 9.3 % 04/28/20 Microalb/Creat Ratio, (<30) 17.5 ug/mg cr 04/19/23 Cholesterol, (<200) 144 mg/dL 01/23/25 HDL Cholesterol, (>40) 66 mg/dL 01/23/25 Triglycerides, (<150) 45 mg/dL 01/23/25 Creatinine, (0.5-1.4) 1.53 mg/dL H 03/04/25 BUN, (9-16) 42 mg/dL H 03/04/25 Sodium, (135-145) 137 mmol/L 03/04/25 Potassium, (3.3-5.1) 4.7 mmol/L 03/04/25 Chloride, (96-108) 106 mmol/L 03/04/25 Carbon Dioxide, (22-29) 25 mmol/L 03/04/25 Calcium, (8.4-10.2) 9.6 mg/dL 03/04/25 AST, (5-31) 17 U/L 01/23/25 ALT, (0-31) 18 U/L 01/23/25 Total Protein, (6.5-8.0) 6.8 g/dL 01/23/25 Albumin, (3.5-5.0) 4.4 g/dL 01/23/25 [facility] Medical History Needle phobia Left breast mass Snoring Hypersomnolence Sleep apnea Intestinal malabsorption following gastrectomy Multinodular thyroid Hyperparathyroidism Vitamin D deficiency HLD (hyperlipidemia) HTN (hypertension) T2DM (type 2 diabetes mellitus) Malabsorption due to intolerance, not elsewhere classified Surgical History Hx of total knee replacement Hx of cataract surgery S/P laparoscopic sleeve gastrectomy Family History Father Cancer Diabetes Mother Diabetes Legally blind Social History Household Members: Spouse Alcohol intake: current Alcohol intake frequency: holidays/special occasions only Patient Tobacco Use Status: Former Tobacco user Tobacco use type: Cigarette Cigarette Packs Per Day: 2 Cigarettes Per Day: 40 Years Smoked: approx 25 Female Reproductive History Menstrual Age of Menarche: 10 Assessment & Plan Assessment & Plan (1) T2DM (type 2 diabetes mellitus): Code(s): E11.9 - Type 2 diabetes mellitus without complications Qualifiers: Diabetes mellitus terminal make up operator insulin use: with penitentiary use Diabetes mellitus complication status: with hyperglycemia Qualified Code(s): E11.65 - Type 2 diabetes mellitus with hyperglycemia; Z79.4 - termite control technician (current) use of insulin Plan: Diabetes self-management education and support participation record Assessment/scale: 1= needs instructed? 2= needs review? 3= comprehend keep point? 4= demonstrates understanding/ competent? NC= Not Covered Topics Learning Objective: Initial visit Initial or post srvc Initial or post srvc Initial or post srvc Initial or post srvc Initial or post srvc Post srvc Comments Pre Edu-assessment/plan Outcome or reassess O utcome or reassess Outcome or reassess Outcome or reassess Outcome or reassess Outcome or reassess Diabetes pathophysiology 1 3 Healthy eating 2 3 Being active 2 3 Taking medication 1 3 Monitoring glucose 2 3 Acute complication 1 3 Chronic complicated 1 3 Lifestyle and healthy coping 1 3 Diabetes distress in support 1 3 ?Diabetes pathophysiology: ?Defined diabetes med identify own type of diabetes; list 3 options for treating diabetes Healthy eating: ?Described effect of type, amount and ?timing of food on blood glucose; list 3 methods for planning meal Being active: ?State effect of exercise on blood glucose level Taking medication: ?State effect of diabetes medications on diabetes; name diabetes medications taking, action and side effects Monitoring glucose: ?Identify recommended blood glucose targets and personal target Acute complication: ?List symptoms and treatment of hyper and hypoglycemia, DKA, sick day guidelines and guidelines for severe weather or situations of crisis and diabetes supply manage Chronic complication: ?To find the relationship of blood glucose levels to long- term complications of diabetes in screening and preventative measures Lifestyle and healthy coping: ?Described lifestyle and healthy coping strategies to rule out diabetes self-management Diabetes to stress and support: ?Recognize Diabetes to stress and be able to identified support options Personal Continuous Glucose Monitor: Patients CGM information reviewed, Patient's last A1c on 05/05/2025 8.2% Patient is resistant to changing diabetes medications at this time Patient also reports her has been having some health issues which has caused stress at home. She has been eating higher carb snacks and foods. Reviewed with patient target goals for glucose Exercise Medical clearance Effect of exercise on blood sugar Start slowly and gradually increase pace/duration over time Goal amount of exercise Patient reports she is physically active around the house, and tries to exercise daily Diabetes Complications: ?Nephropathy :Kidney Disease ?diabetes can damage the kidneys, which is not only can cause them to fail but can make them lose their ability to filter waste from the blood? ?Retinopathy: Eye complications ?Retinopathy? is the commonest long-term complication of diabetes. It is leading cause of blindness Besides, Retinopathy- People with diabetes? are also prone to cataract and Glaucoma. ?Neuropathy: Nerve damage -It involves temporary or permanent damage to nerve tissue. Nerve tissue gets injured mainly due to decreased blood flow and rise in blood glucose levels. This damage can lead to pain , or loss of sensation it can also include sexual dysfunction in both men and women ? Infections poor healing: People with diabetes? have increased susceptibility to various infections, such as? pneumonias, pyelonephritis, carbuncles and diabetic ulcers. This may be due to poor blood supply, reduced cellular immunity or hyperglycemia. ?Heart Disease And Stroke: People with diabetes are four times more prone to develop Heart disease than those who do not have diabetes ?Depression: Feeling down once in awhile is normal, but some people feel sadness that just won't go away. Life for them seems hopeless. Feeling this way most of the day for two weeks or more is a sign of serious depression ?Gum Disease: People get gum disease when plaque destroys the gums and bone around the teeth. People with diabetes can get gum disease from having high blood glucose levels for a long time Lifestyle Discuss the effects that stress can have on blood glucose as well * Work * Travel * Stress management * Problem solving Know your goals * A1C * Blood sugar targets * Blood pressure * Cholesterol/LDLUrine microalbumin Smart Goal Assessment: Add resistance exercises to exercise routine Pt met goal less than 25% Patient able to insert sensor independently at home without issue.? Portions of this note were created using voice recognition software, please excuse any words or phrases that may have been misinterpreted. Patient Instructions: Patient will follow-up with diabetes education nurse in 5 months after visit with Dr. Roldan Coding Level of Care Code Est Pt Level 1 (42120) Diagnoses Type 2 diabetes mellitus with hyperglycemia, with long-term current use of insulin E11.65; Z79.4 Diabetes mellitus terminal make up operator insulin use: with terminal make up operator use Diabetes mellitus complication status: with hyperglycemia
--- OUTSIDE RECORDS SUMMARY | 2025-06-30 13:10 | XMS_ITS | Clinical Summary ---
Author Organization [facility] Facility Address [address] [place] [address], [place] [address] Care Team Providers Care Gear Machinist Name Role Phone Ciara Tate MD Primary [...] to complete this topic Insurance Care Teams Gear Machinist Relationship Specialty Start Date End Date Ciara Tate MD [facility] [address] [place] [address] [phone] [place], [place] PCP - General 09/06/20
== END 2025-06-30 11:45 | disposition home or self-care (01) ==
LOC: HO.ENCR 10:54
PROVIDERS: PCP Internal Medicine; Visit Provider Registered Nurse Diabetes Educator
DX: E11.65 Type 2 diabetes mellitus with hyperglycemia (principal); Z79.4 Long term (current) use of insulin

== ENCOUNTER → 2025-06-30 10:54 | Outpatient (BNVA) | payer MEDICARE, SELFPAY | PROVIDERS: PCP Internal Medicine; Visit Provider Registered Nurse Diabetes Educator | DX: E11.65 Type 2 diabetes mellitus with hyperglycemia (principal); Z79.4 Long term (current) use of insulin | CPT/HCPCS: 99211 ==

== ENCOUNTER 2025-07-08 10:57 | Outpatient (REF) | payer MEDICARE, SELFPAY ==
[2025-07-08 12:59] LABS: Anion Gap 11 (12-20); Blood Urea Nitrogen 30 mg/dL (9-16); Carbon Dioxide 27 mmol/L (22-29); Chloride 106 mmol/L (96-108); Estimated Glomerular Filt Rate 28; Potassium 4.5 mmol/L (3.3-5.1); Sodium 139 mmol/L (135-145)
--- OUTSIDE RECORDS SUMMARY | 2025-07-08 13:28 | XMS_ITS | Clinical Summary ---
Author Organization [facility] Facility Address [address] [place] [address], [place] [address] Care Team Providers Care Field Staff Manager Name Role Phone Ciara Tate MD Primary [...] to complete this topic Insurance Care Teams Field Staff Manager Relationship Specialty Start Date End Date Ciara Tate MD [facility] [address] [place] [address] [address] [place], [place] PCP - General 09/06/20
== END 2025-07-08 10:58 | disposition home or self-care (01) ==
LOC: HO.LAB 10:57
PROVIDERS: PCP Internal Medicine; Visit Provider Internal Medicine Nephrology
DX: I12.9 Hypertensive chronic kidney disease with stage 1 through stage 4 chronic kidney disease, or unspecified chronic kidney disease (principal); N18.31 Chronic kidney disease, stage 3a; N28.1 Cyst of kidney, acquired
CPT/HCPCS: 36415; 80051; 82565; 84520

== ENCOUNTER 2025-07-10 09:31 | Outpatient (AMB) | payer MEDICARE, SELFPAY ==
--- NOTE | 2025-07-10 09:33 | HO.NEPHOV ---
Vital Signs 07/10/25 09:36 Height 5 ft 4 in Weight 129 lb BMI 22.1 BP 110/50 L Blood Pressure Location Lt brachial Position Sitting Intake Visit Reasons: 3mon follow-up w/labs-Conf Anchorman Required: No Accompanied by: Self / Same As Patient Allergies No Known Allergies (No Known Allergies*) Allergy (Verified 07/10/25 09:36) HPI Comments Details: Lashay was seen in follow up for renal cysts, CKD and hypertension on a backdrop of diabetes mellitus. She has diabetes for a long time but has no proteinuria. She had laser treatment to the eye and closely follows up with ophthalmology. She had been off lantus and but on Trulicity along with metformin & Jardiance. Her hemoglobin A1c has gone up . She had undergone gastric sleeve surgery in the past. She denies any coronary artery disease, carotid stenosis, CVA, CHF, peripheral arterial disease or renal artery stenosis. She has dyslipidemia and is on statins which she is tolerating well. She denies any chest pain, shortness of breath, paroxysmal nocturnal dyspnea, orthopnea, pedal edema, hematuria or orthostatic symptoms [facility] Medical History Needle phobia Left breast mass Snoring Hypersomnolence Sleep apnea Intestinal malabsorption following gastrectomy Multinodular thyroid Hyperparathyroidism Vitamin D deficiency HLD (hyperlipidemia) HTN (hypertension) T2DM (type 2 diabetes mellitus) Malabsorption due to intolerance, not elsewhere classified Surgical History Hx of total knee replacement Hx of cataract surgery S/P laparoscopic sleeve gastrectomy Family History Father Cancer Diabetes Mother Diabetes Legally blind Social History Household Members: Spouse Alcohol intake: current Alcohol intake frequency: holidays/special occasions only Patient Tobacco Use Status: Former Tobacco user Tobacco use type: Cigarette Cigarette Packs Per Day: 2 Cigarettes Per Day: 40 Years Smoked: approx 25 Female Reproductive History Menstrual Age of Menarche: 10 Review of Systems Const All systems reviewed & are unremarkable except as noted in HPI and below Physical Exam Vital Signs: Last Vital Signs BP 110/50 L 07/10/25 09:36 BMI result Body Mass Index 22.1 Const General: comfortable and no acute distress Orientation/consciousness: patient oriented x3 HEENT Head: Yes normocephalic Mouth: Normal oral and palatal mucosa present Eyes EOM: EOMs intact bilaterally Neck Neck: Yes supple Resp Auscultation: clear to auscultation bilaterally Cardio Jugular venous distension: no JVD Rate: regular rate GI Palpation (GI): Soft to palpation Auscultation: normal bowel sounds General: Yes no CVA tenderness Back/Spine/Pelvis Back: no CVA tenderness Skin General skin exam: no rashes or lesions noted Neuro General: patient oriented x3 and moves all extremities Extrem General: Yes no pedal edema Results Reviewed Nephrology Results: Sodium, (135-145) 139 mmol/L 07/08/25 Potassium, (3.3-5.1) 4.5 mmol/L 07/08/25 Chloride, (96-108) 106 mmol/L 07/08/25 Carbon Dioxide, (22-29) 27 mmol/L 07/08/25 BUN, (9-16) 30 mg/dL H 07/08/25 Creatinine, (0.5-1.4) 1.75 mg/dL H 07/08/25 Calcium, (8.4-10.2) 9.6 mg/dL 03/04/25 Assessment & Plan Assessment & Plan (1) HTN (hypertension): Code(s): I10 - Essential (primary) hypertension Category: Medical Qualifiers: Hypertension type: unspecified Qualified Code(s): I10 - Essential (primary) hypertension (2) CKD (chronic kidney disease) stage 3, GFR 30-59 ml/min: Code(s): N18.30 - Chronic kidney disease, stage 3 unspecified Category: Medical Qualifiers: Chronic kidney disease stage 3 subtype: stage 3a (GFR 45-59) Qualified Code(s): N18.31 - Chronic kidney disease, stage 3a (3) Renal cyst: Code(s): N28.1 - Cyst of kidney, acquired Category: Medical Plan 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 Her ACEI had been put on hold. She has renal cysts for which I shall arrange MRI of the kidney with gadolinium, in the future, if it has not done already. She does not have any proteinuria. She should continue Jardiance 25 mg daily. Her blood pressure is at goal. She has been on PPI for a long time. It is unlikely that it is contributing to her CKD. I did not make any medication changes today. All these have been discussed in detail and I had the opportunity to answer all her questions. Follow-up appointment given Orders: Orders Protein Creatinine Ratio, Ur 3 Months I10 - Essential (primary) hypertension, N18.31 - Chronic kidney disease, stage 3a, N28.1 - Cyst of kidney, acquired Creatinine 3 Months I10 - Essential (primary) hypertension, N18.31 - Chronic kidney disease, stage 3a, N28.1 - Cyst of kidney, acquired Blood Urea Nitrogen 3 Months I10 - Essential (primary) hypertension, N18.31 - Chronic kidney disease, stage 3a, N28.1 - Cyst of kidney, acquired Electrolytes 3 Months I10 - Essential (primary) hypertension, N18.31 - Chronic kidney disease, stage 3a, N28.1 - Cyst of kidney, acquired Coding Level of Care Code Est Pt Level 4 (75768) Diagnoses Hypertension, unspecified type I10 Hypertension type: unspecified Stage 3a chronic kidney disease N18.31 Chronic kidney disease stage 3 subtype: stage 3a (GFR 45-59) Renal cyst N28.1
[2025-07-10 09:36] VITALS: BP 110/50; BMI 22.1
--- OUTSIDE RECORDS SUMMARY | 2025-07-10 10:31 | XMS_ITS | Clinical Summary ---
Author Organization [facility] Facility Address [address] [place] [address], [place] [address] Care Team Providers Care Hot Dipper Name Role Phone Ciara Tate MD Primary [...] to complete this topic Insurance Care Teams Hot Dipper Relationship Specialty Start Date End Date Ciara Tate MD [facility] [address] [place] [address] [address] [place], [place] PCP - General 09/06/20
== END 2025-07-10 10:06 | disposition home or self-care (01) ==
LOC: HO.HKA 09:31
PROVIDERS: PCP Internal Medicine; Visit Provider Internal Medicine Nephrology
DX: I10 Essential (primary) hypertension (principal); N18.31 Chronic kidney disease, stage 3a; N28.1 Cyst of kidney, acquired
CPT/HCPCS: 99214

== ENCOUNTER → 2025-07-10 09:31 | Outpatient (BNVA) | payer MEDICARE, SELFPAY | PROVIDERS: PCP Internal Medicine; Visit Provider Internal Medicine Nephrology | DX: I10 Essential (primary) hypertension (principal); N18.31 Chronic kidney disease, stage 3a; N28.1 Cyst of kidney, acquired | CPT/HCPCS: 99212 ==